=== PATIENT | female | born 1945 ===

== ENCOUNTER 2020-07-25 08:51 | Outpatient (REF) | payer MEDICARE, SELFPAY ==
--- NOTE | 2020-07-25 08:58 | MR_ITS ---
MR THORACIC SPINE WITHOUT CONTRAST CLINICAL INFORMATION: Low back pain. Fatigue. COMPARISON: None available. TECHNIQUE: MRI of the thoracic spine was obtained using routine sequences without contrast. FINDINGS: There are 12 rib bearing thoracic type vertebral bodies with hypoplastic ribs arising from the lowermost thoracic type segment. There is a midthoracic kyphosis. There are large multilevel endplate osteophytes. The vertebral body heights are maintained. There is mild to moderate disc volume loss at the upper to midthoracic levels. There are mild Modic type I endplate signal at T4-T5. Accounting for artifact there is no definite cord signal abnormality. There is a left renal cyst. There are small paracentral disc protrusions at T1-T2, T2-T3, T3-T4, T4-T5, T5-T6, T8-T9, T9-T10, and T10-T11 mildly indents the ventral thecal sac at these levels without resulting in significant central canal stenosis. Disc osteophyte and facet arthropathy result in severe right-sided foraminal stenosis at T10-T11. IMPRESSION: Multilevel thoracic spondylosis and midthoracic kyphosis. There are large multilevel anterior and plate osteophytes throughout the thoracic spine. Disc osteophyte and facet arthropathy result in severe right-sided foraminal stenosis at T10-T11. No severe central canal stenosis within the thoracic spine. No thoracic cord compression. No definite cord signal abnormalities appreciated though assessment is limited by the degree of artifact.
== END 2020-07-25 08:52 | disposition home or self-care (01) ==
LOC: HO.MRI 08:51
PROVIDERS: Visit Provider Nurse Practitioner Primary Care
DX: M54.6 Pain in thoracic spine (principal); M54.5 Low back pain; R53.83 Other fatigue; Z86.12 Personal history of poliomyelitis
CPT/HCPCS: 72146

== ENCOUNTER 2020-09-09 10:43 | Outpatient (RCR) | payer MEDICARE, SELFPAY | END 2020-09-15 16:22 | disposition other institution (70) | LOC: HO.PT 10:43 | PROVIDERS: PCP Nurse Practitioner Primary Care; Visit Provider Nurse Practitioner Primary Care | DX: R42 Dizziness and giddiness (principal) | CPT/HCPCS: 97162 ==

== ENCOUNTER → 2020-11-05 12:44 | Outpatient (REF) | payer MEDICARE, SELFPAY ==
--- NOTE | 2020-11-05 13:00 | CA_ITS ---
Transthoracic Echocardiogram Patient (Last, First, Middle): Nia Back, Gender: Female Date of : 1945 Age: 75 Procedure Date: 11/05/2020 Procedure Type: Transthoracic Echocardiogram Location: OP Height: 160.02 cm Weight: 68.04 kg BSA: 1.71 m2 Heart Rate: bpm BP: 140 / 90 mmHg Hand Icer: NAHUN Referring MD: Eileen Hampton NP Academic Computing Director: Ascencion Arnold MD Symptoms: R55 SYNCOPE COLLAPSE, I10 HTN Study Quality: Good ECG Rhythm: Sinus Conclusions: - 1. Normal LV systolic function with grade 1 diastolic dysfunction 2. Normal cardiac valvular Dopplers 3. Normal RV systolic pressure 4. No pericardial effusion Findings Left Ventricle Normal left ventricular size, thickness, and systolic function. The visually estimated ejection fraction is between 60-65%. Spectral Doppler is indicative of an impaired relaxation filling pattern. E/E prime ratio is <8, consistent with normal filling pressures. Evidence suggests grade I (mild) diastolic dysfunction. Right Ventricle Normal right ventricular cavity size and systolic function. Atria Both atria are normal in size. Interatrial shunt cannot be excluded. Aortic Valve The aortic valve structure and function is likely normal. There is no aortic valve stenosis. There is no aortic valve regurgitation. Mitral Valve Normal mitral valve structure and function. There is trace mitral valve regurgitation. There is no mitral valve stenosis. Pulmonic Valve The pulmonic valve was not well visualized. Tricuspid Valve Likely normal tricuspid valve structure and function. There is trace tricuspid valve regurgitation. The right ventricular systolic pressure is normal. The right ventricular systolic pressure is 23 mmHg. Normal right atrial pressure. There is no evidence of pulmonary hypertension. Great Vessels All visible segments of the aorta are normal in size. The pulmonary artery was not well visualized. Venous The inferior vena cava is normal in size and collapses greater than 50% with inspiration. Pericardium/Pleural There is no evidence of pericardial effusion. Prior Study Comparison No prior study available for comparison. Measurements 2D Linear Measurements IVSd: 0.86 0.6-0.9/0.6-1.0 cm LVIDd: 3.05 3.9-5.3/4.2-5.9 cm LVIDd Index: 1.78 2.4-3.2/2.2-3.1 cm/m2 LVIDs: 1.99 2.0-3.6 cm LVPWd: 0.88 0.7-1.1 cm Ao Root: 3.10 2.1-3.5 cm LA Diam: 2.40 2.7-3.8/3.0-4.0 cm LAIDs Index: 1.40 1.5-2.3 cm/m2 LV Mass: 84.93 67-162/88-224 g LV Mass Index: 49.67 43-95/49-115 g/m2 LVOT Diam: 2.00 3.0+(-)1.3 cm 2D Systolic Function EF 4C: 62.30 >55% EF 2C: 51.50 >55% EF BiP: 57.80 >55% Mitral Valve MV Pk E: 0.67 MV PK A: 0.69 MV Decel Time: 334.00 E/A: 1.00 E'Lateral: 7.72 E'Medial: 6.09 E/E' Med: 11.10 E/E' Lat: 8.70 PHT: 98.00 MVA PHT: 2.24 Decel [place]: 2.02 Aortic Valve AoV Pk [place]: 1.39 AoV Mn [place]: 0.96 AoV VTI: 0.28 AoV Pk Grad: 8.00 Aov Mn Grad: 4.00 JATINDER Cont.VTI: 2.93 LVOT LVOT Pk [place]: 1.26 LVOT Mn [place]: 0.94 LVOT VTI: 0.26 LVOT Pk Grad: 6.00 LVOT Mn Grad: 4.00 LVOT Diam: 2.00 LVOT Area: 3.14 Diastolic Function MV Pk E: 0.67 MV Pk A: 0.69 E/A: 1.00 E'Medial: 6.09 E/E' Med: 11.10 E' Laterial: 7.72 E/E' Lat: 8.70 Tricuspid Valve TR Pk [place]: 2.23 TR Pk Grad: 20.00 RA Press: 3.00 RVSP: 23.00 Great Vessels Aorta Ao Root-2D: 3.10 2.0-3.7 cm Ao Asc: 3.50 2.1-3.4 cm Ao Arch: 2.50 Updated in Other Vendor System with Status of Final Ascencion Arnold MD electronically signed on 11/06/2020 12:08:09 PM with status of Final
== END ==
LOC: HO.CARD 12:44
PROVIDERS: Visit Provider Nurse Practitioner Primary Care
DX: R55 Syncope and collapse (principal); I10 Essential (primary) hypertension
CPT/HCPCS: 93306

== ENCOUNTER 2021-01-28 10:57 | Outpatient (REF) | payer MEDICARE, SELFPAY ==
--- NOTE | ~2021-01-28 | XR_ITS ---
EXAMINATION: XR CHEST CLINICAL INFORMATION: ENCOUNTER FOR OTHER PREPROCEDURAL EXAMINATION COMPARISON: None. TECHNIQUE: PA and lateral views of the chest were obtained. FINDINGS: Pleural parenchymal scarring is evident at the left lung apex. An eventration is evident at the right hemidiaphragm. Lungs are otherwise clear. No consolidation, pneumothorax, or pleural effusion. Cardiac and mediastinal contours are normal. Pulmonary vasculature is unremarkable. Trachea is midline. Mild to moderate degenerative disc disease in the thoracic spine. No acute osseous findings. XR/XR chest 2V IMPRESSION: No acute parenchymal findings. Clear lungs.
[2021-01-28 12:05] LABS: MANUAL DIFF FLAG NO
[2021-01-28 12:13] LABS: Basophils Absolute Auto 0.1 X10*3/uL (0.0-0.2); Basophils Percent Auto 0.8 % (0-2); Eosinophils Absolute Auto 0.2 X10*3/uL (0.0-0.4); Eosinophils Percent Auto 2.6 % (0-4); Hematocrit 40.3 % (37-47); Imm Gran Abs Auto 0.05 X10*3/uL (0.00-0.03); Imm Gran Pct Auto 0.6 % (0.0-0.4); Lymphocytes Absolute Auto 1.8 X10*3/uL (1.2-4.9); Lymphocytes Percent Auto 20.6 % (20-40); Mean Corpuscular HGB Conc 32.3 g/dl (31.0-35.0); Mean Corpuscular Hemoglobin 29.1 pg (27.0-33.0); Mean Corpuscular Volume 90.2 fL (80-98); Mean Platelet Volume 9.9 fL (9.4-12.3); Monocytes Absolute Auto 0.7 X10*3/uL (0.1-1.2); Monocytes Percent Auto 8.3 % (2-11); Neutrophils Absolute Auto 5.9 X10*3/uL (2.0-8.3); Neutrophils Percent Auto 67.1 % (45-73); Platelet Count 333 X10*3/uL (160-400); Red Blood Count 4.47 X10*6/uL (4.20-5.50); Red Cell Distribution Width 13.4 % (11.0-16.0); White Blood Count 8.8 X10*3/uL (4.8-10.8)
[2021-01-28 12:32] LABS: INTERNATIONAL NORM RATIO 1.1 (0.9-1.1)
[2021-01-28 12:36] LABS: Alanine Aminotransferase 12 U/L (0-31); Albumin Level 4.3 g/dL (3.5-5.0); Alkaline Phosphatase 98 U/L (39-117); Anion Gap 16 (12-20); Aspartate Amino Transferase 16 U/L (5-31); Bilirubin Total 0.7 mg/dL (0.0-1.0); Blood Urea Nitrogen 16 mg/dL (9-16); Calcium 9.7 mg/dL (8.4-10.2); Carbon Dioxide 26 mmol/L (22-29); Chloride 103 mmol/L (96-108); Estimated Glomerular Filt Rate > 60; Glucose Random 87 mg/dL (60-115); Potassium 4.2 mmol/L (3.3-5.1); Sodium 141 mmol/L (135-145)
[2021-01-28 12:45] LABS: Estimated Average Glucose 100 mg/dL; Hemoglobin A1c % 5.1 %
== END 2021-01-28 10:58 | disposition home or self-care (01) ==
LOC: HO.LAB 10:57
PROVIDERS: PCP Internal Medicine; Visit Provider Internal Medicine
DX: Z01.818 Encounter for other preprocedural examination (principal)
CPT/HCPCS: 36415; 71046; 80053; 83036; 85025; 85610

== ENCOUNTER 2021-04-01 10:28 | Outpatient (REF) | payer MEDICARE, SELFPAY ==
--- NOTE | ~2021-04-01 | MM_ITS ---
EXAMINATION: BONE DENSITOMETRY CLINICAL INDICATION: Menopause. Osteopenia. COMPARISON: None (current study represents initial baseline exam). TECHNIQUE: Using a [employer] DXA System (software version: 13.1) manufactured by [employer], dual-energy x-ray absorptiometry was performed of the lumbar spine and left hip. The images are of good technical quality. Summary results are attached. FINDINGS: AP SPINE L3-L4 (excluding L1 and L2): The data of L1-L4 has been changed to exclude the L1 and L2 vertebral bodies, because degenerative changes at these levels may cause overestimation of lumbar spine density. BMD 0.992 g/cm2, Z-score 0.1, T-score -1.7, osteopenia. LEFT FEMUR, NECK: BMD 0.880 g/cm2, Z-score 0.8, T-score -1.1, osteopenia. LEFT FEMUR, TOTAL: BMD 0.859 g/cm2, Z-score 0.6, T-score -1.2, osteopenia. IDENTIFIED RISK FACTORS: Early menopause, bilateral oophorectomy, hysterectomy, recurrent falls. HISTORY OF FRACTURE: None listed. MEDICATIONS: Vitamin D. MM/XR DEXA axial skeleton IMPRESSION: 1. DIAGNOSIS: Osteopenia based on the lowest T-score value of -1.7 in the lumbar spine applying World Health Organization criteria. 2. 10-YEAR FRACTURE RISK PREDICTION, FRAX: Major osteoporotic fracture (clinical spine, forearm, hip or shoulder) 5.7%. Hip fracture 0.9%. 3. Treatment Recommendations: NOF guidelines recommend consideration for treatment in postmenopausal women and men age 50 and older presenting with the following: -A hip or vertebral (clinical or morphometric) fracture. -T-score less than or equal to -2.5 at the femoral neck or spine after appropriate evaluation to exclude secondary causes. -Low bone mass at the hip or spine and a 10-year fracture probability by FRAX of greater than or equal to 3% for hip fracture or greater than or equal to 20% for major osteoporotic fracture based on the [place] adapted WHO algorithm. 4. Other Recommendations: All treatment decisions require clinical judgment and consideration of individual patient factors, including patient preferences, comorbidities, previous drug use, risk factors not captured in the FRAX model (e.g. frailty, falls, vitamin D deficiency, increased bone turnover, interval significant decline in bone density) and possible under or overestimation of fracture risk by FRAX. Additional medical evaluation for secondary cause of low bone mineral density may be appropriate. FUTURE SCAN RECOMMENDATION: People with diagnosed cases of osteoporosis or at high risk for fracture should have regular bone mineral density tests. For patients eligible for Medicare, routine testing is allowed once every 2 years. The testing frequency can be increased to one year for patients who have rapidly progressing disease, those who are receiving or discontinuing medical therapy to restore bone mass, or have additional risk factors.
== END 2021-04-01 10:29 | disposition home or self-care (01) ==
LOC: HO.MAMMO 10:28
PROVIDERS: Visit Provider Internal Medicine
DX: Z13.820 Encounter for screening for osteoporosis (principal); M85.80 Other specified disorders of bone density and structure, unspecified site; M19.90 Unspecified osteoarthritis, unspecified site; Z78.0 Asymptomatic menopausal state; Z79.899 Other long term (current) drug therapy; Z98.890 Other specified postprocedural states
CPT/HCPCS: 77080

== ENCOUNTER 2021-05-07 09:55 | Outpatient (REF) | payer MEDICARE, SELFPAY ==
--- NOTE | ~2021-05-07 | US_ITS ---
EXAMINATION: US RETROPERITONEAL LIMITED (RENAL ONLY) CLINICAL INFORMATION: Cyst of kidney. COMPARISON: None TECHNIQUE: Real-time imaging of the kidneys. FINDINGS: RIGHT KIDNEY: 8.9 x 5.2 x 4.7 cm (SAG x AP x TRV). The kidney is normal in size, contour, and echogenicity. Renal cortical thickness is normal. No calculi or focal parenchymal lesions. No hydronephrosis. LEFT KIDNEY: 9.7 x 5.2 x 4.0 cm (SAG x AP x TRV). The kidney is normal in size, contour, and echogenicity. Renal cortical thickness is normal. No calculi or focal parenchymal lesions. No hydronephrosis. US/US renal BI IMPRESSION: Unremarkable renal ultrasound.
== END 2021-05-07 09:56 | disposition home or self-care (01) ==
LOC: HO.US 09:55
PROVIDERS: Visit Provider Internal Medicine
DX: N28.1 Cyst of kidney, acquired (principal)
CPT/HCPCS: 76775

== ENCOUNTER 2021-09-07 10:56 | Emergency (ER) | payer MEDICARE, SELFPAY ==
[2021-09-07] VITALS (8 sets, daily range): BP systolic 116–172; BP diastolic 52–70; PULSE 79–93; RESP 18; TEMP 36.3–36.8; O2SAT 96–97; BMI 24.7
--- NOTE | ~2021-09-07 | US_ITS ---
EXAMINATION: US VENOUS ULTRASOUND WITH DOPPLER LOWER EXTREMITY, BILATERAL CLINICAL INFORMATION: Pain and swelling COMPARISON: None TECHNIQUE: Ultrasound of the deep veins is performed from the hip to the calf with compression sonography and color and pulse Doppler assessment. Spectral analysis with color-flow imaging is performed. FINDINGS: RIGHT: There is normal venous compression and respiratory variation and augmented flow. The visualized common femoral vein, superficial femoral vein, profunda femoral vein, popliteal vein, and the trifurcation region shows no evidence of deep venous thrombosis. There is no significant popliteal fossa cyst. LEFT: There is normal venous compression and respiratory variation and augmented flow. The visualized common femoral vein, superficial femoral vein, profunda femoral vein, popliteal vein, and the trifurcation region shows no evidence of deep venous thrombosis. There is no significant popliteal fossa cyst. US/US venous duplex LE BI IMPRESSION: No DVT demonstrated in the bilateral lower extremity.
--- NOTE | ~2021-09-07 | XR_ITS ---
EXAMINATION: XR CHEST CLINICAL INFORMATION: Cough COMPARISON: Previous chest x-ray January 2021 TECHNIQUE: Frontal view of the chest was obtained. FINDINGS: The cardiac and mediastinal contours are stable. There is biapical pleural thickening. The lungs are otherwise clear. There is no pleural effusion or pneumothorax. There are degenerative changes of the spine. XR/XR chest 1V IMPRESSION: No evidence for acute disease in the chest.
[2021-09-07 13:25] LABS: MANUAL DIFF FLAG NO
[2021-09-07 13:27] LABS: Basophils Absolute Auto 0.1 X10*3/uL (0.0-0.2); Basophils Percent Auto 0.8 % (0-2); Eosinophils Absolute Auto 0.2 X10*3/uL (0.0-0.4); Eosinophils Percent Auto 1.8 % (0-4); Hematocrit 39.2 % (37.0-47.0); Hemoglobin 12.9 g/dl (12.0-16.0); Imm Gran Abs Auto 0.02 X10*3/uL (0.00-0.03); Imm Gran Pct Auto 0.2 % (0.0-0.4); Lymphocytes Absolute Auto 2.2 X10*3/uL (1.2-4.9); Lymphocytes Percent Auto 24.3 % (20-40); Mean Corpuscular HGB Conc 32.9 g/dl (31.0-35.0); Mean Corpuscular Hemoglobin 28.8 pg (27.0-33.0); Mean Corpuscular Volume 87.5 fL (80.0-98.0); Mean Platelet Volume 9.3 fL (9.4-12.3); Monocytes Absolute Auto 0.7 X10*3/uL (0.1-1.2); Monocytes Percent Auto 7.7 % (2-11); Neutrophils Percent Auto 65.2 % (45-73); Platelet Count 373 X10*3/uL (160-400); Red Blood Count 4.48 X10*6/uL (4.20-5.50); Red Cell Distribution Width 13.2 % (11.0-16.0); White Blood Count 9.1 X10*3/uL (4.8-10.8)
[2021-09-07 13:43] LABS: COVID-19 Test Negative (Negative)
[2021-09-07 13:43] LABS: Alanine Aminotransferase 22 U/L (0-31); Albumin Level 4.2 g/dL (3.5-5.0); Alkaline Phosphatase 107 U/L (39-117); Anion Gap 13 (12-20); Aspartate Amino Transferase 22 U/L (5-31); Bilirubin Total 0.4 mg/dL (0.0-1.0); Blood Urea Nitrogen 15 mg/dL (9-16); Calcium 9.5 mg/dL (8.4-10.2); Carbon Dioxide 27 mmol/L (22-29); Chloride 105 mmol/L (96-108); Creatinine Clr Calc Pharmacy 48.6; Estimated Glomerular Filt Rate > 60; Glucose Random 91 mg/dL (60-115); Potassium 3.8 mmol/L (3.3-5.1); Sodium 141 mmol/L (135-145)
--- NOTE | 2021-09-07 15:10 | ED_ITS ---
HPI - General Adult General Chief complaint: Upper Respiratory Symptoms Stated complaint: swollen legs, multiple complaints Time Seen by Provider: 09/07/21 15:08 Source: patient Mode of arrival: ambulatory History of Present Illness HPI narrative: 75-year-old female with a past medical history of arthritis, fibromyalgia, GERD, HTN, polio, presenting to the ED complaining of bilateral LE swelling, generalized fatigue, chest heaviness, mild SOB, cough, chills, myalgias/back pain, and intermittent lightheadedness/wooziness x1 week. Denies fever, vision change/loss, nausea/vomiting, abdominal pain Onset (ago): week(s) Severity: moderate Relieving factors: none Associated symptoms: cough, headaches, malaise and shortness of breath Treatments prior to arrival: none Related Data Home Medications Medication Instructions Recorded Confirmed albuterol sulfate 90 mcg/actuation 0 mcg INHALATION 03/24/21 aerosol inhaler amlodipine 5 mg tablet 5 mg PO DAILY 03/24/21 epinephrine 0.3 mg/0.3 mL IM DIRECTED 03/24/21 injection, auto-injector fluticasone propionate 110 1 puff INHALATION BID 03/24/21 mcg/actuation HFA aerosol inhaler melatonin 1 mg tablet 1 mg PO BEDTIME 03/24/21 omega-3 fatty acids-fish oil 340 1 cap PO TID 03/24/21 mg-1,000 mg capsule Previous Rx's Medication Instructions Recorded prednisone 10 mg tablet 10 mg PO DAILY 10 Days #45 tab 03/24/21 Allergies Allergy/AdvReac Type Severity Reaction Status Date / Time Iodinated Contrast Media Allergy Severe SEVERE Verified 09/07/21 11:45 [IV CONTRAST] ASTHMA ATTACK naproxen [From NAPROSYN] Allergy Severe SWELLING/RA Verified 09/07/21 11:45 SH/HIVES Watkins nut [BRAZIL NUT] Allergy Intermediate + ALLERGY Verified 09/07/21 11:45 TEST erythromycin base Allergy Intermediate VOMITING Verified 09/07/21 11:45 [ERYTHROMYCIN BASE] lisinopril [LISINOPRIL] Allergy Intermediate HIVES/RASH Verified 09/07/21 11:45 pseudoephedrine Allergy Intermediate HIVES Verified 09/07/21 11:45 [From SUDAFED] iodine Allergy Unknown Unknown Verified 09/07/21 11:45 Sulfa (Sulfonamide Allergy Unknown Unknown Verified 09/07/21 11:45 Antibiotics) Erythromycin Allergy Unknown Unknown Uncoded 09/07/21 11:45 Review of Systems Review of Systems: Constitutional: No Fever, No Chills, No Night Sweats, + Fatigue, No Malaise ENT/Mouth: No Ear Pain, No Nasal Congestion, No sore throat, No Rhinorrhea, No Swallowing Difficulty Eyes: No Eye Pain, No Swelling, No Redness, No Vision Changes Cardiovascular: + Chest Pain, + SOB, No Dyspnea on Exertion, No Orthopnea, + Ed kelly, No Palpitations Respiratory: + Cough, No Sputum, No Wheezing, No Dyspnea Gastrointestinal: No Nausea, No Vomiting, No Diarrhea, No Constipation, No Abdominal pain Genitourinary: No Dysuria, No Urinary Frequency, No Hematuria,No Urgency, No Flank Pain Musculoskeletal: No joint pain, No Myalgias, No Joint Swelling Skin: No Skin Lesions, No rash Neuro: + Weakness, No Numbness, No Paresthesias, No Loss of Consciousness, +Lightheadedness, + Headache Yes all other systems are reviewed and are negative Neurologic: Denies Abnormal speech present [facility] Past Medical History Attestation statement: The following information was validated with the patient. Medical History Arthritis Fibromyalgia GERD (gastroesophageal reflux disease) Hypertension Polio Surgical History H/O eye surgery Social History Social History Alcohol intake: never Patient Tobacco Use Status: Never used Tobacco Use of substances other than those prescribed or required for medical reasons: No Advance Directives: No Physical Exam 2 Vital Signs: Vital Signs: Last Vital Signs Temp 98.2 F 09/07/21 16:12 Pulse 93 09/07/21 17:39 Resp 18 09/07/21 16:12 BP 116/59 L 09/07/21 17:39 Pulse Ox 97 09/07/21 16:12 Body Mass Index 24.7 Const: General: cooperative, healthy appearing, no acute distress, alert and awake Orientation/consciousness: patient oriented x3 Limitations: no limitations HENMT: Head: Yes normal to inspection and Yes atraumatic Ears: hearing grossly normal bilaterally General nose exam: Normal external nose present Face and sinus: Yes normal facial exam Mouth: Normal oral and palatal mucosa present Throat: Yes posterior oropharynx normal, Yes tonsils normal and Yes uvula midline Eyes: General: appearance normal, both eyes and all related structures Pupils: Equal, round and reactive pupils present EOM: EOMs intact bilaterally Neck: Neck: Yes normal visual inspection and Yes no meningeal signs Resp: Effort & Inspection: normal respiratory effort Auscultation: clear to auscultation bilaterally, no rales, no rhonchi and no wheezes Cardio: Rate: regular rate Heart sounds: S1 normal heart sound present and S2 normal heart sound present GI: Inspection: Yes normal to inspection Palpation (GI): Soft to palpation, nontender, no guarding and not rigid : General: Yes no CVA tenderness Back/Spine/Pelvis: Back: no CVA tenderness Skin: Rashes: no rashes Wounds: no wounds Neuro: General: patient oriented x3, tone normal, moves all extremities, no meningeal signs, no focal motor deficits and CN's II-XI intact bilaterally Cranial nerves: Yes CN's II-XII intact bilaterally, Yes Equal, round and reactive pupils present and Yes Bilaterally intact EOM present Cognition (Neuro): normal cognition Speech: No Abnormal speech present Gait exam (Neuro): Normal gait present Motor exam (neuro): 5/5 motor strength present throughout, Pronator motor function not present and no tremor noted Coordination: [id number] test normal Extrem: Other: + bilateral LE pitting edema greater on the right. No calf tenderness Course Course Course Narrative: -1632--no leukocytosis. H&H stable. Initial troponin 44.6 > will obtain 3 hour repeat -BNP 34 -COVID-19 negative XR chest 1V IMPRESSION: No evidence for acute disease in the chest. US venous duplex LE BI IMPRESSION: No DVT demonstrated in the bilateral lower extremity. -1733--repeat troponin 38.2, no rise, NH unlikely - COVID-19/influenza/RSV negative -1800-- orthostatic vital signs positive. Will give patient a Liter of IVF & repeat. ED care transferred to [facility] Maria G pending repeat orthostatics and TSH with reflex T4 Medical Decision Making [facility] Narrative Medical decision making narrative: 75-year-old female with a past medical history of arthritis, fibromyalgia, GERD, HTN, polio, presenting to the ED complaining of bilateral LE swelling, generalized fatigue, chest heaviness, mild SOB, cough, chills, myalgias/back pain, and intermittent lightheadedne ss/wooziness x1 week.On exam vital signs stable, NAD/nontoxic appearing, no focal neuro deficits, lungs CTA, bilateral pitting edema noted greater on the right. Concern for viral syndrome/COVID-19 vs CHF vs ?DVT vs ACS. Symptoms atypical for PE, patient not tachycardic or hypoxic. Plan: EKG, labs, CXR, venous duplex ultrasound, re-evaluate Lab Data Result diagrams: 09/07/21 13:16 09/07/21 13:17 Labs: Lab Results 09/07/21 09/07/21 09/07/21 Range/Units 13:16 13:16 13:17 WBC 9.1 (4.8-10.8) X10*3/uL RBC 4.48 (4.20-5.50) X10*6/uL Hgb 12.9 (12.0-16.0) g/dl Hct 39.2 (37.0-47.0) % MCV 87.5 (80.0-98.0) fL MCH 28.8 (27.0-33.0) pg MCHC 32.9 (31.0-35.0) g/dl RDW 13.2 (11.0-16.0) % Plt Count 373 (160-400) X10*3/uL MPV 9.3 L (9.4-12.3) fL Immature Gran % (Auto) 0.2 (0.0-0.4) % Neut % (Auto) 65.2 (45-73) % Lymph % (Auto) 24.3 (20-40) % [place] % (Auto) 7.7 (2-11) % Eos % (Auto) 1.8 (0-4) % Baso % (Auto) 0.8 (0-2) % Lymph # (Auto) 2.2 (1.2-4.9) X10*3/uL [place] # (Auto) 0.7 (0.1-1.2) X10*3/uL Eos # (Auto) 0.2 (0.0-0.4) X10*3/uL Baso # (Auto) 0.1 (0.0-0.2) X10*3/uL Abs Immat Gran (auto) 0.02 (0.00-0.03) X10*3/uL Absolute Neuts (auto) 6.0 (2.0-8.3) x10*3/uL Absolute Nucleated RBC 0.000 (0.0-0.012) X10*3/uL Nucleated RBC % (auto) 0.0 (0.0-0.2) /100WBC Sodium 141 (135-145) mmol/L Potassium 3.8 (3.3-5.1) mmol/L Chloride 105 (96-108) mmol/L Carbon Dioxide 27 (22-29) mmol/L Anion Gap 13 (12-20) BUN 15 (9-16) mg/dL Creatinine 0.91 (0.5-1.4) mg/dL Estim Creat Clear Calc 48.6 Estimated GFR > 60 Random Glucose 91 (60-115) mg/dL Calcium 9.5 (8.4-10.2) mg/dL Magnesium 1.9 (1.6-2.6) mg/dL Total Bilirubin 0.4 (0.0-1.0) mg/dL AST 22 (5-31) U/L ALT 22 (0-31) U/L Alkaline Phosphatase 107 (39-117) U/L Troponin I High Sens (<3.5-17.0) ng/L B-Natriuretic Peptide (<100) pg/mL Total Protein 7.0 (6.5-8.0) g/dL Albumin 4.2 (3.5-5.0) g/dL COVID-19 (JANETT) Negative (Negative) COVID-19 Clin Com See Note Influenza Type A (PCR) (Negative) Influenza Type B (PCR) (Negative) RSV RNA Qual (PCR) (Negative) SARS-CoV-2 RNA (RT-PCR) (Negative) 09/07/21 09/07/21 09/07/21 Range/Units 13:17 16:24 17:00 WBC (4.8-10.8) X10*3/uL RBC (4.20-5.50) X10*6/uL Hgb (12.0-16.0) g/dl Hct (37.0-47.0) % MCV (80.0-98.0) fL MCH (27.0-33.0) pg MCHC (31.0-35.0) g/dl RDW (11.0-16.0) % Plt Count (160-400) X10*3/uL MPV (9.4-12.3) fL Immature Gran % (Auto) (0.0-0.4) % Neut % (Auto) (45-73) % Lymph % (Auto) (20-40) % [place] % (Auto) (2-11) % Eos % (Auto) (0-4) % Baso % (Auto) (0-2) % Lymph # (Auto) (1.2-4.9) X10*3/uL [place] # (Auto) (0.1-1.2) X10*3/uL Eos # (Auto) (0.0-0.4) X10*3/uL Baso # (Auto) (0.0-0.2) X10*3/uL Abs Immat Gran (auto) (0.00-0.03) X10*3/uL Absolute Neuts (auto) (2.0-8.3) x10*3/uL Absolute Nucleated RBC (0.0-0.012) X10*3/uL Nucleated RBC % (auto) (0.0-0.2) /100WBC Sodium (135-145) mmol/L Potassium (3.3-5.1) mmol/L Chloride (96-108) mmol/L Carbon Dioxide (22-29) mmol/L Anion Gap (12-20) BUN (9-16) mg/dL Creatinine (0.5-1.4) mg/dL Estim Creat Clear Calc Estimated GFR Random Glucose (60-115) mg/dL Calcium (8.4-10.2) mg/dL Magnesium (1.6-2.6) mg/dL Total Bilirubin (0.0-1.0) mg/dL AST (5-31) U/L ALT (0-31) U/L Alkaline Phosphatase (39-117) U/L Troponin I High Sens 44.6 H* 38.2 H* (<3.5-17.0) ng/L B-Natriuretic Peptide 34 (<100) pg/mL Total Protein (6.5-8.0) g/dL Albumin (3.5-5.0) g/dL COVID-19 (JANETT) (Negative) COVID-19 Clin Com Influenza Type A (PCR) NEGATIVE (Negative) Influenza Type B (PCR) NEGATIVE (Negative) RSV RNA Qual (PCR) NEGATIVE (Negative) SARS-CoV-2 RNA (RT-PCR) NEGATIVE (Negative) ECG Data Attestation: I personally reviewed and interpreted this ECG as follows: Interpretation: EKG sinus rhythm with marked arrhythmia rate of 78. WA interval 122. QTC 446. No STEMI. Artifact present Discharge Plan Discharge Clinical Impression: Chest heaviness, Leg edema Instructions: Chest Pain (ED), Edema (ED) Additional Instructions: your blood work was reassuring today in the emergency department your chest x-ray and ultrasound were not unremarkable You tested negative for COVID-19 It is very important for you to follow-up with your primary care doctor If her symptoms persist or worsen you have constant worsening shortness breath, chest pain, lightheadedness/dizziness developed fever, or worsening swelling in her legs please return to the ED immediately Prescriptions: No Action amlodipine 5 mg tablet 5 mg PO DAILY RF: 0 epinephrine 0.3 mg/0.3 mL auto-injector IM DIRECTED RF: 0 Fish Oil 340-1,000 mg capsule 1 cap PO TID RF: 0 melatonin 1 mg tablet 1 mg PO BEDTIME RF: 0 Flovent HFA 110 mcg/actuation HFA aerosol inhaler 1 puff inhalation BID RF: 0 albuterol sulfate 90 mcg/actuation HFA aerosol inhaler 0 mcg inhalation RF: 0 prednisone 10 mg tablet 10 mg PO DAILY 10 Days Qty: 45 RF: 0 Referrals: ED Physician,Generic [Physician] - 2 days
[2021-09-07 15:29] LABS: Magnesium 1.9 mg/dL (1.6-2.6)
[2021-09-07 15:43] LABS: B Type Natriuretic Peptide 34 pg/mL (<100); Troponin-I High Sensitivity 44.6 ng/L (<3.5-17.0)
--- NOTE | 2021-09-07 15:47 | ECG_ITS ---
Test Reason : UPPER RES Blood Pressure : / mmHG Vent. Rate : 078 BPM Atrial Rate : 078 BPM P-R Int : 122 ms QRS Dur : 080 ms QT Int : 392 ms P-R-T Axes : 067 013 058 degrees QTc Int : 446 ms Sinus rhythm with occasional Premature atrial complexes Otherwise normal ECG When compared with ECG of 30-JUL-2016 15:34, Premature atrial complexes are new Referred By: Alicia Alvarez Electronically Signed By:TAI RICHARDS MD
[2021-09-07 17:19] LABS: Influenza A PCR NEGATIVE (Negative); Influenza B PCR NEGATIVE (Negative); Resp Syncy Virus RNA Qual PCR NEGATIVE (Negative); SARS COV2 PCR INHOUSE NEGATIVE (Negative)
[2021-09-07 17:32] LABS: Troponin-I High Sensitivity 38.2 ng/L (<3.5-17.0)
[2021-09-07] MEDS: 0.9 % Sodium Chloride 1,000 ML 999 ML IVCONT (18:18)
[2021-09-07 18:49] LABS: TSH reflex Free T4 1.77 uIU/mL (0.32-4.0)
--- NOTE | 2021-09-07 19:12 | PC.NURSE ---
PT is requesting to go home at this time. This nurse to assess orthostatics and report results to provider.
== END 2021-09-07 19:48 | disposition home or self-care (01) ==
PROVIDERS: Physician Assistant; Emergency Provider Emergency Medicine; PCP Internal Medicine
DX: R07.89 Other chest pain (principal); R60.0 Localized edema; Z20.822 Contact with and (suspected) exposure to COVID-19; R53.83 Other fatigue; R06.02 Shortness of breath; I10 Essential (primary) hypertension
CPT/HCPCS: 0241U; 36415; 71045; 80053; 83735; 83880; 84443; 84484; 85025; 87635; 93005; 93970; 96360; 99284; 99285

== ENCOUNTER 2022-04-02 11:19 | Outpatient (REF) | payer OTHER, SELFPAY ==
--- NOTE | ~2022-04-02 | XR_ITS ---
EXAMINATION: XR ABDOMEN KUB CLINICAL INDICATION: Abdominal pain COMPARISON: None TECHNIQUE: AP view of the abdomen. FINDINGS: There is a paucity of bowel gas. There is a single distended loop of bowel in the left mid abdomen. There is stool throughout the colon. There is no evidence of free air. No calcifications are seen. There are degenerative changes of the spine. XR/XR KUB IMPRESSION: Nonspecific bowel gas pattern with single distended loop of small bowel in the left mid abdomen.
== END 2022-04-02 11:20 | disposition home or self-care (01) ==
LOC: HO.XRAY 11:19
PROVIDERS: Absent Provider Internal Medicine; PCP Internal Medicine; Visit Provider Student in an Organized Health Care Education/Training Program
DX: R10.9 Unspecified abdominal pain (principal)
CPT/HCPCS: 74018

== ENCOUNTER 2022-04-22 13:21 | Outpatient (REF) | payer OTHER, SELFPAY ==
--- NOTE | ~2022-04-22 | US_ITS ---
EXAMINATION: US RETROPERITONEAL LIMITED (RENAL ONLY) CLINICAL INFORMATION: Cyst of kidney/flank pain. COMPARISON: XR abdomen KUB 04/02/2022. US retroperitoneal limited (renal only) 05/07/2021. TECHNIQUE: Real-time imaging of the kidneys. FINDINGS: RIGHT KIDNEY: 8.7 x 3.8 x 5.1 cm (SAG x AP x TRV). The kidney is normal in size, contour, and echogenicity. Renal cortical thickness is normal. No calculi or focal parenchymal lesions. No hydronephrosis. LEFT KIDNEY: 10.1 x 5.4 x 5.4 cm (SAG x AP x TRV). The kidney is normal in size, contour, and echogenicity. Renal cortical thickness is normal. No renal calculi or hydronephrosis. At the interpolar aspect, a 2.3 x 1.7 x 1.2 cm mildly complex cyst is newly seen, with fine septation. This shows no mural nodularity or associated color Doppler flow. US/US renal BI IMPRESSION: There is interim appearance of a 2.3 cm in maximal diameter mildly complex left renal cyst, with fine septation. If relevant to patient management, this can be further evaluated with CT or MRI (renal mass protocol)..
== END 2022-04-22 13:22 | disposition home or self-care (01) ==
LOC: HO.US 13:21
PROVIDERS: Visit Provider Nurse Practitioner Primary Care
DX: Z13.89 Encounter for screening for other disorder (principal)
CPT/HCPCS: 76775

== ENCOUNTER 2024-09-04 11:17 | Emergency (ER) | payer OTHER, SELFPAY ==
[2024-09-04 11:34] VITALS: BP 180/69; PULSE 82; RESP 16; TEMP 36.6; O2SAT 97; BMI 28.3
--- NOTE | 2024-09-04 11:36 | ED.GENADULT ---
HPI - General Adult General Chief complaint: Abdominal Pain Stated complaint: High BP, abd pain Related Data Home Medications ?Medication ?Instructions ?Recorded ?Confirmed albuterol sulfate 90 mcg/actuation 0 mcg inhalation 03/24/21 aerosol inhaler amlodipine 5 mg tablet 5 mg PO DAILY 03/24/21 epinephrine 0.3 mg/0.3 mL IM DIRECTED 03/24/21 injection, auto-injector fluticasone propionate 110 1 puff inhalation BID 03/24/21 mcg/actuation HFA aerosol inhaler melatonin 1 mg tablet 1 mg PO BEDTIME 03/24/21 omega-3 fatty acids-fish oil 340 1 cap PO TID 03/24/21 mg-1,000 mg capsule Previous Rx's ?Medication ?Instructions ?Recorded prednisone 10 mg tablet 10 mg PO DAILY 10 days #45 tabs 03/24/21 Allergies Allergy/AdvReac Type Severity Reaction Status Date / Time Iodinated Contrast Media Allergy Severe SEVERE Verified 09/04/24 11:40 [IV CONTRAST] ASTHMA ATTACK naproxen [From NAPROSYN] Allergy Severe SWELLING/RA Verified 09/04/24 11:40 SH/HIVES [place] nut [BRAZIL NUT] Allergy Intermediate + ALLERGY Verified 09/04/24 11:40 TEST erythromycin base Allergy Intermediate VOMITING Verified 09/04/24 11:40 [ERYTHROMYCIN BASE] lisinopril [LISINOPRIL] Allergy Intermediate HIVES/RASH Verified 09/04/24 11:40 pseudoephedrine Allergy Intermediate HIVES Verified 09/04/24 11:40 [From SUDAFED] iodine Allergy Unknown Unknown Verified 09/04/24 11:40 Sulfa (Sulfonamide Allergy Unknown Unknown Verified 09/04/24 11:40 Antibiotics) Erythromycin Allergy Unknown Unknown Uncoded 09/04/24 11:40 FOR[facility]LY [facility] Past Medical History Medical History Arthritis Fibromyalgia GERD (gastroesophageal reflux disease) Hypertension Polio Surgical History H/O eye surgery Social History Social History Alcohol intake: never Patient Tobacco Use Status: Never used Tobacco Advance Directives: No Advance Directives Information Provided: No Physical Exam ED Vital Signs: BMI result Body Mass Index 28.3 Course Course Course Narrative: This is a rapid medical exam performed by Valentina Askew NP: Additional HPI, ROS, PE not included below will be deferred to primary provider. Patient is a 78-year-old female with history of HTN, GERD, polio, fibromyalgia, arthritis presenting with complaint of nausea, abdominal pain, dizziness, headache since yesterday. Also noted large bruise to left thigh. Plan: viral serology, labs Medical Decision Making Lab Data 09/04/24 12:21 09/04/24 12:21 Labs: Lab Results 09/04/24 Range/Units 12:21 WBC 7.8 (4.8-10.8) X10*3/uL RBC 4.67 (4.20-5.50) X10*6/uL Hgb 13.6 (12.0-16.0) g/dl Hct 40.6 (37.0-47.0) % MCV 86.9 (80.0-98.0) fL MCH 29.1 (27.0-33.0) pg MCHC 33.5 (31.0-35.0) g/dl RDW 13.3 (11.0-16.0) % Plt Count 297 (160-400) X10*3/uL MPV 9.3 L (9.4-12.3) fL Immature Gran % (Auto) 0.4 (0.0-0.4) % Neut % (Auto) 67.3 (45-73) % Lymph % (Auto) 22.7 (20-40) % Finney % (Auto) 6.7 (2-11) % Eos % (Auto) 2.1 (0-4) % Baso % (Auto) 0.8 (0-2) % Lymph # (Auto) 1.8 (1.2-4.9) X10*3/uL Finney # (Auto) 0.5 (0.1-1.2) X10*3/uL Eos # (Auto) 0.2 (0.0-0.4) X10*3/uL Baso # (Auto) 0.1 (0.0-0.2) X10*3/uL Abs Immat Gran (auto) 0.03 (0.00-0.03) X10*3/uL Absolute Neuts (auto) 5.2 (2.0-8.3) x10*3/uL Absolute Nucleated RBC 0.000 (0.0-0.012) X10*3/uL Nucleated RBC % (auto) 0.0 (0.0-0.2) /100WBC Smear Tech's Comments VERIFIED PT 11.1 (10.9-12.4) SEC INR 1.0 (0.9-1.1) Sodium 139 (135-145) mmol/L Potassium 4.4 (3.3-5.1) mmol/L Chloride 103 (96-108) mmol/L Carbon Dioxide 28 (22-29) mmol/L Anion Gap 12 (12-20) BUN 12 (9-16) mg/dL Creatinine 0.72 (0.5-1.4) mg/dL Estim Creat Clear Calc 64.8 Estimated GFR > 60 Random Glucose 92 (60-115) mg/dL Calcium 9.6 (8.4-10.2) mg/dL Magnesium 2.2 (1.6-2.6) mg/dL Total Bilirubin 0.5 (0.0-1.0) mg/dL AST 24 (5-31) U/L ALT 16 (0-31) U/L Alkaline Phosphatase 76 (39-117) U/L Total Protein 7.0 (6.5-8.0) g/dL Albumin 4.0 (3.5-5.0) g/dL Influenza Type A (PCR) NEGATIVE (Negative) Influenza Type B (PCR) NEGATIVE (Negative) RSV RNA Qual (PCR) NEGATIVE (Negative) SARS-CoV-2 RNA (RT-PCR) NEGATIVE (Negative) Discharge Plan Discharge Clinical Impression: Abdominal pain Patient Disposition: Left W/O Completing Treatment Prescriptions: No Action amlodipine 5 mg tablet 5 mg PO DAILY epinephrine 0.3 mg/0.3 mL auto-injector IM DIRECTED Fish Oil 340-1,000 mg capsule 1 cap PO TID melatonin 1 mg tablet 1 mg PO BEDTIME Flovent HFA 110 mcg/actuation HFA aerosol inhaler 1 puff inhalation BID albuterol sulfate 90 mcg/actuation HFA aerosol inhaler 0 mcg inhalation prednisone 10 mg tablet 10 mg PO DAILY 10 Days Qty: 45 0RF Rx Instructions: 60mg x 5 days 50mg x 1 day 40mg x 1 day 30mg x 1 day 20mg x 1 day 10mg x 1 day Discharge Date/Time: 09/04/24 20:26
[2024-09-04 12:36] LABS: Prothrombin Time 11.1 SEC (10.9-12.4)
[2024-09-04 12:38] LABS: Basophils Absolute Auto 0.1 X10*3/uL (0.0-0.2); Basophils Percent Auto 0.8 % (0-2); Eosinophils Absolute Auto 0.2 X10*3/uL (0.0-0.4); Eosinophils Percent Auto 2.1 % (0-4); Hematocrit 40.6 % (37.0-47.0); Hemoglobin 13.6 g/dl (12.0-16.0); Imm Gran Abs Auto 0.03 X10*3/uL (0.00-0.03); Imm Gran Pct Auto 0.4 % (0.0-0.4); Lymphocytes Absolute Auto 1.8 X10*3/uL (1.2-4.9); Lymphocytes Percent Auto 22.7 % (20-40); MANUAL DIFF FLAG SCAN; Mean Corpuscular HGB Conc 33.5 g/dl (31.0-35.0); Mean Corpuscular Hemoglobin 29.1 pg (27.0-33.0); Mean Corpuscular Volume 86.9 fL (80.0-98.0); Mean Platelet Volume 9.3 fL (9.4-12.3); Monocytes Absolute Auto 0.5 X10*3/uL (0.1-1.2); Monocytes Percent Auto 6.7 % (2-11); Neutrophils Absolute Auto 5.2 x10*3/uL (2.0-8.3); Neutrophils Percent Auto 67.3 % (45-73); PLT CLUMP 1; Red Blood Count 4.67 X10*6/uL (4.20-5.50); Red Cell Distribution Width 13.3 % (11.0-16.0); SCAN SMEAR FLAG 1
[2024-09-04 12:39] LABS: White Blood Count 7.8 X10*3/uL (4.8-10.8)
[2024-09-04 12:50] LABS: Alanine Aminotransferase 16 U/L (0-31); Alkaline Phosphatase 76 U/L (39-117); Anion Gap 12 (12-20); Aspartate Amino Transferase 24 U/L (5-31); Bilirubin Total 0.5 mg/dL (0.0-1.0); Blood Urea Nitrogen 12 mg/dL (9-16); Calcium 9.6 mg/dL (8.4-10.2); Carbon Dioxide 28 mmol/L (22-29); Chloride 103 mmol/L (96-108); Creatinine Clr Calc Pharmacy 64.8; Estimated Glomerular Filt Rate > 60; Glucose Random 92 mg/dL (60-115); Magnesium 2.2 mg/dL (1.6-2.6); Potassium 4.4 mmol/L (3.3-5.1); Sodium 139 mmol/L (135-145)
[2024-09-04 13:01] LABS: Platelet Count 297 X10*3/uL (160-400)
[2024-09-04 13:02] LABS: SLIDE REVIEW VERIFIED
[2024-09-04 13:10] LABS: Influenza A PCR NEGATIVE (Negative); Influenza B PCR NEGATIVE (Negative); Resp Syncy Virus RNA Qual PCR NEGATIVE (Negative); SARS COV2 PCR INHOUSE NEGATIVE (Negative)
[2024-09-04 16:12] VITALS: BP 174/58; PULSE 73; RESP 16; TEMP 37; O2SAT 96
--- OUTSIDE RECORDS SUMMARY | 2024-09-04 20:27 | XMS_ITS | Continuity of Care Document ---
Author Organization [facility] Address [address] [place] [address]- Care Team Providers Care Oil Separator Name Role Phone Berta TRADE ECONOMIST, Eileen Crowell Primary Care Physician Encounter [facility] Date(s): 06/09/20 - 07/09/20 [facility] [address] [place] [address]- [facility] Allergies, Adverse Reactions, Alerts Substance Reaction Severity Status naproxen hives Active erythromycin Active morphine Active lisinopril Rash Active sulfa drugs Active Contrast Dye 1 Difficulty breathing erythromycin Active Other Food Allergy 2 Active traMADol 3 Active 1says had difficulty breathing - Asthma - and was [place] after getting this dye in past. says doctors there - an outside hospital - told her never to use the dye 2Almonds 3BAD DREAM gi UPSET Immunizations Given and Recorded Vaccine Date Status Refusal Reason Influenza Virus Vaccine (oldterm) 07/11/19 Recorde d Influenza Virus Vaccine (oldterm) 07/05/19 Recorde d Influenza Virus Vaccine (oldterm) 1 08/23/08 Given Influenza Virus Vaccine (oldterm) 2 08/23/07 Given Influenza Virus Vaccine (oldterm) 3 09/07/06 Given influenza virus vaccine, inactivated 06/30/18 Give n influenza virus vaccine, inactivated 12/08/17 Give n influenza virus vaccine, inactivated 4 09/09/15 Gi gonsalo influenza virus vaccine, inactivated 5 06/26/12 Gi gonsalo Zoster Vaccine Live 01/13/17 Given pneumococcal 13-valent vaccine 11/03/15 Given tetanus/diphtheria/pertussis, acel(Tdap) 6 02/17/12 Given pneumococcal 23-valent vaccine 7 10/08/11 Given 1Admin Note: vis given 2Admin Note: VIS IN [place] 3Admin Note: VIS given 4Admin Note: per patient. via crane oiler office Claudia Cruz 5Admin Note: VIS 04/2012 6Admin Note: VIS 10/21 7Admin Note: vis given vis date 01/16 Medications albuterol 0.083% inhalation solution 3 mL = 2.5 mg, Inhalation, Every 6 hours, PRN for wheezing, # 100 each, 0 Refills, Maintenance, 12/08/18 9:51:04 EST, Solution Start Date: 12/08/18 Stop Date: 01/07/19 Status: Ordered Align 4 mg oral capsule 1 capsule = 4 mg, By Mouth, Daily, # 28 capsule, 0 Refills, Maintenance, 12/08/17 11:03:38, Capsule Start Date: 12/08/17 Status: Ordered Blood Pressure Monitor See Instructions, # 1 units, Refills 0, Tot. Refills 0, Maintenance, Blood Pressure Monitor for Dx:resistant HTN, DM, for titration of medications, 12/08/17 11:35:20, Compound Start Date: 12/08/17 Status: Ordered Breo Ellipta 100 mcg-25 mcg/inh inhalation powder 1 puffs, Inhalation, Daily, # 30 each, 0 Refills, Maintenance, 11/23/18 9:18:47 EST, Powder, 1 puffs Inhalation Daily Start Date: 11/23/18 Status: Ordered brimonidine 0.2% ophthalmic solution 1 drops, Eyes, Both, 2 times a day, # 10 mL, 0 Refills, Maintenance, 01/30/18 9:25:45 EDT, Solution Start Date: 01/30/18 Status: Ordered Compression Stockings See Instructions, # 1 pair, Refills 1, Tot. Refills 1, Maintenance, surgical,knee high length 20-30mm Hg [address], 01/26/18 12:09:13 EDT, Compound Start Date: 01/26/18 Status: Ordered dicyclomine 10 mg oral capsule TAKE 1 CAPSULE BY MOUTH THREE TIMES A DAY DIRECTED Start Date: 12/08/17 Status: Ordered latanoprost 0.005% ophthalmic solution 1 drops, Eyes, Both, Daily in PM, # 2.5 mL, 0 Refills, Maintenance, 01/30/18 9:25:34 EDT, Solution Start Date: 01/30/18 Status: Ordered Lidoderm 5% film 1 patch, Topically, Daily, remove patches after 12 hours, # 30 patch, 2 Refills, Maintenance, 10/16/18 16:41:30 EST, 1 patch Topically Daily,Instr:remove patches after 12 hours Start Date: 10/16/18 Status: Ordered loratadine 10 mg oral tablet 10 mg, 1, tablet, By Mouth, Daily, # 14 tablet, Refills 0, Tot. Refills 0, Maintenance, 04/19/19 10:28:38 EDT, Route to Pharmacy Electronically, [id number], [facility] #1972 Start Date: 04/19/19 Stop Date: 05/03/19 Status: Ordered losartan 50 mg oral tablet 0.5 tablet = 25 mg, By Mouth, Daily, for 90 days, do not full until pt requests, note dose change, # 45 tablet, 1 Refills, Physician Stop 09/27/20 10:33:00 EST, 03/31/20 10:33:00 EDT, [facility]/pharmacy #1972, 160, cm, 03/31/20 9:41:00 EDT, Height, 67.2, kg... Start Date: 03/31/20 Stop Date: 09/27/20 Status: Ordered measles/mumps/rubella virus vaccine - subcutaneous powder for injection 0.5 mL, Subcutaneous Infusion, Once, # 0.5 mL, 0 Refills, Soft Stop, 08/20/19 9:38:36 EST, 0.5 mL Subcutaneous Infusion Once Start Date: 08/20/19 Status: Ordered Melatonin 1 mg oral tablet See Instructions, TAKE 1 TABLET BY MOUTH EVERYDAY AT BEDTIME, # 90 tablet, 3 Refills, Acute, [id number], 160, cm, 09/03/19 12:02:00 EST, Height, 67.2, kg, 09/03/19 12:02:00 EST, Dry Weight Start Date: 10/31/19 Status: Ordered Myrbetriq 25 mg oral tablet, extended release 1 tablet = 25 mg, By Mouth, Daily, do not crush or chew, # 30 tablet, 0 Refills, Maintenance, 12/03/19 10:07:00 EST, ER Tablet Start Date: 12/03/19 Status: Ordered Nasacort Allergy 24HR 55 mcg/inh nasal spray 2 sprays, Daily, 0 Refills, Maintenance, 01/23/18 9:29:42 EDT Start Date: 01/23/18 Status: Ordered Chaffee 0.65% nasal spray 2 sprays, Nares, Both, 4 times a day, STOP prior script for fluticasone nasal spray. iin each nostril, # 1 each, 4 Refills, Maintenance, 04/28/17 13:14:11, 2 sprays Nares, Both 4 times a day,x7 days,Instr:STOP prior script for fluticasone nasal spray.... Start Date: 04/28/17 Stop Date: 06/02/17 Status: Ordered predniSONE 10 mg oral tablet See Instructions, 4 tabs daily X 3 days 3 tabs daily X 2 days 2 tabs daily X 2 days 1 tab daily x 2days with food, # 24 tablet, 0 Refills, Maintenance, 12/20/19 15:43:00 EDT, [facility]/pharmacy #1972, to replace 30 tab script, 160, cm, 12/20/19 15:07:0... Start Date: 12/20/19 Status: Ordered PriLOSEC OTC 20 mg oral delayed release tablet 1 tablet = 20 mg, By Mouth, Daily, # 30 tablet, 5 Refills, Maintenance, 12/02/16 13:49:33 Start Date: 12/02/16 Stop Date: 05/31/17 Status: Ordered ProAir HFA 90 mcg/inh inhalation aerosol with adapter 1, puffs, Inhalation, Every 4 hours, PRN, use with spacer chamber, # 8.5 Gm, Refills 5, Tot. Refills 5, Maintenance, 02/18/20 15:01:00 EDT, Aerosol, Route to Pharmacy Electronically, [id number], [facility]1972, 160, cm, 0... Start Date: 02/18/20 Status: Ordered simethicone 80 mg oral tablet, chewable 80 mg, 1, tablet, Chew, 3 times a day, # 90 tablet, Refills 1, Tot. Refills 1, Maintenance, 10/11/17 16:26:21, Route to Pharmacy Electronically, [id number], [facility]/pharmacy #1972 Start Date: 10/11/17 Status: Ordered tiZANidine 2 mg oral tablet 2 mg, 1, tablet, By Mouth, Every 8 hours, PRN, # 30 tablet, Refills 2, Tot. Refills 2, Maintenance,as needed for muscle spasm, 04/19/19 10:28:15 EDT, Route to Pharmacy Electronically, [id number], [facility]/pharmacy #1972 Start Date: 04/19/19 Stop Date: 05/19/19 Status: Ordered Tylenol Extra Strength 500 mg oral tablet 2 tablet = 1,000 mg, By Mouth, 2 times a day, 0 Refills, Maintenance, 08/31/17 8:24:35 Start Date: 08/31/17 Status: Ordered Vitamin C 500 mg oral tablet 1 tablet = 500 mg, By Mouth, Daily, # 90 tablet, 3 Refills, Maintenance, 02/27/18 21:13:58 EDT, Tablet Start Date: 02/27/18 Stop Date: 02/22/19 Status: Ordered Vitamin D3 1000 intl units oral tablet 1 tablet = 1,000 International_Units, By Mouth, Daily, # 90 tablet, 11 Refills, Maintenance, 12/24/16 9:13:34, Tablet, never had kidney stones she states Start Date: 12/24/16 Stop Date: 12/09/19 Status: Ordered Zantac 150 oral tablet 1 tablet = 150 mg, By Mouth, 2 times a day, # 60 tablet, 2 Refills, Maintenance, 01/29/19 13:42:50 EDT, Tablet, to replace prilosec Start Date: 01/29/19 Status: Ordered Problem List Condition Effective Dates Status Health Status Inform ant Age-related cataract(Confirmed) 1 Active Allergic rhinitis(Confirmed) Active Asthma(Confirmed) 2004 Active Colonoscopy(Confirmed) 2, 3, 4 02/2008 Active Cyst of kidney(Confirmed) 5 Active Degenerative change(Confirmed) 6 Active Facet arthropathy, on [facility] from [facility](Confirmed) Active chronic Rotator cuff tear(Confirmed) Active Diverticulosis of colon(Confirmed) 7 02/2008 Active Glaucoma(Confirmed) 2005 Active Hearing loss(Confirmed) 8 Active Heartburn(Confirmed) 2004 Active Total knee replacement Right(Confirmed) Active Hyperlipidemia(Confirmed) Active Hypertension(Confirmed) 2004 Active Impaired Fasting Glucose(Confirmed) 12/2010 Active Irritable bowel disease(Confirmed) 9 Active Hematuria, microscopic - see n [facility], per their note: had cystometrogram and no-obstructive kidney stones on a CTY(Confirmed) Active Osteoarthritis of lumbar spine(Confirmed) 10 Active Overweight(Confirmed) Active *[id number] Care Partn er Karina Mcneal(Confirmed) Active POLIO(Confirmed) 11 1948 Active Post-polio syndrome(Confirmed) Active Sacroiliac pain(Confirmed) Active Scoliosis of lumbar spine(Co nfirmed) 12 Active Shoulder pain, left, inejcte d in 2015 and 2016(Confirmed) Active Sinusitis(Confirmed) 13 Active Trochanteric bursitis, left side injected -2015, -2016(Confirmed) Active Tubular adenoma(Confirmed) 2007 Active 1LEFT cataract surgery 07/28/11 2per 2013 report, next colonoscopy is due 2022 3per procedure report, repeat colonoscopy 5 yrs (2012) 4Tubular adenoma 5on 2011 US and [address] 6of lumbar spine on 11-20 x-ray 7per colonoscopy [facility] 8left side. ENT refered her for hearing aide [id number] GI note 10see x-ray - degenerative changes 11cites polio age 4, had right leg problems ever since she notes 12on x-ray 13sees ENT for this Social History Social History Type Response Smoking Status Former smoker; Other : Pt only smoked for from the age of 16 to 18; entered on: 01/03/14 Sex
--- OUTSIDE RECORDS SUMMARY | 2024-09-04 20:27 | XMS_ITS | Continuity of Care Document ---
Author Organization [facility] Address [address] [place] [address]- Care Team Providers Care Colored Leather Setter Name Role Phone Augustin CAMPOS, Miroslava Oro Primary Care Physician Encounter [facility] [place] Date(s): 05/29/24 - 06/28/24 [facility] [address] [place] [address]- Allergies, Adverse Reactions, Alerts Substance Reaction Severity Status naproxen hives Active erythromycin Active traMADol 1 Active morphine Active lisinopril Rash Active sulfa drugs Active quinolone antibiotics nausea Active Contrast Dye 2 Difficulty breathing erythromycin Active Other Food Allergy 3 Active 1BAD DREAM gi UPSET 2says had difficulty breathing - Asthma - and was [place] after getting this dye in past. says doctors there - an outside hospital - told her never to use the dye 3[place]monds Immunizations Given and Recorded Vaccine Date Status Refusal Reason influenza virus vaccine, inactivated 08/30/22 Rajeev rded influenza virus vaccine, inactivated 08/03/21 Rajeev rded influenza virus vaccine, inactivated 06/30/18 Give n influenza virus vaccine, inactivated 12/08/17 Give n influenza virus vaccine, inactivated 1 09/09/15 Gi gonsalo influenza virus vaccine, inactivated 2 06/26/12 Gi gonsalo pneumococcal 23-valent vaccine 05/27/22 Recorded pneumococcal 23-valent vaccine 3 10/08/11 Given tetanus/diphtheria/pertussis, acel(Tdap) 05/27/22 Recorded tetanus/diphtheria/pertussis, acel(Tdap) 4 02/17/12 Given SARS-CoV-2 mRNA ([id number]) vax 03/23/22 Recorded zoster vaccine, inactivated 11/20/21 Recorded zoster vaccine, inactivated 05/19/21 Recorded SARS-CoV-2 (COVID-19) mRNA BNT-162b2 vac 09/09/21 Recorded SARS-CoV-2 (COVID-19) Ad26 vaccine 01/05/21 Record ed Influenza Virus Vaccine (oldterm) 08/04/20 Recorde d Influenza Virus Vaccine (oldterm) 07/11/19 Recorde d Influenza Virus Vaccine (oldterm) 07/05/19 Recorde d Influenza Virus Vaccine (oldterm) 5 08/23/08 Given Influenza Virus Vaccine (oldterm) 6 08/23/07 Given Influenza Virus Vaccine (oldterm) 7 09/07/06 Given Zoster Vaccine Live 01/13/17 Given pneumococcal 13-valent vaccine 11/03/15 Given 1Admin Note: per patient. via auto phone installer office Claudia Cruz 2Admin Note: VIS 04/2012 3Admin Note: vis given vis date 01/16 4Admin Note: VIS 10/21 5Admin Note: vis given 6Admin Note: VIS IN [place] 7Admin Note: VIS given Medications albuterol 0.083% inhalation solution 3 mL = 2.5 mg, Inhalation, Every 6 hours, PRN for wheezing, # 100 each, 6 Refills, Maintenance, 09/06/23 11:39:00 EST, Solution, [facility]/pharmacy #[id number], 158.5, cm, 08/26/23 10:44:00 EST, Height Start Date: 09/06/23 Stop Date: 04/03/24 Status: Ordered cetirizine 10 mg oral tablet 1 tablet, By Mouth, Daily, PRN NEEDED FOR ALLERGY SYMPTOMS, # 90 tablet, 1 Refills, Maintenance,05/09/23 7:42:00 EDT, [id number], 158.5, cm, 02/22/23 10:56:00 EDT, Height Start Date: 05/09/23 Status: Ordered losartan 25 mg oral tablet TAKE 1 TABLET BY MOUTH EVERY DAY Start Date: 05/01/24 Status: Ordered losartan 50 mg oral tablet 50 mg, 1, tablet, By Mouth, Daily, replace 25mg, # 90 tablet, Refills 1, Tot. Refills 1, Maintenance, 05/01/24 13:41:00 EDT, Route to Pharmacy Electronically, [facility]/pharmacy #[id number], Partial fill upon patient request if the prescription is for a schedule... Start Date: 05/01/24 Status: Ordered prednisolone ophthalmic acetate 1% suspension 0 Refills, Maintenance, 12/28/22 10:29:00 EDT, Partial fill upon patient request if the prescription is for a schedule II opioid drug. Start Date: 12/28/22 Status: Ordered ProAir HFA 90 mcg/inh inhalation aerosol with adapter 1, puffs, Inhalation, Every 4 hours, PRN, use with spacer chamber, # 8.5 Gm, Refills 5, Tot. Refills 5, Maintenance, 02/18/20 15:01:00 EDT, Aerosol, Route to Pharmacy Electronically, [id number], [facility]/pharmacy #1972, 160, cm, 0... Start Date: 02/18/20 Status: Ordered ROLLATOR WALKER ROLLATOR WALKER, See Instructions, # 1 each, Refills 0, Tot. Refills 0, Maintenance, M51.36 M47.816, 06/18/24 15:57:00 EDT, Supply Start Date: 06/18/24 Status: Ordered spironolactone 25 mg oral tablet 25 mg, 1, tablet, By Mouth, Daily, # 14 tablet, Refills 0, Tot. Refills 0, Maintenance, 06/15/24 15:03:00 EDT, Route to Pharmacy Electronically, [facility]/pharmacy #[id number], Partial fill upon patient request if the prescription is for a schedule II opioid drug... Start Date: 06/15/24 Stop Date: 06/29/24 Status: Ordered Symbicort 80mcg/4.5mcg Inhaler 2, puffs, Inhalation, 2 times a day, Refills 0, Maintenance, 09/29/22 10:58:00 EST Start Date: 09/29/22 Status: Ordered Timolol Maleate (Eqv-Timoptic) 0.5% ophthalmic solution 0 Refills, Maintenance, 12/28/22 10:32:00 EDT, Partial fill upon patient request if the prescription is for a schedule II opioid drug. Start Date: 12/28/22 Status: Ordered tiZANidine 2 mg oral tablet 2 mg, 1, tablet, By Mouth, Every 8 hours, PRN, not to exceed 3 doses/day, # 90 tablet, Refills 6, Tot. Refills 6, Maintenance, as needed for muscle spasm, 04/27/24 10:57:00 EDT, Route to Pharmacy Electronically, [facility]/pharmacy #[id number], Partial fill upon p... Start Date: 04/27/24 Status: Ordered Vitamin D3 1000 intl units oral tablet 1 tablet = 1,000 International_Units, By Mouth, Daily, # 90 tablet, 11 Refills, Maintenance, 09/29/22 11:25:00 EST, Tablet, [facility]/pharmacy #[id number], never had kidney stones she states, 158.5, cm, 09/29/2211:23:00 EST, Height Start Date: 09/29/22 Stop Date: 09/13/25 Status: Ordered WALKER WALKER, See Instructions, # 1 each, Refills 0, Tot. Refills 0, Maintenance, M47.816, 05/24/24 12:33:00 EDT, Supply, 158.5, cm, 05/01/24 12:47:00 EDT, Height Start Date: 05/24/24 Status: Ordered Xolair Prefilled Syringe 150 mg/mL subcutaneous solution = 150 mg, 0 Refills, Maintenance, 05/01/24 13:32:00 EDT, Partial fill upon patient request if the prescription is for a schedule II opioid drug. Start Date: 05/01/24 Status: Ordered Problem List Condition Confirmation Course Effective Dates Status H ealth Status Informant Age-related cataract 1 Confirmed Active Benign paroxysmal positional vertigo, bilateral Confirmed Active Asthma Confirmed 2004 Active Cyst of kidney 2 Confirmed Active Facet arthropathy, on CT from [facility] Confirmed Active Diverticulitis Confirmed Active Diverticulosis of colon 3 Confirmed 02/2008 Active Other fatigue Confirmed Active Glaucoma Confirmed 2004 Active Hearing loss 4 Confirmed Active Heartburn Confirmed 2004 Active Total knee replacement Right Confirmed Active Hyperlipidemia Confirmed Active Hypertension Confirmed 2004 Active Impaired Fasting Glucose Confirmed 12/2010 Active Irritable bowel disease 5 Confirmed Active Hematuria, microscopic - seen [facility], per their note: had cystometrogram and no-obstructive kidney stones on a CTY Confirmed Active Myofascial pain syndrome, cervical Confirmed Active Neck pain Confirmed Active ALISON on CPAP Confirmed Active Osteoarthritis of left shoulder Confirmed Active Osteoarthritis of lumbar spine 6 Confirmed Active Medicare annual wellness visit, subsequent Confirmed Active POLIO 7 Confirmed 1948 Active Postnasal drip Confirmed Active Sacroiliac joint dysfunction of left side Confirmed Active Scoliosis of lumbar spine 8 Confirmed Active Shoulder pain, left, inejcted in 2016 and 2017 Confirmed Active Tension headache Confirmed Active Trochanteric bursitis, left side injected 6-2015, 1-2016 Confirmed Active Tubular adenoma Confirmed 2008 Active 1LEFT cataract surgery 07/28/11 2on 2011 and [address] 3per colonoscopy [facility] 4left side. ENT refered her for hearing aide [id number] GI note 6see x-ray - degenerative changes 7cites polio age 4, had right leg problems ever since she notes 8on x-ray Social History Social History Type Response Smoking Status Former smoker; Other : Pt only smoked for from the age of 16 to 18; entered on: 01/03/14 Sex Patient Care team information Care Team Personnel Name: Vivian Meier Position: [facility] Outreach Member Role: Lifetime Consulting Physician Name: Augustin CAMPOS, Miroslava Oro Position: [facility] Physician - Primary Care Member Role: PCP Address: Address: [address] [place] [address]- Care Team Related Persons Name: SHAINA SPIVEY Address: [address] [place] [address] Name: DANIELLE ROBERSON Name: ANIYA SOLORZANO Name: JOEY SOLORZANO Address: [address] [place] [address] Name: PUSHPA CLAYTON
--- OUTSIDE RECORDS SUMMARY | 2024-09-04 20:27 | XMS_ITS | Continuity of Care Document ---
Author Organization [facility] Address [address] [place] [address]- Care Team Providers Care Engraver Hand Soft Metals Name Role Phone Augustin CAMPOS, Miroslava Oro Primary Care Physician [place] [facility] [place](s): 04/25/24 - 05/25/24 [facility] [address] [place] [address]- Allergies, Adverse Reactions, Alerts Substance Reaction Severity [...] tetanus/diphtheria/pertussis, acel(Tdap) 4 02/17/12 Given SARS-CoV-2 mRNA ([id number]-qmar-[id number]) vax 03/23/22 Recorded zoster vaccine, inactivated 11/20/21 [...] 11/03/15 Given 1Admin Note: per patient. via wheel truing machine tender office Claudia Cruz 2Admin Note: VIS 04/2012 3Admin Note: vis given vis date 01/16 4Admin Note: VIS 10/21 5Admin Note: vis given 6Admin Note: VIS IN [facility] [place] 7Admin Note: VIS given Medications albuterol 0.083% inhalation solution 3 mL = 2.5 mg, Inhalation, Every 6 hours, PRN for wheezing, # 100 each, 6 Refills, Maintenance, 09/06/23 11:39:00 EST, Solution, [facility]/pharmacy #[id number], 158.5, cm, 08/26/23 10:44:00 EST, Height Start Date: 09/06/23 Stop Date: 04/03/24 Status: Ordered cetirizine 10 mg oral tablet 1 tablet, By Mouth, Daily, PRN NEEDED FOR ALLERGY SYMPTOMS, # 90 tablet, 1 Refills, Maintenance,05/09/23 7:42:00 EDT, [id number], 158.5, cm, 02/22/23 10:56:00 EDT, Height Start Date: 05/09/23 Status: Ordered losartan 25 mg oral tablet TAKE 1 TABLET BY MOUTH EVERY DAY Start Date: 05/01/24 Status: Ordered losartan 50 mg oral tablet 50 mg, 1, tablet, By Mouth, Daily, replace 25mg, # 90 tablet, Refills 1, Tot. Refills 1, Maintenance, 05/01/24 13:41:00 EDT, Route to Pharmacy Electronically, [facility]/pharmacy #[id number], Partial fill upon patient request if the [...] 15:01:00 EDT, Aerosol, Route to Pharmacy Electronically, [id number], [facility]/pharmacy #1972, 160, cm, 0... Start Date: 02/18/20 Status: Ordered Symbicort 80mcg/4.5mcg Inhaler 2, puffs, [...] 04/27/24 10:57:00 EDT, Route to Pharmacy Electronically, [facility]/pharmacy #[id number], Partial fill upon p... Start Date: 04/27/24 Status: Ordered Vitamin D3 1000 intl units oral tablet 1 tablet = 1,000 International_Units, By Mouth, Daily, # 90 tablet, 11 Refills, Maintenance, 09/29/22 11:25:00 EST, Tablet, [facility]/pharmacy #1972, never had kidney stones she states, 158.5, cm, 09/29/2211:23:00 EST, Height Start Date: 09/29/22 Stop Date: 09/13/25 Status: Ordered TRICIA CLARKE, See Instructions, # 1 each, Refills 0, [...] Confirmed Active Facet arthropathy, on CT from [facility] Confirmed Active Diverticulitis Confirmed Active Diverticulosis [...] visit, subsequent Confirmed Active POLIO 7 Confirmed 194 Active Postnasal drip Confirmed Active 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 ENT refered her for hearing aide [id number] GI note 6see x-ray - degenerative changes 7cites polio age 4, had right leg problems ever since she notes 8on x-ray Social History Social History Type Response Smoking Status Former smoker; Other : Pt only smoked for from the age of 16 to 18; entered on: 01/03/14 Sex Patient Care team information Care Team Personnel Name: Vivian Meier Position: [facility] Outreach Member Role: Lifetime Consulting Physician Name: Miroslava Ruffin MD, V Position: [facility] Physician - Primary Care Member Role: PCP Address: Address: [address] [place] [address]- Care Team Related Persons Name: SHAINA SPIVEY Address: [address] [place] [address] Name: DANIELLE ROBERSON Name: ANIYA SOLORZANO Name: JOEY SOLORZANO Address: [address] [place] [address] Name: PUSHPA CLAYTON
--- OUTSIDE RECORDS SUMMARY | 2024-09-04 20:27 | XMS_ITS | Continuity of Care Document ---
Author Organization [facility] Address [address] [place] [address]- Care Team Providers Care Paleontological Helper Name Role Phone Augustin CAMPOS, Miroslava Oro Primary Care Physician [place] [facility] [place] 03/08/24 - 04/07/24 [facility] [address] [place] [address]- Allergies, Adverse Reactions, Alerts Substance Reaction Severity Status naproxen hives Active erythromycin Active morphine Active lisinopril Rash Active sulfa drugs Active quinolone antibiotics nausea Active Contrast Dye 1 Difficulty breathing erythromycin [...] tetanus/diphtheria/pertussis, acel(Tdap) 4 02/17/12 Given SARS-CoV-2 mRNA (rjcrfrb-hpgq-gisap) vax 03/23/22 Recorded zoster vaccine, inactivated 11/20/21 [...] 11/03/15 Given 1Admin Note: per patient. via master black belt office Claudia Cruz 2Admin Note: VIS 04/2012 3Admin Note: vis given vis date 01/16 4Admin Note: VIS 10/21 5Admin Note: vis given 6Admin Note: VIS IN [place] 7Admin Note: VIS given Medications albuterol 0.083% inhalation solution 3 mL = 2.5 mg, Inhalation, Every 6 hours, PRN for wheezing, # 100 each, 6 Refills, Maintenance, 09/06/23 11:39:00 EST, Solution, [facility]/pharmacy #[id number], 158.5, cm, 08/26/23 10:44:00 EST, Height Start Date: 09/06/23 Stop Date: 04/03/24 Status: Ordered cetirizine 10 mg oral tablet 1 tablet, By Mouth, Daily, PRN NEEDED FOR ALLERGY SYMPTOMS, # 90 tablet, 1 Refills, Maintenance,05/09/23 7:42:00 EDT, [facility], 158.5, cm, 02/22/23 10:56:00 EDT, Height Start Date: 05/09/23 Status: Ordered losartan 25 mg oral tablet 1 tablet = 25 mg, By Mouth, Daily, # 90 tablet, 3 Refills, Maintenance, 11/03/23 14:35:00 EST, Tablet, [facility]/pharmacy #[id number], Partial fill upon patient request if the prescription is for a schedule II opioid drug., 158.5, cm, 08/26/23 10:44:00 EST, Height Start Date: 11/03/23 Status: Ordered prednisolone ophthalmic acetate 1% suspension [...] 15:01:00 EDT, Aerosol, Route to Pharmacy Electronically, [id number], [facility]/pharmacy #1972, 160, cm, 0... Start Date: 02/18/20 Status: Ordered simethicone 80 mg oral tablet, chewable 80 mg, 1, tablet, Chew, 3 times a day after meals and bedtime, PRN, # 100 tablet, Refills 5, Tot. Refills 5, Maintenance, Gas, 12/15/23 8:51:00 EST, Route to Pharmacy Electronically, [facility]/pharmacy #[id number], Partial fill upon patient request if the prescri... Start Date: 12/15/23 Status: Ordered Symbicort 80mcg/4.5mcg Inhaler 2, puffs, Inhalation, 2 times a day, Refills 0, Maintenance, 09/29/22 10:58:00 EST Start Date: 09/29/22 Status: Ordered Timolol Maleate (Eqv-Timoptic) 0.5% ophthalmic solution 0 Refills, Maintenance, 12/28/22 10:32:00 EDT, Partial fill upon patient request if the prescription is for a schedule II opioid drug. Start Date: 12/28/22 Status: Ordered Tylenol Extra Strength 500 mg oral tablet 2 tablet = 1,000 mg, By Mouth, 2 times a day, 0 Refills, Maintenance, 08/31/17 8:24:35 Start Date: 08/31/17 Status: Ordered Vitamin D3 1000 intl units oral tablet 1 tablet = 1,000 International_Units, By Mouth, Daily, # 90 tablet, 11 Refills, Maintenance, 09/29/22 11:25:00 EST, Tablet, [facility]/pharmacy #1972, never had kidney stones she states, 158.5, cm, 09/29/2211:23:00 EST, Height Start Date: 09/29/22 Stop Date: 09/13/25 Status: Ordered Wheelchair Wheelchair, See Instructions, # 1 each, Refills 0, Tot. Refills 0, Maintenance, Wheelchair, 03/12/24 10:05:00 EDT, Supply, 158.5, cm, 12/02/23 15:36:00 EST, Height Start Date: 03/12/24 Status: Ordered Problem List Condition Confirmation Course Effective Dates Status H ealth Status Informant Age-related cataract 1 Confirmed Active Benign paroxysmal positional vertigo, bilateral Confirmed Active Asthma Confirmed 2004 Active Cyst of kidney 2 Confirmed Active Facet arthropathy, on CT from [facility] Confirmed Active Diverticulitis Confirmed Active Diverticulosis of [...] Active Myofascial pain syndrome, cervical Confirmed Active ALISON on CPAP Confirmed Active Osteoarthritis of left shoulder Confirmed Active Osteoarthritis of lumbar spine 6 Confirmed Active Medicare annual wellness visit, subsequent Confirmed Active POLIO 7 Confirmed 194 Active Postnasal drip Confirmed Active 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 ENT refered her for hearing aide [id number] GI note 6see x-ray - degenerative changes 7cites polio age 4, had right leg problems ever since she notes 8 x-ray Social History Social History Type Response Smoking Status Former smoker; Other : Pt only smoked for from the age of 16 to 18; entered on: 01/03/14 Sex Patient Care team information Care Team Personnel Name: Vivian Meier Position: [facility] Outreach Member Role: Lifetime Consulting Physician Name: Augustin CAMPOSMiroslava V Position: [facility] Physician - Primary Care Member Role: PCP Address: Address: [address] [place] [address] [place] Care Team Related Persons Name: SHAINA SPIVEY Address: [address] [place] [address] Name: DANIELLE ROBERSON Name: ANIYA SOLORZANO Name: JOEY SOLORZANO Address: [address] [place] [address] Name: PUSHPA CLAYTON
--- OUTSIDE RECORDS SUMMARY | 2024-09-04 20:27 | XMS_ITS | Continuity of Care Document ---
Author Organization [facility] Address [address] [place] [address]- Care Team Providers Care Tank Car Loader Name Role Phone Eileen Hampton NP Primary Care Physician [phone] Encounter [facility] Date(s): 04/14/21 - 05/14/21 [facility] [address] [place] [address]- Allergies, Adverse Reactions, Alerts Substance Reaction Severity [...] Status Refusal Reason Influenza Virus Vaccine (oldterm) 08/04/20 Recorde d [...] Note: vis given 2Admin Note: VIS IN [place] 3Admin Note: VIS given 4Admin Note: per patient. via web graphic designer office Claudia Cruz 5Admin Note: VIS 04/2012 [...] 11:03:38, Capsule Start Date: 12/08/17 Status: Ordered amLODIPine 10 mg oral tablet 10 mg, 1, tablet, By Mouth, Daily, # 30 tablet, Refills 0, Maintenance, 04/27/21 14:42:00 EDT, Partial fill upon patient request if the prescription is for a schedule II opioid drug. Start Date: 04/27/21 Status: Ordered Blood Pressure Monitor See Instructions, [...] 12 hours Start Date: 10/16/18 Status: Ordered measles/mumps/rubella virus vaccine - subcutaneous powder for injection 0.5 mL, Subcutaneous Infusion, Once, # 0.5 mL, 0 Refills, Soft Stop, 08/20/19 9:38:36 EST, 0.5 mL Subcutaneous Infusion Once Start Date: 08/20/19 Status: Ordered Melatonin 1 mg oral tablet See Instructions, TAKE 1 TABLET BY MOUTH EVERYDAY AT BEDTIME, # 90 tablet, 3 Refills, Acute, [id number], 160, cm, 09/03/19 12:02:00 EST, Height, 67.2, kg, 09/03/19 12:02:00 EST, Dry Weight Start Date: 10/31/19 Status: Ordered Nasacort Allergy 24HR 55 mcg/inh nasal spray 2 sprays, Daily, 0 Refills, Maintenance, 01/23/18 9:29:42 EDT Start Date: 01/23/18 Status: Ordered [place] 0.65% nasal spray 2 sprays, Nares, Both, [...] tablet, 0 Refills, Maintenance, 12/20/19 15:43:00 EDT, [facility]/pharmacy #[id number], to replace 30 tab script, 160, [...] 15:01:00 EDT, Aerosol, Route to Pharmacy Electronically, [id number], [facility]/pharmacy #1972, 160, cm, 0... Start Date: 02/18/20 Status: Ordered simethicone 80 mg oral tablet, chewable 80 mg, 1, tablet, Chew, 3 times a day, # 90 tablet, Refills 1, Tot. Refills 1, Maintenance, 10/11/17 16:26:21, Route to Pharmacy Electronically, [id number], [facility] Start Date: 10/11/17 Status: Ordered tiZANidine 2 mg oral tablet 2 mg, 1, tablet, By Mouth, Every 8 hours, PRN, # 30 tablet, Refills 2, Tot. Refills 2, Maintenance,as needed for muscle spasm, 04/19/19 10:28:15 EDT, Route to Pharmacy Electronically, [id number], [facility] Start Date: 04/19/19 Stop Date: 05/19/19 Status: Ordered Tylenol Extra Strength 500 mg oral tablet 2 tablet = 1,000 mg, By Mouth, 2 times a day, 0 Refills, Maintenance, 08/31/17 8:24:35 Start Date: 11/22/17 Status: Ordered Vitamin C 500 mg oral [...] Date: 12/24/16 Stop Date: 12/09/19 Status: Ordered Problem List Condition Effective Dates Status Health Status Inform ant Age-related cataract(Confirmed) 1 Active Allergic rhinitis(Confirmed) Active Asthma(Confirmed) 2004 Active Colonoscopy(Confirmed) 2, 3, 4 02/2008 Active Cyst of kidney(Confirmed) 5 Active Degenerative change(Confirmed) 6 Active Facet arthropathy, on CT from [facility](Confirmed) Active chronic Rotator cuff tear(Confirmed) Active Diverticulosis of colon(Confirmed) 7 02/2008 Active Glaucoma(Confirmed) 2004 Active Hearing loss(Confirmed) 8 Active Heartburn(Confirmed) 2004 Active Total knee replacement Right(Confirmed) Active Hyperlipidemia(Confirmed) Active Hypertension(Confirmed) 2004 Active Impaired Fasting Glucose(Confirmed) 12/2010 Active Irritable bowel disease(Confirmed) 9 Active Hematuria, microscopic - see n [facility], per their note: had cystometrogram and no-obstructive kidney stones on a CTY(Confirmed) Active Osteoarthritis of lumbar spine(Confirmed) 10 Active Overweight(Confirmed) Active *[id number] Care Partn er Karina Mcneal(Confirmed) Active POLIO(Confirmed) [...] and prior CT 6of lumbar spine on 2-11 x-ray 7per colonoscopy [facility] 8left side. ENT refered her for hearing aide [id number] GI note 10see x-ray - degenerative changes 11cites polio age 4, had right leg problems ever since she notes 12on x-ray 13sees ENT for this Social History Social History Type Response Smoking Status Former smoker; Other : Pt only smoked for from the age of 16 to 18; entered on: 01/03/14 Sex
--- OUTSIDE RECORDS SUMMARY | 2024-09-04 20:27 | XMS_ITS | Continuity of Care Document ---
Author Organization [facility] Address [address] [place] [address]- Care Team Providers Care Mechanical Integrity Engineer Name Role Phone Miroslava Ruffin MD, V Primary Care Physician Encounter [facility] [place] Date(s): 04/11/24 - 04/18/24 [facility] [address] [place] [address]- Encounter Diagnosis Neck pain(Discharge Diagnosis) - 04/11/24 Tension headache(Discharge Diagnosis) - 04/11/24 Hypertension(Discharge Diagnosis) - 04/11/24 Attending Physician: Augustin CAMPOS, Miroslava Oro Allergies, Adverse Reactions, Alerts Substance Reaction Severity Status naproxen hives Active traMADol 1 Active erythromycin Active morphine Active lisinopril Rash [...] tetanus/diphtheria/pertussis, acel(Tdap) 4 02/17/12 Given SARS-CoV-2 mRNA ([id number]-tskts) vax 03/23/22 Recorded zoster vaccine, inactivated 11/20/21 [...] 11/03/15 Given 1Admin Note: per patient. via changer fixer office Claudia Cruz 2Admin Note: VIS 04/2012 3Admin Note: vis given vis date 01/16 4Admin Note: VIS 10/21 5Admin Note: vis given 6Admin Note: VIS IN AMHARIC 7Admin Note: VIS given Medications albuterol 0.083% inhalation solution 3 mL = 2.5 mg, Inhalation, Every 6 hours, PRN for wheezing, # 100 each, 6 Refills, Maintenance, 09/06/23 11:39:00 EST, Solution, [facility]/pharmacy #[id number], 158.5, cm, 08/26/23 10:44:00 EST, Height Start Date: 09/06/23 Stop Date: 04/03/24 Status: Ordered cetirizine 10 mg oral tablet 1 tablet, By Mouth, Daily, PRN NEEDED FOR ALLERGY SYMPTOMS, # 90 tablet, 1 Refills, Maintenance,05/09/23 7:42:00 EDT, [id number], 158.5, cm, 02/22/23 10:56:00 EDT, Height Start Date: 05/09/23 Status: Ordered cyclobenzaprine 10 mg oral tablet 10 mg, 1, tablet, By Mouth, 3 times a day, PRN, for 7 days, # 21 tablet, Refills 1, Tot. Refills 1,Acute 04/27/24 7:58:00 EDT, Pain , Moderate, 04/13/24 7:58:00 EDT, Route to Pharmacy Electronically, [facility]/pharmacy #[id number], Partial fill upon patient requ... Start Date: 04/13/24 Stop Date: 04/27/24 Status: Ordered prednisolone ophthalmic acetate 1% suspension [...] 15:01:00 EDT, Aerosol, Route to Pharmacy Electronically, [id number], [facility]/pharmacy #[id number], 160, cm, 0... Start Date: 02/18/20 Status: Ordered Symbicort 80mcg/4.5mcg Inhaler 2, puffs, Inhalation, 2 times a day, Refills 0, Maintenance, 09/29/22 10:58:00 EST Start Date: 09/29/22 Status: Ordered Timolol Maleate (Eqv-Timoptic) 0.5% ophthalmic solution 0 Refills, Maintenance, 12/28/22 10:32:00 EDT, Partial fill upon patient request if the prescription is for a schedule II opioid drug. Start Date: 12/28/22 Status: Ordered Vitamin D3 1000 intl units oral tablet 1 tablet = 1,000 International_Units, By Mouth, Daily, # 90 tablet, 11 Refills, Maintenance, 09/29/22 11:25:00 EST, [id number], never had kidney stones she states, 158.5, cm, 09/29/2211:23:00 EST, Height Start Date: 09/29/22 Stop Date: 09/13/25 Status: Ordered Problem List Condition Confirmation Course [...] side. ENT refered her for hearing aide [id number] GI note 6see x-ray - degenerative changes 7cites polio age 4, had right leg problems ever since she notes 8on x-ray Diagnosis Diagnosis Type Effective Dates Health Status Clinical Service Informant Neck pain Discharge Diagnosis 04/11/24 Tension headache Discharge Diagnosis 04/11/24 Hypertension Discharge Diagnosis 04/11/24 Vital Signs Most recent to oldest [Reference Range]: 1 Height 158.5 cm (04/11/24 4:31 PM) Weight 64.7 kg (04/11/24 4:31 PM) Oxygen Saturation [94-100 %] 97 % (04/11/24 4:31 PM) Pulse Rate [55-90 bpm] 94 bpm *H* (04/11/24 4:31 PM) Body Mass Index [18.5-24.99 kg/m2] 25.75 kg/m2 *H* (04/11/24 4:31 PM) Blood Pressure [90-138/55-84 mm Hg] 138/ 63mm Hg (04/11/24 4:31 PM) Blood pressure sites Arm, left (04/11/24 4:31 PM) Weight Obtained Via Standing scale (04/11/24 4:31 PM) Social History Social History Type Response Smoking Status Former smoker; Other : Pt only smoked for from the age of 16 to 18; entered on: 01/03/14 Sex Note * Nevaeh Dee: PERFORM Event Display: Patient Education/Instruction Authored Date: Ambulatory Adult Visit Summary [facility] [address] [place] [address] Name: ALVINO SPIVEY : 1945?? Visit: 04/11/2024 16:14?? Ambulatory Visit Instructions ?? Your Care Team Primary Care Provider Miroslava Ruffin MD, V? This Visit Provider Miroslava Ruffin MD, V Your Diagnosis Neck pain Tension headache Hypertension Vitals Signs Pulse Rate:??94 bpm??High Height: 158.5 cm Systolic Blood Pressure: 138 mm Hg Weight: 64.7 kg Diastolic Blood Pressure: 63 mm Hg Body Mass Index:??25.75 kg/m2??High Oxygen Saturation: 97 % Body surface area: 1.69 What to do next Instructions From Your Provider Please call??[phone]??to make an appointment for physical therapy.?? Medications The list below reflects the information in our records and provided by you today along with any changes made during this visit. Please continue your medications until treatment is completed or stopped by your provider. If this is different from the information you have or there are other questions,please contact the prescribing provider. What How Much When Why Instructions Unchanged Acetaminophen (Tylenol Extra Strength 500 mg oral tablet) 2 tab(s) Oral Twice a day Unchanged Albuterol (albuterol 0.083% inhalation solution) 3 Milliliter Inhalation Every 6 hours as needed for for wheezing Duration: 30 Days Unchanged Albuterol (ProAir HFA 90 mcg/ inh inhalation aerosol with adapter) 1 puff(s) Inhalation Every 4 hours as needed for for wheezing use with spacer chamber ?? Unchanged Budesonide-Formoterol (Symbicort 80mcg/ 4.5mcg Inhaler) 2 puff(s) Inhalation Twice a day Unchanged Cetirizine (cetirizine 10 mg oral tablet) 1 tab(s) Oral Daily as needed for NEEDED FOR ALLERGY SYMPTOMS Unchanged Cholecalciferol (Vitamin D3 1000 intl units oral tablet) 1 tab(s) Oral Daily Duration: 90 Days Unchanged Durable Medical Equipment (Wheelchair) See instructions Wheelchair ?? Unchanged Losartan (losartan 25 mg oral tablet) 1 tab(s) Oral Daily HTN (hypertension) Unchanged PrednisoLONE Ophthalmic (prednisolone ophthalmic acetate 1% suspension) Unchanged Simethicone (simethicone 80 mg oral tablet, chewable) 1 tab(s) Chew 3 times a day after meals and bedtime as needed for Gas Unchanged Timolol Ophthalmic (Timolol Maleate (Eqv-Timoptic) 0.5% ophthalmic solution) Test Performed Below is a partial list of the tests performed during your Visit. You may have had other tests and procedures not included in this list. Please discuss all test results with your provider. POC HBA1C ([facility]) Lab Test Results Below is a partial list of the most recent Laboratory test results done during your Visit. You may have had other tests and procedures not included in this list. Please discuss all test results with your provider. Test Name Test Result Date/Time POC HBA1C ([facility]) 5.7 % 04/11/2024 16:26 EDT Point of Care Results POC HgA1C Results: 5.7 % (04/11/24) Medications and Immunizations Administered Medications Given During Visit No medications given during this visit.?? Allergies (NKA means No Known Allergies) Contrast Dye??(Difficulty breathing, erythromycin) Other Food Allergy erythromycin lisinopril??(Rash) morphine naproxen??(hives) quinolone antibiotics??(nausea) sulfa drugs traMADol Common Emergency Awareness Tips IS IT A STROKE? Act FAST and Check for these signs: FACE Does the face look uneven? ARM Does one arm drift down? SPEECH Does their speech sound strange? TIME Call at any sign of stroke ?? Heart Attack Signs Chest discomfort: Most heart attacks involve discomfort in the center of the chest and lasts more than a few minutes, or goes away and comes back. It can feel like uncomfortable pressure, squeezing, fullness or pain. Discomfort in upper body: Symptoms can include pain or discomfort in one or both arms, back, neck, jaw or stomach. Shortness of breath: With or without discomfort. Other signs: Breaking out in a cold sweat, nausea, or lightheaded. Remember, MINUTES DO MATTER. If you experience any of these heart attack warning signs, call to get immediate medical attention! ?? Smoking can increase your chances of developing chronic health problems and can cause harmful effects to other family members in your house. If you smoke, you are strongly encouraged to quit. Please call [facility] Link at [phone] or 8-659-923-[employer] (9258) or log in to [email or web address] for referrals to smoking cessation programs. ?? The National Suicide Prevention Hotline is available 02/05 if you or someone you know needs to find a reason to keep living. By calling 0-622-626-Relay (8048) you'll be connected to a skilled, trained counselor at a crisis center in your area. [facility] Portal You can view and manage your care through the patient portal or by using a health care lenore of your choosing. [employer] is a website that allows you to securely view your medical information including your hospital discharge summary, office visit summaries, medications and follow-up visits. You can also request appointments, renew medications, and request access to your medical information using a health care lenore of your choosing, or just ask a question. You can enroll at [email or web address] or register during your next office visit. [facility], in keeping with [facility] guidance, no longer requires face masks for staff, patientsor visitors in most situations. Similiar to time spent indoors at other locations, there is the chance that you were exposed to repiratory viruses during your time with us (such as flu or COVID-19). If you develop symptoms concerning for a viral respiratory infection, please seek testing (and treatment if indicated) from your medical provider or home test kit. ?? Disclaimer: The information provided is of a general nature and is intended to be used in conjunction with the recommendations and advice of your health care practitioner. Every effort has been made to ensure that the information provided is accurate and complete at the time it is provided to you however, as your needs change, or, as new information becomes available, different or additional instructions may be required. ?? If you have questions, please consult with your primary care provider or pharmacist, as appropriate. This information is not intended to serve as substitution for assessment and evaluation by a qualified health care provider. If you do not have a primary care provider, you may find a [facility] provider by calling [facility] Link at [phone]. Patient Care team information Care Team Personnel Name: Vivian Meier Position: [facility] Outreach Member Role: Lifetime Consulting Physician Name: Augustin CAMPOS, Miroslava Oro Position: [facility] Physician - Primary Care Member Role: PCP Address: Address: [address] [place] [address]- Care Team Related Persons Name: SHAINA SPIVEY Address: home [address] [place] [address] Name: DANIELLE ROBERSON Name: ANIYA SOLORZANO Name: JOEY SOLORZANO Address: [place] [address] Name: PUSHPA CLAYTON
--- OUTSIDE RECORDS SUMMARY | 2024-09-04 20:27 | XMS_ITS | Continuity of Care Document ---
Author Organization [facility] Address [address] [place] [address]- Care Team Providers Care Power Lineman Name Role Phone Augustin CAMPOS, Miroslava Oro Primary Care Physician Encounter [facility] Date(s): 02/23/23 - 03/25/23 [facility] [address] [place] [address]- Allergies, Adverse Reactions, Alerts Substance Reaction Severity Status naproxen hives Active sulfa drugs Active traMADol 1 Active erythromycin Active morphine Active lisinopril Rash Active Contrast Dye 2 Difficulty breathing erythromycin [...] tetanus/diphtheria/pertussis, acel(Tdap) 4 02/17/12 Given SARS-CoV-2 mRNA ([id number]) vax 03/23/22 Recorded zoster vaccine, inactivated 11/20/21 [...] 11/03/15 Given 1Admin Note: per patient. via us administrative law judge office Claudia Cruz 2Admin Note: VIS 04/2012 3Admin Note: vis given vis date 01/16 4Admin Note: VIS 10/21 5Admin Note: vis given 6Admin Note: VIS IN YORUBA 7Admin Note: VIS given Medications albuterol 0.083% [...] Capsule Start Date: 12/08/17 Status: Ordered amLODIPine 5 mg oral tablet 1 tablet, By Mouth, Daily, # 90 tablet, 1 Refills, Maintenance, 02/09/23 7:41:00 EDT, [id number], 158.5, cm, 01/21/23 12:49:00 EDT, Height Start Date: 02/09/23 Status: Ordered cetirizine 10 mg oral tablet 1 tablet, By Mouth, Daily, PRN NEEDED FOR ALLERGY SYMPTOMS, # 90 tablet, 1 Refills, Maintenance,01/03/23 12:04:00 EDT, [facility]/pharmacy #[id number], 158.5, cm, 12/28/22 10:19:00 EDT, Height Start Date: 01/03/23 Status: Ordered [facility] GAS RELF(SIMETH) 80 MG CHW [facility] GAS RELF(SIMETH) 80 MG CHW, 0 Refills, Maintenance, 12/28/22 10:32:00 EDT Start Date: 12/28/22 Status: Ordered dicyclomine 10 mg oral capsule TAKE 1 CAPSULE BY MOUTH THREE TIMES A DAY DIRECTED Start Date: 12/08/17 Status: Ordered doxycycline hyclate 100 mg oral tablet 0 Refills, Maintenance, 02/22/23 11:00:00 EDT, Partial fill upon patient request if the prescription is for a schedule II opioid drug. Start Date: 02/22/23 Status: Ordered EPINEPHrine 0.3 mg injectable solution 2 each, INJECT INTRAMUSCULARLY DIRECTED ON PACKAGE, 0 Refills, 07/12/22 10:14:00 EDT, Partial fill upon patient request if the prescription is for a schedule II opioid drug. Start Date: 07/12/22 Status: Ordered GaviLyte-G oral powder for reconstitution 0 Refills, Maintenance, 12/28/22 10:32:00 EDT, Partial fill upon patient request if the prescription is for a schedule II opioid drug. Start Date: 12/28/22 Status: Ordered Home Blood Pressure Monitor See Instructions, # 1 each, Maintenance, Check Blood pressure daily., 07/20/22 8:11:00 EDT, Supply,158.5, cm, 07/12/22 10:02:00 EDT, Height Start Date: 07/20/22 Status: Ordered Lidoderm 5% film 1 patch, Topically, Daily, remove patches after 12 hours, # 30 patch, 2 Refills, Maintenance, 10/16/18 16:41:30 EST, 1 patch Topically Daily,Instr:remove patches after 12 hours Start Date: 10/16/18 Status: Ordered losartan 50 mg oral tablet 1 tablet = 50 mg, By Mouth, 2 times a day, # 60 tablet, 5 Refills, Maintenance, 01/03/23 12:05:00 EDT, Tablet, [facility]/pharmacy #[id number], Partial fill upon patient request if the prescription is for a schedule II opioid drug., 158.5, cm, 12/28/22 10:19:00 ED... Start Date: 01/03/23 Status: Ordered Melatonin 1 mg oral tablet TAKE ONE TABLET BY MOUTH AT BEDTIME Start Date: 03/05/22 Status: Ordered [place] 0.65% nasal spray 2 sprays, Nares, Both, 4 times a day, STOP prior script for fluticasone nasal spray. iin each nostril, # 1 each, 4 Refills, Maintenance, 04/28/17 13:14:11, 2 sprays Nares, Both 4 times a day,x7 days,Instr:STOP prior script for fluticasone nasal spray.... Start Date: 04/28/17 Stop Date: 06/02/17 Status: Ordered pantoprazole 40 mg oral delayed release tablet 60 each, TAKE ONE TABLET TWICE DAILY, 0 Refills, 07/12/22 10:13:00 EDT Start Date: 07/12/22 Status: Ordered prednisolone ophthalmic acetate 1% suspension [...] 15:01:00 EDT, Aerosol, Route to Pharmacy Electronically, [id number], [facility]/pharmacy #[id number], 160, cm, 0... Start Date: 02/18/20 Status: Ordered Salonpas Topically, 3 times a day, 0 Refills, Maintenance, 07/06/22 15:15:00 EDT, Partial fill upon patient request if the prescription is for a schedule II opioid drug. Start Date: 07/06/22 Status: Ordered simethicone 80 mg oral tablet, chewable 80 mg, 1, tablet, Chew, 3 times a day, # 90 tablet, Refills 1, Tot. Refills 1, Maintenance, 09/29/22 11:25:00 EST, Route to Pharmacy Electronically, [facility]/pharmacy #[id number], 158.5, cm, 09/29/22 11:23:00 EST, Height Start Date: 09/29/22 Status: Ordered Symbicort 160mcg/4.5mcg Inhaler Refills 0, Maintenance, 12/28/22 10:30:00 EDT Start Date: 12/28/22 Status: Ordered Symbicort 80mcg/4.5mcg Inhaler 2, puffs, Inhalation, 2 times a day, Refills 0, Maintenance, 09/29/22 10:58:00 EST Start Date: 09/29/22 Status: Ordered Timolol Maleate (Eqv-Timoptic) 0.5% ophthalmic solution 0 Refills, Maintenance, 12/28/22 10:32:00 EDT, Partial fill upon patient request if the prescription is for a schedule II opioid drug. Start Date: 12/28/22 Status: Ordered Timolol Maleate (Eqv-Timoptic) 0.5% ophthalmic solution 0 Refills, Maintenance, 12/28/22 10:32:00 EDT, Partial fill upon patient request if the prescription is for a schedule II opioid drug. Start Date: 12/28/22 Status: Ordered Timolol Maleate (Eqv-Timoptic) 0.5% ophthalmic solution 0 Refills, Maintenance, 12/28/22 10:32:00 EDT, Partial fill upon patient request if the prescription is for a schedule II opioid drug. Start Date: 12/28/22 Status: Ordered Timolol Maleate (Eqv-Timoptic) 0.5% ophthalmic solution 0 Refills, Maintenance, 12/28/22 10:32:00 EDT, Partial fill upon patient request if the prescription is for a schedule II opioid drug. Start Date: 12/28/22 Status: Ordered Timolol Maleate (Eqv-Timoptic) 0.5% ophthalmic solution 0 Refills, Maintenance, 12/28/22 10:32:00 EDT, Partial fill upon patient request if the prescription is for a schedule II opioid drug. Start Date: 12/28/22 Status: Ordered tiZANidine 4 mg oral tablet 10 each, TAKE ONE TABLET BY MOUTH EVERY DAY NEEDED, Refills 0, 07/12/22 10:14:00 EDT, Partial fill upon patient request if the prescription is for a schedule II opioid drug. 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 ENT refered her for hearing aide [id number] GI note 6see x-ray - degenerative changes 7cites polio age 4, had right leg problems ever since she notes 8on x-ray Social History Social History Type Response Smoking Status Former smoker; Other : Pt only smoked for from the age of 16 to 18; entered on: 01/03/14 Sex Patient Care team information Care Team Personnel Name: Meier Vivian Position: [facility] Outreach Member Role: Lifetime Consulting Physician Name: Miroslava Ruffin MD, V Position: [facility] Physician - Primary Care Member Role: PCP Address: Address: [address] [place] [address]- [place] Care Team Related Persons Name: SHAINA SPIVEY Address: home [address] [place] [address] Name: DANIELLE ROBERSON Name: ANIYA SOLORZANO Name: JOEY SOLORZANO Address: home [address] [place] [address] Name: PUSHPA CLAYTON
--- OUTSIDE RECORDS SUMMARY | 2024-09-04 20:27 | XMS_ITS | Continuity of Care Document ---
Author Organization [facility] Address [address] [place] [address]- Care Team Providers Care Help Desk Administrator Name Role Phone Miroslava Ruffin MD, V Primary Care Physician [phone] [place] [facility] [place]): [place] 09/02/23 [facility] [address] [place] [address]- Encounter Diagnosis Hypertension(Discharge Diagnosis) - 08/26/23 Attending Physician: Miroslava Ruffin MD, V Allergies, Adverse Reactions, Alerts Substance Reaction Severity Status naproxen hives Active erythromycin Active morphine Active sulfa drugs Active quinolone antibiotics nausea Active traMADol 1 Active Other Food Allergy 2 Active lisinopril Rash Active Contrast Dye 3 Difficulty breathing erythromycin Active 1BAD DREAM gi UPSET 2Almonds 3says had difficulty breathing - Asthma - and was [place] after getting this dye in past. says doctors there - an outside hospital - told her never to use the dye Immunizations Given and Recorded Vaccine Date Status [...] tetanus/diphtheria/pertussis, acel(Tdap) 4 02/17/12 Given SARS-CoV-2 mRNA (bljexon-[id number]-fdqzu) vax 03/23/22 Recorded zoster vaccine, inactivated 11/20/21 [...] 11/03/15 Given 1Admin Note: per patient. via electrical project engineer office Claudia Cruz 2Admin Note: VIS 04/2012 3Admin Note: vis given vis date 01/16 4Admin Note: VIS 10/21 5Admin Note: vis given 6Admin Note: VIS IN TELUGU 7Admin Note: VIS given Medications albuterol 0.083% inhalation solution 3 mL = 2.5 mg, Inhalation, Every 6 hours, PRN for wheezing, # 100 each, 0 Refills, Maintenance, 12/08/18 9:51:04 EST, Solution Start Date: 12/08/18 Stop Date: 01/07/19 Status: Ordered cetirizine 10 mg oral tablet 1 tablet, By Mouth, Daily, PRN NEEDED FOR ALLERGY SYMPTOMS, # 90 tablet, 1 Refills, Maintenance,05/09/23 7:42:00 EDT, [facility], 158.5, cm, 02/22/23 10:56:00 EDT, Height Start Date: 05/09/23 Status: Ordered prednisolone ophthalmic acetate 1% suspension [...] 15:01:00 EDT, Aerosol, Route to Pharmacy Electronically, [id number], [facility]/pharmacy #1972, 160, cm, [...] Refills, Maintenance, 09/29/22 11:25:00 EST, Tablet, [facility]/pharmacy #1972, never had kidney stones she states, 158.5, cm, 09/29/2211:23:00 EST, Height Start Date: 09/29/22 Stop Date: 09/13/25 Status: Ordered Problem List Condition Confirmation Course Effective Dates Status H ealth Status Informant Age-related cataract 1 Confirmed Active Benign paroxysmal positional vertigo, bilateral Confirmed Active Asthma Confirmed 2004 Active Cyst of kidney 2 Confirmed Active Facet arthropathy, on CT from [facility] Confirmed Active Diverticulitis Confirmed Active Diverticulosis [...] visit, subsequent Confirmed Active POLIO 7 Confirmed 1949 Active Postnasal drip Confirmed Active 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 ENT refered her for hearing aide [id number] GI note 6see x-ray - degenerative changes 7cites polio age 4, had right leg problems ever since she notes 8on x-ray Diagnosis Diagnosis Type Effective Dates Health Status Cl inical Service Informant Hypertension Discharge Diagnosis 08/26/23 Vital Signs Most recent to oldest [Reference Range]: 1 Height 158.5 cm (08/26/23 10:44 AM) Weight 66.3 kg (08/26/23 10:44 AM) Oxygen Saturation [94-100 %] 97 % (08/26/23 10:44 AM) Pulse Rate [55-90 bpm] 88 bpm (08/26/23 10:44 AM) Body Mass Index [18.5-24.99 kg/m2] 26.39 kg/m2 *H* (08/26/23 10:44 AM) Blood Pressure [90-138/55-84 mm Hg] 133/ 68mm Hg (08/26/23 10:44 AM) Blood pressure sites Arm, left (08/26/23 10:44 AM) Weight Obtained Via Standing scale (08/26/23 10:44 AM) Social History Social History Type Response Smoking Status Former smoker; Other : Pt only smoked for from the age of 16 to 18; entered on: 01/03/14 Sex Patient Care team information Care Team Personnel Name: Vivian Meier Position: [facility] Outreach Member Role: Lifetime Consulting Physician Name: Miroslava Ruffin MD, V Position: [facility] Physician - Primary Care Member Role: PCP Address: Address: [address] [place] [address]- Care Team Related Persons Name: SHAINA SPIVEY Address: [address] [place] [address] Name: DANIELLE ROBERSON Name: ANIYA SOLORZANO Name: JOEY SOLORZANO Address: home [address] [place] [address] Name: PUSHPA CLAYTON
--- OUTSIDE RECORDS SUMMARY | 2024-09-04 20:27 | XMS_ITS | Continuity of Care Document ---
Author Organization [facility] Address [address] [place] [address]- Care Team Providers Care Motor Runner Name Role Phone Le Allen DO Primary Care Physician [place] [facility] [place] Date(s): 11/29/19 - 12/09/19 [facility] [address] [place] [address]- [facility] Attending Physician: Cindy Araiza Admitting Physician: Cindy Araiza Referring Physician: Cindy Araiza Allergies, Adverse Reactions, Alerts Substance Reaction Severity [...] Note: vis given 2Admin Note: VIS IN COMORAN 3Admin Note: VIS given 4Admin Note: per patient. via patient access specialist office Claudia Cruz 5Admin Note: VIS 04/2012 [...] EDT, Solution Start Date: 01/30/18 Status: Ordered clopidogrel 75 mg oral tablet 75 mg, 1, tablet, By Mouth, Daily, rx by Neurology, # 90 tablet, Refills 0, Maintenance, 08/20/19 9:40:55 EST Start Date: 08/20/19 Status: Ordered Compression Stockings See Instructions, # [...] 04/19/19 10:28:38 EDT, Route to Pharmacy Electronically, [id number], [facility]/pharmacy #1972 Start Date: 04/19/19 Stop Date: 05/03/19 Status: Ordered losartan 50 mg oral tablet 50 mg, 1, tablet, By Mouth, Daily, # 90 tablet, Refills 1, Tot. Refills 1, Maintenance, 08/20/19 17:24:20 EST, Route to Pharmacy Electronically, [id number], [facility]acy #[facility] Start Date: 08/20/19 Stop Date: 02/16/20 Status: Ordered measles/mumps/rubella virus vaccine - subcutaneous powder for injection 0.5 mL, Subcutaneous Infusion, Once, # 0.5 mL, 0 Refills, Soft Stop, 08/20/19 9:38:36 EST, 0.5 mL Subcutaneous Infusion Once Start Date: 08/20/19 Status: Ordered Melatonin 1 mg oral tablet See Instructions, TAKE 1 TABLET BY MOUTH EVERYDAY AT BEDTIME, # 90 tablet, 3 Refills, Acute, [facility], 160, cm, 09/03/19 12:02:00 EST, Height, 67.2, [...] 9:29:42 EDT Start Date: 01/23/18 Status: Ordered Rusk 0.65% nasal spray 2 sprays, Nares, Both, 4 times a day, STOP prior script for fluticasone nasal spray. iin each nostril, # 1 each, 4 Refills, Maintenance, 04/28/17 13:14:11, 2 sprays Nares, Both 4 times a day,x7 days,Instr:STOP prior script for fluticasone nasal spray.... Start Date: 04/28/17 Stop Date: 06/02/17 Status: Ordered PriLOSEC OTC 20 mg oral delayed release tablet 1 tablet = 20 mg, By Mouth, Daily, # 30 tablet, 5 Refills, Maintenance, 12/02/16 13:49:33 Start Date: 12/02/16 Stop Date: 05/31/17 Status: Ordered ProAir HFA 90 mcg/inh inhalation aerosol with adapter 1, puffs, Inhalation, Every 4 hours, PRN, use with spacer chamber, # 8.5 Gm, Refills 2, Tot. Refills 2, Maintenance, 06/07/19 16:55:41 EDT, Aerosol, Route to Pharmacy Electronically, [id number], [facility]/pharmacy #1972 Start Date: 06/07/19 Status: Ordered sertraline 25 mg oral tablet 1 tablet = 25 mg, By Mouth, Daily, rx by Neurology, # 90 tablet, 0 Refills, Maintenance, 08/20/19 9:41:00 EST, Tablet Start Date: 08/20/19 Status: Ordered simethicone 80 mg oral tablet, chewable 80 mg, 1, tablet, Chew, 3 times a day, # 90 tablet, Refills 1, Tot. Refills 1, Maintenance, 10/11/17 16:26:21, Route to Pharmacy Electronically, [id number], [facility]/pharmacy #1972 Start Date: 10/11/17 Status: Ordered tiZANidine 2 mg oral tablet 2 mg, 1, tablet, By Mouth, Every 8 hours, PRN, # 30 tablet, Refills 2, Tot. Refills 2, Maintenance,as needed for muscle spasm, 04/19/19 10:28:15 EDT, Route to Pharmacy Electronically, [id number], [facility]/pharmacy #1972 Start Date: 04/19/19 Stop Date: 05/19/19 [...] 6 Active Facet arthropathy, on [facility] from [facility](Confirmed) Active chronic Rotator cuff tear(Confirmed) Active [...] of lumbar spine(Confirmed) 10 Active Overweight(Confirmed) Active *[id number] Care Partn er Karina Mcneal(Confirmed) Active POLIO(Confirmed) 11 1948 Active Post-polio syndrome(Confirmed) Active Sacroiliac pain(Confirmed) Active Scoliosis of lumbar spine(Co nfirmed) 12 Active Shoulder pain, left, inejcte d in 2015 and 2016(Confirmed) Active Sinusitis(Confirmed) 13 Active Trochanteric bursitis, left side injected -2015, -2016(Confirmed) Active Tubular adenoma(Confirmed) 2007 Active 1LEFT cataract surgery 07/28/11 2per 2012 report, next colonoscopy is due 2022 3per procedure report, repeat colonoscopy 5 yrs (2012) 4Tubular adenoma 5on 2011 US and [address] 6of lumbar spine on 11-20 x-ray 7per colonoscopy [facility] 8left side. ENT refered her for hearing aide [id number] GI note 10see x-ray - degenerative changes 11cites polio age 4, had right leg problems ever since she notes 12on x-ray 13sees ENT for this Social History Social History Type Response Smoking Status Former smoker; Other : Pt only smoked for from the age of 16 to 18; entered on: 01/03/14 Sex
--- OUTSIDE RECORDS SUMMARY | 2024-09-04 20:27 | XMS_ITS | Continuity of Care Document ---
Author Organization [facility] Address [address] [place] [address]- Care Team Providers Care Geodetic Technician Name Role Phone Berta ELECTRICAL FITTER, Eileen Crowell Primary Care Physician [phone] Encounter [facility] Date(s): 03/12/21 - 04/11/21 [facility] [address] [place] [id number]- Allergies, Adverse Reactions, Alerts Substance Reaction Severity [...] Note: vis given 2Admin Note: VIS IN AFGHAN 3Admin Note: VIS given 4Admin Note: per patient. via sharemilker office Claudia Cruz 5Admin Note: VIS 04/2012 [...] 90 tablet, 3 Refills, Acute, [facility], 160, cm, 09/03/19 12:02:00 EST, Height, 67.2, kg, 09/03/19 12:02:00 EST, Dry Weight Start Date: 10/31/19 Status: Ordered Nasacort Allergy 24HR 55 mcg/inh nasal spray 2 sprays, Daily, 0 Refills, Maintenance, 01/23/18 9:29:42 EDT Start Date: 01/23/18 Status: Ordered Sumter 0.65% nasal spray 2 sprays, Nares, Both, [...] tablet, 0 Refills, Maintenance, 12/20/19 15:43:00 EDT, [facility]/pharmacy #1972, to replace 30 tab script, [...] 15:01:00 EDT, Aerosol, Route to Pharmacy Electronically, [id number], [facility]/pharmacy #1972, 160, cm, 0... Start Date: 02/18/20 Status: Ordered simethicone 80 mg oral tablet, chewable 80 mg, 1, tablet, Chew, 3 times a day, # 90 tablet, Refills 1, Tot. Refills 1, Maintenance, 10/11/17 16:26:21, Route to Pharmacy Electronically, [id number], [facility]/pharmacy #1972 Start Date: 10/11/17 Status: Ordered tiZANidine 2 mg oral tablet 2 mg, 1, tablet, By Mouth, Every 8 hours, PRN, # 30 tablet, Refills 2, Tot. Refills 2, Maintenance,as needed for muscle spasm, 04/19/19 10:28:15 EDT, Route to Pharmacy Electronically, [id number], [facility]/pharmacy #1972 Start Date: 04/19/19 Stop Date: 05/19/19 [...] 6 Active Facet arthropathy, on CT from [facility](Confirmed) Active chronic Rotator cuff tear(Confirmed) Active Diverticulosis [...] of lumbar spine(Confirmed) 10 Active Overweight(Confirmed) Active *[id number] Care Partn er Karina Mcneal(Confirmed) Active POLIO(Confirmed) [...] lumbar spine on 11-20 x-ray 7per colonoscopy [facility] 8left side. ENT refered her for hearing aide [id number] GI note 10see x-ray - degenerative changes 11cites polio age 4, had right leg problems ever since she notes 12on x-ray 13sees ENT for this Social History Social History Type Response Smoking Status Former smoker; Other : Pt only smoked for from the age of 16 to 18; entered on: 01/03/14 Sex
--- OUTSIDE RECORDS SUMMARY | 2024-09-04 20:27 | XMS_ITS | Continuity of Care Document ---
Author Organization [facility] Address [address] [place] [address]- Care Team Providers Care Assurance Senior Manager Insurance Name Role Phone Augustin CAMPOS, Miroslava Oro Primary Care Physician Encounter [facility] Date(s): 07/30/24 - 08/29/24 [facility] [address] [place] [address]- Encounter Type: Triage Allergies, Adverse Reactions, Alerts Substance Criticality Severity Reaction Reaction Severity Status naproxen hives Active erythromycin [...] Status Refusal Reason influenza virus vaccine, inactivated 09/30/23 Rajeev rded influenza virus vaccine, inactivated 08/30/22 Rajeev rded [...] tetanus/diphtheria/pertussis, acel(Tdap) 4 02/17/12 Given SARS-CoV-2 mRNA (ihapxtp-oacy-nsowm) vax 03/23/22 Recorded zoster vaccine, inactivated 11/20/21 [...] 11/03/15 Given 1Admin Note: per patient. via speech therapy teacher office Claudia Cruz 2Admin Note: VIS 04/2012 3Admin Note: vis given vis date 01/16 4Admin Note: VIS 10/21 5Admin Note: vis given 6Admin Note: VIS IN AFGHAN 7Admin Note: VIS given Medications albuterol 0.083% inhalation solution 3 mL = 2.5 mg, Inhalation, Every 6 hours, PRN for wheezing, # 100 each, 6 Refills, Maintenance, 09/06/23 11:39:00 AM EST, Solution, [id number], 158.5, cm, 08/26/23 10:44:00 EST, Height Start Date: 09/06/23 Stop Date: 04/03/24 Status: Ordered Quantity: 100.0 Unit: each Repeat number: 7 Aluminum walker with front wheels Aluminum walker with front wheels, See Instructions, # 1 each, Refills 0, Tot. 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, lumbar region cetirizine 10 mg oral tablet 1 tablet, By Mouth, Daily, PRN NEEDED FOR ALLERGY SYMPTOMS, # 90 tablet, 1 Refills, Maintenance,05/09/23 7:42:00 AM EDT, [facility], 158.5, cm, 02/22/23 10:56:00 EDT, Height Start Date: 05/09/23 Status: Ordered Quantity: 90.0 Unit: tablet Repeat number: 1 EpiPen 2-Moses 0.3 mg injectable kit = 0.3 mg, Intramuscular, Once, may repeat if necessary, # 2 each, 11 Refills, Soft Stop, 08/07/24 10:31:00 AM EDT, [facility]/pharmacy #[id number], Partial fill upon patient request if the prescription is for a schedule II opioid drug., 158.5, cm, 08/07/24 10:09:00 EDT, Height, 63.6, kg, 07/10/24 11:31:00 EDT, Dry Weight Start Date: 08/07/24 Status: Ordered Quantity: 2.0 Unit: each Repeat number: 12 losartan 25 mg oral tablet 25 mg, 1, tablet, By Mouth, Daily, # 90 tablet, Refills 3, Tot. Refills 3, Maintenance, 08/07/24 10:25:00 AM EDT, Route to Pharmacy Electronically, [facility]/pharmacy #[id number], Partial fill upon patient request if the prescription is for a schedule II opioid drug., 158.5, cm, 08/07/24 10:09:00 EDT, Height, 63.6, kg, 07/10/24 11:31:00 EDT, Dry Weight Start Date: 08/07/24 Status: Ordered Quantity: 90.0 Unit: tablet Repeat number: 4 Indication: Essential (primary) hypertension prednisolone ophthalmic acetate 1% suspension 0 Refills, Maintenance, 12/28/22 10:29:00 AM EDT, Partial fill upon patient request if the prescription is for a schedule II opioid drug. Start Date: 12/28/22 Status: Ordered Repeat number: 1 ProAir HFA 90 mcg/inh inhalation aerosol with adapter 1, puffs, Inhalation, Every 4 hours, PRN, use with spacer chamber, # 8.5 Gm, Refills 5, Tot. Refills 5, Maintenance, 02/18/20 3:01:00 PM EDT, Aerosol, Route to Pharmacy Electronically, [id number], [facility]/pharmacy #1972, 160, cm, 12/20/19 15:07:00 EDT, Height, 67.2, kg, 09/03/19 12:02:00 EST, Dry Weight Start Date: 02/18/20 Status: Ordered Quantity: 8.5 Unit: g Repeat number: 6 ROLLATOR WALKER ROLLATOR WALKER, See Instructions, # 1 each, Refills 0, Tot. 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 Start Date: 12/28/22 Status: Ordered Repeat number: 1 tiZANidine 2 mg oral tablet 1, tablet, By Mouth, Every 8 hours, PRN, MUSCLE SPASMS., # 270 tablet, Refills 2, Maintenance, NEEDED, 08/07/24 3:50:00 PM EDT, Route to Pharmacy Electronically, [id number], 158.5, cm, 08/07/24 10:09:00 EDT, Height, 63.6, kg, 07/10/24 11:31:00 EDT, Dry Weight Start Date: 08/07/24 Status: Ordered Quantity: 270.0 Unit: tablet Repeat number: 1 Vitamin D3 1000 intl units oral tablet 1 tablet = 1,000 International_Units, By Mouth, Daily, # 90 tablet, 11 Refills, Maintenance, 09/29/22 11:25:00 AM EST, Tablet, [facility], never had kidney stones she states, 158.5, cm, 09/29/22 11:23:00 EST, Height Start Date: 09/29/22 Stop Date: 09/13/25 Status: Ordered Quantity: 90.0 Unit: tablet Repeat number: 12 TRICIA CLARKE, See Instructions, # 1 each, Refills 0, Tot. 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 Start Date: 05/01/24 Status: Ordered Repeat number: 1 Problem List Condition Confirmation Course Effective Dates Status H ealth Status Informant Age-related cataract 1 Confirmed Active Benign paroxysmal positional vertigo, bilateral Confirmed Active Asthma Confirmed 2004 Active Cyst of kidney 2 Confirmed Active Facet arthropathy, on CT from [facility] Confirmed Active Diverticulitis Confirmed Active Diverticulosis of colon 3 Confirmed 02/2008 Active Poor compliance with medication Confirmed Active Other fatigue Confirmed Active Glaucoma Confirmed 2004 Active Hearing loss 4 Confirmed Active Heartburn Confirmed 2004 Active History of anaphylaxis Confirmed Active Total knee replacement Right Confirmed Active Hyperlipidemia Confirmed Active Hypertension Confirmed 2004 Active Hypochondria Confirmed Active Impaired Fasting Glucose Confirmed 12/2010 Active Tension headache Confirmed Active Irritable bowel disease 5 Confirmed Active [...] Confirmed Active POLIO 7 Confirmed 1949 Active 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 ENT refered her for hearing aide [id number] GI note 6see x-ray - degenerative changes 7cites polio age 4, had right leg problems ever since she notes 8on x-ray Social History Social History Type Response Smoking Status Former smoker; Other : Pt only smoked for from the age of 16 to 18; entered on: 01/03/14 Sex Sex Representation Female (finding) Patient Care team information Care Team Personnel Name: Vivian Meier Position: [facility] Outreach Member Role: Lifetime Consulting Physician Name: Augustin CAMPOS, Miroslava Oro Position: [facility] Physician - Primary Care Member Role: PCP Address: [address] [place] [address] Telecom: Care Team Related Persons Name: SHAINA SPIVEY Name: DANIELLE ROBERSON Name: ANIYA SOLORZANO Name: JOEY SOLORZANO Name: PUSHPA CLAYTON Insurance Providers Guarantor name: ALVINO SPIVEY Health Plan Information #: 1 Payer: NA Member Number: NA Policy Number: NA Group Number: NA
--- OUTSIDE RECORDS SUMMARY | 2024-09-04 20:27 | XMS_ITS | Continuity of Care Document ---
Author Organization [facility] Address [address], [address] [place] [address]- Care Team Providers Care Sweatband Shaper Name Role Phone Le Allen DO Primary Care Physician ( [phone] Encounter [facility] [place] Date(s): 03/19/20 - 04/18/20 [facility] [address], [address], [address] [place] [address]- [facility] Attending Physician: Cindy Araiza Admitting Physician: Cindy Araiza Referring Physician: AdmtrCindy Allergies, Adverse Reactions, Alerts Substance Reaction Severity [...] Note: vis given 2Admin Note: VIS IN GREEK 3Admin Note: VIS given 4Admin Note: per patient. via public weigher office Claudia Cruz 5Admin Note: VIS 04/2012 [...] 04/19/19 10:28:38 EDT, Route to Pharmacy Electronically, [id number], [facility]/pharmacy #1972 Start Date: 04/19/19 Stop Date: 05/03/19 Status: Ordered losartan 50 mg oral tablet 0.5 tablet = 25 mg, By Mouth, Daily, for 90 days, do not full until pt requests, note dose change, # 45 tablet, 1 Refills, Physician Stop 09/27/20 10:33:00 EST, 03/31/20 10:33:00 EDT, [facility]/pharmacy #1972, 160, cm, 03/31/20 9:41:00 EDT, Height, [...] 90 tablet, 3 Refills, Acute, [facility], 160, cm, 09/03/19 12:02:00 EST, Height, 67.2, [...] 9:29:42 EDT Start Date: 01/23/18 Status: Ordered [place] 0.65% nasal spray 2 sprays, Nares, Both, [...] tablet, 0 Refills, Maintenance, 12/20/19 15:43:00 EDT, [facility], to replace 30 tab script, 160, [...] 15:01:00 EDT, Aerosol, Route to Pharmacy Electronically, [id number], [facility], 160, cm, 0... Start Date: 02/18/20 Status: Ordered simethicone 80 mg oral tablet, chewable 80 mg, 1, tablet, Chew, 3 times a day, # 90 tablet, Refills 1, Tot. Refills 1, Maintenance, 10/11/17 16:26:21, Route to Pharmacy Electronically, [id number], [facility]/pharmacy #1972 Start Date: 10/11/17 Status: Ordered tiZANidine 2 mg oral tablet 2 mg, 1, tablet, By Mouth, Every 8 hours, PRN, # 30 tablet, Refills 2, Tot. Refills 2, Maintenance,as needed for muscle spasm, 04/19/19 10:28:15 EDT, Route to Pharmacy Electronically, [id number], [facility]/pharmacy #1972 Start Date: 04/19/19 [...] 6 Active Facet arthropathy, on CT from [facility](Confirmed) Active chronic Rotator cuff tear(Confirmed) Active [...] of lumbar spine(Confirmed) 10 Active Overweight(Confirmed) Active *[id number] Care Partn er Karina Mcneal(Confirmed) Active POLIO(Confirmed) 11 1948 Active Post-polio syndrome(Confirmed) Active Sacroiliac pain(Confirmed) Active Scoliosis of lumbar spine(Co nfirmed) 12 Active Shoulder pain, left, inejcte d in 2015 and 2016(Confirmed) Active Sinusitis(Confirmed) 13 Active Trochanteric bursitis, left side injected , (Confirmed) Active Tubular adenoma(Confirmed) 2007 Active 1LEFT cataract surgery 07/28/11 2per 2012 report, next colonoscopy is due 2022 3per procedure report, repeat colonoscopy 5 yrs (2012) 4Tubular adenoma 5on 2011 US and [address] 6of lumbar spine on 11-20 x-ray 7per colonoscopy [facility] 8left side. ENT refered her for hearing aide [id number] GI note 10see x-ray - degenerative changes 11cites polio age 4, had right leg problems ever since she notes 12on x-ray 13sees ENT for this Social History Social History Type Response Smoking Status Former smoker; Other : Pt only smoked for from the age of 16 to 18; entered on: 01/03/14 Sex
--- OUTSIDE RECORDS SUMMARY | 2024-09-04 20:27 | XMS_ITS | Continuity of Care Document ---
Author Organization [facility] Address [address] [place] [address]- Care Team Providers Care Inspector And Unloader Name Role Phone Berta HAYNES, Eileen Crowell Primary Care Physician Encounter [facility] [place] Date(s): 03/12/21 - 04/18/21 [facility] [address] [place] [address]- Attending Physician: Ajay Graves MD Admitting Physician: Ajay Graves MD Referring Physician: Eileen Hampton NP Allergies, Adverse Reactions, Alerts Substance Reaction Severity Status naproxen hives Active erythromycin Active morphine Active lisinopril Rash Active Contrast Dye 1 Difficulty breathing erythromycin Active traMADol 2 Active sulfa drugs Active Other Food Allergy 3 Active 1says had difficulty breathing - Asthma - and [place] after getting this dye in past. says doctors there - an outside hospital - told her never to use the dye 2BAD DREAM gi UPSET [place] Immunizations Given and Recorded Vaccine Date [...] pneumococcal 13-valent vaccine 11/03/15 Given tetanus/diphtheria/pertussis, acel(Tdap) 02/17/12 Given pneumococcal 23-valent vaccine 7 10/08/11 Given 1Admin Note: vis given 2Admin Note: VIS IN SAMI 3Admin Note: VIS given 4Admin Note: per patient. via director of special education office Claudia Cruz 5Admin Note: VIS 04/2012 [...] 90 tablet, 3 Refills, Acute, [facility], 160, cm, 09/03/19 12:02:00 EST, Height, 67.2, kg, 09/03/19 12:02:00 EST, Dry Weight Start Date: 10/31/19 Status: Ordered Nasacort Allergy 24HR 55 mcg/inh nasal spray 2 sprays, Daily, 0 Refills, Maintenance, 01/23/18 9:29:42 EDT Start Date: 01/23/18 Status: Ordered [place] 0.65% nasal spray 2 sprays, Nares, Both, [...] 15:01:00 EDT, Aerosol, Route to Pharmacy Electronically, [id number], [facility]/pharmacy #1972, 160, cm, 0... Start Date: 02/18/20 Status: Ordered simethicone 80 mg oral tablet, chewable 80 mg, 1, tablet, Chew, 3 times a day, # 90 tablet, Refills 1, Tot. Refills 1, Maintenance, 10/11/17 16:26:21, Route to Pharmacy Electronically, [id number], [facility] Start Date: 10/11/17 Status: Ordered tiZANidine 2 mg oral tablet 2 mg, 1, tablet, By Mouth, Every 8 hours, PRN, # 30 tablet, Refills 2, Tot. Refills 2, Maintenance,as needed for muscle spasm, 04/19/19 10:28:15 EDT, Route to Pharmacy Electronically, [id number], [facility] Start Date: 04/19/19 Stop Date: [...] Facet arthropathy, on CT from [facility](Confirmed) Active chronic Rotator cuff tear(Confirmed) Active Diverticulosis [...] of lumbar spine(Confirmed) 10 Active Overweight(Confirmed) Active *[id number] Care Partn caron Mcneal(Confirmed) Active POLIO(Confirmed) 11 1948 Active Post-polio [...] lumbar spine on 2-11 x-ray 7per colonoscopy [facility] 8left side. ENT refered her for hearing aide [id number] GI note 10see x-ray - degenerative changes 11cites polio age 4, had right leg problems ever since she notes 12on x-ray 13sees ENT for this Social History Social History Type Response Smoking Status Former smoker; Other : Pt only smoked for from the age of 16 to 18; entered on: 01/03/14 Sex
--- OUTSIDE RECORDS SUMMARY | 2024-09-04 20:27 | XMS_ITS | Continuity of Care Document ---
Author Organization [facility] Address [address] [place] [address]- Care Team Providers Care Helicopter Utility Aircrewman Name Role Phone Le Allen DO Primary Care Physician ( [phone] Encounter [facility] Date(s): 03/31/20 - 04/07/20 [facility] [address] [place] [address]- [facility] Attending Physician: Le Allen DO Allergies, Adverse Reactions, Alerts Substance Reaction Severity [...] Note: vis given 2Admin Note: VIS IN BENGALI 3Admin Note: VIS given 4Admin Note: per patient. via hand outside cutter office Claudia Cruz 5Admin Note: VIS 04/2012 [...] 04/19/19 10:28:38 EDT, Route to Pharmacy Electronically, [id number], [facility]/pharmacy #1972 Start Date: 04/19/19 Stop Date: 05/03/19 Status: Ordered losartan 50 mg oral tablet 0.5 tablet = 25 mg, By Mouth, Daily, for 90 days, do not full until pt requests, note dose change, # 45 tablet, 1 Refills, Physician Stop 09/27/20 10:33:00 EST, 03/31/20 10:33:00 EDT, [facility]/pharmacy #1972, 160, cm, 03/31/20 9:41:00 EDT, [...] 90 tablet, 3 Refills, Acute, [facility], 160, cm, 09/03/19 12:02:00 EST, Height, 67.2, [...] 9:29:42 EDT Start Date: 01/23/18 Status: Ordered [place] 0.65% nasal spray 2 sprays, Nares, Both, [...] tablet, 0 Refills, Maintenance, 12/20/19 15:43:00 EDT, [facility]/pharmacy #1972, to replace 30 tab script, [...] 15:01:00 EDT, Aerosol, Route to Pharmacy Electronically, [id number], [facility]/pharmacy #1972, 160, cm, 0... Start Date: 02/18/20 Status: Ordered simethicone 80 mg oral tablet, chewable 80 mg, 1, tablet, Chew, 3 times a day, # 90 tablet, Refills 1, Tot. Refills 1, Maintenance, 10/11/17 16:26:21, Route to Pharmacy Electronically, [id number], [facility]/pharmacy #1972 Start Date: 10/11/17 Status: Ordered tiZANidine 2 mg oral tablet 2 mg, 1, tablet, By Mouth, Every 8 hours, PRN, # 30 tablet, Refills 2, Tot. Refills 2, Maintenance,as needed for muscle spasm, 04/19/19 10:28:15 EDT, Route to Pharmacy Electronically, [id number], [facility]/pharmacy #1972 Start Date: 04/19/19 Stop Date: [...] 6 Active Facet arthropathy, on CT from [facility](Confirmed) Active chronic Rotator cuff tear(Confirmed) Active [...] of lumbar spine(Confirmed) 10 Active Overweight(Confirmed) Active *[id number] Care Partn er Karina Mcneal(Confirmed) Active POLIO(Confirmed) [...] lumbar spine on 11-20 x-ray 7per colonoscopy [facility] 8left side. ENT refered her for hearing aide [id number] GI note 10see x-ray - degenerative changes 11cites polio age 4, had right leg problems ever since she notes 12on x-ray 13sees ENT for this Vital Signs Most recent to oldest [Reference Range]: 1 Height 160.00 cm (03/31/20 9:41 AM) Social History Social History Type Response Smoking Status Former smoker; Other : Pt only smoked for from the age of 16 to 18; entered on: 01/03/14 Sex
--- OUTSIDE RECORDS SUMMARY | 2024-09-04 20:28 | XMS_ITS | Continuity of Care Document ---
Author Organization [facility] Address [address] [place] [address]- Care Team Providers Care Clinical Exercise Physiologist Name Role Phone Not on Staff, PCP Primary Care Physician Unavail able Encounter [facility] Date(s): 05/25/22 - 06/24/22 [facility] [address] [place] [address]- Allergies, Adverse Reactions, Alerts Substance Reaction Severity Status naproxen hives Active erythromycin Active morphine Active lisinopril Rash Active sulfa drugs Active Contrast Dye 1 Difficulty breathing erythromycin Active traMADol 2 Active Other Food Allergy 3 Active 1says [...] Note: vis given 2Admin Note: VIS IN [place] 3Admin Note: VIS given 4Admin Note: per patient. via fundraising assistant office Claudia Cruz 5Admin Note: VIS 04/2012 [...] 11:35:20, Compound Start Date: 12/08/17 Status: Ordered Compression Stockings See Instructions, # 1 pair, Refills 1, Tot. Refills 1, Maintenance, surgical,knee high length 20-30mm Hg [address], 01/26/18 12:09:13 EDT, Compound Start Date: 01/26/18 Status: Ordered dicyclomine 10 mg oral capsule TAKE 1 CAPSULE BY MOUTH THREE TIMES A DAY DIRECTED Start Date: 12/08/17 Status: Ordered ketorolac 0.5% ophthalmic solution 1 drops, Eye, Right, Daily, INSTILL ONE DROP IN OPERATIVE EYE TWICE DAILY - START TWO DAYS BEFORE PROCEDURE Start Date: 03/05/22 Status: Ordered Lidoderm 5% film 1 patch, Topically, Daily, remove patches after 12 hours, # 30 patch, 2 Refills, Maintenance, 10/16/18 16:41:30 EST, 1 patch Topically Daily,Instr:remove patches after 12 hours Start Date: 10/16/18 Status: Ordered losartan 50 mg oral tablet 1 tablet = 50 mg, By Mouth, Daily, TAKE ONE TABLET BY MOUTH EVERY DAY Start Date: 03/05/22 Status: Ordered Melatonin 1 mg oral tablet TAKE ONE TABLET BY MOUTH AT BEDTIME Start Date: 03/05/22 Status: Ordered [place] 0.65% nasal spray 2 sprays, Nares, Both, 4 times a day, STOP prior script for fluticasone nasal spray. iin each nostril, # 1 each, 4 Refills, Maintenance, 04/28/17 13:14:11, 2 sprays Nares, Both 4 times a day,x7 days,Instr:STOP prior script for fluticasone nasal spray.... Start Date: 04/28/17 Stop Date: 06/02/17 Status: Ordered prednisolone ophthalmic acetate 1% suspension 1 drops, Eye, Right, 2 times a day, INSTILL ONE DROP IN THE RIGHT EYE FOUR TIMES DAILY Start Date: 03/05/22 Status: Ordered ProAir HFA 90 mcg/inh inhalation aerosol with adapter 1, puffs, Inhalation, Every 4 hours, PRN, use with spacer chamber, # 8.5 Gm, Refills 5, Tot. Refills 5, Maintenance, 02/18/20 15:01:00 EDT, Aerosol, Route to Pharmacy Electronically, [id number], [facility]/pharmacy #1972, 160, cm, 0... Start Date: 02/18/20 Status: Ordered simethicone 80 mg oral tablet, chewable 80 mg, 1, tablet, Chew, 3 times a day, # 90 tablet, Refills 1, Tot. Refills 1, Maintenance, 10/11/17 16:26:21, Route to Pharmacy Electronically, [id number], [facility]/pharmacy #1972 Start Date: 10/11/17 Status: Ordered Tylenol Extra Strength 500 mg [...] Date: 12/24/16 Stop Date: 12/09/19 Status: Ordered ZyrTEC 10 mg oral tablet 1 tablet = 10 mg, By Mouth, Daily, PRN for allergy symptoms, Maintenance, 01/18/22 13:14:00 EDT, Tablet, Partial fill upon patient request if the prescription is for a schedule II opioid drug. Start Date: 01/18/22 Status: Ordered Problem List Condition Effective Dates Status Health Status Inform ant Age-related cataract(Confirmed) 1 Active Allergic rhinitis(Confirmed) Active Asthma(Confirmed) 2004 Active Colonoscopy(Confirmed) 2, 3, 4 02/2008 Active Cyst of kidney(Confirmed) 5 Active Degenerative change(Confirmed) 6 Active Facet arthropathy, on [facility] from [facility](Confirmed) Active chronic Rotator cuff tear(Confirmed) Active Diverticulosis of colon(Confirmed) 7 02/2008 Active Glaucoma(Confirmed) 2004 Active Hearing loss(Confirmed) 8 Active Heartburn(Confirmed) 2004 Active Total knee replacement Right(Confirmed) Active Hyperlipidemia(Confirmed) Active Hypertension(Confirmed) 2004 Active Impaired Fasting Glucose(Confirmed) 12/2010 Active Irritable bowel disease(Confirmed) 9 Active Hematuria, microscopic - see n [facility], per their note: had cystometrogram and no-obstructive kidney stones on a CTY(Confirmed) Active Myofascial pain syndrome, cervical(Confirmed) Active Osteoarthritis of lumbar spine(Confirmed) 10 Active Overweight(Confirmed) Active *[id number] Care Partn er Karina Mcneal(Confirmed) Active POLIO(Confirmed) 1948 Active Post-polio syndrome(Confirmed) Active Sacroiliac joint dysfunction of left side(Confirmed) Active Sacroiliac pain(Confirmed) Active Scoliosis of lumbar spine(Co nfirmed) 12 Active Shoulder pain, left, inejcte d in 2015 and 2016(Confirmed) Active Sinusitis(Confirmed) 13 Active Trochanteric bursitis, left side injected -2015, -2016(Confirmed) Active Tubular adenoma(Confirmed) 2007 Active 1LEFT cataract surgery 07/28/11 2per 2013 report, next colonoscopy is due 2022 3per procedure report, repeat colonoscopy 5 yrs (2012) 4Tubular adenoma 5on 2011 US and [address] 6of lumbar spine on 2-11 x-ray 7per colonoscopy [facility] 8left side. ENT refered her for hearing aide [id number] GI note 10see x-ray - degenerative changes 11cites polio age 4, had right leg problems ever since she notes 12on x-ray 13sees ENT for this Social History Social History Type Response Smoking Status Former smoker; Other : Pt only smoked for from the age of 16 to 18; entered on: 01/03/14 Sex Care Team Personnel Name: Not on Staff, PCP
--- OUTSIDE RECORDS SUMMARY | 2024-09-04 20:28 | XMS_ITS | Continuity of Care Document ---
Author Organization [facility] Address [address] [place] [address]- Care Team Providers Care Bar Turner Name Role Phone Le Allen DO Primary Care Physician ( [phone] Encounter [facility] Date(s): 04/10/20 - 05/10/20 [facility] [address] [place] [address]- [facility] Allergies, Adverse Reactions, Alerts Substance Reaction Severity [...] Note: vis given 2Admin Note: VIS IN RWANDAN 3Admin Note: VIS given 4Admin Note: per patient. via funeral greeter office Claudia Cruz 5Admin Note: VIS 04/2012 [...] 04/19/19 10:28:38 EDT, Route to Pharmacy Electronically, [id number], [facility]/pharmacy #1972 Start Date: 04/19/19 Stop Date: 05/03/19 Status: Ordered losartan 50 mg oral tablet 0.5 tablet = 25 mg, By Mouth, Daily, for 90 days, do not full until pt requests, note dose change, # 45 tablet, 1 Refills, Physician Stop 09/27/20 10:33:00 EST, 03/31/20 10:33:00 EDT, [facility]/pharmacy #1972, 160, cm, 03/31/20 9:41:00 EDT, Height, [...] 90 tablet, 3 Refills, Acute, [facility], 160, cm, 09/03/19 12:02:00 EST, Height, 67.2, [...] 9:29:42 EDT Start Date: 01/23/18 Status: Ordered [place] 0.65% nasal spray 2 sprays, Nares, Both, [...] tablet, 0 Refills, Maintenance, 12/20/19 15:43:00 EDT, [facility]/pharmacy #1972, to replace 30 tab script, 160, [...] 15:01:00 EDT, Aerosol, Route to Pharmacy Electronically, [id number], [facility], 160, cm, 0... Start Date: 02/18/20 Status: Ordered simethicone 80 mg oral tablet, chewable 80 mg, 1, tablet, Chew, 3 times a day, # 90 tablet, Refills 1, Tot. Refills 1, Maintenance, 10/11/17 16:26:21, Route to Pharmacy Electronically, [id number], [facility]/pharmacy #1972 Start Date: 10/11/17 Status: Ordered tiZANidine 2 mg oral tablet 2 mg, 1, tablet, By Mouth, Every 8 hours, PRN, # 30 tablet, Refills 2, Tot. Refills 2, Maintenance,as needed for muscle spasm, 04/19/19 10:28:15 EDT, Route to Pharmacy Electronically, [id number], [facility]/pharmacy #1972 Start Date: 04/19/19 Stop Date: 05/19/19 [...] cataract(Confirmed) 1 Active Allergic rhinitis(Confirmed) Active Asthma(Confirmed) 2005 Active Colonoscopy(Confirmed) 2, 3, 4 02/2008 Active Cyst of kidney(Confirmed) 5 Active Degenerative change(Confirmed) 6 Active Facet arthropathy, on CT from [facility](Confirmed) Active chronic Rotator cuff tear(Confirmed) Active [...] of lumbar spine(Confirmed) 10 Active Overweight(Confirmed) Active *[id number] Care Partn er Karina Mcneal(Confirmed) Active POLIO(Confirmed) [...] and prior CT 6of lumbar spine on 2- x-ray 7per colonoscopy [facility] 8left side. ENT refered her for hearing aide [id number] GI note 10see x-ray - degenerative changes 11cites polio age 4, had right leg problems ever since she notes 12on x-ray 13sees ENT for this Social History Social History Type Response Smoking Status Former smoker; Other : Pt only smoked for from the age of 16 to 18; entered on: 01/03/14 Sex
--- OUTSIDE RECORDS SUMMARY | 2024-09-04 20:28 | XMS_ITS | Continuity of Care Document ---
Author Organization [facility] Address [address] [place] [address]- Care Team Providers Care First Helper Name Role Phone Augustin CAMPOS, Miroslava Oro Primary Care Physician [place] [facility] [place](s): 05/01/24 - 05/08/24 [facility] [address] [place] [address]- Encounter Diagnosis Headache, occipital(Discharge Diagnosis) - 05/01/24 History of vertigo(Discharge Diagnosis) - 05/01/24 Myofascial pain syndrome, cervical(Discharge Diagnosis) - 05/01/24 Cervical spine arthritis(Discharge Diagnosis) - 05/01/24 Uncontrolled stage 2 hypertension(Discharge Diagnosis) - 05/01/24 Nonspecific dizziness(Discharge Diagnosis) - 05/01/24 Attending Physician: Yuli CAMPOS, Jim Allergies, Adverse Reactions, Alerts Substance Reaction Severity Status naproxen hives Active morphine Active traMADol 1 Active erythromycin Active lisinopril Rash Active sulfa drugs Active [...] tetanus/diphtheria/pertussis, acel(Tdap) 4 02/17/12 Given SARS-CoV-2 mRNA (oimiwcq-nkhb-kugmb) vax 03/23/22 Recorded zoster vaccine, inactivated 11/20/21 [...] 11/03/15 Given 1Admin Note: per patient. via straight slicing machine operator office Claudia Cruz 2Admin Note: VIS 04/2012 3Admin Note: vis given vis date 01/16 4Admin Note: VIS 10/21 5Admin Note: vis given 6Admin Note: VIS IN [place] 7Admin Note: VIS given Medications albuterol 0.083% inhalation solution 3 mL = 2.5 mg, Inhalation, Every 6 hours, PRN for wheezing, # 100 each, 6 Refills, Maintenance, 09/06/23 11:39:00 EST, Solution, [facility]/pharmacy #[id number], 158.5, cm, 08/26/23 10:44:00 EST, Height Start Date: 09/06/23 Stop Date: 04/03/24 Status: Ordered cetirizine 10 mg oral tablet 1 tablet, By Mouth, Daily, PRN NEEDED FOR ALLERGY SYMPTOMS, # 90 tablet, 1 Refills, Maintenance,05/09/23 7:42:00 EDT, [facility], 158.5, cm, 02/22/23 10:56:00 EDT, Height Start Date: 05/09/23 Status: Ordered losartan 25 mg oral tablet TAKE 1 TABLET BY MOUTH EVERY DAY Start Date: 05/01/24 Status: Ordered losartan 50 mg oral tablet 50 mg, 1, tablet, By Mouth, Daily, replace 25mg, # 90 tablet, Refills 1, Tot. Refills 1, Maintenance, 05/01/24 13:41:00 EDT, Route to Pharmacy Electronically, [facility]/pharmacy #[id number], Partial fill upon patient request [...] 15:01:00 EDT, Aerosol, Route to Pharmacy Electronically, [id number], [facility]/pharmacy #1972, 160, cm, 0... Start [...] 04/27/24 10:57:00 EDT, Route to Pharmacy Electronically, [facility]/pharmacy #[id number], Partial fill upon p... Start Date: 04/27/24 Status: Ordered Vitamin D3 1000 intl units oral tablet 1 tablet = 1,000 International_Units, By Mouth, Daily, # 90 tablet, 11 Refills, Maintenance, 09/29/22 11:25:00 EST, Tablet, [facility]/pharmacy #1972, never had kidney stones she states, 158.5, cm, 09/29/2211:23:00 EST, Height Start Date: 09/29/22 Stop Date: 09/13/25 Status: Ordered Xolair Prefilled Syringe 150 mg/mL [...] Confirmed Active Facet arthropathy, on CT from [facility] Confirmed Active Diverticulitis Confirmed Active Diverticulosis [...] inejcted in 2015 and 2017 Confirmed Active Tension headache Confirmed Active Trochanteric bursitis, left side injected , Confirmed Active Tubular adenoma Confirmed 2007 Active 1LEFT cataract surgery 07/28/11 2on 2011 US and [address] 3per colonoscopy [facility] 4left side. ENT refered her for hearing aide [id number] GI note 6see x-ray - degenerative changes 7cites polio age 4, had right leg problems ever since she notes 8on x-ray Diagnosis Diagnosis Type Effective Dates Health Status Clinical Service Informant Headache, occipital Discharge Diagnosis 05/01/24 History of vertigo Discharge Diagnosis 05/01/24 Myofascial pain syndrome, cervical Discharge Diagnosis 05/01/24 Cervical spine arthritis Discharge Diagnosis 05/01/24 Uncontrolled stage 2 hypertension Discharge Diagnosis 05/01/24 Nonspecific dizziness Discharge Diagnosis 05/01/24 Vital Signs Most recent to oldest [Reference Range]: 1 Height 158.5 cm (05/01/24 12:47 PM) Weight 63.8 kg (05/01/24 12:47 PM) Oxygen Saturation [94-100 %] 95 % (05/01/24 12:47 PM) Pulse Rate [55-90 bpm] 85 bpm (05/01/24 12:47 PM) Body Mass Index [18.5-24.99 kg/m2] 25.4 kg/m2 *H* (05/01/24 12:47 PM) Blood Pressure [90-138/55-84 mm Hg] 189/ 81mm Hg *H* (05/01/24 12:47 PM) Temperature [96.8-100.4 DegF] 98.2 DegF (05/01/24 12:47 PM) Mode of Delivery (Oxygen) Room air (05/01/24 12:47 PM) Blood pressure sites Arm, left (05/01/24 12:47 PM) Temperature Route Temporal (05/01/24 12:47 PM) Weight Obtained Via Standing scale (05/01/24 12:47 PM) Social History Social History Type Response Smoking Status Former smoker; Other : Pt only smoked for from the age of 16 to 18; entered on: 01/03/14 Sex Note * Aditi Stevens: PERFORM Event Display: Patient Education/Instruction Authored Date: [id number] Ambulatory Adult Visit Summary [facility] [address] [place] [address] Name: ALVINO SPIVEY : 1945?? Visit: 05/01/2024 12:32?? Ambulatory Visit Instructions ?? Your Care Team Primary Care Provider Augustin CAMPOS, Miroslava Oro? This Visit Provider Yuli CAMPOS, Jim Your Diagnosis Headache, occipital History of vertigo Myofascial pain syndrome, cervical Cervical spine arthritis Uncontrolled stage 2 hypertension Nonspecific dizziness Vitals Signs Temperature: 98.2 DegF Height: 158.5 cm Pulse Rate: 85 bpm Weight: 63.8 kg Systolic Blood Pressure:??189 mm Hg??High Body Mass Index:??25.4 kg/m2??High Diastolic Blood Pressure: 81 mm Hg Body surface area: 1.68 Oxygen Saturation: 95 % ?? What to do next Instructions From Your Provider Maintain BP??log AM and bedtime?? increase losartan??to 50mg in AM Scheduled Follow-Up Appointments Tuesday 1:40 PM EDT ?? Where: [facility] [address] [place] [address]- Status: Pending Tuesday 10:30 AM EDT ?? Where: [facility] [address] [place] [address]- Status: Pending Follow-Up Appointments Follow Up with??Augustin CAMPOS, Miroslava Oro When:??Within 2 to 3 weeks Why: BP and Headache?? Where: [address] [place] [address]- Future Orders CT Head/Brain W/O Contrast, Routine, Reason for Exam: Headache(s), No Contrast, Once, *Est. 05/01/24 due within 3 days, Within 3 Days XR Cervical Spine 3 Views or Less, Routine, Reason for Exam: Pain, Once, *Est. 05/01/24 Medications The list below reflects the information in our records and provided by you today along with any changes made during this visit. Please continue your medications until treatment is completed or stopped by your provider. If this is different from the information you have or there are other questions,please contact the prescribing provider. What How Much When Why Instructions Changed Losartan (losartan 25 mg oral tablet) TAKE 1 TABLET BY MOUTH EVERY DAY ?? Changed Losartan (losartan 50 mg oral tablet) 1 tab(s) Oral Daily Uncontrolled stage 2 hypertension replace 25mg ?? Pickup at [facility]/pharmacy #[id number] Unchanged Albuterol (albuterol 0.083% inhalation solution) 3 [...] tab(s) Oral Daily Duration: 90 Days Unchanged omalizumab (Xolair Prefilled Syringe 150 mg/ mL subcutaneous solution) 150 Milligram Unchanged PrednisoLONE Ophthalmic (prednisolone ophthalmic acetate 1% suspension) Unchanged Timolol Ophthalmic (Timolol Maleate (Eqv-Timoptic) 0.5% ophthalmic solution) Unchanged Tizanidine (tiZANidine 2 mg oral tablet) 1 tab(s) Oral Every 8 hours as needed for as needed for muscle spasm not to exceed 3 doses/ day ?? Pharmacy Information [facility]/pharmacy #[id number]: [address], [place] [id number] [phone] Medications and Immunizations Administered Medications Given During [...] of these heart attack warning signs, call 9-1-1 to get immediate medical attention! ?? Smoking can increase your chances of developing chronic health problems and can cause harmful effects to other family members in your house. If you smoke, you are strongly encouraged to quit. Please call [employer] at [phone] or [phone] ([phone]) or log in to [email or web address] for referrals to smoking cessation programs. ?? The National Suicide Prevention Hotline is available 02/05 if you or someone you know needs to find a reason to keep living. By calling 0-864-349-[employer] (2900) you'll be connected to a skilled, trained counselor at a crisis center in your area. [employer] Portal You can view and manage your care through the patient portal or by using a health care lenore of your choosing. [employer] is a website that allows you to securely view your medical information including your hospital discharge summary, office visit summaries, medications and follow-up visits. You can also request appointments, renew medications, and request access to your medical information using a health care lenroe of your choosing, or just ask a question. You can enroll at [email or web address] or register during your next office visit. [facility], in keeping with [facility] guidance, no longer requires face masks for [...] primary care provider, you may find a [facility] [employer] provider by calling [facility] at [phone]. Patient Care team information Care Team Personnel Name: Vivian Meier Position: [facility] Outreach Member Role: Lifetime Consulting Physician Name: Augustin CAMPOS, Miroslava Oro Position: [facility] Physician - Primary Care Member Role: PCP Address: Address: [address] [place] [address]- Care Team Related Persons Name: SHAINA SPIVEY Address: home [address] [place] [id number] Name: DANIELLE ROBERSON Name: ANIYA SOLORZANO Name: JOEY SOLORZANO Address: home [address] [place] [address] Name: PUSHPA CLAYTON
--- OUTSIDE RECORDS SUMMARY | 2024-09-04 20:28 | XMS_ITS | Continuity of Care Document ---
Author Organization [facility] Address [address] [place] [address]- Care Team Providers Care Athletic Equipment Manager Name Role Phone Miroslava Ruffin MD, V Primary Care Physician [phone] Encounter [facility] [place] Date(s): 12/02/23 - 01/01/24 [facility] [address] [place], [place] [address] Attending Physician: Cindy Araiza Admitting Physician: AdmCindy colon Referring Physician: AdmtrCindy Allergies, Adverse Reactions, Alerts [...] tetanus/diphtheria/pertussis, acel(Tdap) 4 02/17/12 Given SARS-CoV-2 mRNA ([id number]-[id number]-ckrbv) vax 03/23/22 Recorded zoster vaccine, inactivated 11/20/21 [...] 11/03/15 Given 1Admin Note: per patient. via material planner office Claudia Cruz 2Admin Note: VIS 04/2012 3Admin Note: vis given vis date 01/16 4Admin Note: VIS 10/21 5Admin Note: vis given 6Admin Note: VIS IN POLISH 7Admin Note: VIS given Medications albuterol 0.083% inhalation solution 3 mL = 2.5 mg, Inhalation, Every 6 hours, PRN for wheezing, # 100 each, 6 Refills, Maintenance, 09/06/23 11:39:00 EST, Solution, [facility]/pharmacy #[id number], 158.5, cm, 08/26/23 10:44:00 EST, Height Start Date: 09/06/23 Stop Date: 04/03/24 Status: Ordered cetirizine 10 mg oral tablet 1 tablet, By Mouth, Daily, PRN NEEDED FOR ALLERGY SYMPTOMS, # 90 tablet, 1 Refills, Maintenance,05/09/23 7:42:00 EDT, [id number], 158.5, cm, 02/22/23 10:56:00 EDT, Height Start Date: 05/09/23 Status: Ordered losartan 25 mg oral tablet 1 tablet = 25 mg, By Mouth, Daily, # 90 tablet, 3 Refills, Maintenance, 11/03/23 14:35:00 EST, Tablet, [facility]/pharmacy #[id number], Partial fill upon patient request [...] 15:01:00 EDT, Aerosol, Route to Pharmacy Electronically, [id number], [facility]/pharmacy #1972, 160, cm, 0... Start Date: 02/18/20 Status: Ordered simethicone 80 mg oral tablet, chewable 80 mg, 1, tablet, Chew, 3 times a day after meals and bedtime, PRN, # 100 tablet, Refills 5, Tot. Refills 5, Maintenance, Gas, 12/15/23 8:51:00 EST, Route to Pharmacy Electronically, [facility]/pharmacy #[id number], Partial fill upon patient request [...] side. ENT refered her for hearing aide [id number] GI note 6see x-ray - degenerative changes 7cites polio age 4, had right leg problems ever since she notes 8on x-ray Social History Social History Type Response Smoking Status Former smoker; Other : Pt only smoked for from the age of 16 to 18; entered on: 01/03/14 Sex EKG study * Event Display: EKG Authored Date: Laboratory * Event Display: Non BH Lab Results Authored Date: * Event Display: Non BH Lab Results Authored Date: * Event Display: Non BH Lab Results Authored Date: Radiology * Event Display: MRI Shoulder, Non- Authored Date: * Event Display: CT Scan Abdomen, Non- Authored Date: Patient Care team information Care Team Personnel Name: Vivian Meier Position: [facility] Outreach Member Role: Lifetime Consulting Physician Name: Augustin CAMPOS, Miroslava Oro Position: [facility] Physician - Primary Care Member Role: PCP Address: Address: [address] [place] [address]- Care Team Related Persons Name: SHAINA SPIVEY Address: [address] [place] [address] Name: DANIELLE ROBERSON Name: ANIYA SOLORZANO Name: JOEY SOLORZANO Address: home [address] [place] [address] Name: PUSHPA CLAYTON
--- OUTSIDE RECORDS SUMMARY | 2024-09-04 20:28 | XMS_ITS | Continuity of Care Document ---
Author Organization [facility] Address [address] [place] [address]- Care Team Providers Care Manager Of Human Resources Name Role Phone Le Allen DO Primary Care Physician [place] [facility] [place] 11[place]29/19 [facility] [address] [place] [address]- [facility] Attending Physician: Bob Payton MD Allergies, Adverse Reactions, Alerts Substance Reaction Severity [...] Note: vis given 2Admin Note: VIS IN ITALIAN 3Admin Note: VIS given 4Admin Note: per patient. via floor tiling professional office Claudia Cruz 5Admin Note: VIS 04/2012 [...] 11:03:38, Capsule Start Date: 12/08/17 Status: Ordered amoxicillin-clavulanate 875 mg-125 mg oral tablet 1 tablet, By Mouth, 2 times a day, for 10 days, with food or milk, # 20 tablet, 0 Refills, Acute 12/09/19 11:39:00 EST, 11/29/19 11:39:00 EST, [facility], 160, cm, 11/29/19 11:19:00 EST, Height, 67.2, kg, 09/03/19 12:02:00 EST, Dry Weight Start Date: 11/29/19 Stop Date: 12/09/19 Status: Ordered Blood Pressure Monitor See Instructions, [...] surgical,knee high length 20-30mm Hg [address], 01/26/18 12:09:13 EDT, Compound Start Date: [...] 04/19/19 10:28:38 EDT, Route to Pharmacy Electronically, [id number], [facility]/pharmacy #1971 Start Date: 04/19/19 Stop Date: 05/03/19 Status: Ordered losartan 50 mg oral tablet 50 mg, 1, tablet, By Mouth, Daily, # 90 tablet, Refills 1, Tot. Refills 1, Maintenance, 08/20/19 17:24:20 EST, Route to Pharmacy Electronically, [id number], [facility] Start Date: 08/20/19 Stop Date: 02/16/20 Status: [...] 90 tablet, 3 Refills, Acute, [facility], 160, cm, 09/03/19 12:02:00 EST, Height, 67.2, kg, 09/03/19 12:02:00 EST, Dry Weight Start Date: 10/31/19 Status: Ordered Nasacort Allergy 24HR 55 mcg/inh nasal spray 2 sprays, Daily, 0 Refills, Maintenance, 01/23/18 9:29:42 EDT Start Date: 01/23/18 Status: Ordered [place] 0.65% nasal spray 2 sprays, Nares, Both, 4 times a day, STOP prior script for fluticasone nasal spray. iin each nostril, # 1 each, 4 Refills, Maintenance, 04/28/17 13:14:11, 2 sprays Nares, Both 4 times a day,x7 days,Instr:STOP prior script for fluticasone nasal spray.... Start Date: 04/28/17 Stop Date: 06/02/17 Status: Ordered oxybutynin 3.9 mg/24 hr transdermal film, extended release = 1 Gm, Topically, Every third day, apply to dry, intact skin on the belly, hip, orbuttock 2x weekly (every 3-4 days). Rotate site, # 10 Gm, 11 Refills, Maintenance, 06/07/19 16:39:25 EDT, Patch Start Date: 06/07/19 Stop Date: 06/01/20 Status: Ordered PriLOSEC OTC 20 mg oral [...] 16:55:41 EDT, Aerosol, Route to Pharmacy Electronically, [id number], [facility]/pharmacy #1972 Start Date: 06/07/19 Status: Ordered sertraline [...] Maintenance, 10/11/17 16:26:21, Route to Pharmacy Electronically, [id number], [facility]/pharmacy #1972 Start Date: 10/11/17 Status: Ordered tiZANidine 2 mg oral tablet 2 mg, 1, tablet, By Mouth, Every 8 hours, PRN, # 30 tablet, Refills 2, Tot. Refills 2, Maintenance,as needed for muscle spasm, 04/19/19 10:28:15 EDT, Route to Pharmacy Electronically, [id number], [facility]/pharmacy #1972 Start Date: 04/19/19 Stop Date: [...] 6 Active Facet arthropathy, on CT from [facility](Confirmed) Active chronic Rotator cuff tear(Confirmed) Active [...] of lumbar spine(Confirmed) 10 Active Overweight(Confirmed) Active *[id number] Care Partn er Karina Mcneal(Confirmed) Active POLIO(Confirmed) 11 194 Active Post-polio syndrome(Confirmed) Active Sacroiliac pain(Confirmed) Active Scoliosis of lumbar spine(Co nfirmed) 12 Active Shoulder pain, left, inejcte d in 2015 and 2016(Confirmed) Active Sinusitis(Confirmed) 13 Active Trochanteric bursitis, left side injected , -2016(Confirmed) Active Tubular adenoma(Confirmed) 2007 Active 1LEFT cataract surgery 07/28/11 2per 2012 report, next colonoscopy is due 2022 3per procedure report, repeat colonoscopy 5 yrs (2012) 4Tubular adenoma 5on 2011 US and [address] 6of lumbar spine on 2-11 x-ray 7per colonoscopy [facility] 8left side. ENT refered her for hearing aide [id number] GI note 10see x-ray - degenerative changes 11cites polio age 4, had right leg problems ever since she notes 12on -2010 x-ray 13sees ENT for this Vital Signs Most recent to oldest [Reference Range]: 1 Height 160.00 cm (11/22/19 9:35 AM) Weight 66.7 kg (11/22/19 9:35 AM) Oxygen Saturation [94-100 %] 95 % (11/22/19 9:35 AM) Pulse Rate [55-90 bpm] 86 bpm (11/22/19 9:35 AM) Body Mass Index [18.5-24.99] 26.05 *H* (11/22/19 9:35 AM) Blood Pressure [90-138/55-84 mm Hg] 130/ 68mm Hg (11/22/19 9:35 AM) Blood pressure sites Arm, left (11/22/19 9:35 AM) Social History Social History Type Response Smoking Status Former smoker; Other : Pt only smoked for from the age of 16 to 18; entered on: 01/03/14 Sex
--- OUTSIDE RECORDS SUMMARY | 2024-09-04 20:28 | XMS_ITS | Continuity of Care Document ---
Author Organization [facility] Address [address] [place] [address]- Care Team Providers Care Internal Control Specialist Name Role Phone Augustin CAMPOS, Miroslava Oro Primary Care Physician [phone] Encounter [facility] [place] Date(s): 06/15/24 - 06/22/24 [facility] [address] [place] [address]- Encounter Diagnosis Left shoulder pain(Discharge Diagnosis) - 06/15/24 Hypertension(Discharge Diagnosis) - 06/15/24 Attending Physician: Abner Yañez MD Referring Physician: Augustin CAMPOS, Miroslava Oro Allergies, Adverse [...] tetanus/diphtheria/pertussis, acel(Tdap) 4 02/17/12 Given SARS-CoV-2 mRNA ([id number]) vax 03/23/22 Recorded zoster vaccine, inactivated 11/20/21 [...] 11/03/15 Given 1Admin Note: per patient. via scrubber operator office Claudia Cruz 2Admin Note: VIS 04/2012 3Admin Note: vis given vis date 01/16 4Admin Note: VIS 10/21 5Admin Note: vis given 6Admin Note: VIS IN [place]IT[place] 7Admin Note: VIS given Medications albuterol 0.083% inhalation solution 3 mL = 2.5 mg, Inhalation, Every 6 hours, PRN for wheezing, # 100 each, 6 Refills, Maintenance, 09/06/23 11:39:00 EST, Solution, [facility]/pharmacy #[id number], 158.5, cm, 08/26/23 10:44:00 EST, Height Start Date: 09/06/23 Stop Date: 04/03/24 Status: Ordered cetirizine 10 mg oral tablet 1 tablet, By Mouth, Daily, PRN NEEDED FOR ALLERGY SYMPTOMS, # 90 tablet, 1 Refills, Maintenance,05/09/23 7:42:00 EDT, [id number], 158.5, cm, 02/22/23 10:56:00 EDT, Height Start Date: 05/09/23 Status: Ordered losartan 25 mg oral tablet TAKE 1 TABLET BY MOUTH EVERY DAY Start Date: 05/01/24 Status: Ordered losartan 50 mg oral tablet 50 mg, 1, tablet, By Mouth, Daily, replace 25mg, # 90 tablet, Refills 1, Tot. Refills 1, Maintenance, 05/01/24 13:41:00 EDT, Route to Pharmacy Electronically, [facility]/pharmacy #[id number], Partial fill upon patient request if [...] 15:01:00 EDT, Aerosol, Route to Pharmacy Electronically, [id number], [facility]/pharmacy #[id number], 160, cm, 0... Start Date: 02/18/20 Status: Ordered ROLLATOR WALKER ROLLATOR WALKER, See Instructions, # 1 each, Refills 0, Tot. Refills 0, Maintenance, M51.36 M47.816, 06/18/24 15:57:00 EDT, Supply Start Date: 06/18/24 Status: Ordered spironolactone 25 mg oral tablet 25 mg, 1, tablet, By Mouth, Daily, # 14 tablet, Refills 0, Tot. Refills 0, Maintenance, 06/15/24 15:03:00 EDT, Route to Pharmacy Electronically, [facility]/pharmacy #[id number], Partial fill upon patient request if [...] 10:57:00 EDT, Route to Pharmacy Electronically, [facility]/pharmacy #[id number], Partial fill upon p... Start Date: 04/27/24 Status: Ordered Vitamin D3 1000 intl units oral tablet 1 tablet = 1,000 International_Units, By Mouth, Daily, # 90 tablet, 11 Refills, Maintenance, 09/29/22 11:25:00 EST, Tablet, [facility]/pharmacy #[id number], never had kidney stones she states, [...] Confirmed Active Facet arthropathy, on CT from [facility] Confirmed Active Diverticulitis Confirmed Active Diverticulosis [...] side. ENT refered her for hearing aide [id number] GI note 6see x-ray - degenerative changes 7cites polio age 4, had right leg problems ever since she notes x-ray Diagnosis Diagnosis Type Effective Dates Health Status Clinical Service Informant Left shoulder pain Discharge Diagnosis 06/15/24 Hypertension Discharge Diagnosis 06/15/24 Vital Signs Most recent to oldest [Reference Range]: 1 Height 158.5 cm (06/15/24 2:46 PM) Weight 64.5 kg (06/15/24 2:46 PM) Oxygen Saturation [94-100 %] 99 % (06/15/24 2:46 PM) Pulse Rate [55-90 bpm] 99 bpm *H* (06/15/24 2:46 PM) Body Mass Index [18.5-24.99 kg/m2] 25.67 kg/m2 *H* (06/15/24 2:46 PM) Blood Pressure [90-138/55-84 mm Hg] 142/ 74mm Hg *H* (06/15/24 2:46 PM) Mode of Delivery (Oxygen) Room air (06/15/24 2:46 PM) Blood pressure sites Arm, left (06/15/24 2:46 PM) Social History Social History Type Response Smoking Status Former smoker; Other : Pt only smoked for from the age of 16 to 18; entered on: 01/03/14 Sex Note * Tabby Kirby: PERFORM Event Display: Patient Education/Instruction Authored Date: [id number] Ambulatory Adult Visit Summary [facility] [address] [place] [address] Name: ALVINO SPIVEY : 1945?? Visit: 06/15/2024 13:58?? Ambulatory Visit Instructions ?? Your Care Team Primary Care Provider Augustin CAMPOS, Miroslava Oro? This Visit Provider Abner Yañez MD Your Diagnosis Weakness Bilateral leg edema H/O skin pruritus Left shoulder pain Hypertension Vitals Signs Pulse Rate:??99 bpm??High Height: 158.5 cm Systolic Blood Pressure:??142 mm Hg??High Weight: 64.5 kg Diastolic Blood Pressure: 74 mm Hg Body Mass Index:??25.67 kg/m2??High Oxygen Saturation: 99 % Body surface area: 1.69 What to do next Instructions From Your Provider 1.?? continue to limit salt in your diet 2. I will ask you to get lab work since you have been feeling fatigue and leg swelling.?? We will test for your kidney function, blood counts, thyroid and vitamin B12 levels. 3. may take spironolactone 25mg daily in a.m. for 2 weeks only to see if this helps your swelling. 4. hopefully the cortisone shot you got in your left shoulder today, helps. 5. apply ketoconazole??shampoo on the back of your scalp daily for 1 week only, as discussed Future Orders Basic Metabolic Panel - Routine, Once, 06/15/24 15:04:00 EDT, Future Order, [facility], Blood?? Albumin Level - Routine, Once, 06/15/24 15:04:00 EDT, Future Order, [facility], Blood?? Thyroid Panel - Routine, Once, 06/15/24 15:04:00 EDT, Future Order, [facility], Blood?? Vitamin B12 Level - Routine, Once, 06/15/24 15:04:00 EDT, Future Order, [facility], Blood?? ALT - Routine, Once, 06/15/24 15:04:00 EDT, Future Order, [facility], Blood?? CBC - Routine, Once, 06/15/24 15:04:00 EDT, Future Order, [facility], Blood?? Medications The list below reflects the information in our records and provided by you today along with any changes made during this visit. Please continue your medications until treatment is completed or stopped by your provider. If this is different from the information you have or there are other questions,please contact the prescribing provider. What How Much When Why Instructions New Ketoconazole Topical (ketoconazole 1% topical shampoo) 1 applicator Topically Daily Duration: 7 Days Pickup at [facility]/pharmacy #[id number] New Spironolactone (spironolactone 25 mg oral tablet) 1 tab(s) Oral Daily Bilateral leg edema Duration: 14 Days Pickup at [facility]/pharmacy #[id number] Unchanged Albuterol (albuterol 0.083% inhalation solution) 3 [...] Duration: 90 Days Unchanged Durable Medical Equipment (ROLLATOR WALKER) See instructions Osteoarthritis of lumbar spine M51.36 M47.816 ?? Unchanged Durable Medical Equipment (WALKER) See instructions Osteoarthritis of lumbar spine M47.816 ?? Unchanged Losartan (losartan 25 mg oral tablet) TAKE 1 TABLET BY MOUTH EVERY DAY ?? Unchanged Losartan (losartan 50 mg oral tablet) 1 tab(s) Oral Daily Uncontrolled stage 2 hypertension replace 25mg ?? Unchanged omalizumab (Xolair Prefilled Syringe 150 mg/ mL subcutaneous solution) 150 Milligram Unchanged PrednisoLONE Ophthalmic (prednisolone ophthalmic acetate 1% suspension) Unchanged Timolol Ophthalmic (Timolol Maleate (Eqv-Timoptic) 0.5% ophthalmic solution) Unchanged Tizanidine (tiZANidine 2 mg oral tablet) 1 tab(s) Oral Every 8 hours as needed for as needed for muscle spasm not to exceed 3 doses/ day ?? Pharmacy Information [facility]/pharmacy #[id number]: [address], [place] [id number] [phone] Test Performed Below is a partial list of the tests performed during your Visit. You may have had other tests and procedures not included in this list. Please discuss all test results with your provider. Albumin Level?-- Results Pending -- ALT?-- Results Pending -- Basic Metabolic Panel?-- Results Pending -- CBC?-- Results Pending -- Thyroid Panel?-- Results Pending -- Vitamin B12 Level?-- Results Pending -- Medications and Immunizations Administered Medications Given During [...] are strongly encouraged to quit. Please call [facility] at [phone] or [phone] Mobile ([phone]) or log in to [email or web address] for referrals to smoking cessation programs. ?? The National Suicide Prevention Hotline is available 02/05 if you or someone you know needs to find a reason to keep living. By calling 3-232-599-NovaShunt (3133) you'll be connected to a skilled, trained counselor at a crisis center in your area. [facility] Health Portal You can view and manage your care through the patient portal or by using a health care lenore of your choosing. [employer] is a website that allows you to securely view your medical information including your hospital discharge summary, office visit summaries, medications and follow-up visits. You can also request appointments, renew medications, and request access to your medical information using a health care lenore of your choosing, or just ask a question. You can enroll at [email or web address] or register during your next office visit. [facility], in keeping with [facility] guidance, no longer requires face masks for [...] primary care provider, you may find a [facility] provider by calling [facility] at [phone]. Patient Care team information Care Team Personnel Name: Vivian Meier Position: [facility] Outreach Member Role: Lifetime Consulting Physician Name: Miroslava Rfufin MD, V Position: [facility] Physician - Primary Care Member Role: PCP Address: Address: [address] [place] [address]- Care Team Related Persons Name: SPIVEY SHAINA Address: home [address] [place] [id number] Name: DANIELLE ROBERSON Name: ANIYA SOLORZANO Name: JOEY SOLORZANO Address: home [address] [place] [id number] Name: PUSHPA CLAYTON
--- OUTSIDE RECORDS SUMMARY | 2024-09-04 20:28 | XMS_ITS | Continuity of Care Document ---
Author Organization [facility] Address [address] [place] [address]- Care Team Providers Care Textile Bag Sewer Name Role Phone Augustin CAMPOS, Miroslava Oro Primary Care Physician [place] [facility] [place] 12/14/23 - 01/13/24 [facility] [address] [place] [address]- Allergies, Adverse Reactions, Alerts Substance Reaction Severity [...] tetanus/diphtheria/pertussis, acel(Tdap) 4 02/17/12 Given SARS-CoV-2 mRNA ([id number]-[id number]) vax 03/23/22 Recorded zoster vaccine, inactivated 11/20/21 [...] 11/03/15 Given 1Admin Note: per patient. via pnp office Claudia Cruz 2Admin Note: VIS 04/2012 3Admin Note: vis given vis date 01/16 4Admin Note: VIS 10/21 5Admin Note: vis given 6Admin Note: VIS IN [place] 7Admin Note: VIS given Medications albuterol 0.083% inhalation solution 3 mL = 2.5 mg, Inhalation, Every 6 hours, PRN for wheezing, # 100 each, 6 Refills, Maintenance, 09/06/23 11:39:00 EST, Solution, [facility]/pharmacy #[id number], 158.5, cm, 08/26/23 10:44:00 EST, Height Start Date: 09/06/23 Stop Date: 04/03/24 Status: Ordered cetirizine 10 mg oral tablet 1 tablet, By Mouth, Daily, PRN NEEDED FOR ALLERGY SYMPTOMS, # 90 tablet, 1 Refills, Maintenance,05/09/23 7:42:00 EDT, [id number], 158.5, cm, 02/22/23 10:56:00 EDT, Height Start Date: 05/09/23 Status: Ordered losartan 25 mg oral tablet 1 tablet = 25 mg, By Mouth, Daily, # 90 tablet, 3 Refills, Maintenance, 11/03/23 14:35:00 EST, Tablet, [facility]/pharmacy #[id number], Partial fill upon patient request if [...] 15:01:00 EDT, Aerosol, Route to Pharmacy Electronically, [id number], [facility], 160, cm, 0... Start Date: 02/18/20 Status: Ordered simethicone 80 mg oral tablet, chewable 80 mg, 1, tablet, Chew, 3 times a day after meals and bedtime, PRN, # 100 tablet, Refills 5, Tot. Refills 5, Maintenance, Gas, 12/15/23 8:51:00 EST, Route to Pharmacy Electronically, [facility]/pharmacy #[id number], Partial fill upon patient request if [...] 11 Refills, Maintenance, 09/29/22 11:25:00 EST, Tablet, [facility]/pharmacy #1972, never had kidney stones she states, 158.5, cm, 09/29/2211:23:00 EST, Height Start Date: 09/29/22 Stop Date: 09/13/25 Status: Ordered Problem List Condition Confirmation Course Effective Dates Status H ealth Status Informant Age-related cataract 1 Confirmed Active Benign paroxysmal positional vertigo, bilateral Confirmed Active Asthma Confirmed 2004 Active Cyst of kidney 2 Confirmed Active Facet arthropathy, on CT from [facility] Confirmed Active Diverticulitis Confirmed Active Diverticulosis [...] and prior CT 3per colonoscopy [facility] 4left side. ENT refered her for hearing aide [id number] GI note 6see x-ray - degenerative changes 7cites polio age 4, had right leg problems ever since she notes 8 x-ray Social History Social History Type Response Smoking Status Former smoker; Other : Pt only smoked for from the age of 16 to 18; entered on: 01/03/14 Sex Patient Care team information Care Team Personnel Name: Vivian Meier Position: [facility] Outreach Member Role: Lifetime Consulting Physician Name: Miroslava Ruffin MD, V Position: [facility] Physician - Primary Care Member Role: PCP Address: Address: [address] [place] [address]- Care Team Related Persons Name: SHAINA SPIVEY Address: home [address] [place] [address] Name: DANIELLE ROBERSON Name: ANIYA SOLORZANO Name: JOEY SOLORZANO Address: home [address] [place] [address] Name: PUSHPA CLAYTON
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
--- OUTSIDE RECORDS SUMMARY | 2024-09-04 20:28 | XMS_ITS | Continuity of Care Document ---
Author Organization [facility] Address [address] [place] [address]- Care Team Providers Care Ecd Name Role Phone Augustin CAMPOS, Miroslava Oro Primary Care Physician [phone] Encounter [facility] Date(s): 08/07/24 - 08/14/24 [facility] [address] [place] [address]- Encounter Diagnosis Poor compliance with medication(Discharge Diagnosis) - 08/07/24 Neck pain(Discharge Diagnosis) - 08/07/24 Attending Physician: Augustin CAMPOS, Miroslava Oro Allergies, [...] tetanus/diphtheria/pertussis, acel(Tdap) 4 02/17/12 Given SARS-CoV-2 mRNA ([id number]-[id number]) vax 6/14/22 Recorded zoster vaccine, inactivated 11/20/21 Recorded zoster [...] 11/03/15 Given 1Admin Note: per patient. via temperature logging operator office Claudia Cruz 2Admin Note: VIS 04/2012 3Admin Note: vis given vis date 01/16 4Admin Note: VIS 10/21 5Admin Note: vis given 6Admin Note: VIS IN CUBAN 7Admin Note: VIS given Medications albuterol 0.083% inhalation solution 3 mL = 2.5 mg, Inhalation, Every 6 hours, PRN for wheezing, # 100 each, 6 Refills, Maintenance, 09/06/23 11:39:00 EST, [facility], [id number], 158.5, cm, 08/26/23 10:44:00 EST, Height Start Date: 09/06/23 Stop Date: 04/03/24 Status: Ordered Aluminum walker with front wheels Aluminum walker with front wheels, See Instructions, # 1 each, Refills 0, Tot. Refills 0, Maintenance, M47.816, 07/10/24 12:02:00 EDT, Supply Start Date: 07/10/24 Status: Ordered cetirizine 10 mg oral tablet 1 tablet, By Mouth, Daily, PRN NEEDED FOR ALLERGY SYMPTOMS, # 90 tablet, 1 Refills, Maintenance,05/09/23 7:42:00 EDT, [id number], 158.5, cm, 02/22/23 10:56:00 EDT, Height Start Date: 05/09/23 Status: Ordered EpiPen 2-Moses 0.3 mg injectable kit = 0.3 mg, Intramuscular, Once, may repeat if necessary, # 2 each, 11 Refills, Soft Stop, 08/07/24 10:31:00 EDT, [facility]/pharmacy #[id number], Partial fill upon patient request if the prescription is for a schedule II opioid drug., 158.5, cm, 08/07/24 10:09:00 E... Start Date: 08/07/24 Status: Ordered losartan 25 mg oral tablet 25 mg, 1, tablet, By Mouth, Daily, # 90 tablet, Refills 3, Tot. Refills 3, Maintenance, 08/07/24 10:25:00 EDT, Route to Pharmacy Electronically, [facility]/pharmacy #[id number], Partial fill upon patient request if the prescription is for a schedule II opioid drug... Start Date: 08/07/24 Status: Ordered prednisolone ophthalmic acetate 1% suspension [...] 15:01:00 EDT, Aerosol, Route to Pharmacy Electronically, [id number], [facility]/pharmacy #1972, 160, cm, 0... Start Date: 02/18/20 Status: Ordered ROLLATOR WALKER ROLLATOR WALKER, See Instructions, # 1 each, Refills 0, Tot. Refills 0, Maintenance, M51.36 M47.816, 06/18/24 15:57:00 EDT, Supply Start Date: 06/18/24 Status: Ordered Symbicort 80mcg/4.5mcg Inhaler 2, puffs, Inhalation, 2 times a day, Refills 0, Maintenance, 09/29/22 10:58:00 EST Start Date: 09/29/22 Status: Ordered Timolol Maleate (Eqv-Timoptic) 0.5% ophthalmic solution 0 Refills, Maintenance, 12/28/22 10:32:00 EDT, Partial fill upon patient request if the prescription is for a schedule II opioid drug. Start Date: 12/28/22 Status: Ordered tiZANidine 2 mg oral tablet 1, tablet, By Mouth, Every 8 hours, PRN, MUSCLE SPASMS., # 270 tablet, Refills 2, Maintenance, NEEDED, 08/07/24 15:50:00 EDT, Route to Pharmacy Electronically, [id number], 158.5, cm, 08/07/2410:09:00 EDT, Height, 63.6, kg, 07/10/24 11:31:00 E... Start Date: 08/07/24 Status: Ordered Vitamin D3 1000 intl units oral tablet 1 tablet = 1,000 International_Units, By Mouth, Daily, # 90 tablet, 11 Refills, Maintenance, 09/29/22 11:25:00 EST, Tablet, [facility]/pharmacy #1972, never had kidney stones she states, [...] Confirmed Active Facet arthropathy, on CT from [facility] Confirmed Active Diverticulitis Confirmed Active Diverticulosis of [...] side. ENT refered her for hearing aide [id number] GI note 6see x-ray - degenerative changes 7cites polio age 4, had right leg problems ever since she notes 8on x-ray Diagnosis Diagnosis Type Effective Dates Health Status Clinical Service Informant Neck pain Discharge Diagnosis 08/07/24 Poor compliance with medication Discharge Diagnosis 08/07/24 Vital Signs Most recent to oldest [Reference Range]: 1 Height 158.5 cm (08/07/24 10:09 AM) Weight 64.7 kg (08/07/24 10:09 AM) Oxygen Saturation [94-100 %] 98 % (08/07/24 10:09 AM) Pulse Rate [55-90 bpm] 92 bpm *H* (08/07/24 10:09 AM) Body Mass Index [18.5-24.99 kg/m2] 25.75 kg/m2 *H* (08/07/24 10:09 AM) Blood Pressure [90-138/55-84 mm Hg] 141/ 78mm Hg *H* (08/07/24 10:09 AM) Mode of Delivery (Oxygen) Room air (08/07/24 10:09 AM) Blood pressure sites Arm, left (08/07/24 10:09 AM) Weight Obtained Via Standing scale (08/07/24 10:09 AM) Social History Social History Type Response Smoking Status Former smoker; Other : Pt only smoked for from the age of 16 to 18; entered on: 01/03/14 Sex Note * Jaki Dick: PERFORM Event Display: Patient Education/Instruction Authored Date: Ambulatory Adult Visit Summary [facility] [address] [place] [address] Name: ALVINO SPIVEY : 1945?? Visit: 08/07/2024 09:43?? Ambulatory Visit Instructions ?? Your Care Team Primary Care Provider Miroslava Ruffin MD, V? This Visit Provider Miroslava Ruffin MD, V Your Diagnosis Hypertension Neck pain History of anaphylaxis Poor compliance with medication Vitals Signs Pulse Rate:??92 bpm??High Height: 158.5 cm Systolic Blood Pressure:??141 mm Hg??High Weight: 64.7 kg Diastolic Blood Pressure: 78 mm Hg Body Mass Index:??25.75 kg/m2??High Oxygen Saturation: 98 % Body surface area: 1.69 What to do next Instructions From Your Provider X-ray of neck today.?? Physical therapy, please call [phone] to make an appointment.?? Future Orders XR Cervical Spine 3 Views or Less, Routine, Reason for Exam: Pain, Chronic neck pain, Once, *Est. 08/07/24, Single or Recurring Future Order Medications The list below reflects the information in our records and provided by you today along with any changes made during this visit. Please continue your medications until treatment is completed or stopped by your provider. If this is different from the information you have or there are other questions,please contact the prescribing provider. What How Much When Why Instructions New EPINEPHrine (EpiPen 2-Moses 0.3 mg injectable kit) 0.3 Milligram Intramuscular Once Refills: 11 may repeat if necessary ?? Pickup at [facility]/pharmacy #[id number] New Losartan (losartan 25 mg oral tablet) 1 tab(s) Oral Daily Hypertension Refills: 3 Pickup at [facility]/pharmacy #[id number] Unchanged Albuterol (albuterol 0.083% inhalation solution) 3 [...] Duration: 90 Days Unchanged Durable Medical Equipment (Aluminum walker with front wheels) See instructions Osteoarthritis of lumbar spine M47.816 ?? Unchanged Durable Medical Equipment (ROLLATOR WALKER) See instructions Osteoarthritis of lumbar spine M51.36 M47.816 ?? Unchanged Durable Medical Equipment (WALKER) See instructions Osteoarthritis of lumbar spine M47.816 ?? Unchanged omalizumab (Xolair Prefilled Syringe 150 mg/ mL subcutaneous solution) 150 Milligram Unchanged PrednisoLONE Ophthalmic (prednisolone ophthalmic acetate 1% suspension) Unchanged Timolol Ophthalmic (Timolol Maleate (Eqv-Timoptic) 0.5% ophthalmic solution) Unchanged Tizanidine (tiZANidine 2 mg oral tablet) 1 tab(s) Oral Every 8 hours as needed for as needed for muscle spasm not to exceed 3 doses/ day ?? Pharmacy Information [facility]/pharmacy #[id number]: [address], [place] [id number] [phone] ?? What How Much When Why Comments Stop Taking Amlodipine (amLODIPine 5 mg oral tablet) 1 tab(s) Oral Daily Hypertension Medications and Immunizations Administered Medications Given During [...] are strongly encouraged to quit. Please call [facility] Link at [phone] or [phone] ([phone]) or log in to [email or web address] for referrals to smoking cessation programs. ?? The National Suicide Prevention Hotline is available 02/05 if you or someone you know needs to find a reason to keep living. By calling 0-886-348-[employer] (0561) you'll be connected to a skilled, trained counselor at a crisis center in your area. [facility] Portal You can view and manage your care through the patient portal or by using a health care lenore of your choosing. [employer] is a website that allows you to securely view your medical information including your hospital discharge summary, office visit summaries, medications and follow-up visits. You can also request appointments, renew medications, and request access to your medical information using a health care lenore of your choosing, or just ask a question. You can enroll at [email or web address] or register during your next office visit. [facility], in keeping with [facility] guidance, no longer requires face masks [...] primary care provider, you may find a [facility] provider by calling [facility] at [phone]. Patient Care team information Care Team Personnel Name: Vivian Meier Position: [facility] Outreach Member Role: Lifetime Consulting Physician Name: Miroslava Ruffin MD, V Position: [facility] Physician - Primary Care Member Role: PCP Address: Address: [address] [place] [address]- Care Team Related Persons Name: SHAINA SPIVEY Address: [address] [address] Name: DANIELLE ROBERSON Name: ANIYA SOLORZANO Name: JOEY SOLORZANO Address: [address] [address] Name: PUSHPA CLAYTON
--- OUTSIDE RECORDS SUMMARY | 2024-09-04 20:28 | XMS_ITS | Continuity of Care Document ---
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 Motorboat Operator Name Role Phone Miroslava Ruffin MD, V Primary Care Physician [place] [facility] Date(s): 02/22/23 - 03/01/23 [facility] [address] [place] [address]- Encounter Diagnosis Postnasal drip(Discharge Diagnosis) - 02/22/23 ALISON on CPAP(Discharge Diagnosis) - 02/22/23 Impaired Fasting Glucose(Discharge Diagnosis) - 02/22/23 Hyperlipidemia(Discharge Diagnosis) - 02/22/23 Attending Physician: Miroslava Ruffin MD, V Allergies, [...] tetanus/diphtheria/pertussis, acel(Tdap) 4 02/17/12 Given SARS-CoV-2 mRNA (fjbguun-kulo-ieszo) vax 03/23/22 Recorded zoster vaccine, inactivated 11/20/21 [...] 11/03/15 Given 1Admin Note: per patient. via program writer office Claudia Cruz 2Admin Note: VIS 04/2012 3Admin Note: vis given vis date 01/16 4Admin Note: VIS 10/21 5Admin Note: vis given 6Admin Note: VIS IN ARABIC 7Admin Note: VIS given Medications albuterol 0.083% [...] Refills, Maintenance, 02/09/23 7:41:00 EDT, [facility], 158.5, cm, 01/21/23 12:49:00 EDT, Height Start Date: 02/09/23 Status: Ordered cetirizine 10 mg oral tablet 1 tablet, By Mouth, Daily, PRN NEEDED FOR ALLERGY SYMPTOMS, # 90 tablet, 1 Refills, Maintenance,01/03/23 12:04:00 EDT, [facility]/pharmacy #[id number], 158.5, cm, 12/28/22 10:19:00 EDT, [...] 5 Refills, Maintenance, 01/03/23 12:05:00 EDT, Tablet, [facility]/pharmacy #[id number], Partial fill upon patient request if the prescription is for a schedule II opioid drug., 158.5, cm, 12/28/22 10:19:00 ED... Start Date: 01/03/23 Status: Ordered Melatonin 1 mg oral tablet TAKE ONE TABLET BY MOUTH AT BEDTIME Start Date: 03/05/22 Status: Ordered Falling Spring 0.65% nasal spray 2 sprays, Nares, Both, [...] 15:01:00 EDT, Aerosol, Route to Pharmacy Electronically, [id number], [facility]/pharmacy #1972, 160, cm, 0... Start Date: [...] 09/29/22 11:25:00 EST, Route to Pharmacy Electronically, [facility]/pharmacy #1972, 158.5, cm, 09/29/22 11:23:00 EST, [...] Maintenance, 09/29/22 11:25:00 EST, Tablet, [facility]/pharmacy #1972, never had kidney stones she states, 158.5, cm, 09/29/2211:23:00 EST, Height Start Date: 09/29/22 Stop Date: 09/13/25 Status: Ordered Problem List Condition Confirmation Course Effective Dates Status H ealth Status Informant Age-related cataract 1 Confirmed Active Asthma Confirmed 2004 Active Cyst of kidney 2 Confirmed Active Facet arthropathy, on CT from [facility] Confirmed Active Diverticulosis of colon 3 [...] [address] 3per colonoscopy [facility] 4left side. ENT refered her for hearing aide [id number] GI note 6see x-ray - degenerative changes 7cites polio age 4, had right leg problems ever since she notes 8on x-ray Diagnosis Diagnosis Type Effective Dates Health Status Clinical Service Informant Postnasal drip Discharge Diagnosis 02/22/23 ALISON on CPAP Discharge Diagnosis 02/22/23 Impaired Fasting Glucose Discharge Diagnosis 02/22/23 Hyperlipidemia Discharge Diagnosis 02/22/23 Vital Signs Most recent to oldest [Reference Range]: 1 Height 158.5 cm (02/22/23 10:56 AM) Weight 69.4 kg (02/22/23 10:56 AM) Oxygen Saturation [94-100 %] 98 % (02/22/23 10:56 AM) Pulse Rate [55-90 bpm] 93 bpm *H* (02/22/23 10:56 AM) Body Mass Index [18.5-24.99 kg/m2] 27.62 kg/m2 *H* (02/22/23 10:56 AM) Blood Pressure [90-138/55-84 mm Hg] 134/ 70mm Hg (02/22/23 10:56 AM) Mode of Delivery (Oxygen) Room air (02/22/23 10:56 AM) Blood pressure sites Arm, left (02/22/23 10:56 AM) Weight Obtained Via Standing scale (02/22/23 10:56 AM) Social History Social History Type Response Smoking Status Former smoker; Other : Pt only smoked for from the age of 16 to 18; entered on: 01/03/14 Sex Note * Nevaeh Dee: PERFORM, SIGN, VERIFY Event Display: Patient Education/Instruction Authored Date: [facility] Clinical Summary Name ALVINO SPIVEY Age 77 Years 1945 PCP Augustin CAMPOS, Miroslava Oro PCP Visit Date 02/22/2023 10:45:00 Additional Instructions: Scheduled Appointments?? Future Appointments ?*[facility]Management ?[address]??[place],??[place],??[address] ?Phone:??[phone]?Fax:??-- ?Appt. Date:??04/01/2023?10:30 AM ?Scheduled Provider:??Star CAMPOS, [facility] Follow-Up Instructions ?? Diagnosis Medications: Please continue your medications until treatment is completed or stopped by your provider. Discuss any questions related to medications with your provider. Medications to Continue with No Changes These medications were not printed or sent to your pharmacy Acetaminophen (Tylenol Extra Strength 500 mg oral tablet) 2 tab(s) Oral twice a day. Next Dose: Albuterol (albuterol 0.083% inhalation solution) 3 Milliliter Inhalation every 6 hours as needed for wheezing for 30 Days. Refills: 0. Next Dose: Albuterol (ProAir HFA 90 mcg/inh inhalation aerosol with adapter) 1 puff(s) Inhalation every 4 hours as needed for wheezing. use with spacer chamber. Refills: 5. Next Dose: Amlodipine (amLODIPine 5 mg oral tablet) 1 tab(s) Oral Daily. Refills: 1. Next Dose: Ascorbic Acid (Vitamin C 500 mg oral tablet) 1 tab(s) Oral Daily for 90 Days. Refills: 3. Next Dose: Bifidobacterium Infantis (Align 4 mg oral capsule) 1 capsule Oral Daily. Next Dose: Budesonide-Formoterol (Symbicort 160mcg/4.5mcg Inhaler) Next Dose: Budesonide-Formoterol (Symbicort 80mcg/4.5mcg Inhaler) 2 puff(s) Inhalation twice a day. Next Dose: capsaicin-menthol topical (Salonpas) Topically 3 times a day. Next Dose: Cetirizine (cetirizine 10 mg oral tablet) 1 tab(s) Oral Daily as needed NEEDED FOR ALLERGY SYMPTOMS. Refills: 1. Next Dose: Cholecalciferol (Vitamin D3 1000 intl units oral tablet) 1 tab(s) Oral Daily for 90 Days. Refills: 11. Next Dose: Dicyclomine (dicyclomine 10 mg oral capsule) TAKE 1 CAPSULE BY MOUTH THREE TIMES A DAY DIRECTED. Next Dose: Doxycycline (doxycycline hyclate 100 mg oral tablet) Next Dose: Durable Medical Equipment (Home Blood Pressure Monitor) Check Blood pressure daily.. Refills: 0. Next Dose: EPINEPHrine (EPINEPHrine 0.3 mg injectable solution) 2 each, INJECT INTRAMUSCULARLY DIRECTED ON PACKAGE. Next Dose: Lidocaine Topical (Lidoderm 5% film) 1 patch(es) Topically Daily. remove patches after 12 hours. Refills: 2. Next Dose: Losartan (losartan 50 mg oral tablet) 1 tab(s) Oral twice a day. Refills: 5. Next Dose: Melatonin (Melatonin 1 mg oral tablet) TAKE ONE TABLET BY MOUTH AT BEDTIME. Next Dose: Miscellaneous Rx ([facility] GAS RELF(SIMETH) 80 MG CHW) Next Dose: Pantoprazole (pantoprazole 40 mg oral delayed release tablet) 60 each, TAKE ONE TABLET TWICE DAILY. Next Dose: PEG Electrolyte Solution (GaviLyte-G oral powder for reconstitution) Next Dose: PrednisoLONE Ophthalmic (prednisolone ophthalmic acetate 1% suspension) Next Dose: Simethicone (simethicone 80 mg oral tablet, chewable) 1 tab(s) Chew 3 times a day. Refills: 1. Next Dose: Sodium Chloride Nasal (Falling Spring 0.65% nasal spray) 2 spray(s) Nares, Both 4 times a day for 7 Days. STOP prior script for fluticasone nasal spray. iin each nostril. Refills: 4. Next Dose: Timolol Ophthalmic (Timolol Maleate (Eqv-Timoptic) 0.5% ophthalmic solution) Next Dose: Timolol Ophthalmic (Timolol Maleate (Eqv-Timoptic) 0.5% ophthalmic solution) Next Dose: Timolol Ophthalmic (Timolol Maleate (Eqv-Timoptic) 0.5% ophthalmic solution) Next Dose: Timolol Ophthalmic (Timolol Maleate (Eqv-Timoptic) 0.5% ophthalmic solution) Next Dose: Timolol Ophthalmic (Timolol Maleate (Eqv-Timoptic) 0.5% ophthalmic solution) Next Dose: Tizanidine (tiZANidine 4 mg oral tablet) 10 each, TAKE ONE TABLET BY MOUTH EVERY DAY NEEDED. Next Dose: Allergy Info:?? traMADol; Other Food Allergy; Contrast Dye; sulfa drugs; lisinopril; morphine; erythromycin; naproxen Medications Given This Visit Future Orders ?No future orders Vital Signs Height 158.5 cm Weight 69.4 kg BMI 27.62 kg/m2 Blood Pressure 134 mm Hg/70 mm Hg Temperature Pulse Rate 93 bpm Respiratory Rate 02 Sat Mode of Delivery 98 %/Room air You can now view a summary of your hospital visit from the comfort of your home through a free online portal called [facility] [facility]. [employer] is a website that allows you to securely view your medical information including discharge summary, medications and follow-up visits. ??You can alsosend a secure electronic message to your doctor???s office to request appointments, renew medications or just ask a question. You can enroll at [email or web address] or register during your next office visit. Disclaimer:?? The information provided is of a general nature and is intended to be used in conjunction with the recommendations and advice of your health care practitioner. ??Every effort has been made to ensure that the information provided is accurate and complete at the time it is provided to you however, as your needs change, or, as new ??information becomes available, different or additional instructions may be required. If you have questions, please consult with your primary care provider or pharmacist, as appropriate. ??This information is not intended to serve as substitution for assessment and evaluation by a qualified health care provider. If you do not have a primary care provider, you may find a [facility] provider by calling [facility] Link at [phone]. For information about the plan of care including goals and instructions for your diagnosis, please see the patient education orders section of this document. Patient Education Materials?? The content of this educational material or handout may have been modified, supplemented, or adapted from its original content and format to support your individualized medical care. Patient Care team information Care Team Personnel Name: Vivian Meier Position: [facility] Outreach Member Role: Lifetime Consulting Physician Name: Miroslava Ruffin MD, V Position: [facility] Primary Care Physician Member Role: PCP Address: Address: [address] [place] [address]- Care Team Related Persons Name: SHAINA SPIVEY Address: [address] [place] [address] Name: DANIELLE ROBERSON Name: ANIYA SOLORZANO Name: JOEY SOLORZANO Address: home [address] [place] [id number] Name: PUSHPA CLAYTON
--- OUTSIDE RECORDS SUMMARY | 2024-09-04 20:28 | XMS_ITS | Continuity of Care Document ---
Author Organization [facility] Address [address] [place] [address]- Care Team Providers Care Double End Trimmer Name Role Phone Berta HAYNES, Eileen Crowell Primary Care Physician [phone] Encounter [facility] Date(s): 05/06/21 - 06/05/21 [facility] [address] [place] [address]- Allergies, Adverse Reactions, Alerts Substance Reaction Severity [...] Note: vis given 2Admin Note: VIS IN [place] 3Admin Note: VIS given 4Admin Note: per patient. via broadcast transmitter operator office Claudia Cruz 5Admin Note: VIS 04/2012 [...] BEDTIME, # 90 tablet, 3 Refills, Acute, [facility], 160, cm, 09/03/19 12:02:00 EST, Height, 67.2, kg, 09/03/19 12:02:00 EST, Dry Weight Start Date: 10/31/19 Status: Ordered Nasacort Allergy 24HR 55 mcg/inh nasal spray 2 sprays, Daily, 0 Refills, Maintenance, 01/23/18 9:29:42 EDT Start Date: 01/23/18 Status: Ordered Marl[place] 0.65% nasal spray 2 sprays, Nares, Both, [...] tablet, 0 Refills, Maintenance, 12/20/19 15:43:00 EDT, [facility]/pharmacy #1972, to replace 30 tab script, [...] 15:01:00 EDT, Aerosol, Route to Pharmacy Electronically, [id number], [facility]/pharmacy #1972, 160, cm, 0... Start Date: 02/18/20 Status: Ordered simethicone 80 mg oral tablet, chewable 80 mg, 1, tablet, Chew, 3 times a day, # 90 tablet, Refills 1, Tot. Refills 1, Maintenance, 10/11/17 16:26:21, Route to Pharmacy Electronically, [id number], [facility]/pharmacy #1972 Start Date: 10/11/17 Status: Ordered tiZANidine 2 mg oral tablet 2 mg, 1, tablet, By Mouth, Every 8 hours, PRN, # 30 tablet, Refills 2, Tot. Refills 2, Maintenance,as needed for muscle spasm, 04/19/19 10:28:15 EDT, Route to Pharmacy Electronically, [id number], [facility]/pharmacy #1972 Start Date: 04/19/19 Stop Date: [...] 6 Active Facet arthropathy, [facility] from [facility](Confirmed) Active chronic Rotator cuff tear(Confirmed) Active Diverticulosis [...] of lumbar spine(Confirmed) 10 Active Overweight(Confirmed) Active [phone] Care Partn er Karina Mcneal(Confirmed) Active POLIO(Confirmed) [...] side. ENT refered her for hearing aide [id number] GI note 10see x-ray - degenerative changes 11cites polio age 4, had right leg problems ever since she notes 12on x-ray 13sees ENT for this Social History Social History Type Response Smoking Status Former smoker; Other : Pt only smoked for from the age of 16 to 18; entered on: 01/03/14 Sex
--- OUTSIDE RECORDS SUMMARY | 2024-09-04 20:28 | XMS_ITS | Continuity of Care Document ---
Author Organization [facility] Address [address] [place] [address]- Care Team Providers Care Spout Liner Name Role Phone Augustin CAMPOS, Miroslava Oro Primary Care Physician [place] [facility] [place](s): 05/29/24 - 06/28/24 [facility] [address] [place] [address]- Allergies, Adverse Reactions, Alerts Substance Reaction Severity [...] tetanus/diphtheria/pertussis, acel(Tdap) 4 02/17/12 Given SARS-CoV-2 mRNA ([id number]) vax 03/23/22 Recorded zoster vaccine, inactivated 11/20/21 [...] 11/03/15 Given 1Admin Note: per patient. via charter representative office Claudia Cruz 2Admin Note: VIS 04/2012 3Admin Note: vis given vis date 01/16 4Admin Note: VIS 10/21 5Admin Note: vis given 6Admin Note: VIS IN [place] 7Admin Note: VIS given Medications albuterol 0.083% inhalation solution 3 mL = 2.5 mg, Inhalation, Every 6 hours, PRN for wheezing, # 100 each, 6 Refills, Maintenance, 09/06/23 11:39:00 EST, Solution, [facility]/pharmacy #[id number], 158.5, cm, 08/26/23 10:44:00 EST, Height Start Date: 09/06/23 Stop Date: 04/03/24 Status: Ordered cetirizine 10 mg oral tablet 1 tablet, By Mouth, Daily, PRN NEEDED FOR ALLERGY SYMPTOMS, # 90 tablet, 1 Refills, Maintenance,05/09/23 7:42:00 EDT, [facility], 158.5, cm, 02/22/23 10:56:00 EDT, Height Start Date: 05/09/23 Status: Ordered losartan 25 mg oral tablet TAKE 1 TABLET BY MOUTH EVERY DAY Start Date: 05/01/24 Status: Ordered losartan 50 mg oral tablet 50 mg, 1, tablet, By Mouth, Daily, replace 25mg, # 90 tablet, Refills 1, Tot. Refills 1, Maintenance, 05/01/24 13:41:00 EDT, Route to Pharmacy Electronically, [facility]/pharmacy #[id number], Partial fill upon patient request if the [...] 15:01:00 EDT, Aerosol, Route to Pharmacy Electronically, [id number], [facility]/pharmacy #1972, 160, cm, 0... Start Date: [...] 06/15/24 15:03:00 EDT, Route to Pharmacy Electronically, [facility]/pharmacy #[id number], Partial fill upon patient request [...] 04/27/24 10:57:00 EDT, Route to Pharmacy Electronically, [facility]/pharmacy #[id number], Partial fill upon p... Start Date: 04/27/24 Status: Ordered Vitamin D3 1000 intl units oral tablet 1 tablet = 1,000 International_Units, By Mouth, Daily, # 90 tablet, 11 Refills, Maintenance, 09/29/22 11:25:00 EST, Tablet, [facility]/pharmacy #1972, never had kidney stones she [...] Confirmed Active Facet arthropathy, on CT from [facility] Confirmed Active Diverticulitis Confirmed Active Diverticulosis [...] side. ENT refered her for hearing aide [id number] GI note 6see x-ray - degenerative changes 7cites polio age 4, had right leg problems ever since she notes 8on x-ray Social History Social History Type Response Smoking Status Former smoker; Other : Pt only smoked for from the age of 16 to 18; entered on: 01/03/14 Sex Patient Care team information Care Team Personnel Name: Vivian Meier Position: [facility] Outreach Member Role: Lifetime Consulting Physician Name: Augustin CAMPOS, Miroslava Oro Position: [facility] Physician - Primary Care Member Role: PCP Address: Address: [address] [place] [address]- Care Team Related Persons Name: SHAINA SPIVEY Address: [address] [place] [address] Name: DANIELLE ROBERSON Name: ANIYA SOLORZANO Name: JOEY SOLORZANO Address: [address] [place] [address] Name: PUSHPA CLAYTON
--- OUTSIDE RECORDS SUMMARY | 2024-09-04 20:28 | XMS_ITS | Continuity of Care Document ---
Author Organization [facility] Address [address] [place] [address]- Care Team Providers Care Account Receivable Associate Name Role Phone Berta HAYNES, Eileen Crowell Primary Care Physician [phone] Encounter [facility] Date(s): 04/16/21 - 07/09/[address] [address]- Attending Physician: Erica CAMPOS , Kaya Admitting Physician: Erica CAMPOS , Thefabian Referring Physician: Erica CAMPOS , Thefabian Allergies, Adverse Reactions, Alerts Substance Reaction Severity Status naproxen hives Active erythromycin Active morphine Active traMADol 1 Active lisinopril Rash Active sulfa drugs Active [...] VIS given 4Admin Note: per patient. via meeting specialist office Claudia Cruz 5Admin Note: VIS [...] 90 tablet, 3 Refills, Acute, [facility], 160, cm, 09/03/19 12:02:00 EST, Height, 67.2, kg, 09/03/19 12:02:00 EST, Dry Weight Start Date: 10/31/19 Status: Ordered Nasacort Allergy 24HR 55 mcg/inh nasal spray 2 sprays, Daily, 0 Refills, Maintenance, 01/23/18 9:29:42 EDT Start Date: 01/23/18 Status: Ordered [place] 0.65% nasal spray 2 sprays, Nares, Both, [...] tablet, 0 Refills, Maintenance, 12/20/19 15:43:00 EDT, [facility]/pharmacy #1972, to replace 30 tab script, [...] 15:01:00 EDT, Aerosol, Route to Pharmacy Electronically, [id number], [facility]/pharmacy #1972, 160, cm, 0... Start Date: 02/18/20 Status: Ordered simethicone 80 mg oral tablet, chewable 80 mg, 1, tablet, Chew, 3 times a day, # 90 tablet, Refills 1, Tot. Refills 1, Maintenance, 10/11/17 16:26:21, Route to Pharmacy Electronically, [id number], [facility] Start Date: 10/11/17 Status: Ordered tiZANidine 2 mg oral tablet 2 mg, 1, tablet, By Mouth, Every 8 hours, PRN, # 30 tablet, Refills 2, Tot. Refills 2, Maintenance,as needed for muscle spasm, 04/19/19 10:28:15 EDT, Route to Pharmacy Electronically, [id number], [facility] Start Date: 04/19/19 Stop Date: [...] Facet arthropathy, on CT from [facility](Confirmed) Active chronic Rotator cuff tear(Confirmed) Active Diverticulosis [...] of lumbar spine(Confirmed) 10 Active Overweight(Confirmed) Active *[phone] Care Partn caron Mcneal(Confirmed) Active POLIO(Confirmed) 11 [...] and prior CT 6of lumbar spine on 2 x-ray 7per colonoscopy [facility] 8left side. ENT refered her for hearing aide [id number] GI note 10see x-ray - degenerative changes 11cites polio age 4, had right leg problems ever since she notes 12on x-ray 13sees ENT for this Social History Social History Type Response Smoking Status Former smoker; Other : Pt only smoked for from the age of 16 to 18; entered on: 01/03/14 Sex
--- OUTSIDE RECORDS SUMMARY | 2024-09-04 20:28 | XMS_ITS | Continuity of Care Document ---
Author Organization [facility] Address [address] [place] [address]- Care Team Providers Care Floorworker Name Role Phone Miroslava Ruffin MD, V Primary Care Physician Encounter [facility] [place] Date(s): 12/02/23 - 12/09/23 [facility] [address] [place] [address]- Encounter Diagnosis Hypertension(Discharge Diagnosis) - 12/02/23 Other fatigue(Discharge Diagnosis) - 12/02/23 Attending Physician: Miroslava Ruffin MD, V Allergies, [...] tetanus/diphtheria/pertussis, acel(Tdap) 4 02/17/12 Given SARS-CoV-2 mRNA (jxajjnw-rkca-jwdjn) vax 03/23/22 Recorded zoster vaccine, inactivated 11/20/21 [...] 11/03/15 Given 1Admin Note: per patient. via talent engineer office Claudia Cruz 2Admin Note: VIS 04/2012 3Admin Note: vis given vis date 01/16 4Admin Note: VIS 10/21 5Admin Note: vis given 6Admin Note: VIS IN [place] 7Admin Note: VIS given Medications albuterol 0.083% inhalation solution 3 mL = 2.5 mg, Inhalation, Every 6 hours, PRN for wheezing, # 100 each, 6 Refills, Maintenance, 09/06/23 11:39:00 EST, Solution, [facility]/pharmacy #[id number], 158.5, cm, 08/26/23 10:44:00 EST, Height Start Date: 09/06/23 Stop Date: 04/03/24 Status: Ordered cetirizine 10 mg oral tablet 1 tablet, By Mouth, Daily, PRN NEEDED FOR ALLERGY SYMPTOMS, # 90 tablet, 1 Refills, Maintenance,05/09/23 7:42:00 EDT, [facility], 158.5, cm, 02/22/23 10:56:00 EDT, Height Start Date: 05/09/23 Status: Ordered losartan 25 mg oral tablet 1 tablet = 25 mg, By Mouth, Daily, # 90 tablet, 3 Refills, Maintenance, 11/03/23 14:35:00 EST, Tablet, [id number], Partial fill upon patient request if [...] 15:01:00 EDT, Aerosol, Route to Pharmacy Electronically, [id number], [facility]/pharmacy #1972, 160, cm, 0... Start Date: [...] 11 Refills, Maintenance, 09/29/22 11:25:00 EST, Tablet, [facility]/pharmacy #1972, never had kidney stones she states, 158.5, cm, 09/29/2211:23:00 EST, Height Start Date: 09/29/22 Stop Date: 09/13/25 Status: Ordered Problem List Condition Confirmation Course Effective Dates Status H ealth Status Informant Age-related cataract 1 Confirmed Active Benign paroxysmal positional vertigo, bilateral Confirmed Active Asthma Confirmed 2005 Active Cyst of kidney 2 Confirmed Active Facet arthropathy, on CT from [facility] Confirmed Active Diverticulitis Confirmed Active Diverticulosis [...] [address] 3per colonoscopy [facility] 4left side. ENT refered her for hearing aide [id number] GI note 6see x-ray - degenerative changes 7cites polio age 4, had right leg problems ever since she notes 8 x-ray Diagnosis Diagnosis Type Effective Dates Health Status Cl inical Service Informant Hypertension Discharge Diagnosis 12/02/23 Other fatigue Discharge Diagnosis 12/02/23 Vital Signs Most recent to oldest [Reference Range]: 1 2 Height 158.5 cm (12/02/23 3:36 PM) 158.5 cm (12/02/23 9:46 AM) Weight 64.9 kg (12/02/23 9:46 AM) Oxygen Saturation [94-100 %] 96 % (12/02/23 9:46 AM) Pulse Rate [55-90 bpm] 95 bpm *H* (12/02/23 9:46 AM) Body Mass Index [18.5-24.99 kg/m2] 25.83 kg/m2 *H* (12/02/23 9:46 AM) Blood Pressure [90-138/55-84 mm Hg] 130/ 70mm Hg (12/02/23 3:36 PM) 141/44mm Hg *H* (12/02/23 9:46 AM) Mode of Delivery (Oxygen) Room air (12/02/23 9:46 AM) Blood pressure sites Arm, left (12/02/23 9:46 AM) Weight Obtained Via Standing scale (12/02/23 9:46 AM) Social History Social History Type Response Smoking Status Former smoker; Other : Pt only smoked for from the age of 16 to 18; entered on: 01/03/14 Sex Note * Angela Poon: PERFORM, SIGN, VERIFY Event Display: Patient Education/Instruction Authored Date: [id number] [facility] *[facility] Clinical Summary Name ALVINO SPIVEY Age 78 Years 1945 PCP Augustin CAMPOS, Miroslava Oro PCP Visit Date 12/02/2023 09:40:00 Additional Instructions: Scheduled Appointments?? Future Appointments ?*[facility] ?[address]??[place],??[place],??[address] ?Phone:??--?Fax:??-- ?Appt. Date:??02/29/2024?10:40 AM ?Scheduled Provider:??Miroslava Ruffin MD, V Follow-Up Instructions ?? Diagnosis Medications: Please continue [...] needed for wheezing for 30 Days. Refills: 6. Next Dose: Albuterol (ProAir HFA 90 mcg/inh inhalation aerosol with adapter) 1 puff(s) Inhalation every 4 hours as needed for wheezing. use with spacer chamber. Refills: 5. Next Dose: Budesonide-Formoterol (Symbicort 80mcg/4.5mcg Inhaler) 2 puff(s) Inhalation twice a day. Next Dose: Cetirizine (cetirizine 10 mg oral tablet) 1 tab(s) Oral Daily as needed NEEDED FOR ALLERGY SYMPTOMS. Refills: 1. Next Dose: Cholecalciferol (Vitamin D3 1000 intl units oral tablet) 1 tab(s) Oral Daily for 90 Days. Refills: 11. Next Dose: Losartan (losartan 25 mg oral tablet) 1 tab(s) Oral Daily. Refills: 3. Next Dose: PrednisoLONE Ophthalmic (prednisolone ophthalmic acetate 1% suspension) Next Dose: Timolol Ophthalmic (Timolol Maleate (Eqv-Timoptic) 0.5% ophthalmic solution) Next Dose: Allergy Info:?? traMADol; Other Food Allergy; Contrast Dye; quinolone antibiotics; sulfa drugs; lisinopril; morphine; erythromycin; naproxen Medications Given This Visit Future Orders ?Comprehensive Metabolic Panel? Order Date:12/02/23?- Complete by?12/02/23 ?CBC? Order Date:12/02/23?- Complete by?12/02/23 ?TSH with T4 Reflex (Adults Only)? Order Date:12/02/23?- Complete by?12/02/23 ?Vitamin D 25 Hydroxy Level? Order Date:12/02/23?- Complete by?12/02/23 Vital Signs Height 158.5 cm Weight 64.9 kg BMI 25.83 kg/m2 Blood Pressure 141 mm Hg/44 mm Hg Temperature Pulse Rate 95 bpm Respiratory Rate 02 Sat Mode of Delivery 96 %/Room air You can now view a summary of your hospital visit from the comfort of your home through a free online portal called [facility]. [employer]I is a website that allows you to securely view your medical information including discharge summary, medications and follow-up visits. ??You can alsosend a secure electronic message to your doctor???s office to request appointments, renew medications or just ask a question. You can enroll at [email or web address] or register during your next office visit. [...] primary care provider, you may find a [facility] provider by calling [facility] [employer] Link at [phone]. [facility], in keeping with [facility] guidance, no longer requires face masks for staff, patientsor visitors in most situations. Similar to time spent indoors at other locations, there is the chance that you were exposed to respiratory viruses during your time with us (such as flu or COVID-19).? If you develop symptoms concerning for a viral respiratory infection, please seek testing (and treatment if indicated) from your medical provider or home test kit. For information about the plan of care [...] Primary Care Member Role: PCP Address: Address: [address] [place] [address]- Care Team Related Persons Name: SHAINA SPIVEY Address: home [address] [place] [address] Name: DANIELLE ROBERSON Name: ANIYA SOLORZANO Name: JOEY SOLORZANO Address: home [address] [place] [address] Name: PUSHPA CLAYTON
--- OUTSIDE RECORDS SUMMARY | 2024-09-04 20:28 | XMS_ITS | Continuity of Care Document ---
Author Organization [facility] Address [address] [place] [address]- Care Team Providers Care Enterprise Infrastructure Architect Name Role Phone Miroslava Ruffin MD, V Primary Care Physician [place] [facility] [place] Date(s): 08/03/23 - 09/02/23 [facility] [address] [place] [address]- Attending Physician: Cindy Araiza Admitting Physician: AdmCindy colon Referring Physician: Admtr, Ar8 Allergies, Adverse Reactions, Alerts Substance Reaction Severity [...] tetanus/diphtheria/pertussis, acel(Tdap) 4 02/17/12 Given SARS-CoV-2 mRNA ([id number]) vax 03/23/22 Recorded zoster vaccine, inactivated 11/20/21 [...] 11/03/15 Given 1Admin Note: per patient. via crisis manager office Claudia Cruz 2Admin Note: VIS 04/2012 3Admin Note: vis given vis date 01/16 4Admin Note: VIS 10/21 5Admin Note: vis given 6Admin Note: VIS IN [place]MAR[place]ESE 7Admin Note: VIS given Medications albuterol 0.083% inhalation solution 3 mL = 2.5 mg, Inhalation, Every 6 hours, PRN for wheezing, # 100 each, 0 Refills, Maintenance, 12/08/18 9:51:04 EST, Solution Start Date: 12/08/18 Stop Date: 01/07/19 Status: Ordered cetirizine 10 mg oral tablet 1 tablet, By Mouth, Daily, PRN NEEDED FOR ALLERGY SYMPTOMS, # 90 tablet, 1 Refills, Maintenance,05/09/23 7:42:00 EDT, [facility], 158.5, cm, 02/22/23 10:56:00 EDT, Height Start [...] 15:01:00 EDT, Aerosol, Route to Pharmacy Electronically, [id number], [facility], 160, cm, 0... Start Date: [...] 11 Refills, Maintenance, 09/29/22 11:25:00 EST, Tablet, [facility]/pharmacy #1972, never had kidney stones she states, 158.5, cm, 09/29/2211:23:00 EST, Height Start Date: 09/29/22 Stop Date: 09/13/25 Status: Ordered Problem List Condition Confirmation Course Effective Dates Status H ealth Status Informant Age-related cataract 1 Confirmed Active Benign paroxysmal positional vertigo, bilateral Confirmed Active Asthma Confirmed 2004 Active Cyst of kidney 2 Confirmed Active Facet arthropathy, on CT from [facility] Confirmed Active Diverticulitis Confirmed Active Diverticulosis [...] side. ENT refered her for hearing aide [id number] GI note 6see x-ray - degenerative changes 7cites polio age 4, had right leg problems ever since she notes 8on x-ray Social History Social History Type Response Smoking Status Former smoker; Other : Pt only smoked for from the age of 16 to 18; entered on: 01/03/14 Sex Patient Care team information Care Team Personnel Name: Vivian Meier Position: [facility] Outreach Member Role: Lifetime Consulting Physician Name: Miroslava Ruffin MD, V Position: [facility] Physician - Primary Care Member Role: PCP Address: Address: [address] [place] [address]- Care Team Related Persons Name: SAHINA SPIVEY Address: [address] [place] [address] Name: DANIELLE ROBERSON Name: ANIYA SOLORZANO Name: JOEY SOLORZANO Address: home [address] [place] [address] Name: PUSHPA CLAYTON
--- OUTSIDE RECORDS SUMMARY | 2024-09-04 20:28 | XMS_ITS | Continuity of Care Document ---
Author Organization [facility] Address [address] [place] [address]- Care Team Providers Care Crew Caller Name Role Phone Augustin CAMPOS, Miroslava Oro Primary Care Physician En[place] [facility] [place] Date(s): 08/09/23 - 09/17/[address] [address]- Attending Physician: Miroslava Ruffin MD, V Admitting Physician: Miroslava Ruffin MD, V Referring Physician: Miroslava Ruffin MD, V Allergies, Adverse [...] tetanus/diphtheria/pertussis, acel(Tdap) 4 02/17/12 Given SARS-CoV-2 mRNA (rrcwjdj-[id number]) vax 03/23/22 Recorded zoster vaccine, inactivated 11/20/21 [...] 11/03/15 Given 1Admin Note: per patient. via bore miner operator office Claudia Cruz 2Admin Note: VIS 04/2012 3Admin Note: vis given vis date 01/16 4Admin Note: VIS 10/21 5Admin Note: vis given 6Admin Note: VIS IN ESTON[place] 7Admin Note: VIS given Medications albuterol 0.083% inhalation solution 3 mL = 2.5 mg, Inhalation, Every 6 hours, PRN for wheezing, # 100 each, 6 Refills, Maintenance, 09/06/23 11:39:00 EST, Solution, [facility]/pharmacy #[id number], 158.5, cm, 08/26/23 10:44:00 EST, Height Start Date: 09/06/23 Stop Date: 04/03/24 Status: Ordered cetirizine 10 mg oral tablet 1 tablet, By Mouth, Daily, PRN NEEDED FOR ALLERGY SYMPTOMS, # 90 tablet, 1 Refills, Maintenance,05/09/23 7:42:00 EDT, [facility], 158.5, cm, 02/22/23 10:56:00 EDT, Height Start [...] 15:01:00 EDT, Aerosol, Route to Pharmacy Electronically, [id number], [facility]/pharmacy #1972, 160, cm, 0... Start Date: 02/18/20 [...] 11 Refills, Maintenance, 09/29/22 11:25:00 EST, Tablet, [facility]/pharmacy #1972, never had kidney stones she states, 158.5, cm, 09/29/2211:23:00 EST, Height Start Date: 09/29/22 Stop Date: 09/13/25 Status: Ordered Problem List Condition Confirmation Course Effective Dates Status H ealth Status Informant Age-related cataract 1 Confirmed Active Benign paroxysmal positional vertigo, bilateral Confirmed Active Asthma Confirmed 2004 Active Cyst of kidney 2 Confirmed Active Facet arthropathy, on CT from [facility] Confirmed Active Diverticulitis Confirmed Active Diverticulosis of [...] side. ENT refered her for hearing aide [id number] GI note 6see x-ray - degenerative changes 7cites polio age 4, had right leg problems ever since she notes 8on x-ray Social History Social History Type Response Smoking Status Former smoker; Other : Pt only smoked for from the age of 16 to 18; entered on: 01/03/14 Sex Patient Care team information Care Team Personnel Name: Vivian Meier Position: [facility] Outreach Member Role: Lifetime Consulting Physician Name: Miroslava Ruffin MD, V Position: [facility] Physician - Primary Care Member Role: PCP Address: Address: [address] [place] [address]- Care Team Related Persons Name: SHAINA SPIVEY Address: home [address] [place] [address] Name: DANIELLE ROBERSON Name: ANIYA SOLORZANO Name: JOEY SOLORZANO Address: [address] [place] [address] Name: PUSHPA CLAYTON
--- OUTSIDE RECORDS SUMMARY | 2024-09-04 20:28 | XMS_ITS | Continuity of Care Document ---
Author Organization [facility] Address [address] [place] [address]- Care Team Providers Care Field Education Coordinator Name Role Phone Le Allen DO Primary Care Physician Encounter [facility] Date(s): 05/01/20 - 05/31/20 [facility] [address] [place] [address]- [facility] Allergies, Adverse Reactions, Alerts Substance Reaction Severity [...] Note: vis given 2Admin Note: VIS IN [place] 3Admin Note: VIS given 4Admin Note: per patient. via certified executive chef office DItar Nancy 5Admin Note: VIS 04/2012 6Admin Note: VIS [...] 04/19/19 10:28:38 EDT, Route to Pharmacy Electronically, [id number], [facility]/pharmacy #1972 Start Date: 04/19/19 Stop Date: 05/03/19 Status: Ordered losartan 50 mg oral tablet 0.5 tablet = 25 mg, By Mouth, Daily, for 90 days, do not full until pt requests, note dose change, # 45 tablet, 1 Refills, Physician Stop 09/27/20 10:33:00 EST, 03/31/20 10:33:00 EDT, [facility]/pharmacy #1972, 160, cm, 03/31/20 9:41:00 [...] 90 tablet, 3 Refills, Acute, [facility], 160, cm, 09/03/19 12:02:00 EST, Height, 67.2, [...] 9:29:42 EDT Start Date: 01/23/18 Status: Ordered [place] 0.65% nasal spray 2 sprays, Nares, Both, [...] tablet, 0 Refills, Maintenance, 12/20/19 15:43:00 EDT, [facility]/pharmacy #1972, to replace 30 tab [...] 15:01:00 EDT, Aerosol, Route to Pharmacy Electronically, [id number], [facility], 160, cm, 0... Start Date: 02/18/20 Status: Ordered simethicone 80 mg oral tablet, chewable 80 mg, 1, tablet, Chew, 3 times a day, # 90 tablet, Refills 1, Tot. Refills 1, Maintenance, 10/11/17 16:26:21, Route to Pharmacy Electronically, [id number], [facility]/pharmacy #1972 Start Date: 10/11/17 Status: Ordered tiZANidine 2 mg oral tablet 2 mg, 1, tablet, By Mouth, Every 8 hours, PRN, # 30 tablet, Refills 2, Tot. Refills 2, Maintenance,as needed for muscle spasm, 04/19/19 10:28:15 EDT, Route to Pharmacy Electronically, [id number], [facility]/pharmacy #1972 Start Date: 04/19/19 Stop [...] 6 Active Facet arthropathy, on CT from [facility](Confirmed) Active chronic Rotator cuff tear(Confirmed) Active [...] of lumbar spine(Confirmed) 10 Active Overweight(Confirmed) Active *[phone] Care Partn er Karina Mcneal(Confirmed) Active POLIO(Confirmed) [...] side. ENT refered her for hearing aide [id number] GI note 10see x-ray - degenerative changes 11cites polio age 4, had right leg problems ever since she notes 12on x-ray 13sees ENT for this Social History Social History Type Response Smoking Status Former smoker; Other : Pt only smoked for from the age of 16 to 18; entered on: 01/03/14 Sex
--- OUTSIDE RECORDS SUMMARY | 2024-09-04 20:28 | XMS_ITS | Continuity of Care Document ---
Author Organization [facility] Address [address] [place] [address]- Care Team Providers Care Mold Maker Apprentice Name Role Phone Miroslava Ruffin MD, V Primary Care Physician Encounter [facility] Date(s): 07/10/24 - 07/17/24 [facility] [address] [place] [address]- Encounter Diagnosis Poor compliance with medication(Discharge Diagnosis) - 07/10/24 Hypochondria(Discharge Diagnosis) - 07/10/24 Chronic tension-type headache, intractable(Discharge Diagnosis) - 07/10/24 Attending Physician: Miroslava Ruffin MD, V Allergies, Adverse Reactions, Alerts Substance Reaction Severity Status naproxen hives Active quinolone antibiotics nausea Active traMADol 1 Active erythromycin Active morphine [...] tetanus/diphtheria/pertussis, acel(Tdap) 4 02/17/12 Given SARS-CoV-2 mRNA (tifvuhr-jzmd-chpua) vax 03/23/22 Recorded zoster vaccine, inactivated 11/20/21 [...] 11/03/15 Given 1Admin Note: per patient. via sucker machine operator office Claudia Cruz 2Admin Note: VIS 04/2012 3Admin Note: vis given vis date 01/16 4Admin Note: VIS 10/21 5Admin Note: vis given 6Admin Note: VIS IN BARBADIAN 7Admin Note: VIS given Medications albuterol 0.083% inhalation solution 3 mL = 2.5 mg, Inhalation, Every 6 hours, PRN for wheezing, # 100 each, 6 Refills, Maintenance, 09/06/23 11:39:00 EST, Solution, [facility]/pharmacy #[id number], 158.5, cm, 08/26/23 10:44:00 EST, Height Start Date: 09/06/23 Stop Date: 04/03/24 Status: Ordered Aluminum walker with front wheels Aluminum walker with front wheels, See Instructions, # 1 each, Refills 0, Tot. Refills 0, Maintenance, M47.816, 07/10/24 12:02:00 EDT, Supply Start Date: 07/10/24 Status: Ordered amLODIPine 5 mg oral tablet 5 mg, 1, tablet, By Mouth, Daily, # 30 tablet, Refills 0, Tot. Refills 0, Maintenance, 07/10/24 11:55:00 EDT, Route to Pharmacy Electronically, [facility]/pharmacy #[id number], Partial fill upon patient request if the prescription is for a schedule II opioid drug.... Start Date: 07/10/24 Status: Ordered cetirizine 10 mg oral tablet 1 tablet, By Mouth, Daily, PRN NEEDED FOR ALLERGY SYMPTOMS, # 90 tablet, 1 Refills, Maintenance,05/09/23 7:42:00 EDT, [facility] STORE [id number], 158.5, cm, 02/22/23 10:56:00 EDT, Height Start [...] 15:01:00 EDT, Aerosol, Route to Pharmacy Electronically, [id number], [facility]/pharmacy #[id number], 160, cm, 0... Start Date: [...] 04/27/24 10:57:00 EDT, Route to Pharmacy Electronically, [facility]/pharmacy #[id number], Partial fill upon p... Start Date: 04/27/24 Status: Ordered Vitamin D3 1000 intl units oral tablet 1 tablet = 1,000 International_Units, By Mouth, Daily, # 90 tablet, 11 Refills, Maintenance, 09/29/22 11:25:00 EST, Tablet, [facility]/pharmacy #[id number], never had kidney stones she [...] Confirmed Active Facet arthropathy, on CT from [facility] Confirmed Active Diverticulitis Confirmed Active Diverticulosis [...] side. ENT refered her for hearing aide [id number] GI note 6see x-ray - degenerative changes 7cites polio age 4, had right leg problems ever since she notes 8on x-ray Diagnosis Diagnosis Type Effective Dates Health Status Clinical Service Informant Poor compliance with medication Discharge Diagnosis 07/10/24 Chronic tension-type headache, intractable Discharge Diagnosis 07/10/24 Hypochondria Discharge Diagnosis 07/10/24 Vital Signs Most recent to oldest [Reference Range]: 1 2 Height 158.5 cm (07/10/24 11:39 AM) 158.5 cm (07/10/24 11:31 AM) Weight 63.6 kg (07/10/24 11:31 AM) Oxygen Saturation [94-100 %] 97 % (07/10/24 11:31 AM) Pulse Rate [55-90 bpm] 80 bpm (07/10/24 11:31 AM) Body Mass Index [18.5-24.99 kg/m2] 25.32 kg/m2 *H* (07/10/24 11:31 AM) Blood Pressure [90-138/55-84 mm Hg] 143/ 61mm Hg *H* (07/10/24 11:39 AM) 171/64mm Hg *H* (07/10/24 11:31 AM) Mode of Delivery (Oxygen) Room air (07/10/24 11:31 AM) Blood pressure sites Arm, left (07/10/24 11:39 AM) Arm, left (07/10/24 11:31 AM) Dry Weight 63.6 kg (07/10/24 11:31 AM) Weight Obtained Via Standing scale (07/10/24 11:31 AM) Dry Weight Obtained Via Standing scale (07/10/24 11:31 AM) Social History Social History Type Response Smoking Status Former smoker; Other : Pt only smoked for from the age of 16 to 18; entered on: 01/03/14 Sex Note * Nevaeh Dee: PERFORM Event Display: Patient Education/Instruction Authored Date: Ambulatory Adult Visit Summary [facility] [address] [place] [address] Name: ALVINO SPIVEY : 1945?? Visit: 07/10/2024 10:54?? Ambulatory Visit Instructions ?? Your Care Team Primary Care Provider Miroslava Ruffin MD, V? This Visit Provider Miroslava Ruffin MD, V Your Diagnosis Poor compliance with medication Hypertension Osteoarthritis of lumbar spine Vitals Signs Pulse Rate: 80 bpm Height: 158.5 cm Systolic Blood Pressure:??143 mm Hg??High Weight: 63.6 kg Diastolic Blood Pressure: 61 mm Hg Body Mass Index:??25.32 kg/m2??High Oxygen Saturation: 97 % Body surface area: 1.67 What to do next Scheduled Follow-Up Appointments Tuesday 10:00 AM EDT ?? With: Miroslava Ruffin MD, V Where: [facility] [address] [place] [address]- Status: Pending Medications The list below reflects the information in our records and provided by you today along with any changes made during this visit. Please continue your medications until treatment is completed or stopped by your provider. If this is different from the information you have or there are other questions,please contact the prescribing provider. What How Much When Why Instructions New Amlodipine (amLODIPine 5 mg oral tablet) 1 tab(s) Oral Daily Hypertension Pickup at [facility]/pharmacy #[id number] New Durable Medical Equipment (Aluminum walker with front wheels) See instructions Osteoarthritis of lumbar spine M47.816 ?? Printed Prescription Unchanged Albuterol (albuterol 0.083% inhalation solution) 3 [...] exceed 3 doses/ day ?? Pharmacy Information [facility]/pharmacy #[id number]: [address], [place] [id number] [phone] ?? What How Much When Why Comments Stop Taking Losartan (losartan 25 mg oral tablet) TAKE 1 TABLET BY MOUTH EVERY DAY ?? Stop Taking Losartan (losartan 50 mg oral tablet) 1 tab(s) Oral Daily Uncontrolled stage 2 hypertension replace 25mg ?? Stop Taking Spironolactone (spironolactone 25 mg oral tablet) 1 tab(s) Oral Daily Bilateral leg edema Duration: 14 Days Medications and Immunizations Administered Medications Given During [...] of these heart attack warning signs, call 06-10- to get immediate medical attention! ?? Smoking can increase your chances of developing chronic health problems and can cause harmful effects to other family members in your house. If you smoke, you are strongly encouraged to quit. Please call [facility] at [phone] or 8-737-891[employer]smetech ([phone]) or log in to [email or web address] for referrals to smoking cessation programs. ?? The National Suicide Prevention Hotline is available 02/05 if you or someone you know needs to find a reason to keep living. By calling 5-482-866-[employer] (6433) you'll be connected to a skilled, trained counselor at a crisis center in your area. [facility] You can view and manage your care through the patient portal or by using a health care lenore of your choosing. [employer] is a website that allows you to securely view your medical information including your hospital discharge summary, office visit summaries, medications and follow-up visits. You can also request appointments, renew medications, and request access to your medical information using a health care lenore of your choosing, or just ask a question. You can enroll at [email or web address] or register during your next office visit. [facility], in keeping with [facility] guidance, no longer requires face [...] primary care provider, you may find a [facility] provider by calling [facility] at [phone]. Patient Care team information Care Team Personnel Name: Vivian Meier Position: [facility] Outreach Member Role: Lifetime Consulting Physician Name: Miroslava Ruffin MD, V Position: [facility] Physician - Primary Care Member Role: PCP Address: Address: [address] [place] [address]- Care Team Related Persons Name: SHAINA SPIVEY Address: [address] [address] Name: DANIELLE ROBERSON Name: ANIYA SOLORZANO Name: JOEY SOLORZANO Address: [address] [address] Name: PUSHPA CLAYTON
--- OUTSIDE RECORDS SUMMARY | 2024-09-04 20:28 | XMS_ITS | Continuity of Care Document ---
Author Organization [facility] Address [address] [place] [address]- Care Team Providers Care Plastic Outfitter Name Role Phone Augustin CAMPOS, Miroslava Oro Primary Care Physician [place] [facility] [place] 11/17/22 - 12/17/22 [facility] [address] [place] [address]- Allergies, Adverse Reactions, Alerts Substance Reaction Severity [...] tetanus/diphtheria/pertussis, acel(Tdap) 4 02/17/12 Given SARS-CoV-2 mRNA (jxjaaho-avda-zmpfv) vax 03/23/22 Recorded zoster vaccine, inactivated 11/20/21 [...] 11/03/15 Given 1Admin Note: per patient. via training administrator office Claudia Cruz 2Admin Note: VIS 04/2012 3Admin Note: vis given vis date 01/16 4Admin Note: VIS 10/21 5Admin Note: vis given 6Admin Note: VIS IN AZERI 7Admin Note: VIS given Medications albuterol 0.083% [...] By Mouth, Daily, # 30 tablet, Refills 3, Tot. Refills 3, Maintenance, 11/15/22 10:36:00 EST, Route to Pharmacy Electronically, [facility]/pharmacy #[id number], Partial fill upon patient request if the prescription is for a schedule II opioid drug.... Start Date: 11/15/22 Status: Ordered dicyclomine 10 mg oral capsule [...] 1 Refills, Maintenance, 08/10/22 8:49:00 EDT, Tablet, [facility]/pharmacy #[id number], Partial fill upon patient request if the prescription is for a schedule II opioid drug., 158.5, cm, 07/12/22 10:02:00 EDT... Start Date: 08/10/22 Status: Ordered Melatonin 1 mg oral tablet TAKE ONE TABLET BY MOUTH AT BEDTIME Start Date: 03/05/22 Status: Ordered Barnhart 0.65% nasal spray 2 sprays, Nares, Both, [...] 15:01:00 EDT, Aerosol, Route to Pharmacy Electronically, [id number], [facility]/pharmacy #1972, 160, cm, 0... [...] 09/29/22 11:25:00 EST, Route to Pharmacy Electronically, [facility]/pharmacy #1972, 158.5, cm, 09/29/22 11:23:00 [...] 11 Refills, Maintenance, 09/29/22 11:25:00 EST, Tablet, [facility]/pharmacy #1972, never had kidney stones she [...] Confirmed Active Facet arthropathy, on CT from [facility] Confirmed Active Diverticulosis of colon 3 Confirmed 02/2008 Active Glaucoma Confirmed 2004 Active Hearing loss 4 Confirmed Active Heartburn Confirmed 2004 Active Total knee replacement Right Confirmed Active Hyperlipidemia Confirmed Active Hypertension Confirmed 2004 Active Impaired Fasting Glucose Confirmed 12/2010 Active Irritable bowel disease 5 Confirmed Active Malaise and fatigue Confirmed Active Hematuria, microscopic - seen [facility], per their note: had cystometrogram and no-obstructive kidney stones on a CTY Confirmed Active Myofascial pain syndrome, cervical Confirmed Active Osteoarthritis of lumbar spine 6 Confirmed Active *[phone] Manager Business Process Karina Mcneal Confirmed Active Medicare annual wellness [...] [address] 3per colonoscopy [facility] 4left side. ENT refered her for hearing aide [id number] GI note 6see x-ray - degenerative changes 7cites polio age 4, had right leg problems ever since she notes 8on x-ray Social History Social History Type Response Smoking Status Former smoker; Other : Pt only smoked for from the age of 16 to 18; entered on: 01/03/14 Sex Patient Care team information Care Team Personnel Name: Vivian Meier Position: [facility] Outreach Member Role: Lifetime Consulting Physician Name: Augustin CAMPOS, Miroslava Oro Position: [facility] Primary Care Physician Member Role: PCP Address: Address: [address] [place] [address]- [place] Care Team Related Persons Name: BROCK SPIVEYOS Address: home [address] [place] [address] Name: DANIELLE ROBERSON Name: ANIYA SOLORAZNO Name: JOEY SOLORZANO Address: home [address] [place] [address] Name: PUSHPA CLAYTON
--- OUTSIDE RECORDS SUMMARY | 2024-09-04 20:29 | XMS_ITS | Continuity of Care Document ---
Author Organization [facility] Address [address] [place] [address]- Care Team Providers Care Induction Machine Operator Name Role Phone Miroslava Ruffin MD, V Primary Care Physician Encounter [facility] [place] Date(s): 08/25/22 - 09/24/22 [facility] [address] [place] [address]- Attending Physician: Cindy Araiza Admitting Physician: Cindy [...] and Recorded Vaccine Date Status Refusal Reason pneumococcal 23-valent vaccine 05/27/22 Recorded pneumococcal 23-valent vaccine 1 10/08/11 Given tetanus/diphtheria/pertussis, acel(Tdap) 05/27/22 Recorded tetanus/diphtheria/pertussis, acel(Tdap) 2 02/17/12 Given SARS-CoV-2 mRNA ([id number]-[id number]) vax 03/23/22 Recorded zoster vaccine, inactivated 11/20/21 Recorded zoster vaccine, inactivated 05/19/21 Recorded SARS-CoV-2 (COVID-19) mRNA BNT-162b2 vac 09/09/21 Recorded influenza virus vaccine, inactivated 08/03/21 Rajeev rded influenza virus vaccine, inactivated 06/30/18 Give n influenza virus vaccine, inactivated 12/08/17 Give n influenza virus vaccine, inactivated 3 09/09/15 Gi gonsalo influenza virus vaccine, inactivated 4 06/26/12 Gi gonsalo SARS-CoV-2 (COVID-19) Ad26 vaccine 01/05/21 Record ed Influenza Virus Vaccine (oldterm) 08/04/20 Recorde d Influenza Virus Vaccine (oldterm) 07/11/19 Recorde d Influenza Virus Vaccine (oldterm) 07/05/19 Recorde d Influenza Virus Vaccine (oldterm) 5 08/23/08 Given Influenza Virus Vaccine (oldterm) 6 08/23/07 Given Influenza Virus Vaccine (oldterm) 7 09/07/06 Given Zoster Vaccine Live 01/13/17 Given pneumococcal 13-valent vaccine 11/03/15 Given 1Admin Note: vis given vis date 01/16 2Admin Note: VIS 10/21 3Admin Note: per patient. via bone worker office Claudia Cruz 4Admin Note: VIS 04/2012 5Admin Note: vis given 6Admin Note: VIS IN TAJIK 7Admin Note: VIS given Medications albuterol 0.083% [...] DAY DIRECTED Start Date: 12/08/17 Status: Ordered Epi Pen Epi Pen, Refills 0, Maintenance, 07/06/22 15:12:00 EDT, Supply Start Date: 07/06/22 Status: Ordered EPINEPHrine 0.3 mg injectable solution [...] 1 Refills, Maintenance, 08/10/22 8:49:00 EDT, Tablet, [facility]/pharmacy #[id number], Partial fill upon patient request if the prescription is for a schedule II opioid drug., 158.5, cm, 07/12/22 10:02:00 EDT... Start Date: 08/10/22 Status: Ordered Melatonin 1 mg oral tablet TAKE ONE TABLET BY MOUTH AT BEDTIME Start Date: 03/05/22 Status: Ordered Sauk 0.65% nasal spray 2 sprays, Nares, Both, [...] 15:01:00 EDT, Aerosol, Route to Pharmacy Electronically, [id number], [facility]/pharmacy #1972, 160, cm, 0... Start Date: 02/18/20 [...] Maintenance, 10/11/17 16:26:21, Route to Pharmacy Electronically, [id number], [facility]/pharmacy #1972 Start Date: 10/11/17 Status: Ordered tiZANidine 4 mg oral tablet [...] Date: 01/18/22 Status: Ordered Problem List Condition Confirmation Course Effective Dates Status H ealth Status Informant Age-related cataract 1 Confirmed Active Allergic rhinitis Confirmed Active Colonoscopy 2, 3, 4 Confirmed 02/2008 Active Cough Confirmed Active Asthma Confirmed 2004 Active Cyst of kidney 5 Confirmed Active Degenerative change 6 Confirmed Active Facet arthropathy, on CT from [facility] Confirmed Active chronic Rotator cuff tear Confirmed Active Diverticulosis of colon 7 Confirmed 02/2008 Active Glaucoma Confirmed 2004 Active Hearing loss 8 Confirmed Active Heartburn Confirmed 2004 Active Total knee replacement Right Confirmed Active Hyperlipidemia Confirmed Active Hypertension Confirmed 2004 Active Impaired Fasting Glucose Confirmed 12/2010 Active Irritable bowel disease 9 Confirmed Active Hematuria, microscopic - seen [facility], per their note: had cystometrogram and no-obstructive kidney stones on a CTY Confirmed Active Myofascial pain syndrome, cervical Confirmed Active Osteoarthritis of lumbar spine 10 Confirmed Active Overweight Confirmed Active *[id number] Knotter Hand Karina Mcneal Confirmed Active POLIO 11 Confirmed 1949 Active Post-polio syndrome Confirmed Active Sacroiliac joint dysfunction of left side Confirmed Active Sacroiliac pain Confirmed Active Scoliosis of lumbar spine 12 Confirmed Active Shoulder pain, left, inejcted in 2015 and 2016 Confirmed Active Sinusitis 13 Confirmed Active Trochanteric bursitis, left side injected , Confirmed Active Tubular adenoma Confirmed 2007 Active 1LEFT cataract surgery 07/28/11 2per 2012 report, next colonoscopy is due 2022 3per procedure report, repeat colonoscopy 5 yrs (2012) 4Tubular adenoma 5on 2011 US and [address] 6of lumbar spine on 11-20 x-ray 7per colonoscopy [facility] 8left side. ENT refered her for hearing aide [id number] GI note 10see x-ray - degenerative changes [...] Meier Position: [facility] Outreach Member Role: Lifetime Consulting Physician Name: Augustin CAMPOS, Miroslava Oro Position: [facility] Primary Care Physician Member Role: PCP Address: Address: [address] [place] [address]- Care Team Related Persons Name: SHAINA SPIVEY Address: [address] [place] [address] Name: DANIELLE ROBERSON Name: ANIYA SOLORZANO Name: JOEY SOLORZANO Address: home [address] [place] [address] Name: PUSHPA CLAYTON
--- OUTSIDE RECORDS SUMMARY | 2024-09-04 20:29 | XMS_ITS | Continuity of Care Document ---
Author Organization [facility] Address [address] [place] [address]- Care Team Providers Care Railway Track Worker Name Role Phone Augustin CAMPOS, Miroslava Oro Primary Care Physician Encounter [facility] [place] Date(s): 12/06/23 - 01/05/24 [facility] [address] [place] [address]- Allergies, Adverse Reactions, Alerts Substance Reaction Severity [...] tetanus/diphtheria/pertussis, acel(Tdap) 4 02/17/12 Given SARS-CoV-2 mRNA (jjsihuj-hneu-obddj) vax 03/23/22 Recorded zoster vaccine, inactivated 11/20/21 [...] 11/03/15 Given 1Admin Note: per patient. via commutator v ring assembler office Claudia Cruz 2Admin Note: VIS 04/2012 3Admin Note: vis given vis date 01/16 4Admin Note: VIS 10/21 5Admin Note: vis given 6Admin Note: VIS IN GAMBIAN 7Admin Note: VIS given Medications albuterol 0.083% inhalation solution 3 mL = 2.5 mg, Inhalation, Every 6 hours, PRN for wheezing, # 100 each, 6 Refills, Maintenance, 09/06/23 11:39:00 EST, Solution, [facility]/pharmacy #[id number], 158.5, cm, 08/26/23 10:44:00 EST, Height Start Date: 09/06/23 Stop Date: 04/03/24 Status: Ordered cetirizine 10 mg oral tablet 1 tablet, By Mouth, Daily, PRN NEEDED FOR ALLERGY SYMPTOMS, # 90 tablet, 1 Refills, Maintenance,05/09/23 7:42:00 EDT, [facility], 158.5, cm, 02/22/23 10:56:00 EDT, Height Start Date: 05/09/23 Status: Ordered losartan 25 mg oral tablet 1 tablet = 25 mg, By Mouth, Daily, # 90 tablet, 3 Refills, Maintenance, 11/03/23 14:35:00 EST, Tablet, [facility]/pharmacy #[id number], Partial fill upon patient [...] 15:01:00 EDT, Aerosol, Route to Pharmacy Electronically, [id number], [facility]/pharmacy #1972, 160, cm, 0... Start Date: 02/18/20 Status: Ordered simethicone 80 mg oral tablet, chewable 80 mg, 1, tablet, Chew, 3 times a day after meals and bedtime, PRN, # 100 tablet, Refills 5, Tot. Refills 5, Maintenance, Gas, 12/15/23 8:51:00 EST, Route to Pharmacy Electronically, [facility]/pharmacy #[id number], Partial fill upon patient [...] 11 Refills, Maintenance, 09/29/22 11:25:00 EST, Tablet, [facility]/pharmacy #1972, never had kidney stones she states, 158.5, cm, 09/29/2211:23:00 EST, Height Start Date: 09/29/22 Stop Date: 09/13/25 Status: Ordered Problem List Condition Confirmation Course Effective Dates Status H ealth Status Informant Age-related cataract 1 Confirmed Active Benign paroxysmal positional vertigo, bilateral Confirmed Active Asthma Confirmed 2004 Active Cyst of kidney 2 Confirmed Active Facet arthropathy, on CT from [facility] Confirmed Active Diverticulitis Confirmed Active Diverticulosis [...] [address] 3per colonoscopy [facility] 4left side. ENT refered her for hearing aide [id number] GI note 6see x-ray - degenerative changes 7cites polio age 4, had right leg problems ever since she notes 8 x-ray Social History Social History Type Response Smoking Status Former smoker; Other : Pt only smoked for from the age of 16 to 18; entered on: 01/03/14 Sex Patient Care team information Care Team Personnel Name: Vivian Meier Position: [facility] Outreach Member Role: Lifetime Consulting Physician Name: Miroslava Ruffin MD, V Position: [facility] Physician - Primary Care Member Role: PCP Address: Address: [address] [place] [address]- Care Team Related Persons Name: SHAINA SPIVEY Address: [address] [place] [address] Name: DANIELLE ROBERSON Name: ANIYA SOLORZANO Name: JOEY SOLORZANO Address: home [address] [place] [address] Name: PUSHPA CLAYTON
--- OUTSIDE RECORDS SUMMARY | 2024-09-04 20:29 | XMS_ITS | Continuity of Care Document ---
Author Organization [facility] Address [address] [place] [address]- Care Team Providers Care Director Of Research Center Name Role Phone Le Allen DO Primary Care Physician [facility]counter [facility] Date(s): 12/20/19 - 12/27/19 [facility] [address] [place] [address]- [facility] Attending Physician: Le Allen DO [...] Note: vis given 2Admin Note: VIS IN [place] 3Admin Note: VIS given 4Admin Note: per patient. via committee member office Claudia Cruz 5Admin Note: VIS 04/2012 [...] 04/19/19 10:28:38 EDT, Route to Pharmacy Electronically, [id number], [facility]/pharmacy #1972 Start Date: 04/19/19 Stop Date: 05/03/19 Status: Ordered losartan 50 mg oral tablet 50 mg, 1, tablet, By Mouth, Daily, # 90 tablet, Refills 1, Tot. Refills 1, Maintenance, 08/20/19 17:24:20 EST, Route to Pharmacy Electronically, [id number], [facility]/pharmacy #1972 Start Date: 08/20/19 Stop Date: 02/16/20 Status: Ordered measles/mumps/rubella virus vaccine - subcutaneous powder for injection 0.5 mL, Subcutaneous Infusion, Once, # 0.5 mL, 0 Refills, Soft Stop, 08/20/19 9:38:36 EST, 0.5 mL Subcutaneous Infusion Once Start Date: 08/20/19 Status: Ordered Melatonin 1 mg oral tablet See Instructions, TAKE 1 TABLET BY MOUTH EVERYDAY AT BEDTIME, # 90 tablet, 3 Refills, Acute, [facility] STORE 11858, 160, cm, 09/03/19 12:02:00 EST, Height, 67.2, [...] 9:29:42 EDT Start Date: 01/23/18 Status: Ordered [place] 0.65% nasal spray 2 sprays, Nares, Both, [...] tablet, 0 Refills, Maintenance, 12/20/19 15:43:00 EDT, [facility]/pharmacy #1972, to replace 30 tab [...] 16:55:41 EDT, Aerosol, Route to Pharmacy Electronically, [id number], [facility]1972 Start Date: 06/07/19 Status: Ordered simethicone 80 mg oral tablet, chewable 80 mg, 1, tablet, Chew, 3 times a day, # 90 tablet, Refills 1, Tot. Refills 1, Maintenance, 10/11/17 16:26:21, Route to Pharmacy Electronically, [id number], [facility]/pharmacy #1972 Start Date: 10/11/17 Status: Ordered tiZANidine 2 mg oral tablet 2 mg, 1, tablet, By Mouth, Every 8 hours, PRN, # 30 tablet, Refills 2, Tot. Refills 2, Maintenance,as needed for muscle spasm, 04/19/19 10:28:15 EDT, Route to Pharmacy Electronically, [id number], [facility]/pharmacy #1972 Start Date: 04/19/19 Stop Date: [...] 6 Active Facet arthropathy, on [facility] from [facility](Confirmed) Active chronic Rotator cuff tear(Confirmed) [...] of lumbar spine(Confirmed) 10 Active Overweight(Confirmed) Active *[id number] Care Partn er Karina Mcneal(Confirmed) Active POLIO(Confirmed) [...] side. ENT refered her for hearing aide [id number] GI note 10see x-ray - degenerative changes 11cites polio age 4, had right leg problems ever since she notes 12on x-ray 13sees ENT for this Vital Signs Most recent to oldest [Reference Range]: 1 Height 160.00 cm (12/20/19 3:07 PM) Weight 66.2 kg (12/20/19 3:07 PM) Oxygen Saturation [94-100 %] 93 % *L* (12/20/19 3:07 PM) Pulse Rate [55-90 bpm] 80 bpm (12/20/19 3:07 PM) Body Mass Index [18.5-24.99] 25.86 *H* (12/20/19 3:07 PM) Blood Pressure [90-138/55-84 mm Hg] 138/ 62mm Hg (12/20/19 3:07 PM) Respiratory Rate [16-30 br/min] 16 br/mi n (12/20/19 3:07 PM) Temperature [96.8-100.4 DegF] 98.3 DegF (12/20/19 3:07 PM) Mode of Delivery (Oxygen) Room air (12/20/19 3:07 PM) Blood pressure sites Arm, left (12/20/19 3:07 PM) Temperature Route Oral (12/20/19 3:07 PM) Weight Obtained Via Standing scale (12/20/19 3:07 PM) Social History Social History Type Response Smoking Status Former smoker; Other : Pt only smoked for from the age of 16 to 18; entered on: 01/03/14 Sex
--- OUTSIDE RECORDS SUMMARY | 2024-09-04 20:29 | XMS_ITS | Continuity of Care Document ---
Author Organization [facility] Address [address] [place] [address]- Care Team Providers Care Mold Capper Name Role Phone Berta EASTERN PHILOSOPHY PROFESSOR, Eileen Crowell Primary Care Physician [facility]counter [facility] Date(s): 06/23/21 - 07/23/21 [facility] [address] [place] [address]- Allergies, Adverse Reactions, Alerts Substance Reaction Severity [...] Note: vis given 2Admin Note: VIS IN DJIB[place] 3Admin Note: VIS given 4Admin Note: per patient. via beam sealer office D.r Nancy 5Admin Note: VIS 04/2012 6Admin Note: [...] 90 tablet, 3 Refills, Acute, [facility], 160, cm, 09/03/19 12:02:00 EST, Height, 67.2, kg, 09/03/19 12:02:00 EST, Dry Weight Start Date: 10/31/19 Status: Ordered Nasacort Allergy 24HR 55 mcg/inh nasal spray 2 sprays, Daily, 0 Refills, Maintenance, 01/23/18 9:29:42 EDT Start Date: 01/23/18 Status: Ordered [place] 0.65% nasal spray 2 sprays, Nares, Both, [...] tablet, 0 Refills, Maintenance, 12/20/19 15:43:00 EDT, [facility]/pharmacy #1972, to replace 30 tab script, 160, [...] 15:01:00 EDT, Aerosol, Route to Pharmacy Electronically, [id number], [facility]/pharmacy #1972, 160, cm, 0... Start Date: 02/18/20 Status: Ordered simethicone 80 mg oral tablet, chewable 80 mg, 1, tablet, Chew, 3 times a day, # 90 tablet, Refills 1, Tot. Refills 1, Maintenance, 10/11/17 16:26:21, Route to Pharmacy Electronically, [id number], [facility]/pharmacy #1972 Start Date: 10/11/17 Status: Ordered tiZANidine 2 mg oral tablet 2 mg, 1, tablet, By Mouth, Every 8 hours, PRN, # 30 tablet, Refills 2, Tot. Refills 2, Maintenance,as needed for muscle spasm, 04/19/19 10:28:15 EDT, Route to Pharmacy Electronically, [id number], [facility] Start Date: 04/19/19 Stop Date: [...] 6 Active Facet arthropathy, on CT from [facility](Confirmed) Active chronic Rotator cuff tear(Confirmed) Active Diverticulosis [...] of lumbar spine(Confirmed) 10 Active Overweight(Confirmed) Active *[id number] Care Partn er Karina Fredis(Confirmed) Active POLIO(Confirmed) 11 194 Active Post-polio syndrome(Confirmed) [...] lumbar spine on 11-20 x-ray 7per colonoscopy [facility] 8left side. ENT refered her for hearing aide [id number] GI note 10see x-ray - degenerative changes 11cites polio age 4, had right leg problems ever since she notes x-ray 13sees ENT for this Social History Social History Type Response Smoking Status Former smoker; Other : Pt only smoked for from the age of 16 to 18; entered on: 01/03/14 Sex
--- OUTSIDE RECORDS SUMMARY | 2024-09-04 20:29 | XMS_ITS | Continuity of Care Document ---
Author Organization [facility] Address [address] [place] [address]- Care Team Providers Care Glass Vial Filler Name Role Phone Augustin CAMPOS, Miroslava Oro Primary Care Physician [phone] [place] [facility] [place]): 05/18/24 - 06/17/24 [facility] [address] [place] [address]- Allergies, Adverse Reactions, Alerts Substance Reaction Severity [...] tetanus/diphtheria/pertussis, acel(Tdap) 4 02/17/12 Given SARS-CoV-2 mRNA ([id number]) vax 03/23/22 Recorded zoster vaccine, inactivated 11/20/21 [...] 11/03/15 Given 1Admin Note: per patient. via field supervisor seed production office Claudia Cruz 2Admin Note: VIS 04/2012 3Admin Note: vis given vis date 01/16 4Admin Note: VIS 10/21 5Admin Note: vis given 6Admin Note: VIS IN [place] 7Admin Note: VIS given Medications albuterol 0.083% [...] 1 Refills, Maintenance,05/09/23 7:42:00 EDT, [facility], 158.5, cm, 02/22/23 10:56:00 EDT, Height Start Date: 05/09/23 Status: Ordered ketoconazole 1% topical shampoo 1 applicator, Topically, Daily, for 7 days, # 200 mL, 0 Refills, Acute 06/22/24 15:02:00 EDT, 06/15/24 15:02:00 EDT, [id number], Partial fill upon patient request if the prescription is for aschedule II opioid drug., 1 applicator Topically Da... Start Date: 06/15/24 Stop Date: 06/22/24 Status: Ordered losartan 25 mg oral tablet TAKE 1 TABLET BY MOUTH EVERY DAY Start Date: 05/01/24 Status: Ordered losartan 50 mg oral tablet 50 mg, 1, tablet, By Mouth, Daily, replace 25mg, # 90 tablet, Refills 1, Tot. Refills 1, Maintenance, 05/01/24 13:41:00 EDT, Route to Pharmacy Electronically, [facility]/pharmacy #[id number], Partial fill upon patient request [...] 15:01:00 EDT, Aerosol, Route to Pharmacy Electronically, [id number], [facility]/pharmacy #1972, 160, cm, 0... Start Date: 02/18/20 Status: Ordered ROLLATOR WALKER ROLLATOR WALKER, See Instructions, # 1 each, Refills 0, Tot. Refills 0, Maintenance, M51.36 M47.816, 06/15/24 7:52:00 EDT, Supply Start Date: 06/15/24 Status: Ordered spironolactone 25 mg oral tablet 25 mg, 1, tablet, By Mouth, Daily, # 14 tablet, Refills 0, Tot. Refills 0, Maintenance, 06/15/24 15:03:00 EDT, Route to Pharmacy Electronically, [facility]/pharmacy #[id number], Partial fill upon patient request [...] 10:57:00 EDT, Route to Pharmacy Electronically, [facility]/pharmacy #[id number], Partial fill upon p... Start Date: 04/27/24 Status: Ordered Vitamin D3 1000 intl units oral tablet 1 tablet = 1,000 International_Units, By Mouth, Daily, # 90 tablet, 11 Refills, Maintenance, 09/29/22 11:25:00 EST, Tablet, [facility]/pharmacy #1972, never had kidney stones she [...] Confirmed Active Facet arthropathy, on [facility] from [facility] Confirmed Active Diverticulitis Confirmed Active Diverticulosis [...] side. ENT refered her for hearing aide [id number] GI note 6see x-ray - degenerative changes 7cites polio age 4, had right leg problems ever since she notes 8 x-ray Social History Social History Type Response Smoking Status Former smoker; Other : Pt only smoked for from the age of 16 to 18; entered on: 01/03/14 Sex Patient Care team information Care Team Personnel Name: Vivian Meier Position: [facility] Outreach Member Role: Lifetime Consulting Physician Name: Miroslava Ruffin MD, V Position: [facility] Physician - Primary Care Member Role: PCP Address: Address: [address] [place] [address]- Care Team Related Persons Name: SHAINA SPIVEY Address: home [address] [place] [id number] Name: DANIELLE ROBERSON Name: ANIYA SOLORZANO Name: JOEY SOLORZANO Address: home [address] [place] [address] Name: PUSHPA CLAYTON
--- OUTSIDE RECORDS SUMMARY | 2024-09-04 20:29 | XMS_ITS | Continuity of Care Document ---
Author Organization [facility] Address [address] [place] [address]- Care Team Providers Care Basin Tender Name Role Phone Le Allen DO Primary Care Physician Encounter [facility] Date(s): 11/29/19 - 12/06/19 [facility] [address] [place] [address]- [facility] Attending Physician: Craig Bradley MD Referring Physician: Le Allen DO Allergies, Adverse Reactions, [...] Note: vis given 2Admin Note: VIS IN [place] 3Admin Note: VIS given 4Admin Note: per patient. via lidder office Claudia Cruz 5Admin Note: VIS 04/2012 [...] Acute 12/09/19 11:39:00 EST, 11/29/19 11:39:00 EST, [facility]/pharmacy #1972, 160, cm, 11/29/19 11:19:00 EST, Height, [...] 04/19/19 10:28:38 EDT, Route to Pharmacy Electronically, [id number], [facility]/pharmacy #1971 Start Date: 04/19/19 Stop Date: 05/03/19 Status: Ordered losartan 50 mg oral tablet 50 mg, 1, tablet, By Mouth, Daily, # 90 tablet, Refills 1, Tot. Refills 1, Maintenance, 08/20/19 17:24:20 EST, Route to Pharmacy Electronically, [id number], [facility] Start Date: 08/20/19 Stop Date: [...] 90 tablet, 3 Refills, Acute, [facility], 160, cm, 09/03/19 12:02:00 EST, Height, 67.2, [...] 9:29:42 EDT Start Date: 01/23/18 Status: Ordered [place] 0.65% nasal spray 2 sprays, Nares, Both, [...] 16:55:41 EDT, Aerosol, Route to Pharmacy Electronically, [id number], [facility]/pharmacy #1972 Start Date: 06/07/19 Status: Ordered [...] Maintenance, 10/11/17 16:26:21, Route to Pharmacy Electronically, [id number], [facility]/pharmacy #1972 Start Date: 10/11/17 Status: Ordered tiZANidine 2 mg oral tablet 2 mg, 1, tablet, By Mouth, Every 8 hours, PRN, # 30 tablet, Refills 2, Tot. Refills 2, Maintenance,as needed for muscle spasm, 04/19/19 10:28:15 EDT, Route to Pharmacy Electronically, [id number], [facility]/pharmacy #1972 Start [...] 6 Active Facet arthropathy, on CT from [facility](Confirmed) Active chronic Rotator cuff tear(Confirmed) Active [...] of lumbar spine(Confirmed) 10 Active Overweight(Confirmed) Active *[id number] Care Partn er Karina Mcneal(Confirmed) Active POLIO(Confirmed) [...] lumbar spine on 11-20 x-ray 7per colonoscopy [facility] 8left side. ENT refered her for hearing aide [id number] GI note 10see x-ray - degenerative changes 11cites polio age 4, had right leg problems ever since she notes 12on x-ray 13sees ENT for this Vital Signs Most recent to oldest [Reference Range]: 1 Height 160.00 cm (11/29/19 11:19 AM) Oxygen Saturation [94-100 %] 100 % (11/29/19 11:19 AM) Pulse Rate [55-90 bpm] 70 bpm (11/29/19 11:19 AM) Blood Pressure [90-138/55-84 mm Hg] 152/ 71mm Hg *H* (11/29/19 11:19 AM) Respiratory Rate [16-30 br/min] 22 br/mi n (11/29/19: AM) Temperature [96.8-100.4 DegF] 98.3 DegF (11/29/19 11:19 AM) Mode of Delivery (Oxygen) Room air (11/29/19 11:19 AM) Blood pressure sites Arm, left (11/29/19 11:19 AM) Temperature Route Oral (11/29/19 11:19 AM) Social History Social History Type Response Smoking Status Former smoker; Other : Pt only smoked for from the age of 16 to 18; entered on: 01/03/14 Sex
--- OUTSIDE RECORDS SUMMARY | 2024-09-04 20:29 | XMS_ITS | Continuity of Care Document ---
Author Organization [facility] Address [address] [place] [address]- Care Team Providers Care Reducing System Operator Name Role Phone Not on Staff, PCP Primary Care Physician Unavail able Encounter [facility] Date(s): 06/25/22 - 07/02/22 [facility] [address] [place] [address]- Attending Physician: Evans Marquez DO Referring Physician: Erica CAMPOS , Kaya Allergies, Adverse Reactions, Alerts Substance Reaction Severity [...] Note: vis given 2Admin Note: VIS IN [place] 3Admin Note: VIS given 4Admin Note: per patient. via video recorder mechanic office Claudia Cruz 5Admin Note: VIS 04/2012 [...] AT BEDTIME Start Date: 03/05/22 Status: Ordered [place] 0.65% nasal spray 2 sprays, Nares, Both, [...] 15:01:00 EDT, Aerosol, Route to Pharmacy Electronically, [id number], [facility]/pharmacy #1972, 160, cm, 0... Start Date: 02/18/20 Status: Ordered simethicone 80 mg oral tablet, chewable 80 mg, 1, tablet, Chew, 3 times a day, # 90 tablet, Refills 1, Tot. Refills 1, Maintenance, 10/11/17 16:26:21, Route to Pharmacy Electronically, [id number], [facility]/pharmacy #1972 Start Date: 10/11/17 Status: Ordered Tylenol [...] of lumbar spine(Confirmed) 10 Active Overweight(Confirmed) Active *[id number] Care Partn er Karina Mcneal(Confirmed) Active POLIO(Confirmed) [...] 5 yrs (2012) 4Tubular adenoma 5on 2011 and [address] 6of lumbar spine on 11-20 x-ray 7per colonoscopy [facility] 8left side. ENT refered her for hearing aide [id number] GI note 10see x-ray - degenerative changes 11cites polio age 4, had right leg problems ever since she notes 12on x-ray 13sees ENT for this Vital Signs Most recent to oldest [Reference Range]: 1 Height 160.00 cm (06/25/22 12:15 PM) Oxygen Saturation [94-100 %] 99 % (06/25/22 12:15 PM) Pulse Rate [55-90 bpm] 72 bpm (06/25/22 12:15 PM) Blood Pressure [90-138/55-84 mm Hg] 182/ 79mm Hg *H* (06/25/22 12:15 PM) Respiratory Rate [16-30 br/min] 18 br/mi n (06/25/22 12:15 PM) Temperature [96.8-100.4 DegF] 98 DegF (06/25/22 12:15 PM) Mode of Delivery (Oxygen) Room air (06/25/22 12:15 PM) Blood pressure sites Arm, right (06/25/22 12:15 PM) Temperature Route Temporal (06/25/22 12:15 PM) Social History Social History Type Response Smoking Status Former smoker; Other : Pt only smoked for from the age of 16 to 18; entered on: 01/03/14 Sex Care Team Personnel Name: Not on Staff, PCP
--- OUTSIDE RECORDS SUMMARY | 2024-09-04 20:29 | XMS_ITS | Continuity of Care Document ---
Author Organization [facility] Address [address] [place] [address]- Care Team Providers Care Lmft Name Role Phone Miroslava Ruffin MD, V Primary Care Physician [phone] Encounter [facility] [place] Date(s): 11/15/22 - 11/22/22 [facility] [address] [place] [address]- Encounter Diagnosis Malaise and fatigue(Discharge Diagnosis) - 11/15/22 Attending Physician: Miroslava Ruffin MD, V Allergies, [...] tetanus/diphtheria/pertussis, acel(Tdap) 4 02/17/12 Given SARS-CoV-2 mRNA (wgtbows-sapg-rqbfh) vax 03/23/22 Recorded zoster vaccine, inactivated 11/20/21 [...] 11/03/15 Given 1Admin Note: per patient. via addiction social worker office Claudia Cruz 2Admin Note: VIS 04/2012 3Admin Note: vis given vis date 01/16 4Admin Note: VIS 10/21 5Admin Note: vis given 6Admin Note: VIS IN UKRAINIAN 7Admin Note: VIS given Medications albuterol 0.083% [...] 11/15/22 10:36:00 EST, Route to Pharmacy Electronically, [facility]/pharmacy #[id number], Partial fill upon patient request if the prescription is for a schedule II opioid drug.... Start Date: 11/15/22 Status: Ordered dicyclomine 10 mg oral capsule TAKE 1 CAPSULE BY MOUTH THREE TIMES A DAY DIRECTED Start Date: 12/08/17 Status: Ordered EPINEPHrine 0.3 mg injectable solution 2 each, INJECT INTRAMUSCULARLY DIRECTED ON PACKAGE, 0 Refills, 10/03/22 10:14:00 EDT, Partial fill upon patient request [...] 1 Refills, Maintenance, 08/10/22 8:49:00 EDT, Tablet, [facility]/pharmacy #[id number], Partial fill upon patient request if the prescription is for a schedule II opioid drug., 158.5, cm, 07/12/22 10:02:00 EDT... Start Date: 08/10/22 Status: Ordered Melatonin 1 mg oral tablet TAKE ONE TABLET BY MOUTH AT BEDTIME Start Date: 03/05/22 Status: Ordered Ingleside 0.65% nasal spray 2 sprays, Nares, Both, [...] 15:01:00 EDT, Aerosol, Route to Pharmacy Electronically, [id number], [facility]/pharmacy #1972, 160, cm, 0... [...] 09/29/22 11:25:00 EST, Route to Pharmacy Electronically, [facility]/pharmacy #1972, 158.5, cm, 09/29/22 [...] Confirmed Active Facet arthropathy, on CT from [facility] Confirmed Active Diverticulosis of colon 3 [...] Osteoarthritis of lumbar spine 6 Confirmed Active *[id number] Communications Executive Karina Mcneal Confirmed Active Medicare annual wellness [...] [address] 3per colonoscopy [facility] 4left side. ENT refered her for hearing aide [id number] GI note 6see x-ray - degenerative changes 7cites polio age 4, had right leg problems ever since she notes 8on 8-2011 x-ray Diagnosis Diagnosis Type Effective Dates Health Status Cl inical Service Informant Malaise and fatigue Discharge Diagnosis 11/15/22 Vital Signs Most recent to oldest [Reference Range]: 1 2 3 Height 158.5 cm (11/15/22 11:37 AM) 158.5 cm (11/15/22 11:36 AM) 158.5 cm (11/15/22 9:49 AM) Weight 69.5 kg (11/15/22 9:49 AM) Oxygen Saturation [94-100 %] 96 % (11/15/22 9:49 AM) Pulse Rate [55-90 bpm] 100 bpm *H* (11/15/22 9:49 AM) Body Mass Index [18.5-24.99 kg/m2] 27.66 kg/m2 *H* (11/15/22 9:49 AM) Blood Pressure [90-138/55-84 mm Hg] 145/70mm Hg *H* (11/15/22 11:37 AM) 160/85mm Hg *H* (11/15/22 11:36 AM) 122/58mm Hg (11/15/22 9:49 AM) Mode of Delivery (Oxygen) Room air (11/15/22 9:49 AM) Blood pressure sites Arm, left (11/15/22 11:37 AM) Arm, right (11/15/22 11:36 AM) Arm, left (11/15/22 9:49 AM) Weight Obtained Via Standing scale (11/15/22 9:49 AM) Social History Social History Type Response Smoking Status Former smoker; Other : Pt only smoked for from the age of 16 to 18; entered on: 01/03/14 Sex Note * Irish Otto: PERFORM, SIGN, VERIFY Event Display: Patient Education/Instruction Authored Date: [id number] [facility] Clinical Summary Name ALVINO SPIVEY Age 77 Years 1945 PCP Augustin CAMPOS, Miroslava Oro PCP Visit Date 11/15/2022 09:40:00 Additional Instructions: Scheduled Appointments?? Future Appointments ?*Pain??Management ?[address],??[address] ?Phone:??[phone]?Fax:??-- ?Appt. Date:??12/10/2022?12:50 PM ?Scheduled Provider:??Star CAMPOS, Ajay ?*[facility] ?[address],??[address] ?Phone:??--?Fax:??-- ?Appt. Date:??12/28/2022?10:20 AM ?Scheduled Provider:??Augustin CAMPOS, Miroslava Oro Follow-Up Instructions ?? Diagnosis Medications: Please continue [...] with spacer chamber. Refills: 5. Next Dose: Ascorbic Acid (Vitamin C 500 mg oral tablet) 1 tab(s) Oral Daily for 90 Days. Refills: 3. Next Dose: Bifidobacterium Infantis (Align 4 mg oral capsule) 1 capsule Oral Daily. Next Dose: Budesonide-Formoterol (Symbicort 80mcg/4.5mcg Inhaler) 2 puff(s) Inhalation twice a day. Next Dose: capsaicin-menthol topical (Salonpas) Topically 3 times a day. Next Dose: Cetirizine (ZyrTEC 10 mg oral tablet) 1 tab(s) Oral Daily as needed for allergy symptoms. Refills: 3. Next Dose: Cholecalciferol (Vitamin D3 1000 intl units oral tablet) 1 tab(s) Oral Daily for 90 Days. Refills: 11. Next Dose: Dicyclomine (dicyclomine 10 mg oral capsule) TAKE 1 CAPSULE BY MOUTH THREE TIMES A DAY DIRECTED. Next Dose: Durable Medical Equipment (Home Blood Pressure Monitor) Check Blood pressure daily.. Refills: 0. Next Dose: EPINEPHrine (EPINEPHrine 0.3 mg injectable solution) 2 each, INJECT INTRAMUSCULARLY DIRECTED ON PACKAGE. Next Dose: Lidocaine Topical (Lidoderm 5% film) 1 patch(es) Topically Daily. remove patches after 12 hours. Refills: 2. Next Dose: Losartan (losartan 50 mg oral tablet) 1 tab(s) Oral twice a day. Refills: 1. Next Dose: Melatonin (Melatonin 1 mg oral tablet) TAKE ONE TABLET BY MOUTH AT BEDTIME. Next Dose: Pantoprazole Daily. Next Dose: Pantoprazole (pantoprazole 40 mg oral delayed release tablet) 60 each, TAKE ONE TABLET TWICE DAILY. Next Dose: Simethicone (simethicone 80 mg oral tablet, chewable) 1 tab(s) Chew 3 times a day. Refills: 1. Next Dose: Sodium Chloride Nasal (Ingleside 0.65% nasal spray) 2 spray(s) Nares, Both 4 times a day for 7 Days. STOP prior script for fluticasone nasal spray. iin each nostril. Refills: 4. Next Dose: Tizanidine (tiZANidine 4 mg oral tablet) 10 each, TAKE ONE TABLET BY MOUTH EVERY DAY NEEDED. Next Dose: Allergy Info:?? traMADol; Other Food Allergy; Contrast Dye; sulfa drugs; lisinopril; morphine; erythromycin; naproxen Medications Given This Visit Future Orders ?No future orders Vital Signs Height 158.5 cm Weight 69.5 kg BMI 27.66 kg/m2 Blood Pressure 122 mm Hg/58 mm Hg Temperature Pulse Rate 100 bpm Respiratory Rate 02 Sat Mode of Delivery 96 %/Room air You can now view a summary of your hospital visit from the comfort of your home through a free online portal called [email or web address]. [employer] is a website that allows you to securely view your medical information including discharge summary, medications and follow-up visits. ??You can alsosend a secure electronic message to your doctor???s office to request appointments, renew medications or just ask a question. You can enroll at [email or web address] or register during your next [...] primary care provider, you may find a [facility] provider by calling [facility] [employer] [facility] [facility] at [phone]. For information about the plan of care [...] Care Team Personnel Name: Vivian Meier Position: [facility] Outreach Member Role: Lifetime Consulting Physician Name: Miroslava Ruffin MD, V Position: [facility] Primary Care Physician Member Role: PCP Address: Address: [address] [place] [address]- Care Team Related Persons Name: SPIVEYBROCK HARPEROS Address: [address] [place] [address] Name: DANIELLE ROBERSON Name: ANIYA SOLORZANO Name: JOEY SOLORZANO Address: [address] [address] Name: PUSHPA CLAYTON
--- OUTSIDE RECORDS SUMMARY | 2024-09-04 20:29 | XMS_ITS | Continuity of Care Document ---
Author Organization [facility] Address [address] [place] [address]- Care Team Providers Care Consumer Affairs Manager Name Role Phone Augustin CAMPOS, Miroslava Oro Primary Care Physician [phone] [place] [facility] [place] 06/14/24 - 07/14/24 [facility] [address] [place] [address]- Allergies, Adverse Reactions, Alerts Substance Reaction Severity [...] tetanus/diphtheria/pertussis, acel(Tdap) 4 02/17/12 Given SARS-CoV-2 mRNA (isfuhic-pzlb-fishy) vax 03/23/22 Recorded zoster vaccine, inactivated 11/20/21 [...] 11/03/15 Given 1Admin Note: per patient. via cad drafter office Claudia Cruz 2Admin Note: VIS 04/2012 3Admin Note: vis given vis date 01/16 4Admin Note: VIS 10/21 5Admin Note: vis given 6Admin Note: VIS IN GREENLANDIC 7Admin Note: VIS given Medications albuterol 0.083% [...] 07/10/24 11:55:00 EDT, Route to Pharmacy Electronically, [facility]/pharmacy #[id number], Partial fill upon patient request if the prescription is for a schedule II opioid drug.... Start Date: 07/10/24 Status: Ordered cetirizine 10 mg oral tablet 1 tablet, By Mouth, Daily, PRN NEEDED FOR ALLERGY SYMPTOMS, # 90 tablet, 1 Refills, Maintenance,05/09/23 7:42:00 EDT, [facility], 158.5, cm, 02/22/23 10:56:00 EDT, Height Start [...] 15:01:00 EDT, Aerosol, Route to Pharmacy Electronically, [id number], [facility]/pharmacy #1972, 160, cm, 0... Start Date: 02/18/20 [...] 04/27/24 10:57:00 EDT, Route to Pharmacy Electronically, [facility]/pharmacy #[id number], Partial fill upon p... 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 ENT refered her for hearing aide [id number] GI note 6see x-ray - degenerative changes 7cites polio age 4, had right leg problems ever since she notes 8on x-ray Social History Social History Type Response Smoking Status Former smoker; Other : Pt only smoked for from the age of 16 to 18; entered on: 01/03/14 Sex Patient Care team information Care Team Personnel Name: Vivian Meier Position: [facility] Outreach Member Role: Lifetime Consulting Physician Name: Miroslava Ruffin MD, V Position: [facility] Physician - Primary Care Member Role: PCP Address: Address: [address] [place] [address]- Care Team Related Persons Name: SPIVEY SHAINA Address: home [address] [place] [address] Name: DANIELLE ROBERSON Name: ANIYA SOLORZANO Name: JOEY SOLORZANO Address: home [address] [place] [address] Name: PUSHPA CLAYTON
--- OUTSIDE RECORDS SUMMARY | 2024-09-04 20:29 | XMS_ITS | Continuity of Care Document ---
Author Organization [facility] Address [address] [place] [address]- Care Team Providers Care Staff Physical Therapist Name Role Phone Berta MANAGER INFUSION, Eileen Crowell Primary Care Physician Encounter [facility] Date(s): 05/14/20 - 07/26/20 [facility] [address] [place] [address]- [facility] Attending Physician: Le Allen DO Allergies, Adverse [...] Note: vis given 2Admin Note: VIS IN IRISH 3Admin Note: VIS given 4Admin Note: per patient. via analytical data miner office Claudia Cruz 5Admin Note: VIS 04/2012 [...] 04/19/19 10:28:38 EDT, Route to Pharmacy Electronically, [id number], [facility]/pharmacy #1972 Start Date: 04/19/19 Stop Date: 05/03/19 Status: Ordered losartan 50 mg oral tablet 0.5 tablet = 25 mg, By Mouth, Daily, for 90 days, do not full until pt requests, note dose change, # 45 tablet, 1 Refills, Physician Stop 09/27/20 10:33:00 EST, 03/31/20 10:33:00 EDT, [facility]/pharmacy #1972, 160, cm, 03/31/20 9:41:00 EDT, Height, [...] 90 tablet, 3 Refills, Acute, [facility], 160, cm, 09/03/19 12:02:00 EST, Height, 67.2, [...] 9:29:42 EDT Start Date: 01/23/18 Status: Ordered Gillespie 0.65% nasal spray 2 sprays, Nares, Both, [...] tablet, 0 Refills, Maintenance, 12/20/19 15:43:00 EDT, [facility]/pharmacy #1972, to replace 30 tab script, 160, [...] 15:01:00 EDT, Aerosol, Route to Pharmacy Electronically, [id number], [facility], 160, cm, 0... Start Date: 02/18/20 Status: Ordered simethicone 80 mg oral tablet, chewable 80 mg, 1, tablet, Chew, 3 times a day, # 90 tablet, Refills 1, Tot. Refills 1, Maintenance, 10/11/17 16:26:21, Route to Pharmacy Electronically, [id number], [facility]/pharmacy #1972 Start Date: 10/11/17 Status: Ordered tiZANidine 2 mg oral tablet 2 mg, 1, tablet, By Mouth, Every 8 hours, PRN, # 30 tablet, Refills 2, Tot. Refills 2, Maintenance,as needed for muscle spasm, 04/19/19 10:28:15 EDT, Route to Pharmacy Electronically, [id number], [facility]/pharmacy #1972 Start Date: 04/19/19 Stop Date: 05/19/19 [...] 6 Active Facet arthropathy, on CT from [facility](Confirmed) Active chronic Rotator cuff tear(Confirmed) Active [...] of lumbar spine(Confirmed) 10 Active Overweight(Confirmed) Active *[id number] Care Partn er Karina Mcneal(Confirmed) Active POLIO(Confirmed) [...] side. ENT refered her for hearing aide [id number] GI note 10see x-ray - degenerative changes 11cites polio age 4, had right leg problems ever since she notes 12on x-ray 13sees ENT for this Social History Social History Type Response Smoking Status Former smoker; Other : Pt only smoked for from the age of 16 to 18; entered on: 01/03/14 Sex
--- OUTSIDE RECORDS SUMMARY | 2024-09-04 20:29 | XMS_ITS | Continuity of Care Document ---
Author Organization [facility] Address [address] [place] [address]- Care Team Providers Care Cutlery Grinder Name Role Phone Augustin CAMPOS, Miroslava Oro Primary Care Physician Encounter [facility] Date(s): 04/26/24 - 05/26/24 [facility] [address] [place] [address]- Allergies, Adverse Reactions, Alerts Substance Reaction Severity Status naproxen hives Active morphine Active Other Food Allergy 1 Active traMADol 2 Active erythromycin Active lisinopril Rash Active sulfa drugs Active quinolone antibiotics nausea Active Contrast Dye 3 Difficulty breathing erythromycin Active 1Almonds 2BAD DREAM gi UPSET 3says had difficulty breathing - Asthma - [...] tetanus/diphtheria/pertussis, acel(Tdap) 4 02/17/12 Given SARS-CoV-2 mRNA (ygnmbiz-ajpr-efsiy) vax 03/23/22 Recorded zoster vaccine, inactivated 11/20/21 [...] 11/03/15 Given 1Admin Note: per patient. via travel assistant office Claudia Cruz 2Admin Note: VIS 04/2012 3Admin Note: vis given vis date 01/16 4Admin Note: VIS 10/21 5Admin Note: vis given 6Admin Note: VIS IN BARBADIAN 7Admin Note: VIS given Medications albuterol 0.083% inhalation solution 3 mL = 2.5 mg, Inhalation, Every 6 hours, PRN for wheezing, # 100 each, 6 Refills, Maintenance, 09/06/23 11:39:00 EST, Solution, [facility]/pharmacy #[id number], 158.5, cm, 08/26/23 10:44:00 EST, Height Start Date: 09/06/23 Stop Date: 04/03/24 Status: Ordered cetirizine 10 mg oral tablet 1 tablet, By Mouth, Daily, PRN NEEDED FOR ALLERGY SYMPTOMS, # 90 tablet, 1 Refills, Maintenance,05/09/23 7:42:00 EDT, [facility], 158.5, cm, 02/22/23 10:56:00 EDT, Height Start Date: 05/09/23 Status: Ordered losartan 25 mg oral tablet TAKE 1 TABLET BY MOUTH EVERY DAY Start Date: 05/01/24 Status: Ordered losartan 50 mg oral tablet 50 mg, 1, tablet, By Mouth, Daily, replace 25mg, # 90 tablet, Refills 1, Tot. Refills 1, Maintenance, 05/01/24 13:41:00 EDT, Route to Pharmacy Electronically, [facility]/pharmacy #[id number], Partial fill upon patient request if the [...] 15:01:00 EDT, Aerosol, Route to Pharmacy Electronically, [id number], [facility]/pharmacy #1972, 160, cm, 0... Start Date: 02/18/20 [...] 04/27/24 10:57:00 EDT, Route to Pharmacy Electronically, [facility]/pharmacy #[id number], Partial fill upon p... Start Date: 04/27/24 Status: Ordered Vitamin D3 1000 intl units oral tablet 1 tablet = 1,000 International_Units, By Mouth, Daily, # 90 tablet, 11 Refills, Maintenance, 09/29/22 11:25:00 EST, Tablet, [facility]/pharmacy #1972, never had kidney stones she states, [...] Confirmed Active Facet arthropathy, on CT from [facility] Confirmed Active Diverticulitis Confirmed Active Diverticulosis of [...] [address] 3per colonoscopy [facility] 4left side. ENT refered her for hearing aide [id number] GI note 6see x-ray - degenerative changes 7cites polio age 4, had right leg problems ever since she notes 8on x-ray Social History Social History Type Response Smoking Status Former smoker; Other : Pt only smoked for from the age of 16 to 18; entered on: 01/03/14 Sex Patient Care team information Care Team Personnel Name: Vivian Meier Position: [facility] Outreach Member Role: Lifetime Consulting Physician Name: Miroslava Ruffin MD, V Position: [facility] Physician - Primary Care Member Role: PCP Address: Address: [address] [place] [address]- Care Team Related Persons Name: SHAINA SPIVEY Address: [address] [place] [address] Name: DANIELLE ROBERSON Name: ANIYA SOLORZANO Name: JOEY SOLORZANO Address: [address] [place] [address] Name: PUSHPA CLAYTON
--- OUTSIDE RECORDS SUMMARY | 2024-09-04 20:29 | XMS_ITS | Continuity of Care Document ---
Author Organization [facility] Address [address] [place] [address]- Care Team Providers Care Aoc Director Combat Operations Officer Name Role Phone Augustin CAMPOS, Miroslava Oro Primary Care Physician Encounter [facility] [place] Date(s): 05/18/24 - 06/17/24 [facility] [address] [place] [address]- Allergies, Adverse Reactions, Alerts Substance Reaction Severity [...] tetanus/diphtheria/pertussis, acel(Tdap) 4 02/17/12 Given SARS-CoV-2 mRNA (uigsdsi-fanp-dvlmu) vax 03/23/22 Recorded zoster vaccine, inactivated 11/20/21 [...] 11/03/15 Given 1Admin Note: per patient. via commercial green building architect office Claudia Cruz 2Admin Note: VIS 04/2012 3Admin Note: vis given vis date 01/16 4Admin Note: VIS 10/21 5Admin Note: vis given 6Admin Note: VIS IN AUSTRIAN 7Admin Note: VIS given Medications albuterol 0.083% [...] 1 Refills, Maintenance,05/09/23 7:42:00 EDT, [facility], 158.5, cm, 02/22/23 10:56:00 EDT, Height Start [...] 05/01/24 13:41:00 EDT, Route to Pharmacy Electronically, [facility]/pharmacy #[id number], Partial fill upon [...] 15:01:00 EDT, Aerosol, Route to Pharmacy Electronically, [id number], [facility]/pharmacy #1972, 160, cm, 0... [...] 06/15/24 15:03:00 EDT, Route to Pharmacy Electronically, [facility]/pharmacy #[id number], Partial fill upon [...] 04/27/24 10:57:00 EDT, Route to Pharmacy Electronically, [facility]/pharmacy #[id number], Partial fill upon p... Start Date: 04/27/24 Status: Ordered Vitamin D3 1000 intl units oral tablet 1 tablet = 1,000 International_Units, By Mouth, Daily, # 90 tablet, 11 Refills, Maintenance, 09/29/22 11:25:00 EST, Tablet, [facility]/pharmacy #1972, never had kidney [...] side. ENT refered her for hearing aide [id number] GI note 6see x-ray - degenerative changes [...] MD, V Position: [facility] Physician - Primary Care Member Role: PCP Address: Address: [address] [place] [address]- Care Team Related Persons Name: SHAINA SPIVEY Address: home [address] [place] [address] Name: DANIELLE ROBERSON Name: ANIYA SOLORZANO Name: JOEY SOLORZANO Address: home [address] [place] [address] Name: PUSHPA CLAYTON
--- OUTSIDE RECORDS SUMMARY | 2024-09-04 20:29 | XMS_ITS | Continuity of Care Document ---
Author Organization [facility] Address [address] [place] [address]- Care Team Providers Care Stapler Hand Name Role Phone Le Allen DO Primary Care Physician [place] [facility] [place] 11/22/19 - 11/22/19 [facility] [address] [place] [address]- [facility] Attending Physician: Bob Payton MD Allergies, Adverse [...] Note: vis given 2Admin Note: VIS IN [place] RICAN 3Admin Note: VIS given 4Admin Note: per patient. via weighbridge operator office Claudia Cruz 5Admin Note: VIS [...] 04/19/19 10:28:38 EDT, Route to Pharmacy Electronically, [id number], [facility]/pharmacy #1972 Start Date: 04/19/19 Stop Date: 05/03/19 Status: Ordered losartan 50 mg oral tablet 50 mg, 1, tablet, By Mouth, Daily, # 90 tablet, Refills 1, Tot. Refills 1, Maintenance, 08/20/19 17:24:20 EST, Route to Pharmacy Electronically, [id number], [facility]/pharmacy #1972 Start Date: 08/20/19 Stop Date: 02/16/20 [...] 90 tablet, 3 Refills, Acute, [facility], 160, cm, 09/03/19 12:02:00 EST, Height, 67.2, kg, 09/03/19 12:02:00 EST, Dry Weight Start Date: 10/31/19 Status: Ordered Nasacort Allergy 24HR 55 mcg/inh nasal spray 2 sprays, Daily, 0 Refills, Maintenance, 01/23/18 9:29:42 EDT Start Date: 01/23/18 Status: Ordered Polo 0.65% nasal spray 2 sprays, Nares, Both, [...] 16:55:41 EDT, Aerosol, Route to Pharmacy Electronically, [id number], [facility]/pharmacy #1972 Start Date: 06/07/19 Status: Ordered sertraline [...] Maintenance, 10/11/17 16:26:21, Route to Pharmacy Electronically, [id number], [facility]/pharmacy #1972 Start Date: 10/11/17 Status: Ordered tiZANidine 2 mg oral tablet 2 mg, 1, tablet, By Mouth, Every 8 hours, PRN, # 30 tablet, Refills 2, Tot. Refills 2, Maintenance,as needed for muscle spasm, 04/19/19 10:28:15 EDT, Route to Pharmacy Electronically, [id number], [facility]/pharmacy #1972 Start Date: 04/19/19 Stop Date: 05/19/19 [...] 6 Active Facet arthropathy, on CT from [facility](Confirmed) Active chronic Rotator cuff tear(Confirmed) [...] of lumbar spine(Confirmed) 10 Active Overweight(Confirmed) Active *[id number] Care Partn er Karina Mcneal(Confirmed) Active POLIO(Confirmed) [...] lumbar spine on 11-20 x-ray 7per colonoscopy [facility] 8left side. ENT refered her for hearing aide [id number] GI note 10see x-ray - degenerative changes 11cites polio age 4, had right leg problems ever since she notes 12on x-ray 13sees ENT for this Social History Social History Type Response Smoking Status Former smoker; Other : Pt only smoked for from the age of 16 to 18; entered on: 01/03/14 Sex
--- OUTSIDE RECORDS SUMMARY | 2024-09-04 20:29 | XMS_ITS | Continuity of Care Document ---
Author Organization [facility][1] Adult and Pedi Address [address] [place] [address]- Care Team Providers Care Ceo And Co Founder Name Role Phone Augustin CAMPOS, Miroslava Oro Primary Care Physician En[place] [facility] [place](s): 06/01/24 - 06/08/24 [facility][1] Adult and Pedi [address] [place] [address]- Attending Physician: Miroslava Ruffin MD, V Allergies, Adverse Reactions, Alerts Substance Reaction Severity Status naproxen hives Active sulfa drugs Active traMADol 1 Active erythromycin Active morphine Active lisinopril Rash Active quinolone antibiotics nausea Active Contrast Dye [...] tetanus/diphtheria/pertussis, acel(Tdap) 4 02/17/12 Given SARS-CoV-2 mRNA ([id number]-sjnx-xibwu) vax 03/23/22 Recorded zoster vaccine, inactivated 11/20/21 [...] 11/03/15 Given 1Admin Note: per patient. via manager story office Claudia Cruz 2Admin Note: VIS 04/2012 3Admin Note: vis given vis date 01/16 4Admin Note: VIS 10/21 5Admin Note: vis given 6Admin Note: VIS IN AMERICAN 7Admin Note: VIS given Medications albuterol 0.083% inhalation solution 3 mL = 2.5 mg, Inhalation, Every 6 hours, PRN for wheezing, # 100 each, 6 Refills, Maintenance, 09/06/23 11:39:00 EST, Solution, [facility]/pharmacy #[id number], 158.5, cm, 08/26/23 10:44:00 EST, Height Start Date: 09/06/23 Stop Date: 04/03/24 Status: Ordered cetirizine 10 mg oral tablet 1 tablet, By Mouth, Daily, PRN NEEDED FOR ALLERGY SYMPTOMS, # 90 tablet, 1 Refills, Maintenance,05/09/23 7:42:00 EDT, [facility], 158.5, cm, 02/22/23 10:56:00 EDT, Height Start Date: 05/09/23 Status: Ordered losartan 25 mg oral tablet TAKE 1 TABLET BY MOUTH EVERY DAY Start Date: 05/01/24 Status: Ordered losartan 50 mg oral tablet 50 mg, 1, tablet, By Mouth, Daily, replace 25mg, # 90 tablet, Refills 1, Tot. Refills 1, Maintenance, 05/01/24 13:41:00 EDT, Route to Pharmacy Electronically, [facility]/pharmacy #[id number], Partial fill upon patient request if the [...] 15:01:00 EDT, Aerosol, Route to Pharmacy Electronically, [id number], [facility]/pharmacy #1972, 160, cm, 0... Start [...] 04/27/24 10:57:00 EDT, Route to Pharmacy Electronically, [facility]/pharmacy #[id number], Partial fill upon p... Start Date: 04/27/24 Status: Ordered Vitamin D3 1000 intl units oral tablet 1 tablet = 1,000 International_Units, By Mouth, Daily, # 90 tablet, 11 Refills, Maintenance, 09/29/22 11:25:00 EST, Tablet, [facility]/pharmacy #1972, never had kidney stones [...] Facet arthropathy, on CT from [facility] Confirmed Active Diverticulitis Confirmed Active [...] [address] 3per colonoscopy [facility] 4left side. ENT refered her for hearing aide [id number] GI note 6see x-ray - degenerative changes 7cites polio age 4, had right leg problems ever since she notes 8 x-ray Vital Signs Most recent to oldest [Reference Range]: 1 2 Height 158.5 cm (06/01/24 10:28 AM) 158.5 cm (06/01/24 10:26 AM) Blood Pressure [90-138/55-84 mm Hg] 151/ 70mm Hg *H* (06/01/24 10:28 AM) 142/74mm Hg *H* (06/01/24 10:26 AM) Blood pressure sites Arm, left (06/01/24 10:28 AM) Arm, left (06/01/24 10:26 AM) Social History Social History Type Response Smoking Status Former smoker; Other : Pt only smoked for from the age of 16 to 18; entered on: 01/03/14 Sex Patient Care team information Care Team Personnel Name: Vivian Meier Position: [facility] Outreach Member Role: Lifetime Consulting Physician Name: Miroslava Ruffin MD, V Position: [facility] Physician - Primary Care Member Role: PCP Address: Address: [address] [place] [address]- Care Team Related Persons Name: SHAINA SPIVEY Address: [address] [place] [address] Name: DANIELLE ROBERSON Name: ANIYA SOLORZANO Name: JOEY SOLORZANO Address: [address] [place] [address] Name: PUSHPA CLAYTON
--- OUTSIDE RECORDS SUMMARY | 2024-09-04 20:29 | XMS_ITS | Continuity of Care Document ---
Author Organization [facility] Address [address] [place] [address]- Care Team Providers Care Systems Integration Analyst Name Role Phone Berta HAYNES, Eileen Crowell Primary Care Physician Encounter [facility] Date(s): 04/23/21 - 05/23/21 [facility] [address] [place] [address]- Allergies, Adverse Reactions, Alerts Substance Reaction Severity [...] Note: vis given 2Admin Note: VIS IN MALAG[place]Y 3Admin Note: VIS given 4Admin Note: per patient. via health occupations teacher office Claudia Cruz 5Admin Note: VIS 04/2012 [...] BEDTIME, # 90 tablet, 3 Refills, Acute, [facility] STORE 06278, 160, cm, 09/03/19 12:02:00 EST, Height, 67.2, kg, 09/03/19 12:02:00 EST, Dry Weight Start Date: 10/31/19 Status: Ordered Nasacort Allergy 24HR 55 mcg/inh nasal spray 2 sprays, Daily, 0 Refills, Maintenance, 01/23/18 9:29:42 EDT Start Date: 01/23/18 Status: Ordered [place] 0.65% nasal spray 2 sprays, Nares, Both, [...] tablet, 0 Refills, Maintenance, 12/20/19 15:43:00 EDT, [facility]/pharmacy #1972, to replace 30 tab [...] 15:01:00 EDT, Aerosol, Route to Pharmacy Electronically, [id number], [facility]/pharmacy #1972, 160, cm, 0... Start Date: 02/18/20 Status: Ordered simethicone 80 mg oral tablet, chewable 80 mg, 1, tablet, Chew, 3 times a day, # 90 tablet, Refills 1, Tot. Refills 1, Maintenance, 10/11/17 16:26:21, Route to Pharmacy Electronically, [id number], [facility]/pharmacy #1972 Start Date: 10/11/17 Status: Ordered tiZANidine 2 mg oral tablet 2 mg, 1, tablet, By Mouth, Every 8 hours, PRN, # 30 tablet, Refills 2, Tot. Refills 2, Maintenance,as needed for muscle spasm, 04/19/19 10:28:15 EDT, Route to Pharmacy Electronically, [id number], [facility]/pharmacy #1972 Start Date: 04/19/19 Stop [...] 6 Active Facet arthropathy, on CT from [facility](Confirmed) Active chronic Rotator cuff tear(Confirmed) Active [...] of lumbar spine(Confirmed) 10 Active Overweight(Confirmed) Active *[id number] Care Partn er Karina Mcneal(Confirmed) Active POLIO(Confirmed) 1947 Active Post-polio syndrome(Confirmed) Active Sacroiliac pain(Confirmed) [...] side. ENT refered her for hearing aide [id number] GI note 10see x-ray - degenerative changes 11cites polio age 4, had right leg problems ever since she notes 12on x-ray 13sees ENT for this Social History Social History Type Response Smoking Status Former smoker; Other : Pt only smoked for from the age of 16 to 18; entered on: 01/03/14 Sex
--- OUTSIDE RECORDS SUMMARY | 2024-09-04 20:29 | XMS_ITS | Continuity of Care Document ---
Author Organization [facility] Address [address] [place] [address]- Care Team Providers Care Pick Out Hand Name Role Phone Augustin CAMPOS, Miroslava Oro Primary Care Physician [phone] [place] [facility] [place] 04/09/24 - 05/09/24 [facility] [address] [place] [address]- Allergies, Adverse Reactions, Alerts Substance Reaction Severity [...] tetanus/diphtheria/pertussis, acel(Tdap) 4 02/17/12 Given SARS-CoV-2 mRNA (jcjxutp-lkhk-wrfgq) vax 03/23/22 Recorded zoster vaccine, inactivated 11/20/21 [...] 11/03/15 Given 1Admin Note: per patient. via animal services officer office Claudia Cruz 2Admin Note: VIS 04/2012 3Admin Note: vis given vis date 01/16 4Admin Note: VIS 10/21 5Admin Note: vis given 6Admin Note: VIS IN [place] 7Admin Note: VIS given Medications albuterol 0.083% inhalation solution 3 mL = 2.5 mg, Inhalation, Every 6 hours, PRN for wheezing, # 100 each, 6 Refills, Maintenance, 09/06/23 11:39:00 EST, Solution, [facility]/pharmacy #[id number], 158.5, cm, 08/26/23 10:44:00 EST, Height Start Date: 09/06/23 Stop Date: 04/03/24 Status: Ordered cetirizine 10 mg oral tablet 1 tablet, By Mouth, Daily, PRN NEEDED FOR ALLERGY SYMPTOMS, # 90 tablet, 1 Refills, Maintenance,05/09/23 7:42:00 EDT, [facility], 158.5, cm, 02/22/23 10:56:00 EDT, Height Start Date: 05/09/23 Status: Ordered losartan 25 mg oral tablet TAKE 1 TABLET BY MOUTH EVERY DAY Start Date: 05/01/24 Status: Ordered losartan 50 mg oral tablet 50 mg, 1, tablet, By Mouth, Daily, replace 25mg, # 90 tablet, Refills 1, Tot. Refills 1, Maintenance, 05/01/24 13:41:00 EDT, Route to Pharmacy Electronically, [facility]/pharmacy #[id number], Partial fill upon patient request if the [...] 15:01:00 EDT, Aerosol, Route to Pharmacy Electronically, [id number], [facility]/pharmacy #1972, 160, cm, 0... Start [...] 04/27/24 10:57:00 EDT, Route to Pharmacy Electronically, [facility]/pharmacy #[id number], Partial fill upon p... Start Date: 04/27/24 Status: Ordered Vitamin D3 1000 intl units oral tablet 1 tablet = 1,000 International_Units, By Mouth, Daily, # 90 tablet, 11 Refills, Maintenance, 09/29/22 11:25:00 EST, Tablet, [facility]/pharmacy #1972, never had kidney stones she states, [...] Active Facet arthropathy, on CT from [facility] Confirmed Active Diverticulitis Confirmed Active Diverticulosis [...] [address] 3per colonoscopy [facility] 4left side. ENT refered her for hearing aide [id number] GI note 6see x-ray - degenerative changes 7cites polio age 4, had right leg problems ever since she notes 8on x-ray Social History Social History Type Response Smoking Status Former smoker; Other : Pt only smoked for from the age of 16 to 18; entered on: 01/03/14 Sex Patient Care team information Care Team Personnel Name: Vivian Meier Position: [facility] Outreach Member Role: Lifetime Consulting Physician Name: Augustin CAMPOS, Miroslava Oro Position: [facility] Physician - Primary Care Member Role: PCP Address: Address: [address] [place] [address]- [place] Care Team Related Persons Name: SHAINA SPIVEY Address: [address] [place] [address] Name: DANIELLE ROBERSON Name: ANIYA SOLORZANO Name: JOEY SOLORZANO Address: [address] [place] [address] Name: PUSHPA CLAYTON
--- OUTSIDE RECORDS SUMMARY | 2024-09-04 20:29 | XMS_ITS | Continuity of Care Document ---
Author Organization [facility] Address [address] [place] [address]- Care Team Providers Care Tawer Name Role Phone Augustin CAMPOS, Miroslava Oro Primary Care Physician [phone] [place] [facility] [place](s): 06/03/23 - 07/03/23 [facility] [address] [place] [address]- Allergies, Adverse Reactions, Alerts Substance Reaction Severity [...] tetanus/diphtheria/pertussis, acel(Tdap) 4 02/17/12 Given SARS-CoV-2 mRNA ([id number]-jsim-dmjdw) vax 03/23/22 Recorded zoster vaccine, inactivated 11/20/21 [...] 11/03/15 Given 1Admin Note: per patient. via youth liaison officer office Claudia Cruz 2Admin Note: VIS 04/2012 3Admin Note: vis given vis date 01/16 4Admin Note: VIS 10/21 5Admin Note: vis given 6Admin Note: VIS IN [place]UV[place] 7Admin Note: VIS given Medications albuterol 0.083% [...] 1 Refills, Maintenance,05/09/23 7:42:00 EDT, [facility], 158.5, cm, 02/22/23 10:56:00 EDT, Height Start Date: 05/09/23 Status: Ordered pantoprazole 40 mg oral delayed [...] 15:01:00 EDT, Aerosol, Route to Pharmacy Electronically, [id number], [facility]/pharmacy #1972, 160, cm, 0... Start Date: [...] 11 Refills, Maintenance, 09/29/22 11:25:00 EST, Tablet, [facility]/pharmacy #1972, never had kidney stones she states, 158.5, cm, 09/29/2211:23:00 EST, Height Start Date: 09/29/22 Stop Date: 09/13/25 Status: Ordered Problem List Condition Confirmation Course Effective Dates Status H ealth Status Informant Age-related cataract 1 Confirmed Active Benign paroxysmal positional vertigo, bilateral Confirmed Active Asthma Confirmed 2004 Active Cyst of kidney 2 Confirmed Active Facet arthropathy, on [facility] from [facility] Confirmed Active Diverticulitis Confirmed Active [...] side. ENT refered her for hearing aide [id number] GI note 6see x-ray - degenerative changes 7cites polio age 4, had right leg problems ever since she notes x-ray Social History Social History Type Response Smoking Status Former smoker; Other : Pt only smoked for from the age of 16 to 18; entered on: 01/03/14 Sex Patient Care team information Care Team Personnel Name: Vivian Meier Position: [facility] Outreach Member Role: Lifetime Consulting Physician Name: Augustin CAMPOS, Miroslava Oro Position: [facility] Physician - Primary Care Member Role: PCP Address: Address: [address] [place] [address]- Care Team Related Persons Name: SHAINA SPIVEY Address: [address] [place] [address] Name: DANIELLE ROBERSON Name: ANIYA SOLORZANO Name: JOEY SOLORZANO Address: [address] [place] [address] Name: PUSHPA CLAYTON
--- OUTSIDE RECORDS SUMMARY | 2024-09-04 20:29 | XMS_ITS | Continuity of Care Document ---
Author Organization [facility] Address [address] [place] [address]- Care Team Providers Care File Keeper Name Role Phone Miroslava Ruffin MD, V Primary Care Physician [phone] Encounter [facility] [place] Date(s): 07/01/23 - 07/08/23 [facility] [address] [place] [address]- Encounter Diagnosis Benign paroxysmal positional vertigo, bilateral(Discharge Diagnosis) - 07/01/23 Hypertension(Discharge Diagnosis) - 07/01/23 Osteoarthritis of left shoulder(Discharge Diagnosis) - 07/01/23 Diverticulitis(Discharge Diagnosis) - 07/01/23 Scoliosis of lumbar spine(Discharge Diagnosis) - 07/01/23 Attending Physician: Miroslava Ruffin MD, V Allergies, [...] tetanus/diphtheria/pertussis, acel(Tdap) 4 02/17/12 Given SARS-CoV-2 mRNA (erknxyb-tkpa-caaxx) vax 03/23/22 Recorded zoster vaccine, inactivated 11/20/21 [...] 11/03/15 Given 1Admin Note: per patient. via credit representative office Claudia Cruz 2Admin Note: VIS [...] 1 Refills, Maintenance,05/09/23 7:42:00 EDT, [facility], 158.5, cm, 02/22/23 10:56:00 EDT, Height Start [...] 15:01:00 EDT, Aerosol, Route to Pharmacy Electronically, [id number], [facility]/pharmacy #1972, 160, cm, 0... Start Date: 02/18/20 [...] Refills, Maintenance, 09/29/22 11:25:00 EST, Tablet, [facility]/pharmacy #1972, never had kidney stones she states, [...] [facility] Confirmed Active Diverticulitis Confirmed Active [...] side. ENT refered her for hearing aide [id number] GI note 6see x-ray - degenerative changes 7cites polio age 4, had right leg problems ever since she notes 8on x-ray Diagnosis Diagnosis Type Effective Dates Health Status Clinical Service Informant Benign paroxysmal positional vertigo, bilateral Discharge Diagnosis 07/01/23 Hypertension Discharge Diagnosis 07/01/23 Osteoarthritis of left shoulder Discharge Diagnosis 07/01/23 Diverticulitis Discharge Diagnosis 07/01/23 Scoliosis of lumbar spine Discharge Diagnosis 07/01/23 Vital Signs Most recent to oldest [Reference Range]: 1 2 Height 158.5 cm (07/01/23 11:10 AM) 158.5 cm (07/01/23 10:16 AM) Weight 66.2 kg (07/01/23 10:16 AM) Oxygen Saturation [94-100 %] 96 % (07/01/23 10:16 AM) Pulse Rate [55-90 bpm] 81 bpm (07/01/23 10:16 AM) Body Mass Index [18.5-24.99 kg/m2] 26.35 kg/m2 *H* (07/01/23 10:16 AM) Blood Pressure [90-138/55-84 mm Hg] 140/ 70mm Hg *H* (07/01/23 11:10 AM) 165/53mm Hg *H* (07/01/23 10:16 AM) Mode of Delivery (Oxygen) Room air (07/01/23 10:16 AM) Blood pressure sites Arm, left (07/01/23 10:16 AM) Weight Obtained Via Standing scale (07/01/23 10:16 AM) Social History Social History Type Response Smoking Status Former smoker; Other : Pt only smoked for from the age of 16 to 18; entered on: 01/03/14 Sex Note * Cardinal , Senia: PERFORM, SIGN, VERIFY Event Display: Patient Education/Instruction Authored Date: [id number] [facility] Clinical Summary Name ALVINO SPIVEY Age 77 Years 1945 PCP Augustin CAMPOS, Miroslava Oro PCP Visit Date 07/01/2023 10:03:00 Additional Instructions: Scheduled Appointments?? Future Appointments ?*[facility] ?[address]??[place],??[place],??[address] ?Phone:??[phone]?Fax:??-- ?Appt. Date:??07/05/2023?11:20 AM ?Scheduled Provider:??Penelope Garcia DO ?[facility] ?[address]??[place],??[place],??[address] ?Phone:??[phone]?Fax:??-- ?Appt. Date:??07/18/2023?10:45 AM ?Scheduled Provider:??[facility] 3D Mammo Rm 4 ?*[facility] ?[address],??[place],??[address] ?Phone:??--?Fax:??-- ?Appt. Date:??08/26/2023?10:40 AM ?Scheduled Provider:??Augustin CAMPOS, Miroslava Oro Follow-Up Instructions ?? Diagnosis Primary osteoarthritis, left shoulder; Benign paroxysmal vertigo, bilateral; Scoliosis, unspecified; Essential (primary) hypertension; Diverticulitis of intestine, part unspecified, without perforation or abscess without bleeding Medications: Please continue your medications until treatment [...] Refills: 1. Next Dose: Sodium Chloride Nasal ([place] 0.65% nasal spray) 2 spray(s) Nares, Both [...] BY MOUTH EVERY DAY NEEDED. Next Dose: No Longer Take the Following Medications Amlodipine (amLODIPine 5 mg oral tablet) 1 tab(s) Oral Daily. Refills: 1. Allergy Info:?? traMADol; Other Food Allergy; Contrast Dye; sulfa drugs; lisinopril; morphine; erythromycin; naproxen Medications Given This Visit Future Orders ?No future orders Vital Signs Height 158.5 cm Weight 66.2 kg BMI 26.35 kg/m2 Blood Pressure 165 mm Hg/53 mm Hg Temperature Pulse Rate 81 bpm Respiratory Rate 02 Sat Mode of Delivery 96 %/Room air You can now view a summary of your hospital visit from the comfort of your home through a free online portal called [employer]. [employer] is a website that allows you to securely view your medical information including discharge summary, medications and follow-up visits. ??You can alsosend a secure electronic message to your doctor???s office to request appointments, renew medications or just ask a question. You can enroll at [email or web address] or register during your next office visit. [...] primary care provider, you may find a [facility] provider by calling [facility] at [phone]. [facility], in keeping with [facility] guidance, no longer requires face masks [...] Care Team Personnel Name: Vivian Meier Position: [facility] Outreach Member Role: Lifetime Consulting Physician Name: Miroslava Ruffin MD, V Position: [facility] Physician - Primary Care Member Role: PCP Address: Address: [address] [place] [address]- [place] Care Team Related Persons Name: SHAINA SPIVEY Address: home [address] [place] [address] Name: DANIELLE ROBERSON Name: ANIYA SOLORZANO Name: JOEY SOLORZANO Address: home [address] [place] [address] Name: PUSHPA CLAYTON
--- OUTSIDE RECORDS SUMMARY | 2024-09-04 20:29 | XMS_ITS | Continuity of Care Document ---
Author Organization [facility] Address [address] [place] [address]- Care Team Providers Care Fish Cleaner Machine Tender Name Role Phone Augustin CAMPOS, Miroslava Oro Primary Care Physician [place] [facility] [place]/24 [facility] [address] [place] [address]- Allergies, Adverse Reactions, Alerts Substance Reaction Severity [...] tetanus/diphtheria/pertussis, acel(Tdap) 4 02/17/12 Given SARS-CoV-2 mRNA (gqlgzkt-kzao-zesoq) vax 03/23/22 Recorded zoster vaccine, inactivated 11/20/21 [...] 11/03/15 Given 1Admin Note: per patient. via supervisor tank house office Claudia Cruz 2Admin Note: VIS 04/2012 3Admin Note: vis given vis date 01/16 4Admin Note: VIS 10/21 5Admin Note: vis given 6Admin Note: VIS IN [place] 7Admin Note: VIS given Medications albuterol 0.083% inhalation solution 3 mL = 2.5 mg, Inhalation, Every 6 hours, PRN for wheezing, # 100 each, 6 Refills, Maintenance, 09/06/23 11:39:00 EST, Solution, [facility]/pharmacy #[id number], 158.5, cm, 08/26/23 10:44:00 EST, Height Start Date: 09/06/23 Stop Date: 04/03/24 Status: Ordered cetirizine 10 mg oral tablet 1 tablet, By Mouth, Daily, PRN NEEDED FOR ALLERGY SYMPTOMS, # 90 tablet, 1 Refills, Maintenance,05/09/23 7:42:00 EDT, [facility], 158.5, cm, 02/22/23 10:56:00 EDT, Height Start Date: 05/09/23 Status: Ordered losartan 25 mg oral tablet 1 tablet = 25 mg, By Mouth, Daily, # 90 tablet, 3 Refills, Maintenance, 11/03/23 14:35:00 EST, Tablet, [facility]/pharmacy #[id number], Partial fill upon patient request if [...] 15:01:00 EDT, Aerosol, Route to Pharmacy Electronically, [id number], [facility], 160, cm, 0... Start Date: 02/18/20 Status: Ordered simethicone 80 mg oral tablet, chewable 80 mg, 1, tablet, Chew, 3 times a day after meals and bedtime, PRN, # 100 tablet, Refills 5, Tot. Refills 5, Maintenance, Gas, 12/15/23 8:51:00 EST, Route to Pharmacy Electronically, [facility]/pharmacy #[id number], Partial fill upon patient request if [...] Maintenance, 09/29/22 11:25:00 EST, Tablet, [facility]/pharmacy #1972, never had kidney stones she states, [...] Confirmed Active Facet arthropathy, on CT from [facility] Confirmed Active Diverticulitis Confirmed Active Diverticulosis of [...] [address] 3per colonoscopy [facility] 4left side. ENT refered her for hearing aide [id number] GI note 6see x-ray - degenerative changes 7cites polio age 4, had right leg problems ever since she notes 8 x-ray Social History Social History Type Response Smoking Status Former smoker; Other : Pt only smoked for from the age of 16 to 18; entered on: 01/03/14 Sex Patient Care team information Care Team Personnel Name: Vivian Meier Position: [facility] Outreach Member Role: Lifetime Consulting Physician Name: Augustin CAMPOS, Miroslava Oro Position: [facility] Physician - Primary Care Member Role: PCP Address: Address: [address] [place] [address]- [place] Care Team Related Persons Name: SHAINA SPIVEY Address: home [address] [place] [address] Name: DANIELLE ROBERSON Name: ANIYA SOLORZANO Name: JOEY SOLORZANO Address: home [address] [place] [address] Name: PUSHPA CLAYTON
--- OUTSIDE RECORDS SUMMARY | 2024-09-04 20:30 | XMS_ITS | Continuity of Care Document ---
Author Organization [facility] Address [address] [place] [address]- Care Team Providers Care Researcher Name Role Phone Augustin CAMPOS, Miroslava Oro Primary Care Physician Encounter [facility] [place] Date(s): 06/14/24 - 07/14/24 [facility] [address] [place] [address]- Allergies, Adverse Reactions, Alerts Substance Reaction Severity [...] tetanus/diphtheria/pertussis, acel(Tdap) 4 02/17/12 Given SARS-CoV-2 mRNA (aevfunh-qqql-fdzpb) vax 03/23/22 Recorded zoster vaccine, inactivated 11/20/21 [...] 11/03/15 Given 1Admin Note: per patient. via lead customer service representative office Claudia Cruz 2Admin Note: VIS 04/2012 3Admin Note: vis given vis date 01/16 4Admin Note: VIS 10/21 5Admin Note: vis given 6Admin Note: VIS IN HEBREW 7Admin Note: VIS given Medications albuterol 0.083% inhalation solution 3 mL = 2.5 mg, Inhalation, Every 6 hours, PRN for wheezing, # 100 each, 6 Refills, Maintenance, 09/06/23 11:39:00 EST, Solution, [facility]/pharmacy #[id number], 158.5, cm, 08/26/23 10:44:00 EST, [...] 07/10/24 11:55:00 EDT, Route to Pharmacy Electronically, [facility]/pharmacy #[id number], Partial fill upon patient request if the prescription is for a schedule II opioid drug.... Start Date: 07/10/24 Status: Ordered cetirizine 10 mg oral tablet 1 tablet, By Mouth, Daily, PRN NEEDED FOR ALLERGY SYMPTOMS, # 90 tablet, 1 Refills, Maintenance,05/09/23 7:42:00 EDT, [facility], 158.5, cm, 02/22/23 10:56:00 EDT, Height Start [...] 15:01:00 EDT, Aerosol, Route to Pharmacy Electronically, [id number], [facility]/pharmacy #1972, 160, cm, 0... Start [...] 04/27/24 10:57:00 EDT, Route to Pharmacy Electronically, [facility]/pharmacy #[id number], Partial fill upon p... Start [...] Confirmed Active Facet arthropathy, on CT from [facility] Confirmed Active Diverticulitis Confirmed Active Diverticulosis of [...] side. ENT refered her for hearing aide [id number] GI note 6see x-ray - degenerative changes 7cites polio age 4, had right leg problems ever since she notes 8on x-ray Social History Social History Type Response Smoking Status Former smoker; Other : Pt only smoked for from the age of 16 to 18; entered on: 01/03/14 Sex Patient Care team information Care Team Personnel Name: Vivian Meier Position: [facility] Outreach Member Role: Lifetime Consulting Physician Name: Miroslava Ruffin MD, V Position: [facility] Physician - Primary Care Member Role: PCP Address: Address: [address] [place] [address]- Care Team Related Persons Name: SPIVEY SHAINA Address: home [address] [place] [address] Name: DANIELLE ROBERSON Name: ANIYA SOLORZANO Name: JOEY SOLORZANO Address: home [address] [place] [address] Name: PUSHPA CLAYTON
--- OUTSIDE RECORDS SUMMARY | 2024-09-04 20:30 | XMS_ITS | Continuity of Care Document ---
Author Organization [facility] Address [address] [place] [address]- Care Team Providers Care General Technician Name Role Phone Le Allen DO Primary Care Physician [facility] Date[facility]s): 12/20/19 - 01/30/20 [facility] [address] [place] [address]- [facility] Attending Physician: Le Allen DO Allergies, Adverse [...] Note: vis given 2Admin Note: VIS IN HUNGARIAN 3Admin Note: VIS given 4Admin Note: per patient. via residential carpet installer office Claudia Cruz 5Admin Note: VIS 04/2012 [...] 04/19/19 10:28:38 EDT, Route to Pharmacy Electronically, [id number], [facility]/pharmacy #1972 Start Date: 04/19/19 Stop Date: 05/03/19 Status: Ordered losartan 50 mg oral tablet 50 mg, 1, tablet, By Mouth, Daily, # 90 tablet, Refills 1, Tot. Refills 1, Maintenance, 08/20/19 17:24:20 EST, Route to Pharmacy Electronically, [id number], [facility]/pharmacy #1972 Start Date: 08/20/19 Stop Date: [...] Refills, Acute, [facility], 160, cm, 09/03/19 12:02:00 EST, Height, 67.2, [...] 9:29:42 EDT Start Date: 01/23/18 Status: Ordered [place] 0.65% nasal spray 2 sprays, Nares, Both, [...] 16:55:41 EDT, Aerosol, Route to Pharmacy Electronically, [id number], [facility] Start Date: 06/07/19 Status: Ordered simethicone 80 mg oral tablet, chewable 80 mg, 1, tablet, Chew, 3 times a day, # 90 tablet, Refills 1, Tot. Refills 1, Maintenance, 10/11/17 16:26:21, Route to Pharmacy Electronically, [id number], [facility]/pharmacy #1972 Start Date: 10/11/17 Status: Ordered tiZANidine 2 mg oral tablet 2 mg, 1, tablet, By Mouth, Every 8 hours, PRN, # 30 tablet, Refills 2, Tot. Refills 2, Maintenance,as needed for muscle spasm, 04/19/19 10:28:15 EDT, Route to Pharmacy Electronically, [id number], [facility]/pharmacy #1972 Start Date: 04/19/19 Stop [...] 6 Active Facet arthropathy, on CT from [facility](Confirmed) Active chronic Rotator cuff tear(Confirmed) [...] of lumbar spine(Confirmed) 10 Active Overweight(Confirmed) Active *[id number] Care Partn er Karina Mcneal(Confirmed) Active POLIO(Confirmed) [...] side. ENT refered her for hearing aide [id number] GI note 10see x-ray - degenerative changes 11cites polio age 4, had right leg problems ever since she notes 12on x-ray 13sees ENT for this Social History Social History Type Response Smoking Status Former smoker; Other : Pt only smoked for from the age of 16 to 18; entered on: 01/03/14 Sex
--- OUTSIDE RECORDS SUMMARY | 2024-09-04 20:30 | XMS_ITS | Continuity of Care Document ---
Author Organization [facility] Address [address] [place] [address]- Care Team Providers Care Food Processing Chemist Name Role Phone Miroslava Ruffin MD, V Primary Care Physician [phone] Encounter [facility] [place] Date(s): 07/13/22 - 09/24/22 [facility] [address] [place] [address]- Attending Physician: Bienvenido Cornejo MD Admitting Physician: Bienvenido Cornejo MD Allergies, Adverse Reactions, Alerts Substance Reaction [...] tetanus/diphtheria/pertussis, acel(Tdap) 2 02/17/12 Given SARS-CoV-2 mRNA (kzyounn-ccie-kflvv) vax 03/23/22 Recorded zoster vaccine, inactivated 11/20/21 [...] VIS 10/21 3Admin Note: per patient. via parcel post order clerk office Claudia Cruz 4Admin Note: VIS 04/2012 5Admin Note: vis given 6Admin Note: VIS IN KAZAKH 7Admin Note: VIS given Medications albuterol 0.083% [...] 1 Refills, Maintenance, 08/10/22 8:49:00 EDT, Tablet, [facility]/pharmacy #1972, Partial fill upon patient request if the prescription is for a schedule II opioid drug., 158.5, cm, 07/12/22 10:02:00 EDT... Start Date: 08/10/22 Status: Ordered Melatonin 1 mg oral tablet TAKE ONE TABLET BY MOUTH AT BEDTIME Start Date: 03/05/22 Status: Ordered [place] 0.65% nasal spray 2 sprays, Nares, Both, [...] 15:01:00 EDT, Aerosol, Route to Pharmacy Electronically, [id number], [facility]/pharmacy #1972, 160, cm, 0... Start [...] Maintenance, 10/11/17 16:26:21, Route to Pharmacy Electronically, [id number], [facility]/pharmacy #1972 Start Date: 10/11/17 Status: [...] Confirmed Active Facet arthropathy, on CT from [facility] Confirmed Active chronic Rotator cuff tear Confirmed [...] spine 10 Confirmed Active Overweight Confirmed Active *[id number] Outside Solar Sales Consultant Karina Mcneal Confirmed Active POLIO 11 Confirmed [...] lumbar spine on 11-20 x-ray 7per colonoscopy [facility] 8left side. ENT refered her for hearing aide [id number] GI note 10see x-ray - degenerative changes 11cites polio age 4, had right leg problems ever since she notes 12on x-ray 13sees ENT for this Social History Social History Type Response Smoking Status Former smoker; Other : Pt only smoked for from the age of 16 to 18; entered on: 01/03/14 Sex Patient Care team information Care Team Personnel Name: Vivian Meier Position: [facility] Outreach Member Role: Lifetime Consulting Physician Name: Augustin CAMPOS, Miroslava Oro Position: [facility] Primary Care Physician Member Role: PCP Address: Address: [address] [place] [address]- Care Team Related Persons Name: SHAINA SPIVEY Address: home [address] [place] [address] Name: DANIELLE ROBERSON Name: ANIYA SOLORZANO Name: JOEY SOLORZANO Address: [place] [address] Name: PUSHPA CLAYTON
--- OUTSIDE RECORDS SUMMARY | 2024-09-04 20:30 | XMS_ITS | Continuity of Care Document ---
Author Organization [facility] Address [address] [place] [address]- Care Team Providers Care Asphalt Layer Name Role Phone Augustin CAMPOS, Miroslava Oro Primary Care Physician [phone] Encounter [facility] [place] Date(s): 12/28/22 - 01/04/23 [facility] [address] [place] [address]- Encounter Diagnosis Osteoarthritis of lumbar spine(Discharge Diagnosis) - 12/28/22 Attending Physician: Miroslava Ruffin MD, V Allergies, [...] tetanus/diphtheria/pertussis, acel(Tdap) 4 02/17/12 Given SARS-CoV-2 mRNA (raeurbo-xcad-mngqx) vax 03/23/22 Recorded zoster vaccine, inactivated 11/20/21 [...] 11/03/15 Given 1Admin Note: per patient. via airport planner office Claudia Cruz 2Admin Note: VIS [...] 11/15/22 10:36:00 EST, Route to Pharmacy Electronically, [facility]/pharmacy #[id number], Partial fill upon patient request if the prescription is for a schedule II opioid drug.... Start Date: 11/15/22 Status: Ordered cetirizine 10 mg oral tablet 1 tablet, By Mouth, Daily, PRN NEEDED FOR ALLERGY SYMPTOMS, # 90 tablet, 1 Refills, Maintenance,01/03/23 12:04:00 EDT, [facility]/pharmacy #[id number], 158.5, cm, 12/28/22 10:19:00 EDT, [...] 5 Refills, Maintenance, 01/03/23 12:05:00 EDT, Tablet, [facility]/pharmacy #[id number], Partial fill upon patient request if the prescription is for a schedule II opioid drug., 158.5, cm, 12/28/22 10:19:00 ED... Start Date: 01/03/23 Status: Ordered Melatonin 1 mg oral tablet TAKE ONE TABLET BY MOUTH AT BEDTIME Start Date: 03/05/22 Status: Ordered [place] 0.65% nasal spray 2 sprays, Nares, Both, [...] 15:01:00 EDT, Aerosol, Route to Pharmacy Electronically, [id number], [facility]/pharmacy #1972, 160, cm, 0... Start Date: [...] 09/29/22 11:25:00 EST, Route to Pharmacy Electronically, [facility]/pharmacy #1972, 158.5, cm, 09/29/22 11:23:00 EST, [...] Confirmed Active Facet arthropathy, on CT from [facility] Confirmed Active Diverticulosis of colon 3 [...] Osteoarthritis of lumbar spine 6 Confirmed Active *[id number] Junior Graphic Designer Karina Mcneal Confirmed Active Medicare annual wellness [...] [address] 3per colonoscopy [facility] 4left side. ENT refered her for hearing aide [id number] GI note 6see x-ray - degenerative changes 7cites polio age 4, had right leg problems ever since she notes 8on x-ray Diagnosis Diagnosis Type Effective Dates Health Status Clinical Service Informant Osteoarthritis of lumbar spine Discharge Diagnosis 12/28/22 Vital Signs Most recent to oldest [Reference Range]: 1 Height 158.5 cm (12/28/22 10:19 AM) Weight 69.9 kg (12/28/22 10:19 AM) Oxygen Saturation [94-100 %] 99 % (12/28/22 10:19 AM) Pulse Rate [55-90 bpm] 91 bpm *H* (12/28/22 10:19 AM) Body Mass Index [18.5-24.99 kg/m2] 27.82 kg/m2 *H* (12/28/22 10:19 AM) Blood Pressure [90-138/55-84 mm Hg] 124/ 60mm Hg (12/28/22 10:19 AM) Respiratory Rate [16-30 br/min] 16 br/mi n (12/28/22 10:19 AM) Mode of Delivery (Oxygen) Room air (12/28/22 10:19 AM) Blood pressure sites Arm, left (12/28/22 10:19 AM) Weight Obtained Via Standing scale (12/28/22 10:19 AM) Social History Social History Type Response Smoking Status Former smoker; Other : Pt only smoked for from the age of 16 to 18; entered on: 01/03/14 Sex Note * Aditi Stevens: PERFORM, SIGN, VERIFY Event Display: Patient Education/Instruction Authored Date: [id number] [facility] Clinical Summary Name ALVINO SPIVEY Age 77 Years 1945 PCP Augustin CAMPOS, Miroslava Oro PCP Visit Date 12/28/2022 10:08:00 Additional Instructions: Scheduled Appointments?? Future Appointments ?No Future Appointments Scheduled Follow-Up Instructions ?? Diagnosis Medications: Please continue [...] tab(s) Oral Daily. Refills: 3. Next Dose: Ascorbic Acid (Vitamin C 500 [...] Refills: 1. Next Dose: Sodium Chloride Nasal ([place] 0.65% nasal spray) 2 spray(s) Nares, Both [...] orders Vital Signs Height 158.5 cm Weight 69.9 kg BMI 27.82 kg/m2 Blood Pressure 124 mm Hg/60 mm Hg Temperature Pulse Rate 91 bpm Respiratory Rate 16 br/min 02 Sat Mode of Delivery 99 %/Room air You can now view a summary of your hospital visit from the comfort of your home through a free online portal called [employer]. [employer] is a website that allows you to securely view your medical information including discharge summary, medications and follow-up visits. ??You can alsosend a secure electronic message to your doctor???s office to request appointments, renew medications or just ask a question. You can enroll at [email or web address] or register during your next office visit. [...] primary care provider, you may find a [facility] provider by calling [facility] at [phone]. For information about the plan of care [...] Team Personnel Name: Vivian Meier Position: [facility] Outreach Member Role: Lifetime Consulting Physician Name: Miroslava Ruffin MD, V Position: [facility] Primary Care Physician Member Role: PCP Address: Address: [address] [place] [address] Care Team Related Persons Name: SHAINA SPIVEY Address: home [address] [place] [address] Name: DANIELLE ROBERSON Name: ANIYA SOLORZANO Name: JOEY SOLORZANO Address: home [address] [place] [id number] Name: PUSHPA CLAYTON
--- OUTSIDE RECORDS SUMMARY | 2024-09-04 20:30 | XMS_ITS | Continuity of Care Document ---
Author Organization [facility] Address [address] [place] [address]- Care Team Providers Care Oven Roaster Name Role Phone Augustin CAMPOS, Miroslava Oro Primary Care Physician [phone] [facility]counter [facility] Date(s): 08/03/24 - 09/02/24 [facility] [address] [place] [address]- Encounter Type: Triage Allergies, Adverse Reactions, Alerts Substance Criticality Severity Reaction Reaction Severity Status naproxen hives Active traMADol [...] tetanus/diphtheria/pertussis, acel(Tdap) 4 02/17/12 Given SARS-CoV-2 mRNA (kwlfjad-xlir-jnxsv) vax 03/23/22 Recorded zoster vaccine, inactivated 11/20/21 [...] 11/03/15 Given 1Admin Note: per patient. via turf farm worker office Claudia Cruz 2Admin Note: VIS 04/2012 3Admin Note: vis given vis date 01/16 4Admin Note: VIS 10/21 5Admin Note: vis given 6Admin Note: VIS IN GIBRALTARIAN 7Admin Note: VIS given Medications albuterol 0.083% [...] Refills, Maintenance,05/09/23 7:42:00 AM EDT, [facility], 158.5, cm, 02/22/23 10:56:00 EDT, Height Start Date: 05/09/23 Status: Ordered Quantity: 90.0 Unit: tablet Repeat number: 1 EpiPen 2-Moses 0.3 mg injectable kit = 0.3 mg, Intramuscular, Once, may repeat if necessary, # 2 each, 11 Refills, Soft Stop, 08/07/24 10:31:00 AM EDT, [facility]/pharmacy #[id number], Partial fill upon patient request if [...] 10:25:00 AM EDT, Route to Pharmacy Electronically, [facility]/pharmacy #[id number], Partial fill upon patient request if [...] PM EDT, Aerosol, Route to Pharmacy Electronically, [id number], [facility]/pharmacy #1972, 160, cm, 12/20/19 15:07:00 EDT, Height, [...] 3:50:00 PM EDT, Route to Pharmacy Electronically, [facility], 158.5, cm, 08/07/24 10:09:00 EDT, Height, 63.6, [...] Confirmed Active Facet arthropathy, on CT from [facility] Confirmed Active Diverticulitis Confirmed Active Diverticulosis [...] side. ENT refered her for hearing aide [id number] GI note 6see x-ray - degenerative changes [...] Personnel Name: Vivian Meier Position: [facility] Outreach Member Role: Lifetime Consulting Physician Name: Augustin CAMPOS, Miroslava Oro Position: [facility] Physician - Primary Care Member Role: PCP Address: [address] [place] [address] Telecom: Care Team Related Persons Name: SHAINA SPIVEY Name: DANIELLE ROBERSON Name: ANIYA SOLORZANO Name: JOEY SOLORZANO Name: PUSHPA CLAYTON Insurance Providers Guarantor name: ALVINO SPIVEY Health Plan Information #: 1 Payer: NA Member Number: NA Policy Number: NA Group Number: NA
--- OUTSIDE RECORDS SUMMARY | 2024-09-04 20:30 | XMS_ITS | Continuity of Care Document ---
Author Organization [facility] Address [address] [facility] [address] [place] [address]- Care Team Providers Care Latin American Studies Professor Name Role Phone Berta VICE PRESIDENT OF SOFTWARE ENGINEERING, Eileen Crowell Primary Care Physician [facility]counter [facility] Date(s): 07/18/20 - 08/17/20 [facility] [address] [facility] [address] [place] [address]- Allergies, Adverse Reactions, Alerts Substance Reaction Severity [...] Note: vis given 2Admin Note: VIS IN SWEDISH 3Admin Note: VIS given 4Admin Note: per patient. via flight agent office Claudia Cruz 5Admin Note: VIS 04/2012 [...] 90 tablet, 3 Refills, Acute, [facility], 160, cm, 09/03/19 12:02:00 EST, Height, 67.2, kg, 09/03/19 12:02:00 EST, Dry Weight Start Date: 10/31/19 Status: Ordered Nasacort Allergy 24HR 55 mcg/inh nasal spray 2 sprays, Daily, 0 Refills, Maintenance, 01/23/18 9:29:42 EDT Start Date: 01/23/18 Status: Ordered [place] 0.65% nasal spray 2 sprays, Nares, Both, [...] 15:01:00 EDT, Aerosol, Route to Pharmacy Electronically, [id number], [facility]/pharmacy #1972, 160, cm, 0... Start Date: 02/18/20 Status: Ordered simethicone 80 mg oral tablet, chewable 80 mg, 1, tablet, Chew, 3 times a day, # 90 tablet, Refills 1, Tot. Refills 1, Maintenance, 10/11/17 16:26:21, Route to Pharmacy Electronically, [id number], [facility]/pharmacy #1972 Start Date: 10/11/17 Status: Ordered tiZANidine 2 mg oral tablet 2 mg, 1, tablet, By Mouth, Every 8 hours, PRN, # 30 tablet, Refills 2, Tot. Refills 2, Maintenance,as needed for muscle spasm, 04/19/19 10:28:15 EDT, Route to Pharmacy Electronically, [id number], [facility]/pharmacy #1972 Start [...] 6 Active Facet arthropathy, on CT from [facility](Confirmed) Active chronic Rotator cuff tear(Confirmed) [...] of lumbar spine(Confirmed) 10 Active Overweight(Confirmed) Active *[id number] Care Partn caron Mcneal(Confirmed) Active POLIO(Confirmed) 11 [...] and prior CT 6of lumbar spine on - x-ray 7per colonoscopy [facility] 8left side. ENT refered her for hearing aide [id number] GI note 10see x-ray - degenerative changes 11cites polio age 4, had right leg problems ever since she notes 12on x-ray 13sees ENT for this Social History Social History Type Response Smoking Status Former smoker; Other : Pt only smoked for from the age of 16 to 18; entered on: 01/03/14 Sex
--- OUTSIDE RECORDS SUMMARY | 2024-09-04 20:30 | XMS_ITS | Continuity of Care Document ---
Author Organization [facility] Address [address] [place] [address]- Care Team Providers Care Medical Dir Name Role Phone Le Allen DO Primary Care Physician [facility] Date[facility]s): 05/09/20 - 06/08/20 [facility] [address] [place] [address]- [facility] Allergies, Adverse Reactions, Alerts Substance Reaction [...] Note: vis given 2Admin Note: VIS IN ZIMBABWEAN 3Admin Note: VIS given 4Admin Note: per patient. via project developer office D.r Nancy 5Admin Note: VIS 04/2012 [...] 04/19/19 10:28:38 EDT, Route to Pharmacy Electronically, [id number], [facility]/pharmacy #1972 Start Date: 04/19/19 Stop Date: 05/03/19 Status: Ordered losartan 50 mg oral tablet 0.5 tablet = 25 mg, By Mouth, Daily, for 90 days, do not full until pt requests, note dose change, # 45 tablet, 1 Refills, Physician Stop 09/27/20 10:33:00 EST, 03/31/20 10:33:00 EDT, [facility]/pharmacy #1972, 160, cm, 03/31/20 9:41:00 EDT, [...] 90 tablet, 3 Refills, Acute, [facility], 160, cm, 09/03/19 12:02:00 EST, Height, 67.2, [...] 9:29:42 EDT Start Date: 01/23/18 Status: Ordered [place] 0.65% nasal spray 2 sprays, Nares, Both, [...] tablet, 0 Refills, Maintenance, 12/20/19 15:43:00 EDT, [facility]/pharmacy #1972, to replace 30 tab [...] 15:01:00 EDT, Aerosol, Route to Pharmacy Electronically, [id number], [facility], 160, cm, 0... Start Date: 02/18/20 Status: Ordered simethicone 80 mg oral tablet, chewable 80 mg, 1, tablet, Chew, 3 times a day, # 90 tablet, Refills 1, Tot. Refills 1, Maintenance, 10/11/17 16:26:21, Route to Pharmacy Electronically, [id number], [facility]/pharmacy #1972 Start Date: 10/11/17 Status: Ordered tiZANidine 2 mg oral tablet 2 mg, 1, tablet, By Mouth, Every 8 hours, PRN, # 30 tablet, Refills 2, Tot. Refills 2, Maintenance,as needed for muscle spasm, 04/19/19 10:28:15 EDT, Route to Pharmacy Electronically, [id number], [facility]/pharmacy #1972 Start Date: 04/19/19 Stop [...] Facet arthropathy, on CT from [facility](Confirmed) Active chronic Rotator cuff tear(Confirmed) [...] of lumbar spine(Confirmed) 10 Active Overweight(Confirmed) Active *[id number] Care Partn er Karina Mcneal(Confirmed) Active POLIO(Confirmed) [...] side. ENT refered her for hearing aide [id number] GI note 10see x-ray - degenerative changes 11cites polio age 4, had right leg problems ever since she notes 12on x-ray 13sees ENT for this Social History Social History Type Response Smoking Status Former smoker; Other : Pt only smoked for from the age of 16 to 18; entered on: 01/03/14 Sex
--- OUTSIDE RECORDS SUMMARY | 2024-09-04 20:30 | XMS_ITS | Continuity of Care Document ---
Author Organization [facility] Address [address] [place] [address]- Care Team Providers Care Cartoonist Special Effects Name Role Phone Augustin CAMPOS, Miroslava Oro Primary Care Physician [phone] [place] [facility] [place]23 [place] 01/05/24 [facility] [address] [place] [address]- Allergies, Adverse Reactions, Alerts Substance Reaction Severity [...] tetanus/diphtheria/pertussis, acel(Tdap) 4 02/17/12 Given SARS-CoV-2 mRNA (axsqtlg-oqsw-bvtfw) vax 03/23/22 Recorded zoster vaccine, inactivated 11/20/21 [...] 11/03/15 Given 1Admin Note: per patient. via roster clerk office Claudia Cruz 2Admin Note: VIS 04/2012 3Admin Note: vis given vis date 01/16 4Admin Note: VIS 10/21 5Admin Note: vis given 6Admin Note: VIS IN KOSOVAN 7Admin Note: VIS given Medications albuterol 0.083% inhalation solution 3 mL = 2.5 mg, Inhalation, Every 6 hours, PRN for wheezing, # 100 each, 6 Refills, Maintenance, 09/06/23 11:39:00 EST, Solution, [facility]/pharmacy #[id number], 158.5, cm, 08/26/23 10:44:00 EST, Height Start Date: 09/06/23 Stop Date: 04/03/24 Status: Ordered cetirizine 10 mg oral tablet 1 tablet, By Mouth, Daily, PRN NEEDED FOR ALLERGY SYMPTOMS, # 90 tablet, 1 Refills, Maintenance,05/09/23 7:42:00 EDT, [facility], 158.5, cm, 02/22/23 10:56:00 EDT, Height Start Date: 05/09/23 Status: Ordered losartan 25 mg oral tablet 1 tablet = 25 mg, By Mouth, Daily, # 90 tablet, 3 Refills, Maintenance, 11/03/23 14:35:00 EST, Tablet, [facility]/pharmacy #[id number], Partial fill upon patient [...] 15:01:00 EDT, Aerosol, Route to Pharmacy Electronically, [id number], [facility]/pharmacy #1972, 160, cm, 0... Start Date: 02/18/20 Status: Ordered simethicone 80 mg oral tablet, chewable 80 mg, 1, tablet, Chew, 3 times a day after meals and bedtime, PRN, # 100 tablet, Refills 5, Tot. Refills 5, Maintenance, Gas, 12/15/23 8:51:00 EST, Route to Pharmacy Electronically, [facility]/pharmacy #[id number], Partial fill upon patient [...] 11 Refills, Maintenance, 09/29/22 11:25:00 EST, Tablet, [facility]/pharmacy #1972, never had kidney stones she states, 158.5, cm, 09/29/2211:23:00 EST, Height Start Date: 09/29/22 Stop Date: 09/13/25 Status: Ordered Problem List Condition Confirmation Course Effective Dates Status H ealth Status Informant Age-related cataract 1 Confirmed Active Benign paroxysmal positional vertigo, bilateral Confirmed Active Asthma Confirmed 2004 Active Cyst of kidney 2 Confirmed Active Facet arthropathy, on CT from [facility] Confirmed Active Diverticulitis Confirmed Active Diverticulosis of [...] [address] 3per colonoscopy [facility] 4left side. ENT refered her for hearing aide [id number] GI note 6see x-ray - degenerative changes 7cites polio age 4, had right leg problems ever since she notes 8 x-ray Social History Social History Type Response Smoking Status Former smoker; Other : Pt only smoked for from the age of 16 to 18; entered on: 01/03/14 Sex Patient Care team information Care Team Personnel Name: Vivian Meier Position: [facility] Outreach Member Role: Lifetime Consulting Physician Name: Miroslava Ruffin MD, V Position: [facility] Physician - Primary Care Member Role: PCP Address: Address: [address] [place] [address]- Care Team Related Persons Name: SHAINA SPIVEY Address: home [address] [place] [address] Name: DANIELLE ROBERSON Name: ANIYA SOLORZANO Name: JOEY SOLORZANO Address: home [address] [place] [address] Name: PUSHPA CLAYTON
--- OUTSIDE RECORDS SUMMARY | 2024-09-04 20:30 | XMS_ITS | Continuity of Care Document ---
Author Organization [facility] Address [address] [place] [address]- Care Team Providers Care Child Care Sitter Name Role Phone Augustin CAMPOS, Miroslava Oro Primary Care Physician En[place] [facility] Date(s): 11/01/23 - 12/01/23 [facility] [address] [place] [address]- Allergies, Adverse Reactions, Alerts Substance Reaction Severity Status naproxen hives Active erythromycin Active sulfa drugs Active traMADol 1 Active morphine Active lisinopril Rash Active quinolone [...] tetanus/diphtheria/pertussis, acel(Tdap) 4 02/17/12 Given SARS-CoV-2 mRNA (cbgcman-pgkr-sgvvg) vax 03/23/22 Recorded zoster vaccine, inactivated 11/20/21 [...] 11/03/15 Given 1Admin Note: per patient. via spa director office Claudia Cruz 2Admin Note: VIS 04/2012 3Admin Note: vis given vis date 01/16 4Admin Note: VIS 10/21 5Admin Note: vis given 6Admin Note: VIS IN TANZANIAN 7Admin Note: VIS given Medications albuterol 0.083% inhalation solution 3 mL = 2.5 mg, Inhalation, Every 6 hours, PRN for wheezing, # 100 each, 6 Refills, Maintenance, 09/06/23 11:39:00 EST, Solution, [facility]/pharmacy #[id number], 158.5, cm, 08/26/23 10:44:00 EST, Height Start Date: 09/06/23 Stop Date: 04/03/24 Status: Ordered cetirizine 10 mg oral tablet 1 tablet, By Mouth, Daily, PRN NEEDED FOR ALLERGY SYMPTOMS, # 90 tablet, 1 Refills, Maintenance,05/09/23 7:42:00 EDT, [facility], 158.5, cm, 02/22/23 10:56:00 EDT, Height Start Date: 05/09/23 Status: Ordered losartan 25 mg oral tablet 1 tablet = 25 mg, By Mouth, Daily, # 90 tablet, 3 Refills, Maintenance, 11/03/23 14:35:00 EST, Tablet, [facility]/pharmacy #[id number], Partial fill upon patient [...] 15:01:00 EDT, Aerosol, Route to Pharmacy Electronically, [id number], [facility]/pharmacy #1972, 160, cm, 0... Start [...] Refills, Maintenance, 09/29/22 11:25:00 EST, Tablet, [facility]/pharmacy #1972, never had kidney stones she states, 158.5, cm, 09/29/2211:23:00 EST, Height Start Date: 09/29/22 Stop Date: 09/13/25 Status: Ordered Problem List Condition Confirmation Course Effective Dates Status H ealth Status Informant Age-related cataract 1 Confirmed Active Benign paroxysmal positional vertigo, bilateral Confirmed Active Asthma Confirmed 2004 Active Cyst of kidney 2 Confirmed Active Facet arthropathy, on CT from [facility] Confirmed Active Diverticulitis Confirmed Active [...] side. ENT refered her for hearing aide [id number] GI note 6see x-ray - degenerative changes 7cites polio age 4, had right leg problems ever since she notes 8on x-ray Social History Social History Type Response Smoking Status Former smoker; Other : Pt only smoked for from the age of 16 to 18; entered on: 01/03/14 Sex Patient Care team information Care Team Personnel Name: Vivian Meier Position: [facility] Outreach Member Role: Lifetime Consulting Physician Name: Miroslava Ruffin MD, V Position: [facility] Physician - Primary Care Member Role: PCP Address: Address: [address] [place] [address]- Care Team Related Persons Name: SHAINA SPIVEY Address: [address] [place] [address] Name: DANIELLE ROBERSON Name: ANIYA SOLORZANO Name: JOEY SOLORZANO Address: [address] [place] [address] Name: PUSHPA CLAYTON
--- OUTSIDE RECORDS SUMMARY | 2024-09-04 20:30 | XMS_ITS | Continuity of Care Document ---
Author Organization [facility] Address [address] [place] [address]- Care Team Providers Care Senior Technical Support Analyst Name Role Phone Berta FOOD PRODUCTION MACHINE OPERATOR, Eileen Crowell Primary Care Physician [place] [facility] [place]21 [place] 06/28/21 [facility] [address] [place] [address]- Attending Physician: Cindy Araiza Admitting Physician: Cindy [...] Note: vis given 2Admin Note: VIS IN JORDANIAN 3Admin Note: VIS given 4Admin Note: per patient. via nnps office Claudia Cruz 5Admin Note: VIS 04/2012 [...] BEDTIME, # 90 tablet, 3 Refills, Acute, [facility], 160, cm, 09/03/19 12:02:00 EST, Height, 67.2, kg, 09/03/19 12:02:00 EST, Dry Weight Start Date: 10/31/19 Status: Ordered Nasacort Allergy 24HR 55 mcg/inh nasal spray 2 sprays, Daily, 0 Refills, Maintenance, 01/23/18 9:29:42 EDT Start Date: 01/23/18 Status: Ordered [place] 0.65% nasal spray 2 sprays, Nares, Both, [...] tablet, 0 Refills, Maintenance, 12/20/19 15:43:00 EDT, [facility]/pharmacy #1972, to replace 30 tab script, [...] 15:01:00 EDT, Aerosol, Route to Pharmacy Electronically, [id number], [facility]/pharmacy #1972, 160, cm, 0... Start Date: 02/18/20 Status: Ordered simethicone 80 mg oral tablet, chewable 80 mg, 1, tablet, Chew, 3 times a day, # 90 tablet, Refills 1, Tot. Refills 1, Maintenance, 10/11/17 16:26:21, Route to Pharmacy Electronically, [id number], [facility]/pharmacy #1972 Start Date: 10/11/17 Status: Ordered tiZANidine 2 mg oral tablet 2 mg, 1, tablet, By Mouth, Every 8 hours, PRN, # 30 tablet, Refills 2, Tot. Refills 2, Maintenance,as needed for muscle spasm, 04/19/19 10:28:15 EDT, Route to Pharmacy Electronically, [id number], [facility]/pharmacy #1972 Start Date: 04/19/19 Stop Date: [...] 6 Active Facet arthropathy, on CT from [facility](Confirmed) Active chronic Rotator cuff tear(Confirmed) [...] of lumbar spine(Confirmed) 10 Active Overweight(Confirmed) Active *[id number] Care Partn er Karina Mcneal(Confirmed) Active POLIO(Confirmed) [...] side. ENT refered her for hearing aide [id number] GI note 10see x-ray - degenerative changes 11cites polio age 4, had right leg problems ever since she notes 12on x-ray 13sees ENT for this Social History Social History Type Response Smoking Status Former smoker; Other : Pt only smoked for from the age of 16 to 18; entered on: 01/03/14 Sex
--- OUTSIDE RECORDS SUMMARY | 2024-09-04 20:30 | XMS_ITS | Continuity of Care Document ---
Author Organization [facility] Address [address] [place] [address]- Care Team Providers Care Herbarium Curator Name Role Phone Mariola CAMPOS, Dagoberto Cancino Primary Care Physi hamzah Encounter [facility] Date(s): 09/09/20 - 10/09/20 [facility] [address], [address], [address] [place] [id number] Attending Physician: Cindy Araiza Admitting Physician: Cindy Araiza Referring Physician: Cindy Araiza
--- OUTSIDE RECORDS SUMMARY | 2024-09-04 20:30 | XMS_ITS | Continuity of Care Document ---
Author Organization [facility] Address [address] [place] [address]- Care Team Providers Care Manager Training Name Role Phone Augustin CAMPOS, Miroslava Oro Primary Care Physician Encounter [facility] Date(s): 07/26/22 - 08/25/22 [facility] [address] [place] [address]- Allergies, Adverse Reactions, Alerts Substance Reaction Severity [...] tetanus/diphtheria/pertussis, acel(Tdap) 2 02/17/12 Given SARS-CoV-2 mRNA (lyavjnj-artu-cqpuo) vax 03/23/22 Recorded zoster vaccine, inactivated 11/20/21 [...] VIS 10/21 3Admin Note: per patient. via incinerator attendant office Claudia Cruz 4Admin Note: VIS 04/2012 5Admin Note: vis given 6Admin Note: VIS IN KHMER 7Admin Note: VIS given Medications albuterol 0.083% [...] 1 Refills, Maintenance, 08/10/22 8:49:00 EDT, Tablet, [facility]/pharmacy #1972, Partial fill upon patient request if the prescription is for a schedule II opioid drug., 158.5, cm, 07/12/22 10:02:00 EDT... Start Date: 08/10/22 Status: Ordered Melatonin 1 mg oral tablet TAKE ONE TABLET BY MOUTH AT BEDTIME Start Date: 03/05/22 Status: Ordered [place] 0.65% nasal spray 2 sprays, Nares, Both, [...] 15:01:00 EDT, Aerosol, Route to Pharmacy Electronically, [id number], [facility]/pharmacy #1972, 160, [...] Maintenance, 10/11/17 16:26:21, Route to Pharmacy Electronically, [id number], 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 ENT refered her for hearing aide [id number] GI note 10see x-ray - degenerative changes [...] V Position: [facility] Primary Care Physician Member Role: PCP Address: Address: [address] [place] [address]- Care Team Related Persons Name: SHAINA SPIVEY Address: [address] [place] [address] Name: DANIELLE ROBERSON Name: ANIYA SOLORZANO Name: JOEY SOLORZANO Address: home [address] [place] [address] Name: PUSHPA CLAYTON
--- OUTSIDE RECORDS SUMMARY | 2024-09-04 20:30 | XMS_ITS | Continuity of Care Document ---
Author Organization [facility] Address [address] [place] [address]- Care Team Providers Care Rod Filler Name Role Phone Kaya Maldonado MD Primary Care Physician [phone] En[place] [facility] [place] Date(s): 11/13/21 - 12/13/21 [facility] [address] [place] [address]- Attending Physician: Cindy Araiza Admitting Physician: Cindy Araiza Referring Physician: AdmCindy colon Allergies, Adverse Reactions, Alerts Substance Reaction Severity [...] Note: vis given 2Admin Note: VIS IN YAKUT 3Admin Note: VIS given 4Admin Note: per patient. via silk examiner office Claudia Cruz 5Admin Note: VIS 04/2012 [...] 90 tablet, 3 Refills, Acute, [facility], 160, cm, 09/03/19 12:02:00 EST, Height, 67.2, kg, 09/03/19 12:02:00 EST, Dry Weight Start Date: 10/31/19 Status: Ordered Nasacort Allergy 24HR 55 mcg/inh nasal spray 2 sprays, Daily, 0 Refills, Maintenance, 01/23/18 9:29:42 EDT Start Date: 01/23/18 Status: Ordered [place] 0.65% nasal spray 2 sprays, Nares, Both, [...] 0 Refills, Maintenance, 12/20/19 15:43:00 EDT, [facility]/pharmacy #1972, to replace 30 tab script, 160, [...] 15:01:00 EDT, Aerosol, Route to Pharmacy Electronically, [id number], [facility]/pharmacy #1972, 160, cm, 0... Start Date: 02/18/20 Status: Ordered simethicone 80 mg oral tablet, chewable 80 mg, 1, tablet, Chew, 3 times a day, # 90 tablet, Refills 1, Tot. Refills 1, Maintenance, 10/11/17 16:26:21, Route to Pharmacy Electronically, [id number], [facility]/pharmacy #1972 Start Date: 10/11/17 Status: Ordered tiZANidine 2 mg oral tablet 2 mg, 1, tablet, By Mouth, Every 8 hours, PRN, # 30 tablet, Refills 2, Tot. Refills 2, Maintenance,as needed for muscle spasm, 04/19/19 10:28:15 EDT, Route to Pharmacy Electronically, [id number], [facility]/pharmacy #1972 Start Date: 04/19/19 Stop Date: 05/19/19 [...] 6 Active Facet arthropathy, on CT from [facility](Confirmed) Active chronic Rotator cuff tear(Confirmed) [...] of lumbar spine(Confirmed) 10 Active Overweight(Confirmed) Active *[id number] Care Partn caron Mcneal(Confirmed) Active POLIO(Confirmed) 11 [...] side. ENT refered her for hearing aide [id number] GI note 10see x-ray - degenerative changes 11cites polio age 4, had right leg problems ever since she notes 12on x-ray 13sees ENT for this Social History Social History Type Response Smoking Status Former smoker; Other : Pt only smoked for from the age of 16 to 18; entered on: 01/03/14 Sex
--- OUTSIDE RECORDS SUMMARY | 2024-09-04 20:30 | XMS_ITS | Continuity of Care Document ---
Author Organization [facility] Address [address] [place] [address]- Care Team Providers Care Gin Pole Operator Name Role Phone Berta DIRECTOR TREASURER, Eileen Crowell Primary Care Physician [phone] Encounter [facility] Date(s): 06/11/21 - 07/11/21 [facility] [address] [place] [address]- Allergies, Adverse Reactions, Alerts Substance Reaction Severity [...] Note: vis given 2Admin Note: VIS IN JAPANESE 3Admin Note: VIS given 4Admin Note: per patient. via limited radiology technician office Claudia Cruz 5Admin Note: VIS 04/2012 [...] 90 tablet, 3 Refills, Acute, [facility], 160, cm, 09/03/19 12:02:00 EST, Height, 67.2, kg, 09/03/19 12:02:00 EST, Dry Weight Start Date: 10/31/19 Status: Ordered Nasacort Allergy 24HR 55 mcg/inh nasal spray 2 sprays, Daily, 0 Refills, Maintenance, 01/23/18 9:29:42 EDT Start Date: 01/23/18 Status: Ordered [place] 0.65% nasal spray 2 sprays, Nares, Both, [...] tablet, 0 Refills, Maintenance, 12/20/19 15:43:00 EDT, [facility]/pharmacy #1972, to replace 30 tab script, [...] 15:01:00 EDT, Aerosol, Route to Pharmacy Electronically, [id number], [facility]/pharmacy #1972, 160, cm, 0... Start Date: 02/18/20 Status: Ordered simethicone 80 mg oral tablet, chewable 80 mg, 1, tablet, Chew, 3 times a day, # 90 tablet, Refills 1, Tot. Refills 1, Maintenance, 10/11/17 16:26:21, Route to Pharmacy Electronically, [id number], [facility]/pharmacy #1972 Start Date: 10/11/17 Status: Ordered tiZANidine 2 mg oral tablet 2 mg, 1, tablet, By Mouth, Every 8 hours, PRN, # 30 tablet, Refills 2, Tot. Refills 2, Maintenance,as needed for muscle spasm, 04/19/19 10:28:15 EDT, Route to Pharmacy Electronically, [id number], [facility] Start Date: 04/19/19 Stop Date: [...] 6 Active Facet arthropathy, on CT from [facility](Confirmed) Active chronic Rotator cuff tear(Confirmed) [...] of lumbar spine(Confirmed) 10 Active Overweight(Confirmed) Active *[id number] Care Partn er Karina Mcneal(Confirmed) Active POLIO(Confirmed) [...] lumbar spine on 11-20 x-ray 7per colonoscopy [facility] 8left side. ENT refered her for hearing aide [id number] GI note 10see x-ray - degenerative changes 11cites polio age 4, had right leg problems ever since she notes x-ray 13sees ENT for this Social History Social History Type Response Smoking Status Former smoker; Other : Pt only smoked for from the age of 16 to 18; entered on: 01/03/14 Sex
--- OUTSIDE RECORDS SUMMARY | 2024-09-04 20:30 | XMS_ITS | Continuity of Care Document ---
Author Organization [facility] Address [address] [place] [address]- Care Team Providers Care Silica Mixer Operator Name Role Phone Berta RN CLINICAL DOCUMENTATION SPECIALIST, Eileen Crowell Primary Care Physician Encounter [facility] Date(s): 04/06/21 - 05/06/21 [facility] [address] [place] [address]- Allergies, Adverse Reactions, Alerts Substance Reaction Severity [...] Note: vis given 2Admin Note: VIS IN UZBEK 3Admin Note: VIS given 4Admin Note: per patient. via services account manager office Claudia Cruz 5Admin Note: VIS 04/2012 [...] BEDTIME, # 90 tablet, 3 Refills, Acute, [facility], 160, cm, 09/03/19 12:02:00 EST, Height, 67.2, kg, 09/03/19 12:02:00 EST, Dry Weight Start Date: 10/31/19 Status: Ordered Nasacort Allergy 24HR 55 mcg/inh nasal spray 2 sprays, Daily, 0 Refills, Maintenance, 01/23/18 9:29:42 EDT Start Date: 01/23/18 Status: Ordered [place] 0.65% nasal spray 2 sprays, Nares, Both, [...] tablet, 0 Refills, Maintenance, 12/20/19 15:43:00 EDT, [facility]/pharmacy #1972, to replace 30 [...] 15:01:00 EDT, Aerosol, Route to Pharmacy Electronically, [id number], [facility]/pharmacy #1972, 160, cm, 0... Start Date: 02/18/20 Status: Ordered simethicone 80 mg oral tablet, chewable 80 mg, 1, tablet, Chew, 3 times a day, # 90 tablet, Refills 1, Tot. Refills 1, Maintenance, 10/11/17 16:26:21, Route to Pharmacy Electronically, [id number], [facility] Start Date: 10/11/17 Status: Ordered tiZANidine 2 mg oral tablet 2 mg, 1, tablet, By Mouth, Every 8 hours, PRN, # 30 tablet, Refills 2, Tot. Refills 2, Maintenance,as needed for muscle spasm, 04/19/19 10:28:15 EDT, Route to Pharmacy Electronically, [id number], [facility] Start Date: 04/19/19 Stop Date: [...] 6 Active Facet arthropathy, on CT from [facility](Confirmed) Active chronic Rotator cuff tear(Confirmed) Active [...] of lumbar spine(Confirmed) 10 Active Overweight(Confirmed) Active *[id number] Care Partn er Karina Mcneal(Confirmed) Active POLIO(Confirmed) [...] side. ENT refered her for hearing aide [id number] GI note 10see x-ray - degenerative changes 11cites polio age 4, had right leg problems ever since she notes 12on x-ray 13sees ENT for this Social History Social History Type Response Smoking Status Former smoker; Other : Pt only smoked for from the age of 16 to 18; entered on: 01/03/14 Sex
--- OUTSIDE RECORDS SUMMARY | 2024-09-04 20:30 | XMS_ITS | Continuity of Care Document ---
Author Organization [facility] Address [address] [place] [address]- Care Team Providers Care Service Electrician Name Role Phone Augustin CAMPOS, Miroslava Oro Primary Care Physician [place] [facility] [place] 01/15/23 [facility] [address] [place] [address]- Attending Physician: Yuli CAMPOS, Jim Allergies, Adverse [...] tetanus/diphtheria/pertussis, acel(Tdap) 4 02/17/12 Given SARS-CoV-2 mRNA ([id number]-rxnn-hyhlm) vax 03/23/22 Recorded zoster vaccine, inactivated 11/20/21 [...] 11/03/15 Given 1Admin Note: per patient. via budget counselor office Claudia Cruz 2Admin Note: VIS 04/2012 3Admin Note: vis given vis date 01/16 4Admin Note: VIS 10/21 5Admin Note: vis given 6Admin Note: VIS IN [place] 7Admin Note: VIS given Medications albuterol 0.083% [...] 11/15/22 10:36:00 EST, Route to Pharmacy Electronically, [facility]/pharmacy #[id number], Partial fill upon patient request if the prescription is for a schedule II opioid drug.... Start Date: 11/15/22 Status: Ordered cetirizine 10 mg oral tablet 1 tablet, By Mouth, Daily, PRN NEEDED FOR ALLERGY SYMPTOMS, # 90 tablet, 1 Refills, Maintenance,01/03/23 12:04:00 EDT, [facility]/pharmacy #[id number], 158.5, cm, 12/28/22 10:19:00 EDT, [...] 5 Refills, Maintenance, 01/03/23 12:05:00 EDT, Tablet, [facility]/pharmacy #[id number], Partial fill upon patient request if the prescription is for a schedule II opioid drug., 158.5, cm, 12/28/22 10:19:00 ED... Start Date: 01/03/23 Status: Ordered Melatonin 1 mg oral tablet TAKE ONE TABLET BY MOUTH AT BEDTIME Start Date: 03/05/22 Status: Ordered Hubbard 0.65% nasal spray 2 sprays, Nares, Both, [...] 15:01:00 EDT, Aerosol, Route to Pharmacy Electronically, [id number], [facility]/pharmacy #1972, 160, cm, 0... 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 ENT refered her for hearing aide [id number] GI note 6see x-ray - degenerative changes 7cites polio age 4, had right leg problems ever since she notes 8on x-ray Social History Social History Type Response Smoking Status Former smoker; Other : Pt only smoked for from the age of 16 to 18; entered on: 3/27/14 Sex Patient Care team information Care Team Personnel Name: Vivian Meier Position: [facility] Outreach Member Role: Lifetime Consulting Physician Name: Miroslava Ruffin MD, V Position: [facility] Primary Care Physician Member Role: PCP Address: Address: [address] [place] [address] Care Team Related Persons Name: SHAINA SPIVEY Address: [address] [place] [address] Name: DANIELLE ROBERSON Name: ANIYA SOLORZANO Name: JOEY SOLORZANO Address: home [address] [place] [address] Name: PUSHPA CLAYTON
--- OUTSIDE RECORDS SUMMARY | 2024-09-04 20:30 | XMS_ITS | Continuity of Care Document ---
Author Organization [facility][1] [facility] Address [address] [place] [address]- Care Team Providers Care Thread Weaver Name Role Phone Augustin CAMPOS, Miroslava Oro Primary Care Physician [place] [facility] [place] 06/18/24 - 07/18/24 [facility][1[facility] [address] [place] [address]- Allergies, Adverse Reactions, Alerts Substance Reaction Severity Status naproxen hives Active erythromycin Active quinolone antibiotics nausea Active Contrast Dye 1 Difficulty breathing erythromycin Active traMADol 2 Active morphine Active lisinopril Rash Active sulfa drugs Active Other Food Allergy [...] tetanus/diphtheria/pertussis, acel(Tdap) 4 02/17/12 Given SARS-CoV-2 mRNA (zyfprui-fhrr-wftfc) vax 03/23/22 Recorded zoster vaccine, inactivated 11/20/21 [...] 11/03/15 Given 1Admin Note: per patient. via recovery coach office Claudia Cruz 2Admin Note: VIS 04/2012 3Admin Note: vis given vis date 01/16 4Admin Note: VIS 10/21 5Admin Note: vis given 6Admin Note: VIS IN [place] 7Admin Note: VIS given Medications albuterol 0.083% inhalation solution 3 mL = 2.5 mg, Inhalation, Every 6 hours, PRN for wheezing, # 100 each, 6 Refills, Maintenance, 09/06/23 11:39:00 EST, Solution, [facility]/pharmacy #[id number], 158.5, cm, 08/26/23 10:44:00 EST, Height [...] 07/10/24 11:55:00 EDT, Route to Pharmacy Electronically, [facility]/pharmacy #[id number], Partial fill upon patient request if the prescription is for a schedule II opioid drug.... Start Date: 07/10/24 Status: Ordered cetirizine 10 mg oral tablet 1 tablet, By Mouth, Daily, PRN NEEDED FOR ALLERGY SYMPTOMS, # 90 tablet, 1 Refills, Maintenance,05/09/23 7:42:00 EDT, [facility], 158.5, cm, 02/22/23 10:56:00 EDT, Height Start [...] 15:01:00 EDT, Aerosol, Route to Pharmacy Electronically, [id number], [facility]/pharmacy #1972, 160, cm, 0... Start Date: 02/18/20 [...] 04/27/24 10:57:00 EDT, Route to Pharmacy Electronically, [facility]/pharmacy #[id number], Partial fill upon p... Start Date: [...] Facet arthropathy, on [facility] from [facility] Confirmed Active Diverticulitis Confirmed Active [...] side. ENT refered her for hearing aide [id number] GI note 6see x-ray - degenerative changes 7cites polio age 4, had right leg problems ever since she notes 8on x-ray Social History Social History Type Response Smoking Status Former smoker; Other : Pt only smoked for from the age of 16 to 18; entered on: 01/03/14 Sex Patient Care team information Care Team Personnel Name: Vivian Meier Position: [facility] Outreach Member Role: Lifetime Consulting Physician Name: Miroslava Ruffin MD, V Position: [facility] Physician - Primary Care Member Role: PCP Address: Address: [address] [place] [address]- Care Team Related Persons Name: SPIVEY SHAINA Address: home [address] [place] [address] Name: DANIELLE ROBERSON Name: ANIYA SOLORZANO Name: JOEY SOLORZANO Address: home [address] [place] [address] Name: PUSHPA CLAYTON
--- OUTSIDE RECORDS SUMMARY | 2024-09-04 20:30 | XMS_ITS | Continuity of Care Document ---
Author Organization [facility] Address [address] [place] [address]- Care Team Providers Care Rejoiner Name Role Phone Kaya Maldonado MD Primary Care Physician [phone] [place] [facility] [place](s): 09/14/21 - 12/13/21 [facility] [address] [place] [address]- Attending Physician: Bienvenido Cornejo MD Admitting Physician: [...] VIS given 4Admin Note: per patient. via keg raiser office Claudia Cruz 5Admin Note: VIS 04/2012 [...] BEDTIME, # 90 tablet, 3 Refills, Acute, [facility], 160, cm, 09/03/19 12:02:00 EST, Height, 67.2, kg, 09/03/19 12:02:00 EST, Dry Weight Start Date: 10/31/19 Status: Ordered Nasacort Allergy 24HR 55 mcg/inh nasal spray 2 sprays, Daily, 0 Refills, Maintenance, 01/23/18 9:29:42 EDT Start Date: 01/23/18 Status: Ordered Breckinridge 0.65% nasal spray 2 sprays, Nares, Both, [...] 15:01:00 EDT, Aerosol, Route to Pharmacy Electronically, [id number], [facility]/pharmacy #1972, 160, cm, 0... Start Date: 02/18/20 Status: Ordered simethicone 80 mg oral tablet, chewable 80 mg, 1, tablet, Chew, 3 times a day, # 90 tablet, Refills 1, Tot. Refills 1, Maintenance, 10/11/17 16:26:21, Route to Pharmacy Electronically, [id number], [facility]/pharmacy #1972 Start Date: 10/11/17 Status: Ordered tiZANidine 2 mg oral tablet 2 mg, 1, tablet, By Mouth, Every 8 hours, PRN, # 30 tablet, Refills 2, Tot. Refills 2, Maintenance,as needed for muscle spasm, 04/19/19 10:28:15 EDT, Route to Pharmacy Electronically, [id number], [facility] Start Date: 04/19/19 Stop Date: [...] 6 Active Facet arthropathy, on [facility] from [facility](Confirmed) Active chronic Rotator cuff tear(Confirmed) [...] of lumbar spine(Confirmed) 10 Active Overweight(Confirmed) Active *[id number] Care Partn er Karina Mcneal(Confirmed) Active POLIO(Confirmed) [...] side. ENT refered her for hearing aide [id number] GI note 10see x-ray - degenerative changes 11cites polio age 4, had right leg problems ever since she notes 12on x-ray 13sees ENT for this Social History Social History Type Response Smoking Status Former smoker; Other : Pt only smoked for from the age of 16 to 18; entered on: 01/03/14 Sex
--- OUTSIDE RECORDS SUMMARY | 2024-09-04 20:30 | XMS_ITS | Continuity of Care Document ---
Author Organization [facility] Address [address] [place] [address]- Care Team Providers Care Spring Tester Name Role Phone Miroslava Ruffin MD, V Primary Care Physician [place] [facility] [place] 01/30/23 [facility] [address] [place] [address]- Allergies, Adverse Reactions, Alerts Substance Reaction Severity Status naproxen hives Active lisinopril Rash Active traMADol 1 Active erythromycin Active morphine Active sulfa drugs Active Contrast Dye 2 [...] tetanus/diphtheria/pertussis, acel(Tdap) 4 02/17/12 Given SARS-CoV-2 mRNA ([id number]-yqlp-[id number]) vax 03/23/22 Recorded zoster vaccine, inactivated 11/20/21 [...] 11/03/15 Given 1Admin Note: per patient. via equalizer operator office Claudia Cruz 2Admin Note: VIS [...] 11/15/22 10:36:00 EST, Route to Pharmacy Electronically, [facility]/pharmacy #[id number], Partial fill upon patient request if the prescription is for a schedule II opioid drug.... Start Date: 11/15/22 Status: Ordered cetirizine 10 mg oral tablet 1 tablet, By Mouth, Daily, PRN NEEDED FOR ALLERGY SYMPTOMS, # 90 tablet, 1 Refills, Maintenance,01/03/23 12:04:00 EDT, [facility]/pharmacy #[id number], 158.5, cm, 12/28/22 10:19:00 EDT, Height [...] 5 Refills, Maintenance, 01/03/23 12:05:00 EDT, Tablet, [facility]/pharmacy #1981, Partial fill upon patient request if the prescription is for a schedule II opioid drug., 158.5, cm, 12/28/22 10:19:00 ED... Start Date: 01/03/23 Status: Ordered Melatonin 1 mg oral tablet TAKE ONE TABLET BY MOUTH AT BEDTIME Start Date: 03/05/22 Status: Ordered Win[place] 0.65% nasal spray 2 sprays, Nares, Both, [...] 15:01:00 EDT, Aerosol, Route to Pharmacy Electronically, [id number], [facility]/pharmacy #1972, 160, cm, [...] 09/29/22 11:25:00 EST, Route to Pharmacy Electronically, [facility]/pharmacy #1972, 158.5, cm, 09/29/22 11:23:00 EST, Height [...] Facet arthropathy, on CT from [facility] Confirmed Active Diverticulosis of colon [...] Osteoarthritis of lumbar spine 6 Confirmed Active *[id number] 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 ENT refered her for hearing aide [id number] GI note 6see x-ray - degenerative changes [...] Miroslava Oro Position: [facility] Primary Care Physician Member Role: PCP Address: Address: [address] [place] [address]- [place] Care Team Related Persons Name: SHAINA SPIVEY Address: home [address] [place] [address] Name: DANIELLE ROBERSON Name: ANIYA SOLORZANO Name: JOEY SOLORZANO Address: home [address] [place] [address] Name: PUSHPA CLAYTON
--- OUTSIDE RECORDS SUMMARY | 2024-09-04 20:31 | XMS_ITS | Continuity of Care Document ---
Author Organization [facility] Address [address] [place] [address]- Care Team Providers Care Industrial Photographer Name Role Phone Augustin CAMPOS, Miroslava Oro Primary Care Physician En[place] [facility] [place] Date(s): 12/01/23 - 03/30/24 [facility] [address] [place] [address]- Attending Physician: Miroslava Ruffin MD, V Allergies, [...] tetanus/diphtheria/pertussis, acel(Tdap) 4 02/17/12 Given SARS-CoV-2 mRNA (pqbezcv-unbd-pxnfw) vax 03/23/22 Recorded zoster vaccine, inactivated 11/20/21 [...] 11/03/15 Given 1Admin Note: per patient. via ip technology transactions attorney office Claudia Cruz 2Admin Note: VIS 04/2012 3Admin Note: vis given vis date 01/16 4Admin Note: VIS 10/21 5Admin Note: vis given 6Admin Note: VIS IN [place] 7Admin Note: VIS given Medications albuterol 0.083% inhalation solution 3 mL = 2.5 mg, Inhalation, Every 6 hours, PRN for wheezing, # 100 each, 6 Refills, Maintenance, 09/06/23 11:39:00 EST, Solution, [facility]/pharmacy #[id number], 158.5, cm, 08/26/23 10:44:00 EST, Height Start Date: 09/06/23 Stop Date: 04/03/24 Status: Ordered cetirizine 10 mg oral tablet 1 tablet, By Mouth, Daily, PRN NEEDED FOR ALLERGY SYMPTOMS, # 90 tablet, 1 Refills, Maintenance,05/09/23 7:42:00 EDT, [facility], 158.5, cm, 02/22/23 10:56:00 EDT, Height Start Date: 05/09/23 Status: Ordered losartan 25 mg oral tablet 1 tablet = 25 mg, By Mouth, Daily, # 90 tablet, 3 Refills, Maintenance, 11/03/23 14:35:00 EST, Tablet, [facility]/pharmacy #[id number], Partial fill upon patient request [...] 15:01:00 EDT, Aerosol, Route to Pharmacy Electronically, [id number], [facility]/pharmacy #1972, 160, cm, 0... Start Date: 02/18/20 Status: Ordered simethicone 80 mg oral tablet, chewable 80 mg, 1, tablet, Chew, 3 times a day after meals and bedtime, PRN, # 100 tablet, Refills 5, Tot. Refills 5, Maintenance, Gas, 12/15/23 8:51:00 EST, Route to Pharmacy Electronically, [facility]/pharmacy #[id number], Partial fill upon patient request [...] 11 Refills, Maintenance, 09/29/22 11:25:00 EST, Tablet, [facility]/pharmacy #1972, never had kidney stones she [...] from [facility] Confirmed Active Diverticulitis Confirmed Active Diverticulosis [...] side. ENT refered her for hearing aide [id number] GI note 6see x-ray - degenerative changes 7cites polio age 4, had right leg problems ever since she notes 8on x-ray Social History Social History Type Response Smoking Status Former smoker; Other : Pt only smoked for from the age of 16 to 18; entered on: 01/03/14 Sex Patient Care team information Care Team Personnel Name: Vivian Meier Position: [facility] Outreach Member Role: Lifetime Consulting Physician Name: Augustin CAMPOS, Miroslava Oro Position: [facility] Physician - Primary Care Member Role: PCP Address: Address: [address] [place] [address]- Care Team Related Persons Name: SPIVEYBROCK HARPEROS Address: home [address] [place] [address] Name: DANIELLE ROBERSON Name: ANIYA SOLORZANO Name: JOEY SOLORZANO Address: home [address] [place] [address] Name: PUSHPA CLAYTON
--- OUTSIDE RECORDS SUMMARY | 2024-09-04 20:31 | XMS_ITS | Continuity of Care Document ---
Author Organization [facility] Address [address] [place] [address]- Care Team Providers Care Oil Lease Operator Name Role Phone Augustin CAMPOS, Miroslava Oro Primary Care Physician [phone] [place] [facility] [place] 10/06/22 [facility] [address] [place] [address]- Encounter Diagnosis Medicare annual wellness visit, subsequent(Discharge Diagnosis) - 09/29/22 Asthma(Discharge Diagnosis) - 09/29/22 Hearing loss(Discharge Diagnosis) - 09/29/22 Heartburn(Discharge Diagnosis) - 09/29/22 Hypertension(Discharge Diagnosis) - 09/29/22 Hyperlipidemia(Discharge Diagnosis) - 09/29/22 Attending Physician: Miroslava Ruffin MD, V Allergies, [...] 23-valent vaccine 3 10/08/11 Given tetanus/diphtheria/pertussis, acel(Tdap) 8/18/22 Recorded tetanus/diphtheria/pertussis, acel(Tdap) 4 02/17/12 Given SARS-CoV-2 mRNA (eqmuevk-rowx-piaqt) vax 03/23/22 Recorded zoster vaccine, inactivated 11/20/21 [...] 11/03/15 Given 1Admin Note: per patient. via middle school sports coach office Claudia Cruz 2Admin Note: VIS 04/2012 3Admin Note: vis given vis date 01/16 4Admin Note: VIS 10/21 5Admin Note: vis given 6Admin Note: VIS IN [place]ANISH 7Admin Note: VIS given Medications albuterol 0.083% [...] 11:03:38, Capsule Start Date: 12/08/17 Status: Ordered Compression Stockings [...] 1 Refills, Maintenance, 08/10/22 8:49:00 EDT, Tablet, [facility]/pharmacy #1972, Partial fill upon patient request if the prescription is for a schedule II opioid drug., 158.5, cm, 07/12/22 10:02:00 EDT... Start Date: 08/10/22 Status: Ordered Melatonin 1 mg oral tablet TAKE ONE TABLET BY MOUTH AT BEDTIME Start Date: 03/05/22 Status: Ordered Cascade 0.65% nasal spray 2 sprays, Nares, Both, [...] 15:01:00 EDT, Aerosol, Route to Pharmacy Electronically, [id number], [facility]/pharmacy #1972, 160, cm, [...] 09/29/22 11:25:00 EST, Route to Pharmacy Electronically, [facility]/pharmacy #1972, 158.5, cm, 09/29/22 11:23:00 EST, [...] from [facility] Confirmed Active Diverticulosis of colon 3 [...] Osteoarthritis of lumbar spine 6 Confirmed Active *[id number] 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 ENT refered her for hearing aide [id number] GI note 6see x-ray - degenerative changes 7cites polio age 4, had right leg problems ever since she notes 8on x-ray Diagnosis Diagnosis Type Effective Dates Health Status Clinical Service Informant Medicare annual wellness visit, subsequent Discharge Diagnosis 09/29/22 Asthma Discharge Diagnosis 09/29/22 Hearing loss Discharge Diagnosis 09/29/22 Heartburn Discharge Diagnosis 09/29/22 Hypertension Discharge Diagnosis 09/29/22 Hyperlipidemia Discharge Diagnosis 09/29/22 Vital Signs Most recent to oldest [Reference Range]: 1 2 Height 158.5 cm (09/29/22 11:23 AM) 158.5 cm (09/29/22 10:47 AM) Weight 71.1 kg (09/29/22 10:47 AM) Oxygen Saturation [94-100 %] 96 % (09/29/22 10:47 AM) Pulse Rate [55-90 bpm] 90 bpm (09/29/22 10:47 AM) Body Mass Index [18.5-24.99 kg/m2] 28.3 kg/m2 *H* (09/29/22 10:47 AM) Blood Pressure [90-138/55-84 mm Hg] 135/ 60mm Hg (09/29/22 11:23 AM) 142/68mm Hg *H* (09/29/22 10:47 AM) Respiratory Rate [16-30 br/min] 14 br/mi n *L* (09/29/22 10:47 AM) Temperature [96.8-100.4 DegF] 98.3 DegF (09/29/22 10:47 AM) Blood pressure sites Arm, left (09/29/22 10:47 AM) Temperature Route Temporal (09/29/22 10:47 AM) Weight Obtained Via Standing scale (09/29/22 10:47 AM) Social History Social History Type Response Smoking Status Former smoker; Other : Pt only smoked for from the age of 16 to 18; entered on: 01/03/14 Sex Note * Aditi Setvens: PERFORM, SIGN, VERIFY Event Display: Patient Education/Instruction Authored Date: [facility] *No Edge Adult [facility] Clinical Summary Name ALVINO SPIVEY Age 76 Years 1945 PCP Augustin CAMPOS, Miroslava Oro PCP Visit Date 09/29/2022 10:32:00 Additional Instructions: Scheduled Appointments?? Future Appointments ?No Future Appointments Scheduled Follow-Up Instructions ?? Diagnosis Allergic rhinitis, unspecified Medications: Please continue your medications until treatment is completed or stopped by your provider. Discuss any questions related to medications with your provider. New Medications [facility], [address], [place] [id number], [phone] Cholecalciferol (Vitamin D3 1000 intl units oral tablet) 1 tab(s) Oral Daily for 90 Days. Refills: 11. Next Dose: Simethicone (simethicone 80 mg oral tablet, chewable) 1 tab(s) Chew 3 times a day. Refills: 1. Next Dose: Medications to Continue Taking That Have Changed These medications were not printed or sent to your pharmacy - Durable Medical Equipment (Compression Stockings) surgical,knee high length 20-[address] Refills: 1. Next Dose: - Durable Medical Equipment (Home Blood Pressure Monitor) Check Blood pressure daily.. Refills: 0. Next Dose: Medications to Continue with No Changes [facility], [address], [place] [id number], [phone] Cetirizine (ZyrTEC 10 mg oral tablet) 1 tab(s) Oral Daily as needed for allergy symptoms. Refills: 3. Next Dose: These medications were not printed or sent [...] Topically 3 times a day. Next Dose: Dicyclomine (dicyclomine 10 mg oral capsule) TAKE 1 CAPSULE BY MOUTH THREE TIMES A DAY DIRECTED. Next Dose: EPINEPHrine (EPINEPHrine 0.3 mg injectable [...] MOUTH AT BEDTIME. Next Dose: Miscellaneous Rx (Epi Pen) Next Dose: Pantoprazole Daily. Next Dose: Pantoprazole (pantoprazole 40 mg oral delayed release tablet) 60 each, TAKE ONE TABLET TWICE DAILY. Next Dose: Sodium Chloride Nasal (Cascade 0.65% nasal spray) 2 spray(s) Nares, Both [...] orders Vital Signs Height 158.5 cm Weight 71.1 kg BMI 28.3 kg/m2 Blood Pressure 135 mm Hg/60 mm Hg Temperature 98.3 DegF Pulse Rate 90 bpm Respiratory Rate 14 br/min 02 Sat Mode of Delivery 96 %/ You can now view a summary of your hospital visit from the comfort of your home through a free online portal called [employer]. D[employer]Time is a website that allows you to securely view your medical information including discharge summary, medications and follow-up visits. ??You can alsosend a secure electronic message to your doctor???s office to request appointments, renew medications or just ask a question. You can enroll at [email or web address] or register during your next office [...] primary care provider, you may find a [facility] provider by calling [facility] at [phone]. For information about the plan of care [...] Care Team Personnel Name: Vivian Meier Position: [facility] Outreach Member Role: Lifetime Consulting Physician Name: Augustin CAMPOS, Miroslava Oro Position: [facility] Primary Care Physician Member Role: PCP Address: Address: [address] [place] [address] Care Team Related Persons Name: SHAINA SPIVEY Address: home [address] [place] [id number] Name: DANIELLE ROBERSON Name: ANIYA SOLORZANO Name: JOEY SOLORZANO Address: [address] [address] Name: PUSHPA CLAYTON
--- OUTSIDE RECORDS SUMMARY | 2024-09-04 20:31 | XMS_ITS | Continuity of Care Document ---
Author Organization [facility] Address [address] [place] [address]- Care Team Providers Care Hot Frame Tender Name Role Phone Kaya Maldonado MD Primary Care Physician [phone] Encounter [facility] Date(s): 03/05/22 - 04/04/22 [facility] [address] [place] [address]- Attending Physician: Cindy Araiza Admitting Physician: Cindy Araiza Referring Physician: AdmCindy colon Allergies, Adverse Reactions, Alerts Substance Reaction Severity Status naproxen hives Active morphine Active Contrast Dye 1 Difficulty breathing erythromycin Active traMADol 2 Active erythromycin Active lisinopril [...] Note: vis given 2Admin Note: VIS IN BAHRAINI 3Admin Note: VIS given 4Admin Note: per patient. via car parker office Claudia Cruz 5Admin Note: VIS 04/2012 [...] BEDTIME Start Date: 03/05/22 Status: Ordered [place] 0.65% nasal spray 2 sprays, Nares, Both, [...] 15:01:00 EDT, Aerosol, Route to Pharmacy Electronically, [id number], [facility]/pharmacy #1972, 160, cm, 0... Start Date: 02/18/20 Status: Ordered simethicone 80 mg oral tablet, chewable 80 mg, 1, tablet, Chew, 3 times a day, # 90 tablet, Refills 1, Tot. Refills 1, Maintenance, 10/11/17 16:26:21, Route to Pharmacy Electronically, [id number], [facility]/pharmacy #1972 Start Date: 10/11/17 Status: Ordered Tylenol [...] Active Facet arthropathy, on CT from [facility](Confirmed) Active chronic Rotator cuff tear(Confirmed) [...] of lumbar spine(Confirmed) 10 Active Overweight(Confirmed) Active *[id number] Care Partn er Karina Mcneal(Confirmed) Active POLIO(Confirmed) [...] side. ENT refered her for hearing aide [id number] GI note 10see x-ray - degenerative changes 11cites polio age 4, had right leg problems ever since she notes 12on x-ray 13sees ENT for this Social History Social History Type Response Smoking Status Former smoker; Other : Pt only smoked for from the age of 16 to 18; entered on: 01/03/14 Sex
--- OUTSIDE RECORDS SUMMARY | 2024-09-04 20:31 | XMS_ITS | Continuity of Care Document ---
Author Organization [facility] Address [address], [address], [address] [place] [address]- Care Team Providers Care Teacher Vocal Name Role Phone Mariola CAMPOS, Dagoberto Cancino Primary Care Physi hamzah Encounter [facility] Date(s): 07/04/20 - 10/09/20 [facility] [address], [address] [place], [place] [address] Attending Physician: Mariola CAMPOS, Dagoberto Cancino
--- OUTSIDE RECORDS SUMMARY | 2024-09-04 20:31 | XMS_ITS | Continuity of Care Document ---
Author Organization [facility] Address [address] [place] [address]- Care Team Providers Care Guide Dog Instructor Name Role Phone Augustin CAMPOS, Miroslava Oro Primary Care Physician Encounter [facility] Date(s): 12/08/22 - 01/07/23 [facility] [address] [place] [address]- Allergies, Adverse Reactions, Alerts Substance Reaction Severity [...] tetanus/diphtheria/pertussis, acel(Tdap) 4 02/17/12 Given SARS-CoV-2 mRNA (cjdfjfp-loim-ayitf) vax 03/23/22 Recorded zoster vaccine, inactivated 11/20/21 [...] 11/03/15 Given 1Admin Note: per patient. via comedian office Claudia Cruz 2Admin Note: VIS 04/2012 3Admin Note: vis given vis date 01/16 4Admin Note: VIS 10/21 5Admin Note: vis given 6Admin Note: VIS IN NICARAGUAN 7Admin Note: VIS given Medications albuterol 0.083% [...] 11/15/22 10:36:00 EST, Route to Pharmacy Electronically, [facility]/pharmacy #[id number], Partial fill upon patient request if the prescription is for a schedule II opioid drug.... Start Date: 11/15/22 Status: Ordered cetirizine 10 mg oral tablet 1 tablet, By Mouth, Daily, PRN NEEDED FOR ALLERGY SYMPTOMS, # 90 tablet, 1 Refills, Maintenance,01/03/23 12:04:00 EDT, [facility]/pharmacy #[id number], 158.5, cm, 12/28/22 10:19:00 EDT, Height [...] 5 Refills, Maintenance, 01/03/23 12:05:00 EDT, Tablet, [facility]/pharmacy #[id number], Partial fill upon patient request if the prescription is for a schedule II opioid drug., 158.5, cm, 12/28/22 10:19:00 ED... Start Date: 01/03/23 Status: Ordered Melatonin 1 mg oral tablet TAKE ONE TABLET BY MOUTH AT BEDTIME Start Date: 03/05/22 Status: Ordered [place] 0.65% nasal spray 2 sprays, Nares, Both, [...] 15:01:00 EDT, Aerosol, Route to Pharmacy Electronically, [id number], [facility]/pharmacy #1972, 160, cm, 0... 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 ENT refered her for hearing aide [id number] GI note 6see x-ray - degenerative changes 7cites polio age 4, had right leg problems ever since she notes 8on x-ray Social History Social History Type Response Smoking Status Former smoker; Other : Pt only smoked for from the age of 16 to 18; entered on: 01/03/14 Sex Patient Care team information Care Team Personnel Name: Vivian Meier Position: [facility] Outreach Member Role: Lifetime Consulting Physician Name: Augustin CAMPOS, Miroslava Oro Position: [facility] Primary Care Physician Member Role: PCP Address: Address: [address] [place] [address]- [place] Care Team Related Persons Name: SPIVEY SHAINA Address: home [address] [place] [id number] Name: DANIELLE ROBERSON Name: ANIYA SOLORZANO Name: JOEY SOLORZANO Address: home [address] [place] [address] Name: PUSHPA CLAYTON
--- OUTSIDE RECORDS SUMMARY | 2024-09-04 20:31 | XMS_ITS | Continuity of Care Document ---
Author Organization [facility] Address [address] [place] [address]- Care Team Providers Care Hasher Operator Name Role Phone Erica CAMPOS, Kaya Primary Care Physician [phone] Encounter [facility] Date(s): 06/23/21 - 10/08/[address] [address] Attending Physician: Penelope Garcia DO Admitting Physician: Penelope Garcia DO Referring Physician: Anirudh Burciaga MD Allergies, Adverse Reactions, Alerts Substance Reaction [...] VIS given 4Admin Note: per patient. via charging plug placer office Claudia Cruz 5Admin Note: VIS 04/2012 [...] BEDTIME, # 90 tablet, 3 Refills, Acute, [facility], 160, cm, 09/03/19 12:02:00 EST, Height, 67.2, kg, 09/03/19 12:02:00 EST, Dry Weight Start Date: 10/31/19 Status: Ordered Nasacort Allergy 24HR 55 mcg/inh nasal spray 2 sprays, Daily, 0 Refills, Maintenance, 01/23/18 9:29:42 EDT Start Date: 01/23/18 Status: Ordered [place] 0.65% nasal spray 2 sprays, Nares, Both, [...] 15:01:00 EDT, Aerosol, Route to Pharmacy Electronically, [id number], [facility]/pharmacy #1972, 160, cm, 0... Start Date: 02/18/20 Status: Ordered simethicone 80 mg oral tablet, chewable 80 mg, 1, tablet, Chew, 3 times a day, # 90 tablet, Refills 1, Tot. Refills 1, Maintenance, 10/11/17 16:26:21, Route to Pharmacy Electronically, [id number], [facility]/pharmacy #1972 Start Date: 10/11/17 Status: Ordered tiZANidine 2 mg oral tablet 2 mg, 1, tablet, By Mouth, Every 8 hours, PRN, # 30 tablet, Refills 2, Tot. Refills 2, Maintenance,as needed for muscle spasm, 04/19/19 10:28:15 EDT, Route to Pharmacy Electronically, [id number], [facility] Start Date: 04/19/19 Stop Date: [...] 6 Active Facet arthropathy, on CT from [facility](Confirmed) Active chronic Rotator cuff tear(Confirmed) Active [...] of lumbar spine(Confirmed) 10 Active Overweight(Confirmed) Active *[id number] Care Partn er Karina Mcneal(Confirmed) Active POLIO(Confirmed) [...] side. ENT refered her for hearing aide [id number] GI note 10see x-ray - degenerative changes 11cites polio age 4, had right leg problems ever since she notes 12on x-ray 13sees ENT for this Social History Social History Type Response Smoking Status Former smoker; Other : Pt only smoked for from the age of 16 to 18; entered on: 01/03/14 Sex
--- OUTSIDE RECORDS SUMMARY | 2024-09-04 20:31 | XMS_ITS | Continuity of Care Document ---
Author Organization [facility] Address [address] [place] [address]- Care Team Providers Care Cable Installer Repairer Helper Name Role Phone Kaya Maldonado MD Primary Care Physician [phone] Encounter [facility] [place] Date(s): 06/23/21 - 09/10/21 [facility] [address] [place] [address]- Attending Physician: Douglas Fulton MD Admitting Physician: Douglas Fulton MD Referring Physician: Douglas Fulton MD Allergies, Adverse Reactions, Alerts Substance Reaction Severity Status naproxen hives Active sulfa drugs Active traMADol 1 Active Other Food Allergy 2 Active erythromycin Active morphine Active lisinopril Rash Active Contrast Dye 3 [...] Note: vis given 2Admin Note: VIS IN ESTONIAN 3Admin Note: VIS given 4Admin Note: per patient. via social director office Claudia Cruz 5Admin Note: VIS 04/2012 [...] BEDTIME, # 90 tablet, 3 Refills, Acute, [facility] STORE [facility]74, 160, cm, 09/03/19 12:02:00 EST, Height, 67.2, kg, 09/03/19 12:02:00 EST, Dry Weight Start Date: 10/31/19 Status: Ordered Nasacort Allergy 24HR 55 mcg/inh nasal spray 2 sprays, Daily, 0 Refills, Maintenance, 01/23/18 9:29:42 EDT Start Date: 01/23/18 Status: Ordered [place] 0.65% nasal spray 2 sprays, Nares, Both, [...] 15:01:00 EDT, Aerosol, Route to Pharmacy Electronically, [id number], [facility]/pharmacy #1972, 160, cm, 0... Start Date: 02/18/20 Status: Ordered simethicone 80 mg oral tablet, chewable 80 mg, 1, tablet, Chew, 3 times a day, # 90 tablet, Refills 1, Tot. Refills 1, Maintenance, 10/11/17 16:26:21, Route to Pharmacy Electronically, [id number], [facility] Start Date: 10/11/17 Status: Ordered tiZANidine 2 mg oral tablet 2 mg, 1, tablet, By Mouth, Every 8 hours, PRN, # 30 tablet, Refills 2, Tot. Refills 2, Maintenance,as needed for muscle spasm, 04/19/19 10:28:15 EDT, Route to Pharmacy Electronically, [id number], [facility] Start Date: 04/19/19 Stop Date: [...] 6 Active Facet arthropathy, on CT from [facility](Confirmed) Active chronic Rotator cuff tear(Confirmed) [...] of lumbar spine(Confirmed) 10 Active Overweight(Confirmed) Active *[id number] Care Partn er Karina Mcneal(Confirmed) Active POLIO(Confirmed) [...] side. ENT refered her for hearing aide [id number] GI note 10see x-ray - degenerative changes 11cites polio age 4, had right leg problems ever since she notes 12on x-ray 13sees ENT for this Social History Social History Type Response Smoking Status Former smoker; Other : Pt only smoked for from the age of 16 to 18; entered on: 01/03/14 Sex
--- OUTSIDE RECORDS SUMMARY | 2024-09-04 20:31 | XMS_ITS | Continuity of Care Document ---
Author Organization [facility] Address [address] [place] [address]- Care Team Providers Care Accounting Systems Analyst Name Role Phone Le Allen DO Primary Care Physician Encounter [facility] [place] Date(s): 12/03/19 - 12/10/19 [facility] [address] [place] [address]- [facility] Attending Physician: Le Allen DO Allergies, Adverse [...] Note: vis given 2Admin Note: VIS IN [place]BI[place] 3Admin Note: VIS given 4Admin Note: per patient. via shingle carrier office Claudia Cruz 5Admin Note: VIS 04/2012 [...] 04/19/19 10:28:38 EDT, Route to Pharmacy Electronically, [id number], [facility]/pharmacy #1972 Start Date: 04/19/19 Stop Date: 05/03/19 Status: Ordered losartan 50 mg oral tablet 50 mg, 1, tablet, By Mouth, Daily, # 90 tablet, Refills 1, Tot. Refills 1, Maintenance, 08/20/19 17:24:20 EST, Route to Pharmacy Electronically, [id number], [facility] Start Date: 08/20/19 Stop Date: [...] 90 tablet, 3 Refills, Acute, [facility], 160, cm, 09/03/19 12:02:00 EST, Height, 67.2, [...] 9:29:42 EDT Start Date: 01/23/18 Status: Ordered [place] 0.65% nasal spray 2 sprays, Nares, Both, [...] 16:55:41 EDT, Aerosol, Route to Pharmacy Electronically, [id number], [facility]/pharmacy #1972 Start Date: 06/07/19 Status: Ordered sertraline [...] Maintenance, 10/11/17 16:26:21, Route to Pharmacy Electronically, [id number], [facility]/pharmacy #1972 Start Date: 10/11/17 Status: Ordered tiZANidine 2 mg oral tablet 2 mg, 1, tablet, By Mouth, Every 8 hours, PRN, # 30 tablet, Refills 2, Tot. Refills 2, Maintenance,as needed for muscle spasm, 04/19/19 10:28:15 EDT, Route to Pharmacy Electronically, [id number], [facility]/pharmacy #1972 Start Date: 04/19/19 Stop Date: [...] 6 Active Facet arthropathy, on CT from [facility](Confirmed) Active chronic Rotator cuff tear(Confirmed) Active Diverticulosis [...] of lumbar spine(Confirmed) 10 Active Overweight(Confirmed) Active *[id number] Care Partn er Karina Mcneal(Confirmed) Active POLIO(Confirmed) [...] side. ENT refered her for hearing aide [id number] GI note 10see x-ray - degenerative changes 11cites polio age 4, had right leg problems ever since she notes 12on x-ray 13sees ENT for this Vital Signs Most recent to oldest [Reference Range]: 1 2 Height 160.00 cm (12/03/19 10:31 AM) 160.00 cm (12/03/19 9:53 AM) Weight 66.1 kg (12/03/19 9:53 AM) Oxygen Saturation [94-100 %] 98 % (12/03/19 9:53 AM) Pulse Rate [55-90 bpm] 85 bpm (12/03/19 9:53 AM) Body Mass Index [18.5-24.99] 25.82 *H* (12/03/19 9:53 AM) Blood Pressure [90-138/55-84 mm Hg] 140/ 72mm Hg *H* (12/03/19 9:53 AM) Respiratory Rate [16-30 br/min] 16 br/mi n (12/03/19 9:53 AM) Temperature [96.8-100.4 DegF] 98.4 DegF (12/03/19 9:53 AM) Mode of Delivery (Oxygen) Room air (12/03/19 9:53 AM) Blood pressure sites Arm, left (12/03/19 9:53 AM) Temperature Route Oral (12/03/19 9:53 AM) Weight Obtained Via Standing scale (12/03/19 9:53 AM) Social History Social History Type Response Smoking Status Former smoker; Other : Pt only smoked for from the age of 16 to 18; entered on: 01/03/14 Sex
--- OUTSIDE RECORDS SUMMARY | 2024-09-04 20:31 | XMS_ITS | Continuity of Care Document ---
Author Organization [facility] Address [address] [place] [address]- Care Team Providers Care Concrete Form Setter Name Role Phone Augustin CAMPOS, Miroslava Oro Primary Care Physician Encounter [facility] Date(s): 03/06/24 - 04/05/24 [facility] [address] [place] [address]- Allergies, Adverse Reactions, Alerts Substance Reaction Severity [...] tetanus/diphtheria/pertussis, acel(Tdap) 4 02/17/12 Given SARS-CoV-2 mRNA ([id number]-rorb-mzgth) vax 03/23/22 Recorded zoster vaccine, inactivated 11/20/21 [...] 11/03/15 Given 1Admin Note: per patient. via engineering program manager office Claudia Cruz 2Admin Note: VIS 04/2012 3Admin Note: vis given vis date 01/16 4Admin Note: VIS 10/21 5Admin Note: vis given 6Admin Note: VIS IN [place] 7Admin Note: VIS given Medications albuterol 0.083% inhalation solution 3 mL = 2.5 mg, Inhalation, Every 6 hours, PRN for wheezing, # 100 each, 6 Refills, Maintenance, 09/06/23 11:39:00 EST, Solution, [facility]/pharmacy #[id number], 158.5, cm, 08/26/23 10:44:00 EST, Height Start Date: 09/06/23 Stop Date: 04/03/24 Status: Ordered cetirizine 10 mg oral tablet 1 tablet, By Mouth, Daily, PRN NEEDED FOR ALLERGY SYMPTOMS, # 90 tablet, 1 Refills, Maintenance,05/09/23 7:42:00 EDT, [facility], 158.5, cm, 02/22/23 10:56:00 EDT, Height Start Date: 05/09/23 Status: Ordered losartan 25 mg oral tablet 1 tablet = 25 mg, By Mouth, Daily, # 90 tablet, 3 Refills, Maintenance, 11/03/23 14:35:00 EST, Tablet, [facility]/pharmacy #[id number], Partial fill upon patient request [...] 15:01:00 EDT, Aerosol, Route to Pharmacy Electronically, [id number], [facility], 160, cm, 0... Start Date: 02/18/20 Status: Ordered simethicone 80 mg oral tablet, chewable 80 mg, 1, tablet, Chew, 3 times a day after meals and bedtime, PRN, # 100 tablet, Refills 5, Tot. Refills 5, Maintenance, Gas, 12/15/23 8:51:00 EST, Route to Pharmacy Electronically, [facility]/pharmacy #[id number], Partial fill upon patient request [...] 11 Refills, Maintenance, 09/29/22 11:25:00 EST, Tablet, [facility]/pharmacy #1972, never had kidney stones she [...] Confirmed Active Facet arthropathy, on CT from [facility] Confirmed Active Diverticulitis Confirmed Active [...] [address] 3per colonoscopy [facility] 4left side. ENT refered her for hearing aide [id number] GI note 6see x-ray - degenerative changes 7cites polio age 4, had right leg problems ever since she notes 8 x-ray Social History Social History Type Response Smoking Status Former smoker; Other : Pt only smoked for from the age of 16 to 18; entered on: 01/03/14 Sex Patient Care team information Care Team Personnel Name: Vivian Meier Position: [facility] Outreach Member Role: Lifetime Consulting Physician Name: Augustin CAMPOS, Miroslava Oro Position: [facility] Physician - Primary Care Member Role: PCP Address: Address: [address] [place] [address]- [place] Care Team Related Persons Name: SHAINA SPIVEY Address: home [address] [place] [address] Name: DANIELLE ROBERSON Name: ANIYA SOLORZANO Name: JOEY SOLORZANO Address: home [address] [place] [address] Name: PUSHPA CLAYTON
--- OUTSIDE RECORDS SUMMARY | 2024-09-04 20:31 | XMS_ITS | Continuity of Care Document ---
Author Organization [facility] Address [address] [place] [address]- Care Team Providers Care Clean Up Worker Name Role Phone Berta RAILROAD DETECTIVE, Eileen Crowell Primary Care Physician Encounter [facility] Date(s): 06/26/20 - 07/26/20 [facility] [address] [place] [address]- [facility] Attending Physician: Cindy Araiza Admitting Physician: [...] Note: vis given 2Admin Note: VIS IN GAMBIAN 3Admin Note: VIS given 4Admin Note: per patient. via coffee roaster helper office Claudia Cruz 5Admin Note: VIS 04/2012 [...] 04/19/19 10:28:38 EDT, Route to Pharmacy Electronically, [id number], [facility]/pharmacy #1972 Start Date: 04/19/19 Stop Date: 05/03/19 Status: Ordered losartan 50 mg oral tablet 0.5 tablet = 25 mg, By Mouth, Daily, for 90 days, do not full until pt requests, note dose change, # 45 tablet, 1 Refills, Physician Stop 09/27/20 10:33:00 EST, 03/31/20 10:33:00 EDT, [facility]/pharmacy #1972, 160, cm, 03/31/20 9:41:00 EDT, Height, [...] 90 tablet, 3 Refills, Acute, [facility], 160, cm, 09/03/19 12:02:00 EST, Height, 67.2, [...] 9:29:42 EDT Start Date: 01/23/18 Status: Ordered [place] 0.65% nasal spray 2 sprays, Nares, Both, [...] tablet, 0 Refills, Maintenance, 12/20/19 15:43:00 EDT, [facility]/pharmacy #1972, to replace 30 tab script, 160, [...] 15:01:00 EDT, Aerosol, Route to Pharmacy Electronically, [id number], [facility]/pharmacy #1972, 160, cm, 0... Start Date: 02/18/20 Status: Ordered simethicone 80 mg oral tablet, chewable 80 mg, 1, tablet, Chew, 3 times a day, # 90 tablet, Refills 1, Tot. Refills 1, Maintenance, 10/11/17 16:26:21, Route to Pharmacy Electronically, [id number], [facility]/pharmacy #1972 Start Date: 10/11/17 Status: Ordered tiZANidine 2 mg oral tablet 2 mg, 1, tablet, By Mouth, Every 8 hours, PRN, # 30 tablet, Refills 2, Tot. Refills 2, Maintenance,as needed for muscle spasm, 04/19/19 10:28:15 EDT, Route to Pharmacy Electronically, [id number], [facility]/pharmacy #1972 Start Date: 04/19/19 Stop Date: 05/19/19 [...] 6 Active Facet arthropathy, on CT from [facility](Confirmed) Active chronic Rotator cuff tear(Confirmed) Active Diverticulosis [...] of lumbar spine(Confirmed) 10 Active Overweight(Confirmed) Active *[id number] Care Partn er Karina Mcneal(Confirmed) Active POLIO(Confirmed) [...] lumbar spine on 11-20 x-ray 7per colonoscopy [facility] 8left side. ENT refered her for hearing aide [id number] GI note 10see x-ray - degenerative changes 11cites polio age 4, had right leg problems ever since she notes 12on x-ray 13sees ENT for this Social History Social History Type Response Smoking Status Former smoker; Other : Pt only smoked for from the age of 16 to 18; entered on: 01/03/14 Sex
--- OUTSIDE RECORDS SUMMARY | 2024-09-04 20:31 | XMS_ITS | Continuity of Care Document ---
Author Organization [facility] Address [address] [place] [address]- Care Team Providers Care Yard Goods Salesperson Name Role Phone Augustin CAMPOS, Miroslava Oro Primary Care Physician Encounter [facility] Date(s): 05/31/23 - 06/30/23 [facility] [address] [place] [address]- Allergies, Adverse Reactions, Alerts Substance Reaction Severity [...] tetanus/diphtheria/pertussis, acel(Tdap) 4 02/17/12 Given SARS-CoV-2 mRNA (vthvvkv-qsgh-odigt) vax 03/23/22 Recorded zoster vaccine, inactivated 11/20/21 [...] 11/03/15 Given 1Admin Note: per patient. via spray painting machine operator office Claudia Cruz 2Admin Note: VIS 04/2012 3Admin Note: vis given vis date 01/16 4Admin Note: VIS 10/21 5Admin Note: vis given 6Admin Note: VIS IN SWISS 7Admin Note: VIS given Medications albuterol 0.083% [...] Refills, Maintenance, 02/09/23 7:41:00 EDT, [facility], 158.5, cm, 01/21/23 12:49:00 EDT, Height Start Date: 02/09/23 Status: Ordered cetirizine 10 mg oral tablet 1 tablet, By Mouth, Daily, PRN NEEDED FOR ALLERGY SYMPTOMS, # 90 tablet, 1 Refills, Maintenance,05/09/23 7:42:00 EDT, [facility], 158.5, cm, 02/22/23 10:56:00 EDT, Height Start Date: 05/09/23 Status: Ordered [facility] G[facility] RELF(SIMETH) 80 MG [...] 5 Refills, Maintenance, 01/03/23 12:05:00 EDT, Tablet, [facility]/pharmacy #[id number], Partial fill upon patient request if the prescription is for a schedule II opioid drug., 158.5, cm, 12/28/22 10:19:00 ED... Start Date: 01/03/23 Status: Ordered Melatonin 1 mg oral tablet TAKE ONE TABLET BY MOUTH AT BEDTIME Start Date: 03/05/22 Status: Ordered [place] 0.65% nasal spray 2 sprays, Nares, Both, [...] 15:01:00 EDT, Aerosol, Route to Pharmacy Electronically, [id number], [facility]/pharmacy #1972, 160, cm, 0... Start [...] 09/29/22 11:25:00 EST, Route to Pharmacy Electronically, [facility]/pharmacy #1972, 158.5, cm, 09/29/22 11:23:00 [...] Confirmed Active Facet arthropathy, on CT from [facility] Confirmed Active Diverticulosis of colon 3 [...] [address] 3per colonoscopy [facility] 4left side. ENT refered her for hearing aide [id number] GI note 6see x-ray - degenerative changes 7cites polio age 4, had right leg problems ever since she notes 8on x-ray Social History Social History Type Response Smoking Status Former smoker; Other : Pt only smoked for from the age of 16 to 18; entered on: 01/03/14 Sex Patient Care team information Care Team Personnel Name: Vivian Meier Position: [facility] Outreach Member Role: Lifetime Consulting Physician Name: Miroslava Ruffin MD, V Position: [facility] Physician - Primary Care Member Role: PCP Address: Address: [address] [place] [address]- Care Team Related Persons Name: SHAINA SPIVEY Address: [address] [place] [address] Name: DANIELLE ROBERSON Name: ANIYA SOLORZANO Name: JOEY SOLORZANO Address: [address] [place] [address] Name: PUSHPA CLAYTON
--- OUTSIDE RECORDS SUMMARY | 2024-09-04 20:31 | XMS_ITS | Continuity of Care Document ---
Author Organization [facility] Address [address] [place] [address]- Care Team Providers Care Manager Internet Name Role Phone Le Allen DO Primary Care Physician [place] [facility] [place] 12/02/19 [facility] [address] [place] [address]- [facility] Attending Physician: Cindy Araiza Admitting Physician: [...] Note: vis given 2Admin Note: VIS IN PERSIAN 3Admin Note: VIS given 4Admin Note: per patient. via assembly machine tender office Claudia Cruz 5Admin Note: VIS 04/2012 [...] Acute 12/09/19 11:39:00 EST, 11/29/19 11:39:00 EST, [facility]/pharmacy #1972, 160, cm, 11/29/19 11:19:00 EST, Height, [...] 04/19/19 10:28:38 EDT, Route to Pharmacy Electronically, [id number], [facility]/pharmacy #1971 Start Date: 04/19/19 Stop Date: 05/03/19 Status: Ordered losartan 50 mg oral tablet 50 mg, 1, tablet, By Mouth, Daily, # 90 tablet, Refills 1, Tot. Refills 1, Maintenance, 08/20/19 17:24:20 EST, Route to Pharmacy Electronically, [id number], [facility] Start Date: 08/20/19 Stop Date: [...] 90 tablet, 3 Refills, Acute, [facility], 160, cm, 09/03/19 12:02:00 EST, Height, 67.2, kg, 09/03/19 12:02:00 EST, Dry Weight Start Date: 10/31/19 Status: Ordered Nasacort Allergy 24HR 55 mcg/inh nasal spray 2 sprays, Daily, 0 Refills, Maintenance, 01/23/18 9:29:42 EDT Start Date: 01/23/18 Status: Ordered Vol[place] 0.65% nasal spray 2 sprays, Nares, Both, [...] 16:55:41 EDT, Aerosol, Route to Pharmacy Electronically, [id number], [facility]/pharmacy #1972 Start Date: 06/07/19 Status: Ordered sertraline [...] Maintenance, 10/11/17 16:26:21, Route to Pharmacy Electronically, [id number], [facility]/pharmacy #1972 Start Date: 10/11/17 Status: Ordered tiZANidine 2 mg oral tablet 2 mg, 1, tablet, By Mouth, Every 8 hours, PRN, # 30 tablet, Refills 2, Tot. Refills 2, Maintenance,as needed for muscle spasm, 04/19/19 10:28:15 EDT, Route to Pharmacy Electronically, [id number], [facility]/pharmacy #1972 Start Date: 04/19/19 Stop Date: 05/19/19 [...] Facet arthropathy, on CT from [facility](Confirmed) Active chronic Rotator cuff tear(Confirmed) [...] of lumbar spine(Confirmed) 10 Active Overweight(Confirmed) Active *[id number] Care Partn caron Mcneal(Confirmed) Active POLIO(Confirmed) 11 194 Active Post-polio syndrome(Confirmed) Active Sacroiliac pain(Confirmed) Active Scoliosis of lumbar spine(Co nfirmed) 12 Active Shoulder pain, left, inejcte d in 2015 and 2016(Confirmed) Active Sinusitis(Confirmed) 13 Active Trochanteric bursitis, left side injected -2015, 1-2016(Confirmed) Active Tubular adenoma(Confirmed) 2007 Active 1LEFT cataract surgery 07/28/11 2per 2012 report, next colonoscopy is due 2022 3per procedure report, repeat colonoscopy 5 yrs (2012) 4Tubular adenoma 5on 2011 US and [address] 6of lumbar spine on 2-11 x-ray 7per colonoscopy [facility] 8left side. ENT refered her for hearing aide [id number] GI note 10see -2010 x-ray - degenerative changes 11cites polio age 4, had right leg problems ever since she notes x-ray 13sees ENT for this Social History Social History Type Response Smoking Status Former smoker; Other : Pt only smoked for from the age of 16 to 18; entered on: 01/03/14 Sex
--- OUTSIDE RECORDS SUMMARY | 2024-09-04 20:31 | XMS_ITS | Continuity of Care Document ---
Author Organization [facility] Address [address] [place] [address]- Care Team Providers Care Poultry Raiser Name Role Phone Augustin CAMPOS, Miroslava Oro Primary Care Physician [place] [facility] [place] 07/12/22 - 07/19/22 [facility] [address] [place] [address]- Encounter Diagnosis Cough(Discharge Diagnosis) - 07/12/22 Cough variant asthma(Discharge Diagnosis) - 07/12/22 Attending Physician: Miroslava Ruffin MD, V Allergies, [...] tetanus/diphtheria/pertussis, acel(Tdap) 2 02/17/12 Given SARS-CoV-2 mRNA (zqjzzgk-eflr-yrxzm) vax 03/23/22 Recorded zoster vaccine, inactivated 11/20/21 [...] VIS 10/21 3Admin Note: per patient. via floral manager office Claudia Cruz 4Admin Note: VIS 04/2012 5Admin Note: vis given 6Admin Note: VIS IN [place] 7Admin Note: VIS given Medications albuterol 0.083% [...] 1 each, Maintenance, Check Blood pressure daily., 07/12/22 10:52:00 EDT, Supply, 158.5, cm, 07/12/22 10:02:00 EDT, Height Start Date: 07/12/22 Status: Ordered Lidoderm 5% film 1 patch, Topically, Daily, remove patches after 12 hours, # 30 patch, 2 Refills, Maintenance, 10/16/18 16:41:30 EST, 1 patch Topically Daily,Instr:remove patches after 12 hours Start Date: 10/16/18 Status: Ordered losartan 50 mg oral tablet 1 tablet = 50 mg, By Mouth, 2 times a day, # 60 tablet, 1 Refills, Maintenance, 07/12/22 10:51:00 EDT, Tablet, [facility]/pharmacy #1972, Partial fill upon patient request if the prescription is for a schedule II opioid drug., 158.5, cm, 07/12/22 10:02:00 ED... Start Date: 07/12/22 Status: Ordered Melatonin 1 mg oral tablet TAKE ONE TABLET BY MOUTH AT BEDTIME Start Date: 03/05/22 Status: Ordered [place] 0.65% nasal spray 2 sprays, Nares, Both, [...] 15:01:00 EDT, Aerosol, Route to Pharmacy Electronically, [id number], [facility]/pharmacy #1972, 160, cm, 0... Start [...] Maintenance, 10/11/17 16:26:21, Route to Pharmacy Electronically, [id number], [facility]/pharmacy #1972 Start Date: 10/11/17 Status: [...] Facet arthropathy, on CT from [facility] Confirmed Active chronic Rotator cuff tear [...] spine 10 Confirmed Active Overweight Confirmed Active *[id number] Generator Technician Karina Mcneal Confirmed Active POLIO 11 Confirmed [...] lumbar spine on 2-11 x-ray 7per colonoscopy [facility] 8left side. ENT refered her for hearing aide [id number] GI note 10see x-ray - degenerative changes 11cites polio age 4, had right leg problems ever since she notes 12 x-ray 13sees ENT for this Diagnosis Diagnosis Type Effective Dates Health Status Cl inical Service Informant Cough Discharge Diagnosis 07/12/22 Cough variant asthma Discharge Diagnosis 07/12/22 Vital Signs Most recent to oldest [Reference Range]: 1 Height 158.5 cm (07/12/22 10:02 AM) Weight 71.4 kg (07/12/22 10:02 AM) Oxygen Saturation [94-100 %] 97 % (07/12/22 10:02 AM) Pulse Rate [55-90 bpm] 92 bpm *H* (07/12/22 10:02 AM) Body Mass Index [18.5-24.99 kg/m2] 28.42 kg/m2 *H* (07/12/22 10:02 AM) Blood Pressure [90-138/55-84 mm Hg] 138/ 72mm Hg (07/12/22 10:02 AM) Mode of Delivery (Oxygen) Room air (07/12/22 10:02 AM) Blood pressure sites Arm, left (07/12/22 10:02 AM) Weight Obtained Via Standing scale (07/12/22 10:02 AM) Social History Social History Type Response Smoking Status Former smoker; Other : Pt only smoked for from the age of 16 to 18; entered on: 01/03/14 Sex Patient Care team information Personnel Name: Miroslava Ruffin MD, V Address: Address: [address] [place] [address]
--- OUTSIDE RECORDS SUMMARY | 2024-09-04 20:31 | XMS_ITS | Continuity of Care Document ---
Author Organization [facility] Address [address] [place] [address]- Care Team Providers Care Aircraft Pneudraulics Repairer Name Role Phone Miroslava Ruffin MD, V Primary Care Physician [place] [facility] [place](s): 12/28/22 - 01/27/23 [facility] [address] [place] [address]- Allergies, Adverse Reactions, Alerts Substance Reaction Severity [...] tetanus/diphtheria/pertussis, acel(Tdap) 4 02/17/12 Given SARS-CoV-2 mRNA (grhjehp-olct-mosig) vax 03/23/22 Recorded zoster vaccine, inactivated 11/20/21 [...] 11/03/15 Given 1Admin Note: per patient. via associate technician office Claudia Cruz 2Admin Note: VIS 04/2012 [...] 11/15/22 10:36:00 EST, Route to Pharmacy Electronically, [facility]/pharmacy #[id number], Partial fill upon patient request if the prescription is for a schedule II opioid drug.... Start Date: 11/15/22 Status: Ordered cetirizine 10 mg oral tablet 1 tablet, By Mouth, Daily, PRN NEEDED FOR ALLERGY SYMPTOMS, # 90 tablet, 1 Refills, Maintenance,01/03/23 12:04:00 EDT, [facility]/pharmacy #[id number], 158.5, cm, 12/28/22 10:19:00 EDT, [...] 5 Refills, Maintenance, 01/03/23 12:05:00 EDT, Tablet, [facility]/pharmacy #[id number], Partial fill upon patient request if the prescription is for a schedule II opioid drug., 158.5, cm, 12/28/22 10:19:00 ED... Start Date: 01/03/23 Status: Ordered Melatonin 1 mg oral tablet TAKE ONE TABLET BY MOUTH AT BEDTIME Start Date: 03/05/22 Status: Ordered [place] 0.65% nasal spray 2 sprays, Nares, Both, [...] 15:01:00 EDT, Aerosol, Route to Pharmacy Electronically, [id number], [facility]/pharmacy #1972, 160, cm, 0... [...] 09/29/22 11:25:00 EST, Route to Pharmacy Electronically, [facility]/pharmacy #1972, 158.5, cm, 09/29/22 11:23:00 EST, [...] Active Facet arthropathy, on CT from [facility] Confirmed Active Diverticulosis of colon 3 [...] Osteoarthritis of lumbar spine 6 Confirmed Active *[id number] Antenna Design Engineer Karina Mcneal Confirmed Active Medicare annual [...] MRI and prior CT 3per colonoscopy [facility] 4left side. ENT refered her for hearing aide [id number] GI note 6see x-ray - degenerative changes 7cites polio age 4, had right leg problems ever since she notes 8on x-ray Social History Social History Type Response Smoking Status Former smoker; Other : Pt only smoked for from the age of 16 to 18; entered on: 01/03/14 Sex Patient Care team information Care Team Personnel Name: Vivian Meier Position: [facility] Outreach Member Role: Lifetime Consulting Physician Name: Augustin CAMPOS, Miroslava Oro Position: [facility] Primary Care Physician Member Role: PCP Address: Address: [address] [place] [id number]- [place] Care Team Related Persons Name: SHAINA SPIVEY Address: [address] [place] [address] Name: DANIELLE ROBERSON Name: ANIYA SOLORZANO Name: JOEY SOLORZANO Address: [address] [place] [address] Name: PUSHPA CLAYTON
--- OUTSIDE RECORDS SUMMARY | 2024-09-04 20:31 | XMS_ITS | Continuity of Care Document ---
Author Organization [facility] Address [address] [place] [address]- Care Team Providers Care Aoc Plans Intelligence Officer Chief Name Role Phone Augustin CAMPOS, Miroslava Oro Primary Care Physician [phone] Encounter [facility] [place] Date(s): 04/16/24 - 05/16/24 [facility] [address] [place] [address]- Allergies, Adverse Reactions, Alerts Substance Reaction Severity [...] tetanus/diphtheria/pertussis, acel(Tdap) 4 02/17/12 Given SARS-CoV-2 mRNA (uskirpw-lfmf-aadtz) vax 03/23/22 Recorded zoster vaccine, inactivated 11/20/21 [...] 11/03/15 Given 1Admin Note: per patient. via counter server office Claudia Cruz 2Admin Note: VIS 04/2012 3Admin Note: vis given vis date 01/16 4Admin Note: VIS 10/21 5Admin Note: vis given 6Admin Note: VIS IN SYRI[place] 7Admin Note: VIS given Medications albuterol 0.083% inhalation solution 3 mL = 2.5 mg, Inhalation, Every 6 hours, PRN for wheezing, # 100 each, 6 Refills, Maintenance, 09/06/23 11:39:00 EST, Solution, [facility]/pharmacy #[id number], 158.5, cm, 08/26/23 10:44:00 EST, Height Start Date: 09/06/23 Stop Date: 04/03/24 Status: Ordered cetirizine 10 mg oral tablet 1 tablet, By Mouth, Daily, PRN NEEDED FOR ALLERGY SYMPTOMS, # 90 tablet, 1 Refills, Maintenance,05/09/23 7:42:00 EDT, [facility], 158.5, cm, 02/22/23 10:56:00 EDT, Height Start Date: 05/09/23 Status: Ordered losartan 25 mg oral tablet TAKE 1 TABLET BY MOUTH EVERY DAY Start Date: 05/01/24 Status: Ordered losartan 50 mg oral tablet 50 mg, 1, tablet, By Mouth, Daily, replace 25mg, # 90 tablet, Refills 1, Tot. Refills 1, Maintenance, 05/01/24 13:41:00 EDT, Route to Pharmacy Electronically, [facility]/pharmacy #[id number], Partial fill upon patient request if the [...] 15:01:00 EDT, Aerosol, Route to Pharmacy Electronically, [id number], [facility]/pharmacy #1972, 160, cm, 0... Start [...] 04/27/24 10:57:00 EDT, Route to Pharmacy Electronically, [facility]/pharmacy #[id number], Partial fill upon p... Start Date: 04/27/24 Status: Ordered Vitamin D3 1000 intl units oral tablet 1 tablet = 1,000 International_Units, By Mouth, Daily, # 90 tablet, 11 Refills, Maintenance, 09/29/22 11:25:00 EST, Tablet, [facility]/pharmacy #1972, never had kidney stones [...] Confirmed Active Facet arthropathy, on CT from [facility] Confirmed Active Diverticulitis Confirmed Active [...] [address] 3per colonoscopy [facility] 4left side. ENT refered her for hearing aide [id number] GI note 6see x-ray - degenerative changes [...] Primary Care Member Role: PCP Address: Address: [address] [place] [address]- [place] Care Team Related Persons Name: SHAINA SPIVEY Address: [address] [place] [address] Name: DANIELLE ROBERSON Name: ANIYA SOLORZANO Name: JOEY SOLORZANO Address: [address] [place] [address] Name: PUSHPA CLAYTON
--- OUTSIDE RECORDS SUMMARY | 2024-09-04 20:31 | XMS_ITS | Continuity of Care Document ---
Author Organization [facility] Address [address] [place] [address]- Care Team Providers Care Burr Bench Hand Name Role Phone Berta QUALITY SYSTEMS SPECIALIST, Eileen Crowell Primary Care Physician [phone] Encounter [facility] [place] Date(s): 12/10/20 - 01/09/21 [facility] [address] [place] [address]- Allergies, Adverse Reactions, Alerts Substance Reaction Severity [...] Note: vis given 2Admin Note: VIS IN SUDANESE 3Admin Note: VIS given 4Admin Note: per patient. via performance management consultant office Claudia Cruz 5Admin Note: VIS 04/2012 [...] 90 tablet, 3 Refills, Acute, [facility], 160, cm, 09/03/19 12:02:00 EST, Height, 67.2, kg, 09/03/19 12:02:00 EST, Dry Weight Start Date: 10/31/19 Status: Ordered Nasacort Allergy 24HR 55 mcg/inh nasal spray 2 sprays, Daily, 0 Refills, Maintenance, 01/23/18 9:29:42 EDT Start Date: 01/23/18 Status: Ordered [place] 0.65% nasal spray 2 sprays, Nares, Both, [...] tablet, 0 Refills, Maintenance, 12/20/19 15:43:00 EDT, [facility]/pharmacy #1972, to replace 30 tab script, 160, [...] 15:01:00 EDT, Aerosol, Route to Pharmacy Electronically, [id number], [facility]/pharmacy #1972, 160, cm, 0... Start Date: 02/18/20 Status: Ordered simethicone 80 mg oral tablet, chewable 80 mg, 1, tablet, Chew, 3 times a day, # 90 tablet, Refills 1, Tot. Refills 1, Maintenance, 10/11/17 16:26:21, Route to Pharmacy Electronically, [id number], [facility]/pharmacy #1972 Start Date: 10/11/17 Status: Ordered tiZANidine 2 mg oral tablet 2 mg, 1, tablet, By Mouth, Every 8 hours, PRN, # 30 tablet, Refills 2, Tot. Refills 2, Maintenance,as needed for muscle spasm, 04/19/19 10:28:15 EDT, Route to Pharmacy Electronically, [id number], [facility]/pharmacy #1972 Start Date: 04/19/19 Stop Date: 05/19/19 [...] 6 Active Facet arthropathy, on CT from [facility](Confirmed) Active chronic Rotator cuff tear(Confirmed) Active [...] of lumbar spine(Confirmed) 10 Active Overweight(Confirmed) Active *[id number] Care Partn er Karina Mcneal(Confirmed) Active POLIO(Confirmed) [...] lumbar spine on 11-20 x-ray 7per colonoscopy [facility] 8left side. ENT refered her for hearing aide [id number] GI note 10see x-ray - degenerative changes 11cites polio age 4, had right leg problems ever since she notes 12on x-ray 13sees ENT for this Social History Social History Type Response Smoking Status Former smoker; Other : Pt only smoked for from the age of 16 to 18; entered on: 01/03/14 Sex
--- OUTSIDE RECORDS SUMMARY | 2024-09-04 20:31 | XMS_ITS | Continuity of Care Document ---
Author Organization [facility] Address [address] [place] [address]- Care Team Providers Care Candy Wrapping Machine Operator Name Role Phone Augustin CAMPOS, Miroslava Oro Primary Care Physician [place] [facility] [place] Date(s): 06/18/24 - 07/18/24 [facility] [address] [place] [address]- Allergies, Adverse Reactions, Alerts Substance Reaction Severity [...] tetanus/diphtheria/pertussis, acel(Tdap) 4 02/17/12 Given SARS-CoV-2 mRNA (ryhtukj-zizy-zmnzk) vax 03/23/22 Recorded zoster vaccine, inactivated 11/20/21 [...] 11/03/15 Given 1Admin Note: per patient. via merchandise adjustment clerk office Claudia Cruz 2Admin Note: VIS 04/2012 3Admin Note: vis given vis date 01/16 4Admin Note: VIS 10/21 5Admin Note: vis given 6Admin Note: VIS IN DOMINICAN 7Admin Note: VIS given Medications albuterol 0.083% inhalation solution 3 mL = 2.5 mg, Inhalation, Every 6 hours, PRN for wheezing, # 100 each, 6 Refills, Maintenance, 09/06/23 11:39:00 EST, Solution, [facility]/pharmacy #[id number], 158.5, cm, 08/26/23 10:44:00 EST, [...] 07/10/24 11:55:00 EDT, Route to Pharmacy Electronically, [facility]/pharmacy #[id number], Partial fill upon patient request if the prescription is for a schedule II opioid drug.... Start Date: 07/10/24 Status: Ordered cetirizine 10 mg oral tablet 1 tablet, By Mouth, Daily, PRN NEEDED FOR ALLERGY SYMPTOMS, # 90 tablet, 1 Refills, Maintenance,05/09/23 7:42:00 EDT, [facility], 158.5, cm, 02/22/23 10:56:00 EDT, Height Start [...] 15:01:00 EDT, Aerosol, Route to Pharmacy Electronically, [id number], [facility]/pharmacy #1972, 160, cm, 0... Start [...] 04/27/24 10:57:00 EDT, Route to Pharmacy Electronically, [facility]/pharmacy #[id number], Partial fill upon p... Start [...] Confirmed Active Facet arthropathy, on CT from [facility] Confirmed Active Diverticulitis Confirmed Active Diverticulosis [...] side. ENT refered her for hearing aide [id number] GI note 6see x-ray - degenerative changes 7cites polio age 4, had right leg problems ever since she notes 8on x-ray Social History Social History Type Response Smoking Status Former smoker; Other : Pt only smoked for from the age of 16 to 18; entered on: 01/03/14 Sex Patient Care team information Care Team Personnel Name: Vivian Meier Position: [facility] Outreach Member Role: Lifetime Consulting Physician Name: Miroslava Ruffin MD, V Position: [facility] Physician - Primary Care Member Role: PCP Address: Address: [address] [place] [address]- Care Team Related Persons Name: SPIVEY SHAINA Address: home [address] [place] [address] Name: DANIELLE ROBERSON Name: ANIYA SOLORZANO Name: JOEY SOLORZANO Address: [address] [place] [address] Name: PUSHPA CLAYTON
--- OUTSIDE RECORDS SUMMARY | 2024-09-04 20:31 | XMS_ITS | Continuity of Care Document ---
Author Organization [facility] Address [address] [place] [address]- Care Team Providers Care Shrimp Peeling Machine Tender Name Role Phone Miroslava Ruffin MD, V Primary Care Physician Encounter [facility] [place] Date(s): 10/19/22 - 11/18/22 [facility] [address] [place] [address]- Attending Physician: Cindy Araiza Admitting Physician: AdmCindy [...] tetanus/diphtheria/pertussis, acel(Tdap) 4 02/17/12 Given SARS-CoV-2 mRNA (vekxknk-euoi-fidrn) vax 03/23/22 Recorded zoster vaccine, inactivated 11/20/21 [...] 11/03/15 Given 1Admin Note: per patient. via software validation technician office Claudia Cruz 2Admin Note: VIS 04/2012 3Admin Note: vis given vis date 01/16 4Admin Note: VIS 10/21 5Admin Note: vis given 6Admin Note: VIS IN BELARUSIAN 7Admin Note: VIS given Medications albuterol 0.083% [...] 11/15/22 10:36:00 EST, Route to Pharmacy Electronically, [facility]/pharmacy #[id number], Partial fill upon patient request if the [...] 1 Refills, Maintenance, 08/10/22 8:49:00 EDT, Tablet, [facility]/pharmacy #1972, Partial fill upon patient request if the prescription is for a schedule II opioid drug., 158.5, cm, 07/12/22 10:02:00 EDT... Start Date: 08/10/22 Status: Ordered Melatonin 1 mg oral tablet TAKE ONE TABLET BY MOUTH AT BEDTIME Start Date: 03/05/22 Status: Ordered [place] 0.65% nasal spray 2 sprays, Nares, Both, [...] 15:01:00 EDT, Aerosol, Route to Pharmacy Electronically, [id number], [facility]/pharmacy #1972, 160, cm, 0... Start [...] 09/29/22 11:25:00 EST, Route to Pharmacy Electronically, [facility]/pharmacy #1972, 158.5, cm, 09/29/22 11:23:00 [...] Facet arthropathy, on CT from [facility] Confirmed Active Diverticulosis of colon 3 Confirmed [...] Osteoarthritis of lumbar spine 6 Confirmed Active *[id number] Forklift Operator Karina Mcneal Confirmed Active Medicare annual wellness [...] MRI and prior CT 3per colonoscopy [facility] 4left side. ENT refered her for hearing aide [id number] GI note 6see x-ray - degenerative changes 7cites polio age 4, had right leg problems ever since she notes 8on x-ray Social History Social History Type Response Smoking Status Former smoker; Other : Pt only smoked for from the age of 16 to 18; entered on: 01/03/14 Sex Patient Care team information Care Team Personnel Name: Vivian Meier Position: [facility] Outreach Member Role: Lifetime Consulting Physician Name: Miroslava Ruffin MD, V Position: [facility] Primary Care Physician Member Role: PCP Address: Address: [address] [place] [address]- Care Team Related Persons Name: SHAINA SPIVEY Address: home [address] [place] [address] Name: DANIELLE ROBERSON Name: ANIYA SOLORZANO Name: JOEY SOLORZANO Address: [place] [address] Name: PUSHPA CLAYTON
--- OUTSIDE RECORDS SUMMARY | 2024-09-04 20:31 | XMS_ITS | Continuity of Care Document ---
Author Organization [facility] Address [address] [place] [address]- Care Team Providers Care Cylinder Machine Operator Name Role Phone Le Allen DO Primary Care Physician Encounter [facility] Date(s): 04/22/20 - 05/22/20 [facility] [address] [place] [address]- [facility] Allergies, Adverse Reactions, Alerts Substance Reaction Severity [...] Note: vis given 2Admin Note: VIS IN UKRAINIAN 3Admin Note: VIS given 4Admin Note: per patient. via electrical assembly supervisor office D.r Nancy 5Admin Note: VIS 04/2012 [...] 04/19/19 10:28:38 EDT, Route to Pharmacy Electronically, [id number], [facility]/pharmacy #1972 Start Date: 04/19/19 Stop Date: 05/03/19 Status: Ordered losartan 50 mg oral tablet 0.5 tablet = 25 mg, By Mouth, Daily, for 90 days, do not full until pt requests, note dose change, # 45 tablet, 1 Refills, Physician Stop 09/27/20 10:33:00 EST, 03/31/20 10:33:00 EDT, [facility]/pharmacy #1972, 160, cm, 03/31/20 9:41:00 EDT, Height, [...] 90 tablet, 3 Refills, Acute, [facility], 160, cm, 09/03/19 12:02:00 EST, Height, 67.2, [...] 9:29:42 EDT Start Date: 01/23/18 Status: Ordered [place] 0.65% nasal spray 2 sprays, Nares, Both, [...] 0 Refills, Maintenance, 12/20/19 15:43:00 EDT, [facility]/pharmacy #1972, to replace 30 tab script, 160, [...] 15:01:00 EDT, Aerosol, Route to Pharmacy Electronically, [id number], [facility], 160, cm, 0... Start Date: 02/18/20 Status: Ordered simethicone 80 mg oral tablet, chewable 80 mg, 1, tablet, Chew, 3 times a day, # 90 tablet, Refills 1, Tot. Refills 1, Maintenance, 10/11/17 16:26:21, Route to Pharmacy Electronically, [id number], [facility]/pharmacy #1972 Start Date: 10/11/17 Status: Ordered tiZANidine 2 mg oral tablet 2 mg, 1, tablet, By Mouth, Every 8 hours, PRN, # 30 tablet, Refills 2, Tot. Refills 2, Maintenance,as needed for muscle spasm, 04/19/19 10:28:15 EDT, Route to Pharmacy Electronically, [id number], [facility]/pharmacy #1972 Start Date: 04/19/19 Stop Date: 05/19/19 [...] 6 Active Facet arthropathy, on CT from [facility](Confirmed) Active chronic Rotator cuff tear(Confirmed) Active Diverticulosis [...] of lumbar spine(Confirmed) 10 Active Overweight(Confirmed) Active *[id number] Care Partn er Karina Mcneal(Confirmed) Active POLIO(Confirmed) [...] side. ENT refered her for hearing aide [id number] GI note 10see x-ray - degenerative changes 11cites polio age 4, had right leg problems ever since she notes 12on x-ray 13sees ENT for this Social History Social History Type Response Smoking Status Former smoker; Other : Pt only smoked for from the age of 16 to 18; entered on: 01/03/14 Sex
--- OUTSIDE RECORDS SUMMARY | 2024-09-04 20:31 | XMS_ITS | Continuity of Care Document ---
Author Organization [facility] Address [address] [facility], [address], [address] [place] [address]- Care Team Providers Care Teletype Or Varitype Keyboard Operator Name Role Phone Berta ENAMEL SPRAYER, Eileen Crowell Primary Care Physician [place] [facility] [place] Date(s): 07/15/20 - 08/14/20 [facility] [address], [address], [address] [place] [address]- Attending Physician: Cindy Araiza Admitting Physician: AdmCindy [...] VIS given 4Admin Note: per patient. via hip hop dance instructor office Claudia Cruz 5Admin Note: VIS 04/2012 [...] 90 tablet, 3 Refills, Acute, [facility], 160, cm, 09/03/19 12:02:00 EST, Height, 67.2, kg, 09/03/19 12:02:00 EST, Dry Weight Start Date: 10/31/19 Status: Ordered Nasacort Allergy 24HR 55 mcg/inh nasal spray 2 sprays, Daily, 0 Refills, Maintenance, 01/23/18 9:29:42 EDT Start Date: 01/23/18 Status: Ordered [place] 0.65% nasal spray 2 sprays, Nares, Both, [...] 15:01:00 EDT, Aerosol, Route to Pharmacy Electronically, [id number], [facility]/pharmacy #1972, 160, cm, 0... Start Date: 02/18/20 Status: Ordered simethicone 80 mg oral tablet, chewable 80 mg, 1, tablet, Chew, 3 times a day, # 90 tablet, Refills 1, Tot. Refills 1, Maintenance, 10/11/17 16:26:21, Route to Pharmacy Electronically, [id number], [facility] Start Date: 10/11/17 Status: Ordered tiZANidine 2 mg oral tablet 2 mg, 1, tablet, By Mouth, Every 8 hours, PRN, # 30 tablet, Refills 2, Tot. Refills 2, Maintenance,as needed for muscle spasm, 04/19/19 10:28:15 EDT, Route to Pharmacy Electronically, [id number], [facility] Start Date: 04/19/19 Stop Date: [...] 6 Active Facet arthropathy, on CT from [facility](Confirmed) Active chronic Rotator cuff tear(Confirmed) [...] of lumbar spine(Confirmed) 10 Active Overweight(Confirmed) Active *[id number] Care Partn caron Mcneal(Confirmed) Active POLIO(Confirmed) 11 [...] lumbar spine on 2-11 x-ray 7per colonoscopy [facility] 8left side. ENT refered her for hearing aide [id number] GI note 10see x-ray - degenerative changes 11cites polio age 4, had right leg problems ever since she notes 12on x-ray 13sees ENT for this Social History Social History Type Response Smoking Status Former smoker; Other : Pt only smoked for from the age of 16 to 18; entered on: 01/03/14 Sex
--- OUTSIDE RECORDS SUMMARY | 2024-09-04 20:31 | XMS_ITS | Continuity of Care Document ---
Author Organization [facility] Address [address] [place] [address]- Care Team Providers Care Vamp Stitcher Name Role Phone Berta HAYNES, Eileen Crowell Primary Care Physician En[place] [facility] [place] 04/08/21 - 05/08/21 [facility] [address] [place] [address]- Attending Physician: Cindy Araiza Admitting Physician: AdmCindy colon Referring Physician: AdmtrCindy Allergies, Adverse Reactions, Alerts Substance Reaction Severity Status naproxen hives Active Contrast Dye 1 Difficulty breathing erythromycin Active traMADol 2 Active erythromycin Active morphine Active lisinopril [...] Note: vis given 2Admin Note: VIS IN SLOVENIAN 3Admin Note: VIS given 4Admin Note: per patient. via basketball player office Claudia Cruz 5Admin Note: VIS 04/2012 [...] 90 tablet, 3 Refills, Acute, [facility], 160, cm, 09/03/19 12:02:00 EST, Height, 67.2, kg, 09/03/19 12:02:00 EST, Dry Weight Start Date: 10/31/19 Status: Ordered Nasacort Allergy 24HR 55 mcg/inh nasal spray 2 sprays, Daily, 0 Refills, Maintenance, 01/23/18 9:29:42 EDT Start Date: 01/23/18 Status: Ordered [place] 0.65% nasal spray 2 sprays, Nares, Both, [...] 0 Refills, Maintenance, 12/20/19 15:43:00 EDT, [facility]/pharmacy #1972, to replace 30 tab script, [...] 15:01:00 EDT, Aerosol, Route to Pharmacy Electronically, [id number], [facility]/pharmacy #1972, 160, cm, 0... Start Date: 02/18/20 Status: Ordered simethicone 80 mg oral tablet, chewable 80 mg, 1, tablet, Chew, 3 times a day, # 90 tablet, Refills 1, Tot. Refills 1, Maintenance, 10/11/17 16:26:21, Route to Pharmacy Electronically, [id number], [facility] Start Date: 10/11/17 Status: Ordered tiZANidine 2 mg oral tablet 2 mg, 1, tablet, By Mouth, Every 8 hours, PRN, # 30 tablet, Refills 2, Tot. Refills 2, Maintenance,as needed for muscle spasm, 04/19/19 10:28:15 EDT, Route to Pharmacy Electronically, [id number], [facility] Start Date: 04/19/19 Stop Date: [...] Facet arthropathy, on CT from [facility](Confirmed) Active chronic Rotator cuff tear(Confirmed) Active [...] of lumbar spine(Confirmed) 10 Active Overweight(Confirmed) Active *[id number] Care Partn er Karina Mcneal(Confirmed) Active POLIO(Confirmed) [...] side. ENT refered her for hearing aide [id number] GI note 10see x-ray - degenerative changes 11cites polio age 4, had right leg problems ever since she notes 12on x-ray 13sees ENT for this Social History Social History Type Response Smoking Status Former smoker; Other : Pt only smoked for from the age of 16 to 18; entered on: 01/03/14 Sex
--- OUTSIDE RECORDS SUMMARY | 2024-09-04 20:32 | XMS_ITS | Continuity of Care Document ---
Author Organization [facility] Address [address] [place] [address]- Care Team Providers Care Personnel Scheduler Name Role Phone Augustin CAMPOS, Miroslava Oro Primary Care Physician [phone] Encounter [facility] Date(s): 11/17/22 - 12/17/22 [facility] [address] [place] [address]- Allergies, Adverse Reactions, Alerts Substance Reaction Severity [...] tetanus/diphtheria/pertussis, acel(Tdap) 4 02/17/12 Given SARS-CoV-2 mRNA (xyvygqk-ilca-wkekb) vax 03/23/22 Recorded zoster vaccine, inactivated 11/20/21 [...] 11/03/15 Given 1Admin Note: per patient. via zoo veterinarian office Claudia Cruz 2Admin Note: VIS 04/2012 3Admin Note: vis given vis date 01/16 4Admin Note: VIS 10/21 5Admin Note: vis given 6Admin Note: VIS IN BULGARIAN 7Admin Note: VIS given Medications albuterol 0.083% [...] 11/15/22 10:36:00 EST, Route to Pharmacy Electronically, [facility]/pharmacy #[id number], Partial fill upon patient request if the [...] 1 Refills, Maintenance, 08/10/22 8:49:00 EDT, Tablet, [facility]/pharmacy #1972, Partial fill upon patient request if the prescription is for a schedule II opioid drug., 158.5, cm, 07/12/22 10:02:00 EDT... Start Date: 08/10/22 Status: Ordered Melatonin 1 mg oral tablet TAKE ONE TABLET BY MOUTH AT BEDTIME Start Date: 03/05/22 Status: Ordered [place] 0.65% nasal spray 2 sprays, Nares, Both, [...] 15:01:00 EDT, Aerosol, Route to Pharmacy Electronically, [id number], [facility]/pharmacy #1972, 160, cm, 0... 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 ENT refered her for hearing aide [id number] GI note 6see x-ray - degenerative changes [...] Augustin CAMPOS, Miroslava Oro Position: [facility] Primary Care Physician Member Role: PCP Address: Address: [address] [place] [address]- [place] Care Team Related Persons Name: BROCK SPIVYEOS Address: home [address] [place] [address] Name: DANIELLE ROBERSON Name: ANIYA SOLORZANO Name: JOEY SOLORZANO Address: home [address] [place] [address] Name: PUSHPA CLAYTON
--- OUTSIDE RECORDS SUMMARY | 2024-09-04 20:32 | XMS_ITS | Continuity of Care Document ---
Author Organization [facility] Address [address] [place] [address]- Care Team Providers Care Clicking Machine Operator Name Role Phone Augustin CAMPOS, Miroslava Oro Primary Care Physician [place] [facility] [place]s): 06/25/22 - 07/25/22 [facility] [address] [place] [address]- Attending Physician: Cindy Araiza Admitting Physician: Cindy [...] tetanus/diphtheria/pertussis, acel(Tdap) 2 02/17/12 Given SARS-CoV-2 mRNA (etnpeko-tyei-sfubr) vax 03/23/22 Recorded zoster vaccine, inactivated 11/20/21 Recorded zoster vaccine, inactivated 05/19/21 Recorded SARS-CoV-2 (COVID-19) mRNA BNT-162b2 vac 09/09/21 Recorded influenza virus vaccine, inactivated 08/03/21 Rajeev rded influenza virus vaccine, inactivated 06/30/18 Give n influenza virus vaccine, inactivated 12/08/17 Give n influenza virus vaccine, inactivated 3 12/1/15 Gi gonsalo influenza virus vaccine, inactivated 4 [...] VIS 10/21 3Admin Note: per patient. via technology integration specialist office Claudia Cruz 4Admin Note: VIS 04/2012 5Admin Note: vis given 6Admin Note: VIS IN TURKISH 7Admin Note: VIS given Medications albuterol 0.083% [...] 1 Refills, Maintenance, 07/12/22 10:51:00 EDT, Tablet, [facility]/pharmacy #1972, Partial fill upon patient request if the prescription is for a schedule II opioid drug., 158.5, cm, 07/12/22 10:02:00 ED... Start Date: 07/12/22 Status: Ordered Melatonin 1 mg oral tablet TAKE ONE TABLET BY MOUTH AT BEDTIME Start Date: 03/05/22 Status: Ordered [place] 0.65% nasal spray 2 sprays, Nares, Both, [...] 15:01:00 EDT, Aerosol, Route to Pharmacy Electronically, [id number], [facility]/pharmacy #1972, 160, cm, 0... Start Date: [...] Maintenance, 10/11/17 16:26:21, Route to Pharmacy Electronically, [id number], [facility]/pharmacy #1972 Start Date: 10/11/17 Status: Ordered [...] Confirmed Active Facet arthropathy, on CT from [facility] Confirmed Active chronic Rotator cuff [...] spine 10 Confirmed Active Overweight Confirmed Active *[id number] Tannery Gummer Karina Mcneal Confirmed Active POLIO 11 Confirmed [...] lumbar spine on 11-20 x-ray 7per colonoscopy [facility] 8left side. ENT refered her for hearing aide [id number] GI note 10see x-ray - degenerative changes 11cites polio age 4, had right leg problems ever since she notes x-ray 13sees ENT for this Social History Social History Type Response Smoking Status Former smoker; Other : Pt only smoked for from the age of 16 to 18; entered on: 01/03/14 Sex Patient Care team information Personnel Name: Augustin CAMPSO, Miroslava Oro Address: Address: [address] [place] [address]
--- OUTSIDE RECORDS SUMMARY | 2024-09-04 20:32 | XMS_ITS | Continuity of Care Document ---
Author Organization [facility] Address [address] [place] [address]- Care Team Providers Care Network Systems Operator Name Role Phone Augustin CAMPOS, Miroslava Oro Primary Care Physician [phone] Encounter [facility] [place] Date(s): 09/28/23 - 10/28/[address] [address]- Attending Physician: Cindy Araiza Admitting Physician: AdmCindy [...] tetanus/diphtheria/pertussis, acel(Tdap) 4 02/17/12 Given SARS-CoV-2 mRNA (myvveyc-papr-clkwi) vax 03/23/22 Recorded zoster vaccine, inactivated 11/20/21 [...] Given 1Admin Note: per patient. via program management intern office Claudia Cruz 2Admin Note: VIS 04/2012 3Admin Note: vis given vis date 01/16 4Admin Note: VIS 10/21 5Admin Note: vis given 6Admin Note: VIS IN LAO 7Admin Note: VIS given Medications albuterol 0.083% inhalation solution 3 mL = 2.5 mg, Inhalation, Every 6 hours, PRN for wheezing, # 100 each, 6 Refills, Maintenance, 09/06/23 11:39:00 EST, Solution, [facility]/pharmacy #[id number], 158.5, cm, 08/26/23 10:44:00 EST, Height Start Date: 09/06/23 Stop Date: 04/03/24 Status: Ordered cetirizine 10 mg oral tablet 1 tablet, By Mouth, Daily, PRN NEEDED FOR ALLERGY SYMPTOMS, # 90 tablet, 1 Refills, Maintenance,05/09/23 7:42:00 EDT, [facility], 158.5, cm, 02/22/23 10:56:00 EDT, Height Start [...] 15:01:00 EDT, Aerosol, Route to Pharmacy Electronically, [id number], [facility]/pharmacy #1972, 160, cm, 0... Start [...] Refills, Maintenance, 09/29/22 11:25:00 EST, Tablet, [facility]/pharmacy #1972, never had kidney stones she states, 158.5, cm, 09/29/2211:23:00 EST, Height Start Date: 09/29/22 Stop Date: 09/13/25 Status: Ordered Problem List Condition Confirmation Course Effective Dates Status H ealth Status Informant Age-related cataract 1 Confirmed Active Benign paroxysmal positional vertigo, bilateral Confirmed Active Asthma Confirmed 2004 Active Cyst of kidney 2 Confirmed Active Facet arthropathy, on [facility] from [facility] Confirmed Active Diverticulitis Confirmed Active [...] side. ENT refered her for hearing aide [id number] GI note 6see x-ray - degenerative changes 7cites polio age 4, had right leg problems ever since she notes 8 x-ray Social History Social History Type Response Smoking Status Former smoker; Other : Pt only smoked for from the age of 16 to 18; entered on: 01/03/14 Sex Patient Care team information Care Team Personnel Name: Vivian Meier Position: [facility] Outreach Member Role: Lifetime Consulting Physician Name: Miroslava Ruffin MD, V Position: [facility] Physician - Primary Care Member Role: PCP Address: Address: [address] [place] [address]- Care Team Related Persons Name: SHAINA SPIVEY Address: home [address] [place] [address] Name: DANIELLE ROBERSON Name: ANIYA SOLORZANO Name: JOEY SOLORZANO Address: home [address] [place] [address] Name: PUSHPA CLAYTON
--- OUTSIDE RECORDS SUMMARY | 2024-09-04 20:32 | XMS_ITS | Continuity of Care Document ---
Author Organization [facility] Address [address] [place] [address]- Care Team Providers Care Garment Steamer Name Role Phone Le Allen DO Primary Care Physician ( [phone] [place] [facility] [place] 03/[place] - 04/30/20 [facility] [address] [place] [address]- [facility] Attending Physician: Cindy Araiza Admitting Physician: Cindy [...] Note: vis given 2Admin Note: VIS IN CZECH 3Admin Note: VIS given 4Admin Note: per patient. via asphalt dauber office Claudia Cruz 5Admin Note: VIS 04/2012 [...] 04/19/19 10:28:38 EDT, Route to Pharmacy Electronically, [id number], [facility]/pharmacy #1972 Start Date: 04/19/19 Stop Date: 05/03/19 Status: Ordered losartan 50 mg oral tablet 0.5 tablet = 25 mg, By Mouth, Daily, for 90 days, do not full until pt requests, note dose change, # 45 tablet, 1 Refills, Physician Stop 09/27/20 10:33:00 EST, 03/31/20 10:33:00 EDT, [facility]/pharmacy #1972, 160, cm, 03/31/20 9:41:00 [...] 90 tablet, 3 Refills, Acute, [facility], 160, cm, 09/03/19 12:02:00 EST, Height, 67.2, [...] 9:29:42 EDT Start Date: 01/23/18 Status: Ordered [place] 0.65% nasal spray 2 sprays, Nares, Both, [...] 15:01:00 EDT, Aerosol, Route to Pharmacy Electronically, [id number], [facility], 160, cm, 0... Start Date: 02/18/20 Status: Ordered simethicone 80 mg oral tablet, chewable 80 mg, 1, tablet, Chew, 3 times a day, # 90 tablet, Refills 1, Tot. Refills 1, Maintenance, 10/11/17 16:26:21, Route to Pharmacy Electronically, [id number], [facility]/pharmacy #1972 Start Date: 10/11/17 Status: Ordered tiZANidine 2 mg oral tablet 2 mg, 1, tablet, By Mouth, Every 8 hours, PRN, # 30 tablet, Refills 2, Tot. Refills 2, Maintenance,as needed for muscle spasm, 04/19/19 10:28:15 EDT, Route to Pharmacy Electronically, [id number], [facility]/pharmacy #1972 Start Date: 04/19/19 Stop [...] 6 Active Facet arthropathy, on [facility] from [facility](Confirmed) Active chronic Rotator cuff tear(Confirmed) [...] of lumbar spine(Confirmed) 10 Active Overweight(Confirmed) Active *[id number] Care Partn er Karina Mcneal(Confirmed) Active POLIO(Confirmed) [...] lumbar spine on 11-20 x-ray 7per colonoscopy [facility] 8left side. ENT refered her for hearing aide [id number] GI note 10see x-ray - degenerative changes 11cites polio age 4, had right leg problems ever since she notes 12on x-ray 13sees ENT for this Social History Social History Type Response Smoking Status Former smoker; Other : Pt only smoked for from the age of 16 to 18; entered on: 01/03/14 Sex
== END 2024-09-04 20:26 | disposition left against medical advice (07) ==
LOC: HO.ED 20:25
PROVIDERS: Registered Nurse Emergency; Emergency Provider Internal Medicine; PCP Internal Medicine
DX: R10.2 Pelvic and perineal pain (principal); R03.0 Elevated blood-pressure reading, without diagnosis of hypertension; Z79.899 Other long term (current) drug therapy; Z03.818 Encounter for observation for suspected exposure to other biological agents ruled out
CPT/HCPCS: 0241U; 36415; 80053; 83735; 85025; 85610; 99281; 99283

== ENCOUNTER 2025-09-18 08:49 | Outpatient (REF) | payer OTHER, SELFPAY ==
[2025-09-18 13:54] LABS: Appearance Urine Clear; Glucose Urine UA Negative (Negative); PH 6.0 (5.0-9.0); Specific Gravity - Urine 1.020 (1.005-1.025)
[2025-09-18 13:56] LABS: MANUAL DIFF FLAG NO
[2025-09-18 14:00] LABS: Hematocrit 37.1 % (37.0-47.0); Hemoglobin 12.2 g/dl (12.0-16.0); Imm Gran Abs Auto 0.05 X10*3/uL (0.00-0.03); Imm Gran Pct Auto 0.6 % (0.0-0.4); Lymphocytes Absolute Auto 2.1 X10*3/uL (1.2-4.9); Mean Corpuscular HGB Conc 32.9 g/dl (31.0-35.0); Mean Corpuscular Hemoglobin 28.8 pg (27.0-33.0); Mean Corpuscular Volume 87.5 fL (80.0-98.0); NRBC Abs Auto 0.000 X10*3/uL (0.0-0.012); NRBC Pct Auto 0.0 /100WBC (0.0-0.2); Platelet Count 325 X10*3/uL (160-400); Red Blood Count 4.24 X10*6/uL (4.20-5.50); White Blood Count 9.0 X10*3/uL (4.8-10.8)
[2025-09-18 14:43] LABS: Alanine Aminotransferase 12 U/L (0-31); Albumin Level 4.3 g/dL (3.5-5.0); Alkaline Phosphatase 97 U/L (39-117); Anion Gap 13 (12-20); Aspartate Amino Transferase 17 U/L (5-31); Blood Urea Nitrogen 22 mg/dL (9-16); Calcium 9.7 mg/dL (8.4-10.2); Carbon Dioxide 27 mmol/L (22-29); Chloride 105 mmol/L (96-108); Cholesterol 232 mg/dL (<200); Estimated Glomerular Filt Rate > 60; HDL Cholesterol 70 mg/dL (>40); Magnesium 2.2 mg/dL (1.6-2.6); Potassium 4.6 mmol/L (3.3-5.1); Sodium 140 mmol/L (135-145); Total Protein 7.2 g/dL (6.5-8.0); Triglycerides 117 mg/dL (<150)
[2025-09-18 14:50] LABS: Microalbum/Creatinine Ratio Ur 9.0 ug/mg cr (<30)
[2025-09-18 15:23] LABS: Folate 3.5 ng/mL (> or = 4.0); Vitamin B12 432 pg/mL (200-900)
[2025-09-19 04:19] LABS: Syphilis Screen Nonreactive (Nonreactive)
[2025-09-19 04:26] LABS: HBS Num1 0.00 mIU/mL (0-7.99); HBsAGNum1 0.47 S/CO (0.00-0.99); HIV Num 1 0.06 S/CO (0.00-0.99); Hepatitis B Surface Antigen Negative (Negative); ~HepC Num1 0.12 S/CO (0.00-0.79); ~Hepatitis B Surface Antibody NONREACTIVE (Nonreactive); ~Hepatitis C Antibody Nonreactive (Nonreactive)
[2025-09-23 06:28] LABS: Vitamin D 25-OH, D2 <4 ng/mL; Vitamin D 25-OH, D3 37 ng/mL; Vitamin D 25-OH, Total 37 ng/mL (30-100)
== END 2025-09-18 08:50 | disposition home or self-care (01) ==
LOC: HO.HKASLDS 08:49
PROVIDERS: PCP Student in an Organized Health Care Education/Training Program; Visit Provider Student in an Organized Health Care Education/Training Program
DX: Z13.9 Encounter for screening, unspecified (principal); Z28.04 Immunization not carried out because of patient allergy to vaccine or component; Z79.899 Other long term (current) drug therapy
CPT/HCPCS: 36415; 80053; 80061; 81003; 82043; 82306; 82570; 82607; 82746; 83036; 83735; 84443; 85025; 86706; 86780; 86803; 87340; 87389; 90471; 96127; 99202

== ENCOUNTER 2025-09-18 08:49 | Outpatient (AMB) | payer OTHER, SELFPAY ==
--- NOTE | 2025-09-18 09:13 | MHC.PC.OV ---
Vital Signs 09/18/25 09:20 Height 5 ft 2.91 in Weight 139 lb 2 oz BMI 24.7 BP 133/61 Blood Pressure Location Lt brachial Position Sitting Pulse 80 Pulse Source Pulse Oximeter Temp 98.1 F Temp Source Oral Pulse Oximetry (%) 95 Oxygen Delivery Method Room Air Intake Visit Reasons: Public Information Relations Manager / Blood Pressure Accompanied by: Self / Same As Patient Allergies Iodinated Contrast Media (IV CONTRAST) Allergy (Severe, Verified 09/18/25 09:22) SEVERE ASTHMA ATTACK naproxen (From NAPROSYN) Allergy (Severe, Verified 09/18/25 09:22) SWELLING/RASH/HIVES [place] nut (BRAZIL NUT) Allergy (Intermediate, Verified 09/18/25 09:22) + ALLERGY TEST erythromycin base (ERYTHROMYCIN BASE) Allergy (Intermediate, Verified 09/18/25 09:22) VOMITING lisinopril (LISINOPRIL) Allergy (Intermediate, Verified 09/18/25 09:22) HIVES/RASH pseudoephedrine (From SUDAFED) Allergy (Intermediate, Verified 09/18/25 09:22) HIVES iodine Allergy (Unknown, Verified 09/18/25 09:22) Unknown Sulfa (Sulfonamide Antibiotics) Allergy (Unknown, Verified 09/18/25 09:22) Unknown Erythromycin Allergy (Unknown, Uncoded 09/04/24 11:40) Unknown Tobacco use date assessed: 09/18/25 Fall risk assessment: No Falls in past year Last assessed Fall Risk: 09/18/25 Dental Screening Dental Screen Date: 09/18/25 Did you have a dental visit in the last 12 months?: No PFSH Medical History (Updated 09/18/25 @ 09:48 by Neto Ennis MD) Osteophyte Chronic sinusitis Mass of face Chronic arthritis Walker as ambulation aid Gait instability Hypertension Fibromyalgia Arthritis GERD (gastroesophageal reflux disease) Polio Surgical History H/O eye surgery Family History (Updated 09/18/25 @ 09:28 by Malena Ledezma CMA) Mother Bone cancer Father No problems noted. Social History Housing: Apartment Alcohol intake: never Patient Tobacco Use Status: Never used Tobacco e-Cigarette/Vaping Use: Never Used service: No Current occupational status: retired Cognitive needs: Yes (walker) Hearing needs: Yes (bilateral hearing aids) Vision needs: Yes (glasses) Questionnaire PHQ-9 Over the last 2 weeks, how often have you been bothered by any of the following problems? 1. Little interest or pleasure in doing things: more than half the days 2. Feeling down, depressed, or hopeless: more than half the days 3. Trouble falling or staying asleep, or sleeping too much: more than half the days 4. Feeling tired or having little energy: not at all 5. Poor appetite or overeating: more than half the days 6. Feeling bad about yourself - or that you are a failure or have let yourself or your family down: several days 7. Trouble concentrating on things, such as reading the newspaper or watching television: more than half the days 8. Moving or speaking so slowly that other people could have noticed. Or the opposite - being so fidgety or restless that you have been moving around a lot more than usual: several days 9. Thoughts that you would be better off or of hurting yourself in some way: not at all Total score: 12 Depression Screening Interpretation: Positive Depression Screening Done: Yes Source: Developed by Drs. Anirudh Carpenter, Kasie Ocasio, Yoel Vergara and colleagues, with an educational nadege from [employer]. Thrive Questionnaire Date Thrive assessed: 09/18/25 I am a: Patient What is your living situation today?: I have a steady place to live Within the past 12 months, did the food you bought not last and you didn't have the money to get more?: Never true Within the past 12 months, did you worry whether your food would run out before you got money to buy more?: Never true Do you have trouble paying for medicines?: No Do you have trouble getting transportation to medical appointments?: No Do you have trouble paying your heating and electricity bill?: No Do you have trouble taking care of your child, family member or friend?: No Do you have trouble with day-to-day activities such as bathing, preparing meals, shopping, managing finances, etc.?: No Are you currently unemployed and looking for a job?: No Are you interested in more education?: No Please select the resources that you would like help with: None THRIVE Score: 0 AUDIT C Alcohol Use Questionnaire (AUDIT-C) 1. How often do you have a drink containing alcohol?: Never Total Score: 0 CYNTHIA-7 AMB Questionnaire CYNTHIA-7 Date CYNTHIA - 7 assessed: 09/18/25 Feeling nervous, anxious, or on edge: 0 = Not at all Not being able to stop or control worryin = Not at all Worrying too much about different things: 2 = More than half the days Trouble relaxin = More than half the days Being so restless that it is hard to sit still: 1 = Several days Becoming easily annoyed or irritable: 1 = Several days Feeling afraid as if something awful might happen: 2 = More than half the days Total CYNTHIA-7 score (0-4 normal; 5-9 mild; 10-14 moderate; 15-21 severe): 8 Source: Developed by Drs. Anirudh Carpenter, Kasie Ocasio, Yoel Vergara and colleagues, with an educational nadege from [employer]. Physical exam (Primary Care) Vital Signs: Last Vital Signs Temp 98.1 F 09/18/25 09:20 Pulse 80 09/18/25 09:20 BP 133/61 09/18/25 09:20 Pulse Ox 95 09/18/25 09:20 Oxygen Delivery Method Room Air 09/18/25 09:20 BMI result Body Mass Index 24.7 Tobacco/Smoking Status: Tobacco use Status Tobacco use date assessed 09/18/25 09/18/25 09:15 Patient Tobacco Use Status Never used Tobacco 09/18/25 09:15 e-Cigarette/Vaping Use Never Used 09/18/25 09:15 PHQ-9: PHQ-9 Score PHQ-9: Total score 0 09/18/25 09:48 Depression Screening Interpretation: Positive Thrive Assessment: Date of Thrive Assessment Date Thrive assessed 09/18/25 09/18/25 09:15 Office Procedures Flu Questionnaire Does the patient have a severe egg allergy?: No Does the patient have severe life threatening allergies?: No Does the patient have a fever or illness today?: No Has the patient ever had Guillain-Colmesneil Syndrome?: No Has the patient ever had any past reaction to a flu shot?: No Immunizations Fluarix [id number] (PF) 45 mcg (15 mcg x 3)/0.5 mL IM syringe Performing Provider: Neto Ennis MD Performing Location: [facility] Documented (not given) by: Malena Ledezma CMA on 09/18/25 09:31 Reason Not Given: Adverse Reaction- Previous Coding Diagnoses Gait instability R26.81 Walker as ambulation aid Z99.89 Chronic arthritis M19.90 Mass of face R22.0 Chronic sinusitis J32.9 Osteophyte M25.70 Hypertension I10 GERD (gastroesophageal reflux disease) K21.9 Fibromyalgia M79.7 Assessment & Plan Assessment & Plan (1) Gait instability: Code(s): R26.81 - Unsteadiness on feet Category: Medical (2) Walker as ambulation aid: Code(s): Z99.89 - Dependence on other enabling machines and devices Category: Medical (3) Chronic arthritis: Code(s): M19.90 - Unspecified osteoarthritis, unspecified site Category: Medical (4) Mass of face: Code(s): R22.0 - Localized swelling, mass and lump, head Category: Medical (5) Chronic sinusitis: Code(s): J32.9 - Chronic sinusitis, unspecified Category: Medical (6) Osteophyte: Code(s): M25.70 - Osteophyte, unspecified joint Category: Medical (7) Hypertension: Code(s): I10 - Essential (primary) hypertension Category: Medical (8) GERD (gastroesophageal reflux disease): Code(s): K21.9 - Gastro-esophageal reflux disease without esophagitis Category: Medical (9) Fibromyalgia: Code(s): M79.7 - Fibromyalgia Category: Medical Orders: Orders Complete Blood Count Auto Diff Today Z13.9 - Encounter for screening, unspecified Hepatitis B Surface Antigen Today Z13.9 - Encounter for screening, unspecified Comprehensive Met. Panel Today Z13.9 - Encounter for screening, unspecified Hepatitis C Antibody Today Z13.9 - Encounter for screening, unspecified Lipid Panel Today Z13.9 - Encounter for screening, unspecified Vitamin B12 and Folate Today Z13.9 - Encounter for screening, unspecified Hemoglobin A1c Today Z13.9 - Encounter for screening, unspecified Magnesium Today Z13.9 - Encounter for screening, unspecified Influenza [id number] Immunization Today Z23 - Encounter for immunization Syphilis Screen Today Z13.9 - Encounter for screening, unspecified TSH reflex Free T4 Today Z13.9 - Encounter for screening, unspecified HIV Ab/Ag Today Z13.9 - Encounter for screening, unspecified UA CC w/rflx Micro + Cult Today Z13.9 - Encounter for screening, unspecified Hepatitis B Surface Antibody Today Z13.9 - Encounter for screening, unspecified Vitamin D 25-OH (D2 and D3) Today Z13.9 - Encounter for screening, unspecified Microalbumin, Random (w Creat) Today Z13.9 - Encounter for screening, unspecified Medications: New [blood pressure kit] As directed 1 ea 0RF I10 - Essential (primary) hypertension
[2025-09-18 09:20] VITALS: BP 133/61; PULSE 80; TEMP 36.7; O2SAT 95; BMI 24.7
== END 2025-09-18 09:57 | disposition home or self-care (01) ==
LOC: HO.HMCFMS 08:50
PROVIDERS: Visit Provider Student in an Organized Health Care Education/Training Program
DX: Z23 Encounter for immunization (principal)

== ENCOUNTER 2025-10-08 10:17 | Outpatient (AMB) | payer OTHER, SELFPAY ==
--- NOTE | 2025-10-08 10:18 | MHC.PC.OV ---
Vital Signs 10/08/25 10:23 Height 5 ft 2.91 in Weight 139 lb 8 oz BMI 24.8 BP 149/65 H Blood Pressure Location Lt brachial Position Sitting Respiration 18 Pulse 84 Pulse Source Pulse Oximeter Temp 98 F Temp Source Oral Pulse Oximetry (%) 97 Oxygen Delivery Method Room Air Intake Visit Reasons: 2 wk - lab review Intake Note: Patient present for lab review. Flight Readiness Technician Required: No Accompanied by: HEALTH INSPECTOR Allergies Iodinated Contrast Media (IV CONTRAST) Allergy (Severe, Verified 10/08/25 10:22) SEVERE ASTHMA ATTACK naproxen (From NAPROSYN) Allergy (Severe, Verified 10/08/25 10:22) SWELLING/RASH/HIVES [place] nut (BRAZIL NUT) Allergy (Intermediate, Verified 10/08/25 10:22) + ALLERGY TEST erythromycin base (ERYTHROMYCIN BASE) Allergy (Intermediate, Verified 10/08/25 10:22) VOMITING lisinopril (LISINOPRIL) Allergy (Intermediate, Verified 10/08/25 10:22) HIVES/RASH pseudoephedrine (From SUDAFED) Allergy (Intermediate, Verified 10/08/25 10:22) HIVES iodine Allergy (Unknown, Verified 10/08/25 10:22) Unknown Sulfa (Sulfonamide Antibiotics) Allergy (Unknown, Verified 10/08/25 10:22) Unknown Erythromycin Allergy (Unknown, Uncoded 10/08/25 10:22) Unknown Medication List - Last Reconciled 10/08/25 by Neto Ennis MD albuterol sulfate 90 mcg/actuation 0 mcg inhalation albuterol sulfate mg inhalation Q6H PRN amlodipine 5 mg PO DAILY [blood pressure kit As directed] epinephrine 0.3 mg (0.3 mL) IM DIRECTED fluticasone propionate 110 mcg/actuation 1 puff inhalation BID fluticasone propionate 50 mcg/actuation 2 sprays intranasal DAILY folic acid 1 mg PO DAILY ketoconazole 2% topical DAILY losartan 50 mg PO DAILY melatonin 1 mg PO BEDTIME omega-3 fatty acids-fish oil 340-1,000 mg 1 cap PO TID tizanidine mg PO Tobacco use date assessed: 09/18/25 Fall risk assessment: No Falls in past year Last assessed Fall Risk: 10/08/25 Dental Screening Dental Screen Date: 09/18/25 HPI HPI Comments History of Present Illness Details History of Present Illness The patient is a 80 year old female presenting for review of diagnostic results. Facial Lipoma: The patient reports a mass on her head that has been present for approximately one year. A CT scan of the head, performed at [facility], identified the mass as a lipoma. The patient states the mass is painful, particularly with mastication. Dysphagia: The patient reports experiencing a sensation of drowning when she drinks. She underwent an esophageal study at [facility], after which she was advised to modify her diet by eating small amounts, chewing well, and drinking water in between. She was told there is no medication or cure for this condition. Chronic Sinusitis: The patient has a history of chronic sinusitis, which was diagnosed on a prior CT scan. She was previously seen by an ENT specialist who prescribed a nasal spray, but this did not resolve her symptoms. She continues to experience symptoms, including sneezing for 15 to 20 minutes every morning. Another physician ordered a new CT scan to re-evaluate the sinusitis. Hypertension: The patient has a history of hypertension and reports that her blood pressure is not well-controlled. She takes losartan 50 mg and tolerates it, but had to stop taking the prescribed 100 mg dose because it made her feel ill. She reports her blood level of the medication is low, which may be why her blood pressure is not well-controlled. She follows a low-salt diet, using mineral salt. Hypercholesterolemia: Recent lab results show a total cholesterol of 232 and an LDL of 139. The patient is not currently taking any medication for hypercholesterolemia. She reports attempting to manage her cholesterol through diet, which includes limiting red meat consumption to once a month and eating chicken and turkey. Folate Deficiency: Recent blood work revealed a low folate level of 3.5. Cancer Screening and History: The patient has a significant family history of cancer, including her grandmother and mother. She reports that after a recent mammogram, she was told of a finding in her right breast that required further evaluation. Surgical History: - Glaucoma operation Medications: - Losartan 50 mg daily for hypertension. Social History: - Diet: Patient reports following a diet for cholesterol and blood pressure, limiting red meat to once monthly and primarily consuming chicken and turkey. - She also reports using mineral salt as part of a low-salt diet. - Functional Status: Reports difficulty with her legs which impedes her ability to use the bathroom. Family History: - Reports a family history of cancer, including her grandmother and mother. Diagnostic Results: - Labs: - Hemogram: Normal, no anemia. - Comprehensive Metabolic Panel: Kidney and liver function are normal. - Glucose: Normal, patient is not prediabetic or diabetic. - Lipid Panel: Total cholesterol is elevated at 232 mg/dL; LDL cholesterol is elevated at 139 mg/dL. - Folate: Low at 3.5. - Imaging: - Head CT: Showed a lipoma. - Mammogram: Patient reports being informed of an abnormality in the right breast requiring re-evaluation - Esophageal study: Findings led to dietary modification recommendations for dysphagia. Past Medical History - Hypertension - Hypercholesterolemia - Glaucoma, status post-operation - Chronic sinusitis - Dysphagia - Chronic urticaria - Back pain with bone spurs Health Maintenance - Cancer Screening: Patient underwent a recent mammogram. - She reports being told about an abnormality in the right breast,she has a follow up appt - Specialist Care: The patient is followed by an conche loader and unloader for glaucoma, a trailer sections assembler, an ENT specialist, and an orthopedist. - Dietary Counseling: Discussed dietary modifications for hypercholesterolemia, including limiting red meat and using mineral salt. - Also discussed foods rich in folic acid. [facility] Medical History Osteoarthritis of left shoulder due to rotator cuff injury Right shoulder tendonitis Uses hearing aid Sleep disturbance History of uterine fibroid Osteophyte Chronic sinusitis Mass of face Chronic arthritis Walker as ambulation aid Gait instability Hypertension Fibromyalgia Arthritis GERD (gastroesophageal reflux disease) Polio Surgical History History of hysterectomy H/O eye surgery Family History Mother Bone cancer Father No problems noted. Social History (Updated 10/08/25 @ 10:23 by Carlos Christopher CMA) Housing: Apartment Alcohol intake: never Patient Tobacco Use Status: Never used Tobacco e-Cigarette/Vaping Use: Never Used service: No Current occupational status: retired Cognitive needs: Yes (walker) Hearing needs: Yes (bilateral hearing aids) Vision needs: Yes (glasses) Questionnaire Thrive Questionnaire Date Thrive assessed: 09/18/25 CYNTHIA-7 AMB Questionnaire CYNTHIA-7 Date CYNTHIA - 7 assessed: 12/10/25 Source: Developed by Drs. Anirudh Carpenter, Kasie Ocasio, Yoel Vergara and colleagues, with an educational nadege from [employer]. Review of Systems Narrative Review of Systems - HEENT: Reports severe headaches. - Reports a painful facial mass when chewing. - Reports dysphagia, with a sensation of drowning when drinking liquids. - Reports persistent symptoms of chronic sinusitis, including sneezing every morning for 15-20 minutes. - Cardiovascular: Reports uncontrolled hypertension. - Musculoskeletal: Reports back pain and pain in the back of her leg. - Reports leg problems interfering with her ability to use the toilet. - General: Reports feeling unwell on a 100 mg dose of losartan. - Skin: Reports a history of chronic urticaria. 10-point ROS reviewed and negative except as noted in HPI Physical exam (Primary Care) Vital Signs: Last Vital Signs Temp 98 F 10/08/25 10:23 Pulse 84 10/08/25 10:23 Resp 18 10/08/25 10:23 BP 149/65 H 10/08/25 10:23 Pulse Ox 97 10/08/25 10:23 Oxygen Delivery Method Room Air 10/08/25 10:23 BMI result Body Mass Index 24.8 Tobacco/Smoking Status: Tobacco use Status Tobacco use date assessed 09/18/25 10/08/25 10:20 Patient Tobacco Use Status Never used Tobacco 10/08/25 10:23 e-Cigarette/Vaping Use Never Used 10/08/25 10:23 Thrive Assessment: Date of Thrive Assessment Date Thrive assessed 09/18/25 10/08/25 10:20 Narrative Physical Exam General: Well-appearing, in no acute distress. Vital signs: Blood pressure is elevated. HEENT: Normocephalic, atraumatic. PERRLA, EOMI. Conjunctiva clear, sclera anicteric. Oropharynx clear, mucous membranes moist. TMs intact bilaterally. Chronic sinusitis noted. Neck: Supple, no lymphadenopathy, no thyromegaly, no JVD or carotid bruits. Cardiovascular: RRR, normal S1/S2, no murmurs, rubs, or gallops. Peripheral pulses 2+ and symmetric. No edema. Respiratory: Lungs clear to auscultation bilaterally, no wheezes, rales, or rhonchi. Normal effort. Abdomen: Soft, non-tender, non-distended. Normoactive bowel sounds. No hepatosplenomegaly, no masses. MSK: Full range of motion, no joint swelling or deformity. Normal gait. Skin: Warm, dry, intact. No rashes, lesions, or pallor. Lipoma noted. Neuro: Alert and oriented x3. Cranial nerves II-XII intact. Strength 5/5 throughout. Sensation intact. Reflexes 2+ symmetric. Normal coordination and gait. Psych: Appropriate mood and affect. Normal judgment and insight. 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 Plan 1. Facial Lipoma - A referral to a general surgeon will be placed for evaluation and potential removal of the facial lipoma. 2. Hypercholesterolemia -lifestyle modifications discussed will discuss use of statin on follow up visit 3. Folate Deficiency - Folic acid will be prescribed to be taken daily. - Repeat blood work will be done in three months to re-evaluate folate levels. - Patient was educated on foods rich in folic acid, including spinach, lettuce, lentils, asparagus, broccoli, beets, oranges, avocado, and papaya. 4. Hypertension - A prescription for a blood pressure machine will be provided to allow for home monitoring. - A follow-up visit is scheduled in one week to check blood pressure. 5. Chronic Sinusitis - Advised to follow up with her ENT specialist for management of this chronic condition. 6. Mobility/Toileting Aid - A prescription for a recommended bathroom aid will be provided once the patient gives the necessary paperwork to the medical examiner. 7. Allergy/Anaphylaxis - A prescription for an epinephrine 0.3 mg auto-injector will be sent to the pharmacy; the patient was instructed to carry this with her at all times. Discussion Notes I reviewed the patient's recent lab results with her, noting the elevated cholesterol and low folate. I explained that I will prescribe a new medication , folic acid supplement to correct the deficiency. We also discussed dietary sources of folate. I informed her that the facial mass on her CT scan is a benign lipoma. Because it is causing her pain, I have placed a referral to a general surgeon for evaluation and possible removal. For her uncontrolled hypertension, I will provide a prescription for a home blood pressure monitor and scheduled a follow-up in one week to assess her readings. I advised her that her chronic sinusitis should be managed by her ENT specialist. I will also renew her epinephrine prescription and order a bathroom aid she requested once my nurse practitioner physician assistant receives the paperwork. Patient Instructions - Take one folic acid pill every day. - We will check your blood again in 3 months. - Try to eat more foods with folic acid, such as spinach, lettuce, lentils, asparagus, broccoli, beets, oranges, avocado, and papaya. - The lump on your face is a fatty growth called a lipoma. - We will send a referral for you to see a surgeon to have it removed. - We will send a prescription for a blood pressure machine to your pharmacy. - Please come back to the office in one week so we can check your blood pressure. - You should talk to your Ear, Nose, and Throat (ENT) specialist about your sinus problems since they are ongoing. - A prescription for an epinephrine pen will be sent to the pharmacy. - You must keep this with you at all times. - Please give the paperwork from your nurse for the bathroom equipment to my nurse practitioner physician assistant, and I will order it for you. Medical Decision Making The patient is a 80-year-old female who presented for a review of recent diagnostic results. Lab work was notable for hypercholesterolemia (total cholesterol 232 mg/dL, LDL 139 mg/dL) and a folate deficiency (3.5). Given her cholesterol levels, lifestyle modifications discussed will discuss statin intitiation on next visit, Folic acid supplementation is warranted to correct her deficiency. A recent head CT confirmed a facial lipoma. While this is a benign finding, the patient reports associated pain with mastication, so a referral to general surgery for evaluation and possible excision is appropriate. Her hypertension remains uncontrolled on losartan 50 mg, and she reports intolerance to a higher 100 mg dose. Home blood pressure monitoring is essential to guide further management, and I will have her return in one week for re-evaluation. Her other chronic conditions, including sinusitis and dysphagia, are being managed by the appropriate specialists, and she was advised to continue follow-up with them. Total Time Statement 20 min Total time spent caring for the patient today includes pre-visit chart review, documentation, review of laboratory and diagnostic imaging results, medication reconciliation, medically necessary evaluation, counseling on diagnoses, care coordination, ordering appropriate tests and medications, review of tests performed by other providers, reporting test results to the patient, and communication with other healthcare providers. Orders: Referrals General Surgery Referral D17.9 - Benign lipomatous neoplasm, unspecified Medications: New folic acid 1 mg PO DAILY 90 tabs 0RF [blood pressure kit] As directed 1 ea 0RF I10 - Essential (primary) hypertension Changed From epinephrine IM DIRECTED To epinephrine 0.3 mg (0.3 mL) IM DIRECTED 2 ea 0RF Discontinued [blood pressure kit] Discontinued Reason: Doctor's Order As directed 1 ea 0RF I10 - Essential (primary) hypertension
[2025-10-08 10:23] VITALS: BP 149/65; PULSE 84; RESP 18; TEMP 36.6; O2SAT 97; BMI 24.8
--- OUTSIDE RECORDS SUMMARY | 2025-10-08 13:38 | XMS_ITS | Clinical Summary ---
Author Organization [email or web address] Address [address] [place] [address] [address] [place] [address] Care Team Providers Care Planting Supervisor Name Role Phone Unavailable Primary Care Provider Unavailabl e Social History Tobacco Use Types Packs/Day Years Used Date Smoking Tobacco: Never Assessed Comments Unknown Sex and Gender Information Value Date Recorded Sex Assigned at Female 08/09/2022 10:35 AM EDT Legal Sex Female 10:35 AM EDT Gender Identity Choose not to disclose 10:35 AM EDT Sexual Orientation Choose not to disclose 2021 10:35 AM EDT Last Filed Vital Signs Vital Sign Reading Time Taken Comments Blood Pressure 136/62 05/27/2022 12:08 AM EDT Pulse 84 05/27/2022 12:08 AM EDT Temperature - - Respiratory Rate - - Oxygen Saturation - - Inhaled Oxygen Concentration - - Weight 70.8 kg (156 lb) 05/27/2022 12:08 AM EDT Height 160 cm (5' 3 ) 05/27/2022 12:08 AM EDT Body Mass Index 27.63 05/27/2022 12:08 AM EDT Plan of Treatment Health Maintenance Due Date Last Done Comments Depression Screening 1945 Alcohol/Substance Use Screening 1958 Tobacco Screening 1957 RSV Patients and Patients Aged 60 years or older (1 - 1-dose 75+ series) 2021 COVID-19 Vaccine ( season) 2025 03/23/2022, 09/09/2021, 01/05/2021 Influenza Vaccine (#1) 2025 2, 08/03/2021, 08/03/2021, Additional history exists DTaP/Tdap/Td Vaccines (3 - Td or Tdap) 05/27/2032 05/27/2022, 02/17/2012 Zoster Vaccines Completed 11/20/2021, 05/10, 01/13/2017 Pneumococcal Vaccine: 50+ Years Completed 05/27/2022, 11/03/2015, 10/08/2011 HIB Vaccines Aged Out No longer eligi ble based on patient's age to complete this topic HPV Vaccines Aged Out No longer eligi ble based on patient's age to complete this topic Hepatitis A Vaccines Aged Out No long er eligible based on patient's age to complete this topic Hepatitis B Vaccines Aged Out No long er eligible based on patient's age to complete this topic IPV Vaccines Aged Out No longer eligi ble based on patient's age to complete this topic Meningococcal B Vaccine Aged Out No l onger eligible based on patient's age to complete this topic Meningococcal Vaccine Aged Out No aram larissa eligible based on patient's age to complete this topic RSV under 20 months Aged Out No longe r eligible based on patient's age to complete this topic Rotavirus Vaccines Aged Out No longer eligible based on patient's age to complete this topic
--- OUTSIDE RECORDS SUMMARY | 2025-10-08 13:38 | XMS_ITS | Encounter Summary ---
Author Organization [employer] Address [address] [place] [address] Care Team Providers Care Food Prep Worker Name Role Phone Unavailable Primary Care Provider Unavailabl e Encounter Details Date Type Department Care Team (Latest Contact Info) Description 01/02/2019 Abstract [facility] CONVERSIONS Dental, Provider, DDS Social History Tobacco Use Types Packs/Day Years Used Date Smoking Tobacco: Never Assessed Comments Unknown Sex and Gender Information Value Date Recorded Sex Assigned at Female 08/09/2022 10:35 AM EDT Legal Sex Female 10:35 AM EDT Gender Identity Choose not to disclose 10:35 AM EDT Sexual Orientation Choose not to disclose 2021 10:35 AM EDT documented as of this encounter Plan of Treatment Not on file documented as of this encounter Visit Diagnoses Not on filedocumented in this encounter
--- OUTSIDE RECORDS SUMMARY | 2025-10-08 13:38 | XMS_ITS | Clinical Summary ---
Author Organization [facility] Address [address] [place] [address] Phone Care Team Providers Care Cleaner And Dyer Name Role Phone Miroslava Ruffin MD Primary Care Provider + Allergies Active Allergy Reactions Criticality Noted Date Comments Aspirin 09/06/2024 Erythromycin 09/06/2024 Iodinated Contrast Media Rash 12/28/2021 Lisinopril 09/06/2024 Morphine 09/06/2024 Naproxen 09/06/2024 Oxycodone 09/06/2024 Quinolones GI intolerance 02/18/2025 Sulfa (Sulfonamide Antibiotics) 08/11 Medications albuterol 2.5 mg /3 mL (0.083 %) nebulizer solution Take 3 mL (2.5 mg total) by nebulization every 6 (six) hours if needed for wheezing or shortness of breath. Active prednisoLONE acetate (PRED FORTE) 1 % ophthalmic suspension Administer 1 drop into both eyes 1 (one) time each day. Active losartan (COZAAR) 50 mg tablet Take 1 tablet (50 mg total) by mouth 1 (one) time each day. 30 each 09/10/20 24 Active amLODIPine (NORVASC) 2.5 mg tablet Take 3 tablets (7.5 mg total) by mouth 1 (one) time each day. 90 each 09/10/20 24 Active fluticasone propionate (FLONASE) 50 mcg/actuation nasal spray Administer 2 sprays into each nostril 1 (one) time each day. Shake gently. Before first use, prime pump. After use, clean tip and replace cap. 16 g 09/09/20 24 Active metoprolol succinate (TOPROL-XL) 25 mg 24 hr tablet Take 0.5 tablets (12.5 mg total) by mouth 1 (one) time each day. Do not crush or chew. 15 each 09/10/20 24 Active betamethasone dipropionate 0.05 % lotion APPLY TO ITCHY AREAS ON SCALP AND BACK TWICE A DAY NEEDED FOR FLARES 12/13/19 25 Active meclizine (ANTIVERT) 25 mg tablet 30 each, 0 Refill(s), TAKE 1 TABLET BY MOUTH 3 TIMES A DAY, 0 Refills, 09/13/24 4:20:00 PM EST, Partial fill upon patient request if the prescription is for a schedule II opioid drug. 09/13/20 24 Active simethicone (MYLICON) 80 mg chewable tablet CHEW 1 TABLET BY MOUTH 3 TIMES DAILY AND AT BEDTIME NEEDED FOR GAS Active tiZANidine (ZANAFLEX) 2 mg tablet TAKE 1 TABLET BY MOUTH EVERY 8 HOURS NEEDED MUSCLE SPASMS 08/07/20 24 Active prednisoLONE (PRELONE) 3 mg/mL solution Take 2 mg/kg/day by mouth. Active lidocaine 4 % patch Place 1 patch on the skin 1 (one) time each day at the same time. Active ketoconazole (NIZORAL) 2 % shampoo APPLY TO AFFECTED AREAS OF THE SCALP ONCE A DAY. 01/09/20 25 Active cetirizine (ZyrTEC) 10 mg tablet Take 1 tablet (10 mg total) by mouth. 05/09/20 23 Active acetaminophen 160 mg powder in packet Take by mouth. Activ e lactobacillus acidoph-l.bulgar 100 million cell granules in packet Take by mouth. Activ e famotidine (Pepcid) 20 mg tabletIndication s:Oropharyngeal dysphagia,Chroni c cough Take 1 tablet (20 mg total) by mouth 1 (one) time each day if needed for indigestion (or cough). 30 each 11 02/19/20 25 026 Active dicyclomine (BENTYL) 10 mg capsuleIndicatio ns:Irritable bowel syndrome, unspecified type Take 1 capsule (10 mg total) by mouth 3 (three) times a day. 90 each 11 08/30/20 25 026 Active vitamin D3-vitamin K2 1,250-200 mcg capsule Take 1,000 Int'l Units by mouth. 09/29/20 22 025 Active Problems Problem Noted Date Diagnosed Date Age-related cataract 02/08/2025 Overview (02/08/2025): LEFT cataract surgery 07/28/11 Anal pruritus 02/08/2025 Benign paroxysmal positional vertigo, bilateral 02/08/2025 Cough variant asthma 02/08/2025 Chronic tension-type headache, intractable 02/08 Greater trochanteric bursitis 02/08/2025 Glaucoma 02/08/2025 Diverticulosis of colon 02/08/2025 Overview (02/08/2025): per colonoscopy [facility] Diverticulitis 02/08/2025 Impaired fasting glucose 02/08/2025 Hypochondria 02/08/2025 Hypertension 02/08/2025 Hyperlipidemia 02/08/2025 History of total knee replacement 02/08/2025 Heartburn 02/08/2025 Hearing loss 02/08/2025 Overview (02/08/2025): left side. ENT refered her for hearing aide Osteoarthritis of left shoulder 02/08/2025 Myofascial pain syndrome, cervical 02/08/2025 Microscopic hematuria 02/08/2025 Irritable bowel syndrome 02/08/2025 Overview (02/08/2025): [id number] GI note ALISON on CPAP 02/08/2025 Spondylosis of lumbar spine 02/08/2025 Overview (02/08/2025): see x-ray - degenerative changes Scoliosis of lumbar spine 02/08/2025 Overview (02/08/2025): on x-ray Shoulder pain 02/08/2025 Simple renal cyst 02/08/2025 Overview (02/08/2025): on 2011 US and [address] Spondyloarthropathy 02/08/2025 Other fatigue 02/08/2025 Sacroiliac joint dysfunction of left side 2024 Tubular adenoma 02/08/2025 Acute poliomyelitis 02/08/2025 Overview (02/08/2025): cites polio age 4, had right leg problems ever since she notes Occipital pain 11/13/2024 Posterior rhinorrhea 11/13/2024 Hypertensive urgency 09/08/2024 Chest pain 09/06/2024 Neck pain 08/07/2024 Poor compliance with medication 08/07/2024 Headache 06/26/2024 Osteoarthritis of left glenohumeral joint 2023 Arthralgia of left temporomandibular joint 12/22 Overview (02/08/2025): Arthralgia of left temporomandibular joint; Note: Date Diagnosed: 12/22/2021 5:00 PM (M26.622) 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 12/22/2021 Overview (02/08/2025): Other giant cell arteritis; Note: Date Diagnosed: 12/22/2021 4:59 PM (M31.6) Pruritus 06/24/2021 Overview (02/08/2025): Other pruritus; Note: Date Diagnosed: 06/24/2021 10:25 AM (L29.8) Gastroesophageal reflux disease without esophagi tis 01/20/2021 Overview (02/08/2025): Gastro-esophageal reflux disease without esophagitis; Note: Date Diagnosed: 01/20/2021 11:19 AM (K21.9) Dysphagia 01/20/2021 Overview (02/08/2025): Odynophagia; Note: Date Diagnosed: 01/20/2021 11:19 AM (787.20) Dysphagia, unspecified; Note: Date Diagnosed: 01/20/2021 11:19 AM (R13.10) Assessment & Plan (02/18/2025 5:10 PM EDT): To review differential. Further evaluation barium swallow. Consider EGD pending results. Maintain soft diet, chew thoroughly and slowly. Orders: XR Esophagram; Future famotidine (Pepcid) 20 mg tablet; Take 1 tablet (20 mg total) by mouth 1 (one) time each day if needed for indigestion (or cough). Sensorineural hearing loss (SNHL) of both ears 0 01/20/2021 Overview (02/08/2025): Sensorineural hearing loss, bilateral; Note: Date Diagnosed: 01/20/2021 11:19 AM (H90.3) Acute maxillary sinusitis 06/05/2020 Overview (02/08/2025): Acute maxillary sinusitis, unspecified; Note: Date Diagnosed: 06/05/2020 2:50 PM (J01.00) Allergic rhinitis due to pollen 01/24/2020 Overview (02/08/2025): Allergic rhinitis due to pollen; Note: Date Diagnosed: 01/24/2020 9:22 AM (J30.1) Chronic sinusitis 01/24/2020 Overview (02/08/2025): Chronic sinusitis, unspecified; Note: Date Diagnosed: 01/24/2020 9:21 AM (J32.9) Encounters Date Type Department Care Team Description 09/24/2025 8:45 AM EST - 09/24/2025 11:59 PM EST Hospital Encounter [facility] Xray [address] [place] [id number] Oropharyngeal dysphagia; Chronic cough Discharge Disposition: Home or Self Care 09/24/2025 Results Follow-Up Gastroenterology - [address] [id number] Alia Wen MD 08/30/2025 Telephone Gastroenterology - [address] [phone] Deandre Cheng MD from Last 3 Months Surgical History Surgery Date Site/Laterality Comments SECTION PROCEDURE: SD DELIVERY ONLY HYSTERECTOMY PROCEDURE: HISTORICAL HYSTERECTOMY TOTAL KNEE ARTHROPLASTY PROCEDURE: SD ARTHRP KNE CONDYLE&PLATU MEDIAL&LAT COMPARTMENTS OTHER SURGICAL HISTORY 2020 Left PROCEDURE: ---- OTHER ----; COMMENT: glaucoma COLONOSCOPY 04/26/2023 ESOPHAGOGASTRODUODENOSCOPY 03/16/2007 Medical History Medical History Date Comments Hypertension Asthma Glaucoma Osteoarthritis Chronic urticaria Diverticulitis Family History Medical History Relation Name Comments Cancer Other No Known Problems Son Relation Name Status Comments Other Son Social History Tobacco Use Types Packs/Day Years Used Date Smoking Tobacco: Never Alcohol Use Standard Drinks/Week Comments Not Currently 0 (1 standard drink = 0.6 oz pur e alcohol) Interpersonal Safety Answer Date Record ed Physical Abuse Unrecognized value 09/06/2024 Verbal Abuse Unrecognized value 09/06/2024 Comments Unknown Sex and Gender Information Value Date Recorded Sex Assigned at Female 07/01/2025 9:17 AM EDT Legal Sex Female 2:14 PM EST Gender Identity Not on file Sexual Orientation Not on file Last Filed Vital Signs Vital Sign Reading Time Taken Comments Blood Pressure 162/62 01/17/2025 1:36 AM EDT Pulse 61 01/17/2025 1:36 AM EDT Temperature 36.7 C (98.1 F) 01/17/2025 1:36 AM EDT Respiratory Rate 18 01/17/2025 1:36 AM EDT Oxygen Saturation 97% 01/17/2025 1:36 AM EDT Inhaled Oxygen Concentration - - Weight 64.9 kg (143 lb) 02/18/2025 1:05 PM EDT Height 160 cm (5' 3 ) 02/18/2025 1:05 PM EDT Body Mass Index 25.33 02/18/2025 1:05 PM EDT Plan of Treatment Health Maintenance Due Date Last Done Comments RSV Immunization Adult Patients (1 - 1-dose 75+ series) 2021 Falls Risk Assessment 09/08/2022 Hepatitis C Screening 09/08/2022 Medicare Annual Wellness Visit 09/08/2022 Osteoporosis Screening (Bone Density Screening) 09/08/2022 Social Influencers of Health Screening 09/08/2022 Depression Screening 10/10/2024 COVID-19 Vaccine ( season) 2025 03/23/2022, 09/09/2021, 01/05/2021 Hypertension/CHF/CAD Annual BMP Blood Test 01/17/2026 01/17/2025, 09/09/2024, 09/08/2024, Additional history exists Cholesterol Screening (Lipid Panel) 09/07/2029 09/07/2024 DTaP,Tdap,and Td Vaccines (3 - Td or Tdap) 05/27/2032 05/27/2022, 02/17/2012 Zoster Vaccines Completed 11/20/2021, 05/10, 01/13/2017 Influenza Vaccine Completed 08/23/2025, , 09/30/2023, Additional history exists Pneumococcal Vaccine: 50+ Years Completed 08/23/2025, 05/27/2022, 11/03/2015, Additional history exists HIB Vaccines Aged Out No longer eligi [...] on patient's age to complete this topic MMR Vaccines Aged Out No longer eligi ble based on patient's age to complete this topic Meningococcal ACWY Vaccine Aged Out N o longer eligible based on patient's age to complete this topic Meningococcal B Vaccine Aged Out No l onger eligible based on patient's age to complete this topic RSV Immunization Patients Under 20 months Aged Out No longer eligible based on patient's age to complete this topic Varicella Vaccines Aged Out No longer eligible based on patient's age to complete this topic Procedures Procedure Name Priority Date/Time Associated Diagnosis Comments XR ESOPHAGRAM Routine 09/24/2025 9:33 AM EST Oropharyngeal dysphagia Chronic cough BASIC METABOLIC PANEL STAT 01/17/2025 12:37 AM EDT LIPID PANEL WITH REFLEX TO DIRECT LDL Routine 09/07/2024 6:00 AM EST from Last 3 Months or Most Recently Relevant to Health Maintenance Results * XR Esophagram (09/24/2025 9:33 AM EST) Anatomical Region Laterality Modality Head and Neck Radiographic Jennifer ging 09/24/2025 10:0 7 AM EST Impressions 09/24/2025 10:28 AM EST 1.Moderate esophageal dysmotility. 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 3.Mucosal thickening of the distal esophagus at the area of the GE junction which may be secondary to tiny, fixed hiatal hernia versus reflux esophagitis. -------- FINAL REPORT -------- Dictated By: Emily Gutierrez Dictated Date: 09/24/2025 10:07 ET Assigned Physician: Sathish Carrizales Reviewed and Electronically Signed By: Sathish Carrizales Signed Date: 09/24/2025 10:28 ET Workstation ID: [id number] Transcribed By: Self Edit Transcribed Date: 09/24/2025 10:18 ET Resident/PA/AIR CONDITIONING MANAGER: Emily Gutierrez Narrative 09/24/2025 10:28 AM EST FINDINGS: Double contrast esophagram performed. COMPARISON: No prior esophagram imaging. HISTORY: Patient is a 79-year-old female with history of dysphagia, choking. Plate Finisher radiographs: 1 view chest radiograph demonstrates cardiac and mediastinal contours within normal limits. Lungs are grossly clear bilaterally. Costophrenic angles are sharp. Aortic knob is calcified. Moderate bony degenerative changes are noted of the thoracolumbar spine. 1 view lateral soft tissue neck demonstrates no prevertebral soft tissue masses. Airway is widely patent. There is diffuse bony demineralization of the cervical spine. Nuchal ligament is calcified. Effervescent crystals were administered orally. Thick and thin barium were administered orally under fluoroscopic control. Pharyngoesophagram: Rapid sequence imaging of the hypopharynx during swallowing demonstrates prompt initiation of swallowing. There is normal soft palate elevation and normal epiglottic motion. There is no laryngeal penetration or pam aspiration. There is no residual in the vallecula nor in the piriform sinuses. Thoracic esophagus: There is moderate esophageal dysmotility as demonstrated by slow transit of contrast down the esophagus and visualized tertiary contractions. Normal distensibility. There are transient, transverse folds along the distal half of the esophagus, consistent with feline esophagus. There is mucosal thickening of the distal esophagus at the area of the GE junction which may be secondary to tiny, fixed hiatal hernia versus reflux esophagitis. There is no evidence of ulceration or mass formation. Reflux: Not visualized 13mm Barium pill: Swallowed without difficulty. Prompt passage of pill from the esophagus into the stomach. Air Kerma: 22.84mGy Procedure Note Sathish Carrizales MD - 09/24/2025 FINDINGS: Double contrast esophagram performed. COMPARISON: No prior esophagram imaging. HISTORY: Patient is a 79-year-old female with history of dysphagia,choking. Plate Finisher radiographs: 1 view chest radiograph demonstrates cardiac andmediastinal contours within normal limits. Lungs are grossly clearbilaterally. Costophrenic angles are sharp. Aortic knob is calcified.Moderate bony degenerative changes are noted of the thoracolumbar spine. 1view lateral soft tissue neck demonstrates no prevertebral soft tissuemasses. Airway is widely patent. There is diffuse bony demineralization ofthe cervical spine. Nuchal ligament is calcified. Effervescent crystals were administered orally. Thick and thin barium wereadministered orally under fluoroscopic control. Pharyngoesophagram: Rapid sequence imaging of the hypopharynx duringswallowing demonstrates prompt initiation of swallowing. There is normalsoft palate elevation and normal epiglottic motion. There is no laryngealpenetration or pam aspiration. There is no residual in the vallecula norin the piriform sinuses. Thoracic esophagus: There is moderate esophageal dysmotility asdemonstrated by slow transit of contrast down the esophagus and visualizedtertiary contractions. Normal distensibility. There are transient,transverse folds along the distal half of the esophagus, consistent withfeline esophagus. There is mucosal thickening of the distal esophagus atthe area of the GE junction which may be secondary to tiny, fixed hiatalhernia versus reflux esophagitis. There is no evidence of ulceration ormass formation. Reflux: Not visualized 13mm Barium pill: Swallowed without difficulty. Prompt passage of pillfrom the esophagus into the stomach. Air Kerma: 22.84mGy IMPRESSION: 1.Moderate esophageal dysmotility. 2.Feline esophagus. This is a transient phenomenon highly associated withGERD requiring no follow-up. 3.Mucosal thickening of the distal esophagus at the area of the GEjunction which may be secondary to tiny, fixed hiatal hernia versus refluxesophagitis. -------- FINAL REPORT -------- Dictated By: Emily Gutierrez Dictated Date: 09/24/2025 10:07 ET Assigned Physician: Sathish Carrizales Reviewed and Electronically Signed By: Sathish Carrizales Signed Date: 09/24/2025 10:28 ET Workstation ID: [id number] Transcribed By: Self Edit Transcribed Date: 09/24/2025 10:18 ET Resident/PA/AIR CONDITIONING MANAGER: Emily Gutierrez Madonna PHILLIPS IMG FLUOROSCOPY PROCEDURES Sonia l Result * (ABNORMAL) Basic metabolic panel (01/17/2025 12:37 AM EDT) Sodium 142 133 - 145 mmol/L LAB CHEMISTRY METHOD 01/17/2025 1:24 AM [facility] Potassium 4.0 3.5 - 5.5 mmol/L LAB CHEMISTRY METHOD 01/17/2025 1:24 AM [facility] Chloride 107 96 - 110 mmol/L LAB CHEMISTRY METHOD 01/17/2025 1:24 AM [facility] CO2 29 21 - 32 mmol/L LAB CHEMISTRY METHOD 01/17/2025 1:24 AM [facility] Anion Gap 6 3 - 11 LAB CHEMISTRY METHOD 01/17/2025 1:24 AM [facility] Glucose 105(H) 70 - 100 mg/dL LAB CHEMISTRY METHOD 01/17/2025 1:24 AM [facility] BUN 17 5 - 25 mg/dL LAB CHEMISTRY METHOD 01/17/2025 1:24 AM [facility] Creatinine 0.66 0.50 - 1.10 mg/dL LAB CHEMISTRY METHOD 01/17/2025 1:24 AM EDT [facility] eGFR 90 >=60 mL/min/1. 73m2 LAB CHEMISTRY METHOD 01/17/2025 1:24 AM EDT [facility] Comment:Calculation based on the Chronic Kidney Disease Epidemiology Collaboration (CKD-EPI) equation refit without adjustment for race. BUN/Creatinine Ratio 25.8 LAB CHEMISTRY METHOD 01/17/2025 1:24 AM EDT [facility] Calcium 9.8 8.5 - 10.5 mg/dL LAB CHEMISTRY METHOD 01/17/2025 1:24 AM T [facility] Blood Venous blood specimen / Unknown Venipuncture / Unknown 01/17/2025 12:37 AM EDT 01/17/2025 12:55 AM EDT us Sameera Cabrera MD LAB BLOOD ORDERABLES Fin al Result [facility] [address] [place] [address], [place] [phone] * (ABNORMAL) Lipid panel with reflex to direct LDL (09/07/2024 6:00 AM EST) Cholesterol 224(H) 0 - 200 mg/dL LAB CHEMISTRY METHOD 09/07/2024 7:03 AM [facility] Triglycerides 102 0 - 150 mg/dL LAB CHEMISTRY METHOD 09/07/2024 7:03 AM [facility] HDL 72 >=40 mg/dL LAB CHEMISTRY METHOD 09/07/2024 7:03 AM [facility] LDL Calculated 132(H) 0 - 100 mg/dL LAB CHEMISTRY METHOD 09/07/2024 7:03 AM [facility] VLDL Cholesterol Lebron 20.4 mg/dL LAB CHEMISTRY METHOD 09/07/2024 7:03 AM [facility] Non HDL Chol. (LDL+VLDL) 152(H) <145 mg/dL LAB CHEMISTRY METHOD 09/07/2024 7:03 AM EST [facility] Chol/HDL Ratio 3.1 0.0 - 4.4 LAB CHEMISTRY METHOD 09/07/2024 7:03 AM EST [facility] Blood Venous blood specimen / Unknown Venipuncture / Unknown 09/07/2024 6:00 AM EST 09/07/2024 6:21 AM EST us Katina PHILLIPS LAB BLOOD ORDERABLES Final Resu lt [facility] [address] [place] [address], from Last 3 Months or Most Recently Relevant to Health Maintenance Insurance [facility] Member Subscriber Plan / Payer (Ef fective 2012-Present) Name:Nia Back Relation to Subscriber:Self Name:Nia Back Payer ID:[id number] Group ID:[id number] Type:Not on file Address: [place] [address] [address] [id number] Advance Directives Documents on File Type Date Recorded Patient Cst Expl anation Advance Directives and Living Will 09/10/2024 10:19 AM Health Care Decision (hx) 12/29/2021 AD ELIZABETH DIRECTIVE Health Care Decision (hx) 12/29/2021 AD ELIZABETH DIRECTIVE Health Care Decision (hx) 12/29/2021 AD ELIZABETH DIRECTIVE Health Care Decision (hx) 12/29/2021 AD ELIZABETH DIRECTIVE Health Care Decision (hx) 12/29/2021 AD ELIZABETH DIRECTIVE Health Care Decision (hx) 12/29/2021 AD ELIZABETH DIRECTIVE * Full Code - Default (Latest Code Status on File) Date Activated Date Inactivated Comments 09/06/2024 3:07 PM 09/09/2024 2:17 PM This is ord er is used when code status has not been discussed with the patient, or code status is otherwise unknown/unconfirmed To update the patient's code status, place a code status order. Do not modify or discontinue any currently active code status orders. Care Teams Cleaner And Dyer Relationship Specialty Start Date End Date Miroslava Ruffin MD [address] [place] [address] PCP - General Internal Medicine 07/01/25
--- OUTSIDE RECORDS SUMMARY | 2025-10-08 13:39 | XMS_ITS | Encounter Summary ---
Author Organization [facility] Address [address] [place] [address] Phone Care Team Providers Care Control Electrician Name Role Phone Le Allen DO Primary Care Provid er Encounter Details Date Type Department Care Team (Late st Contact Info) Description 05/10/2019 Procedure Pass [facility] [address] [place] [address] Social History Tobacco Use Types Packs/Day Years Used Date Smoking Tobacco: Never Assessed Comments Unknown Sex and Gender Information Value Date Recorded Sex Assigned at Not on file Legal Sex Female 11:12 AM EDT Gender Identity Not on file Sexual Orientation Not on file documented as of this encounter Last Filed Vital Signs Vital Sign Reading Time Taken Comments Blood Pressure - - Pulse - - Temperature - - Respiratory Rate - - Oxygen Saturation - - Inhaled Oxygen Concentration - - Weight 65.3 kg (143 lb 15.4 oz) 019 10:38 AM EDT Height - - Body Mass Index 26.33 05/10/2019 10:47 AM EDT documented in this encounter Plan of Treatment Not on file documented as of this encounter Visit Diagnoses Not on filedocumented in this encounter Care Teams Control Electrician Relationship Specialty Start Date End Date Le Allen DO [address] [place] [address] PCP - General Pediatrics 05/02/19 documented as of this encounter Additional Source Comments The information contained in this document represents components of the legal health record. It is not the complete legal health record.[facility]
--- OUTSIDE RECORDS SUMMARY | 2025-10-08 13:39 | XMS_ITS | Clinical Summary ---
Author Organization [facility] Address [address] [place] [address] Care Team Providers Care Plasterer Stucco Name Role Phone Malik Maldonado Primary Care Provider [phone] Allergies No known active allergies Medications acetaminophen-c odeine (TYLENOL #2) 300-15 mg per tablet 1 Active acetaZOLAMIDE (DIAMOX) 500 mg capsule Take 500 mg by mouth 2 times a day. 1 Active albuterol 2.5 mg/3 mL (0.083%) nebulizer solution 1 Active amLODIPine (NORVASC) 10 mg tablet TAKE ONE TABLET BY MOUTH EVERY DAY. 1 Active amoxicillin-cla vulanate (AUGMENTIN) 875-125 mg tablet 1 Active atropine 1% ophthalmic solution 1 drop 2 times a day. 1 Active brimonidine (ALPHAGAN) 0.2% ophthalmic solution Instill 1 drop into the right eye once a day. 1 Active cetirizine (ZyrTEC) 10 mg tablet Take 10 mg by mouth once a day. 1 Active ciprofloxacin (CIPRO) 500 mg tablet 1 Active dorzolamide-max oloL (COSOPT) 22.3-6.8 mg/mL ophthalmic solution 1 drop 2 times a day. 1 Active doxepin 25 mg capsule Take 25 mg by mouth nightly. 1 Active EPINEPHrine (EPIPEN) 0.3 mg/0.3 mL injection syringe SMARTSIG:IM As Directed 1 Active Flovent HFA 110 mcg/actuation inhaler INHALE ONE PUFF TWICE DAILY. RINSE MOUTH AFTER USE. 1 Active Alaway 0.025 % (0.035 %) ophthalmic solution SMARTSIG:In Eye(s) 1 Active lidocaine 4 % adhesive patch,medicated Place 1 patch on the skin every 24 hours. Active meclizine (ANTIVERT) 25 mg tablet 1 Active melatonin 1 mg tablet Take 1 mg by mouth nightly. 1 Active metroNIDAZOLE (FLAGYL) 500 mg tablet 1 Active neomycin-polymy naveen B-dexamethasone (MAXITROL) 3.5 mg/g-10,000 unit/g-0.1 % ointment 1 Active ofloxacin (OCUFLOX) 0.3 % ophthalmic solution INSTILL 1 DROP FOUR TIMES DAILY START DROP DIRECTED AT POST OP APPOINTMENT ON 02/11/2021, IN THE RIGHT EYE. TAPER DROPS DIRECTED TO NAZ 1 Active olopatadine (PATADAY) 0.2 % ophthalmic solution 1 drop once a day. 1 Active Fish OiL 340-1,000 mg capsule Take 1,000 mg by mouth 3 times a day. 1 Active oxybutynin (OXYTROL) 3.9 mg/[address] 1 patch on the skin 2 times a week. Active pantoprazole DR (PROTONIX) 40 mg tablet Take 40 mg by mouth 2 times a day. 1 Active prednisoLONE acetate (PRED FORTE) 1% ophthalmic suspension PLACE ONE DROP IN THE LEFT EYE THREE TIMES DAILY FOR 2 WEEKS, THEN TWICE DAILY FOR 2 WEEKS 1 Active tiZANidine (ZANAFLEX) 2 mg tablet TAKE ONE TABLET EVERY SIX TO 12 HOURS NEEDED, DO NOT EXCEED THREE TABLETS IN 24 HOURS. START WITH ONE TABLET AT BEDTIME 1 Active tobramycin-dexA METHasone (TOBRADEX) ophthalmic suspension SMARTSIG:In Eye(s) 1 Active netarsudiL (Rhopressa) 0.02 % drops ophthalmic solution 1 drop 2 (two) times a day. In the right eye only Active dorzolamide-max olol, PF, 2-0.5 % drops Instill 1 drop into affected eye(s) 2 times a day. In the right eye only Active latanoprost (XALATAN) 0.005% ophthalmic solution Instill 1 drop into the right eye nightly. Active Active Problems No known active problems Social History Tobacco Use Types Packs/Day Years Used Date Smoking Tobacco: Never Smokeless Tobacco: Never Comments Unknown Sex and Gender Information Value Date Recorded Sex Assigned at Not on file Legal Sex Female 3:26 PM EDT Gender Identity Not on file Sexual Orientation Not on file Plan of Treatment Health Maintenance Due Date Last Done Comments DTaP,Tdap,and Td Vaccines (1 - Tdap) 1968 Osteoporosis Screening 1996 Pneumococcal Vaccine: 50+ Years (1 of 1 - PCV) 1996 Zoster Vaccines (2 of 2) 07/14/2021 05/19/2021 RSV Vaccine (60+ years old and patients) (1 - 1-dose 75+ series) 2021 Alcohol/Substance Use Screening 10/10/2024 Health Care Proxy Review 10/10/2024 Influenza Vaccine (#1) 2025 , 08/04/2020, 07/05/2019 COVID-19 Vaccine (3 - 2024-2 6 season) 2025 09/09/2021, 01/05/2021 Hepatitis B Vaccines Aged Out No long er eligible based on patient's age to complete this topic [place] [address] [place] [address] [employer] [id number] Care Teams Plasterer Stucco Relationship Specialty Start Date End Date Malik Maldonado [address] [place] [id number] PCP - General Internal Medicine 06/17/21
--- OUTSIDE RECORDS SUMMARY | 2025-10-08 13:39 | XMS_ITS | Clinical Summary ---
Author Organization [facility] Address [address] [place] [address] Phone Care Team Providers Care Pearler Name Role Phone Le Allen DO Primary Care Provid er Allergies Active Allergy Reactions Criticality Noted Date Comments Erythromycin 05/10/2019 Lisinopril 05/10/2019 Naproxen 05/10/2019 Sulfacetamide Sodium 05/10/2019 Medications ranitidine HCl (ZANTAC ORAL) Take by mouth. Active losartan potassium (LOSARTAN ORAL) Take by mouth. Active ergocalciferol, vitamin D2, (VITAMIN D2 ORAL) Take by mouth. Active acetaminophen (TYLENOL ORAL) Take by mouth. Active Lactobacillus acidophilus (PROBIOTIC ORAL) Take by mouth. Active SIMETHICONE ORAL Take by mouth. Active brimonidine 0.025 % Drop Apply to eye. Active LATANOPROST OPHT Apply to eye. Active lidocaine 4 % Place 1 patch onto the skin daily. Active MELATONIN ORAL Take by mouth. Active oxybutynin (OXYTROL) 3.9 mg/[address] 1 patch onto the skin 2 (two) times a week. Active Active Problems No known active problems Social History Tobacco Use Types Packs/Day Years Used Date Smoking Tobacco: Never Assessed Tobacco Cessation:Counseling Given: Yes Education Answer Date Recorded Are you interested in more education? Not on zarina e 02/04/2023 Are you concerned about learning? Not on file 02/04/2023 No 02/04/2023 No 02/04/2023 Digital Access Answer Date Recorded No 03/08/2023 No 03/08/2023 Reliable internet access at home? Not on file 03/08/2023 Device with a working camera? Not on file Comments Unknown Sex and Gender Information Value [...] 15.4 oz) 019 10:38 AM EDT Height 157.5 cm (5' 2 ) 05/17/2019 10:4 0 AM EDT Body Mass Index 26.33 05/10/2019 10:47 AM EDT Plan of Treatment Health Maintenance Due Date Last Done Comments Adult Td,Tdap Booster 1946 CREATININE LEVEL 1946 LIPID PANEL 1946 POTASSIUM LEVEL 1946 DEPRESSION SCREENING 1958 SMOKING Hx and SMOKELESS TOBACCO SCREENING 1959 HEPATITIS C SCREENING 1964 PNEUMOCOCCAL VACCINES (50+ years) (1 of 1 - PCV) 1996 ZOSTER VACCINES (1 of 2) 1996 OSTEOPOROSIS SCREENING INITI AL (ONE-TIME) 2011 RSV VACCINE (1 - 1-dose 75+ series) 2021 INFLUENZA VACCINE (#1) 2025 0, 07/05/2019 COVID-19 VACCINE (2 - 2024-2 6 season) 2025 01/05/2021 HEPATITIS A VACCINES Aged Out No long er eligible based on patient's age to complete this topic HIB VACCINES Aged Out No longer eligi ble based on patient's age to complete this topic MENINGOCOCCAL VACCINES (ACWY) Aged Out No longer eligible based on patient's age to complete this topic MENINGOCOCCAL VACCINES (B) Aged Out N o longer eligible based on patient's age to complete this topic Medical Devices Not on [place] [address] [place] [address] [place] [address] [place] [address] MEDICARE REPLACEMENT MEDICARE REPLACEMENT MEDICARE REPLACEMENT Care Teams Pearler Relationship Specialty Start Date End Date Le Allen DO [address] [place] [id number] PCP - General Pediatrics 05/02/19 Additional Source Comments The information contained in this document represents components of the legal health record. It is not the complete legal health record.[facility]
--- OUTSIDE RECORDS SUMMARY | 2025-10-08 13:39 | XMS_ITS | Encounter Summary ---
Author Organization [facility] Address [address] [place] [address] Care Team Providers Care Legal Associate Name Role Phone Miroslava Ruffin MD Primary Care Provider + Encounter Details Date Type Department Care Team (Late st Contact Info) Description 09/24/2025 Results Follow-Up Gastroenterology - [address] [place] [address] Alia Wen MD [address] [place] [address] Social History Tobacco Use Types Packs/Day Years [...] on file documented as of this encounter Progress Notes * Alia Wen MD - 09/24/2025 5:02 PM EST Please let patient know that her esophagram revealed esophageal dysmotility. This is most likely the cause of her dysphagia symptoms. There is no medications that are needed for this. I would recommend chewing well and eating slowly. Some mild irritation was noted from either a hiatal hernia or mild reflux as well. If her symptoms are well-controlled at this time I would not advise any further wor kup. documented in this encounter Plan of Treatment Not on file documented as of this encounter Visit Diagnoses Not on filedocumented in this encounter Care Teams Legal Associate Relationship Specialty Start Date End Date Miroslava Ruffin MD [address] [place] [address] PCP - General Internal Medicine 07/01/25 documented as of this encounter
== END 2025-10-08 10:52 | disposition home or self-care (01) ==
LOC: HO.HMCFMS 10:18
PROVIDERS: Visit Provider Student in an Organized Health Care Education/Training Program
DX: R26.81 Unsteadiness on feet (principal); Z99.89 Dependence on other enabling machines and devices; G14 Postpolio syndrome; D17.0 Benign lipomatous neoplasm of skin and subcutaneous tissue of head, face and neck; J32.9 Chronic sinusitis, unspecified; I10 Essential (primary) hypertension; R13.10 Dysphagia, unspecified

== ENCOUNTER → 2025-10-08 10:17 | Outpatient (BNVA) | payer OTHER, SELFPAY | PROVIDERS: Visit Provider Student in an Organized Health Care Education/Training Program | DX: R26.81 Unsteadiness on feet (principal); G14 Postpolio syndrome; D17.0 Benign lipomatous neoplasm of skin and subcutaneous tissue of head, face and neck; J32.9 Chronic sinusitis, unspecified; I10 Essential (primary) hypertension; R13.10 Dysphagia, unspecified; Z99.89 Dependence on other enabling machines and devices | CPT/HCPCS: 99212 ==